=== PATIENT | female | born 1955 | race Caucasian/White ===

== ENCOUNTER → 2020-05-27 13:25 | Outpatient (CLI) | payer OTHER, SELFPAY ==
[2020-05-27 14:43] LABS: Coronavirus 19 IgG Antibody Negative (Negative); Coronavirus 19 IgM Antibody Negative (Negative)
== END ==
PROVIDERS: Visit Provider Internal Medicine Gastroenterology
DX: Z01.818 Encounter for other preprocedural examination (principal); Z20.822 Contact with and (suspected) exposure to COVID-19; Z13.810 Encounter for screening for upper gastrointestinal disorder; Z12.11 Encounter for screening for malignant neoplasm of colon
CPT/HCPCS: 36415; 86328

== ENCOUNTER 2020-05-28 10:55 | Day surgery (SDC) | payer OTHER, SELFPAY ==
[2020-05-26 12:45] VITALS: BMI 25.0
[2020-05-28] VITALS (7 sets, daily range): BP systolic 86–126; BP diastolic 47–79; PULSE 50–60; RESP 16–18; TEMP 36.4–36.6; O2SAT 96–97
--- NOTE | 2020-05-28 12:05 | P.PN_ITS ---
[facility] Anesthesia Checklist - Structural Data Admitted From: Home Planned Operative Procedure/s: egd,colonoscopy Consent for Planned Operative Procedure(s) Verified: Yes - Additional verifications Anesthesia Reactions: No - Airway Assessment C-Spine Mobility Assessed: Yes TMJ Mobility Assessed: Yes Dentition: Dentures-good fit - Neurological Assessment Level of Consciousness: Awake, Alert, Appropriate - Anesthesia Plan Anesthesia Risk discussed: Yes Anesthesia Plan: Verified ASA Class: II Anesthesia Type: MAC [facility] History I have reviewed the patient's past medical history: Yes Medical History: Reports:: Arrhythmia, Gastroesophageal Reflux Disease(GERD) Denies:: Cancer, Diabetes Mellitus Type 1, Diabetes Mellitus Type 2, Internal Pacemaker, Lung Disease, MRSA, Seizures *Have you ever received a pneumonia vaccine?: No *Have you received a flu vaccine this season?: No Anesthesia experience/problems:: none Other Surgeries: No: Pacemaker Amputation: No Fractures: Yes (foot) - *Social History Last grade of school completed: Some college Smoking Status: Current every day smoker Tobacco Type: cigarettes # Packs/Day (cigarettes): 1 Alcohol Intake: never Substance Use Type: denies use *Occupational Status:: employed Housing: house Household Members: none *Travel in the last 8 weeks: None Family Hx:: Cancer, Coronary Artery Disease, Heart Attack
--- NOTE | 2020-05-28 12:17 | P.PCN_ITS ---
[facility] Procedure Note Procedure Note:: Upper Endoscopy Procedure Report: Esophagogastroduodenoscopy with cold biopsies Endoscopost: Justin Toth II, MD Referring Physician: Elijah Wooten MD Date of Procedure: May 28, 2020 Equipment: Olympus GIF 190 standard upper endoscope Sedation: MAC sedation Indications: Mrs. Myers is a 64-year-old female who has had upper abdominal extreme bloating and upper abdominal discomfort with dyspepsia. She has had moderate early satiety. She reports nausea and minor belching. Her occasional heartburn and reflux is controlled with the use of Tums or Prilosec when necessary. She has had prior cholecystectomy 4 to 5 years ago (nonfunctioning gallbladder). She also has some chronic constipation and has a bowel movement 2-3 times weekly. She also has a history of H. pylori diagnosed 3 to 4 years ago. The patient reports no dysphagia or globus sensation. She did have a colonoscopy with me in March 2018. Procedure: Prior to the procedure, a history and physical exam was performed, and patient's medications and allergies were reviewed. The risks, benefits and alternatives of the sedation and procedure were discussed with the patient. All questions were answered and informed consent was obtained. The patient was brought to the procedure room. Patient identification and proposed procedure were verified by the physician and the nurse. The patient was placed in a left lateral decubitus position and the scope was passed under direct vision. Throughout the procedure, the patient's blood pressure, pulse, and oxygen saturations were monitored continuously. The upper GI endoscopy was accomplished without difficulty. The patient tolerated the procedure well. Findings: The scope was passed directly into the upper esophagus and advanced to the third portion of the duodenum. The post bulbar duodenum and duodenal bulb were normal with normal mucosa and conniventes. The scope was withdrawn through a normal duodenal bulb and pylorus into the stomach. There was moderate bile reflux with moderate linear reactive gastropathy of the antrum and body of the stomach. The remainder of the fundus of the stomach were grossly normal. Upon retroflexion there was a small 2 cm hiatal hernia. 2 biopsies were taken in the antrum and along the lesser curvature for histology to rule out gastritis and/or H pylori. The scope was then withdrawn into the esophagus. There was a serrated Z-line and evidence of of nonerosive GERD. A biopsy was taken at the GE junction. There was no evidence of reflux esophagitis or Avendaño's. There were tertiary contractions and evidence of mild esophageal dysmotility. The remainder of the esophageal mucosa was normal. Impression: 1. Nonerosive GERD with mild esophageal dysmotility and small 2 cm hiatal hernia 2. Bile reflux with moderate linear reactive gastropathy Plan: I will follow-up the biopsies. 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 I will discuss treatment options. I will proceed with diagnostic colonoscopy.
--- NOTE | 2020-05-28 12:39 | P.PCN_ITS ---
[facility] Procedure Note Procedure Note:: Colonoscopy Procedure Report: Colonoscopy with cold snare polypectomy Endoscopist: Justin Toth II, MD Referring physician: Elijah Wooten MD Date of Procedure: May 28, 2020 Equipment: Olympus 190 variable stiffness pediatric colonoscope Sedation: MAC sedation Indication: Mrs. Myers is a 64-year-old female who is here for diagnostic colonoscopy. She has had extreme bloating in the upper abdomen with epigastric discomfort and dyspepsia. She also has constipation and may have a bowel movement 2 or 3 times weekly. She does have some early satiety but no weight loss. She reports no rectal bleeding. Her mother had colon cancer in her early 40s. The patient did have a colonoscopy in March 2018 and had 4 polyps (tubular adenomas x4) which were removed. Procedure: Prior to the procedure, a history and physical exam was performed, and patient's medications and allergies were reviewed. The risks, benefits and alternatives of the sedation and procedure were discussed with the patient. All questions were answered and informed consent was obtained. The patient was brought to the procedure room. Patient identification and proposed procedure were verified by the physician and the nurse. The patient was placed in a left lateral decubitus position and the scope was passed under direct vision. Throughout the procedure, the patient's blood pressure, pulse, and oxygen saturations were monitored continuously. The colonoscopy was accomplished without difficulty. The patient tolerated the procedure well. Findings: On digital rectal examination there was normal rectal tone. There were no external hemorrhoids. The colonoscope was introduced through the anal canal to the rectum and advanced to the cecum. The ileocecal valve and appendiceal orifice were identified. The scope was advanced a short distance into the ileum which appeared grossly normal. The scope was then withdrawn into the colon. There were a total of 5 colon polyps (ascending x1 (3 mm), transverse x1 (5 mm), descending x2 (3 and 5 mm) and sigmoid x1 (8 mm)) which were all removed via cold snare polypectomy. The remaining cecum, ascending, transverse, descending, sigmoid and rectum were grossly normal. There were no mucosal abnormalities identified. Upon retroflexion within the rectum there were grade 1-2 internal hemorrhoids.The preparation was excellent throughout with [place] Preparation Score of 9. The cecal time was 14 minutes. Impression: 1. Colonic polyps x5 2. Grade 1-2 internal hemorrhoids Plan: I will follow up the polyp histology and recommend repeat screening/surveillance colonoscopy again in 3 years based upon the number and size of adenomatous polyps and her family history. I would encourage a fiber bowel regimen (combined MiraLAX plus Konsyl) on a long-term daily maintenance basis.
== END 2020-05-28 13:45 | disposition home or self-care (01) ==
LOC: OUTP 10:59
PROVIDERS: PCP Family Medicine; Visit Provider Internal Medicine Gastroenterology
PROC: 0DJ08ZZ Inspection of Upper Intestinal Tract, Via Natural or Artificial Opening Endoscopic (ICD-10-PCS; CPT 43235; principal; 2020-05-28 12:00)
DX: K21.9 Gastro-esophageal reflux disease without esophagitis (principal); K22.4 Dyskinesia of esophagus; K63.5 Polyp of colon; K64.0 First degree hemorrhoids; K44.9 Diaphragmatic hernia without obstruction or gangrene; K31.9 Disease of stomach and duodenum, unspecified; Z80.0 Family history of malignant neoplasm of digestive organs; Z86.010 Personal history of colon polyps; Z90.49 Acquired absence of other specified parts of digestive tract; I49.9 Cardiac arrhythmia, unspecified; Z82.49 Family history of ischemic heart disease and other diseases of the circulatory system; Z88.2 Allergy status to sulfonamides
CPT/HCPCS: 45385; 43239

== ENCOUNTER → 2023-12-27 10:47 | Day surgery (SDC) | payer MEDICARE, SELFPAY ==
[2023-12-25 13:37] VITALS: BMI 25.8
[2023-12-27 11:13] VITALS: BP 135/69; PULSE 64; RESP 16; TEMP 36.3; O2SAT 98
[2023-12-27] MEDS: LACTATED RINGERS 1000ML 1,000 ML 25 ML IV (11:18)
--- NOTE | 2023-12-27 11:25 | EXP.ANES.CKL ---
[facility] Disclaimer: The information contained in this section may have been updated after the patient was seen, as this information can be updated by other users. Medical History COPD (chronic obstructive pulmonary disease) Atrial fibrillation Arrhythmia Surgical History History of colonoscopy with polypectomy Family History Other Family history of breast cancer Family history of colon cancer Social History Smoking Status: Current every day smoker tobacco type: cigarettes packs per day: 1 second hand exposure: Yes alcohol intake: never substance use type: denies use current occupational status: employed Travel in the last 8 weeks: None household members: none housing: house caffeine: No [facility] Anesthesia Checklist Patient Identification Patient Identification: Verbal (Name & ) Structural Data Admitted From: Home Planned Operative Procedure/s: egd,colonoscopy Consent for Planned Operative Procedure(s) Verified: Yes NPO Status Verified Time NPO: 00:00 Additional verifications Anesthesia Reactions: No Airway Assessment Mallampati Score:: Class II C-Spine Mobility Assessed: Yes TMJ Mobility Assessed: Yes Dentition: Dentures-good fit Neurological Assessment Level of Consciousness: Awake, Alert and Appropriate Anesthesia Plan Anesthesia Risk discussed: Yes Anesthesia Plan: Verified ASA Class: III Anesthesia Type: MAC
[2023-12-27 12:20] VITALS: O2SAT 98
--- NOTE | 2023-12-27 12:29 | EXP.HP ---
History of Present Illness *Admission Date: 12/27/23 *Reason for visit:: Fullness/bloating and surveillance for personal history of adenomatous colo *History of present illness: Mrs. Myers is a 68-year-old female who is here for EGD secondary to fullness and bloating and colonoscopy secondary to personal history of adenomatous colon polyps. The examination is deemed medically necessary for EGD/colonoscopy. The patient has been seen, interviewed and examined prior to the procedure by both myself and the anesthesia provider. [facility] Disclaimer: The information contained in this section may have been updated after the patient was seen, as this information can be updated by other users. Medical History (Updated 12/27/23 @ 12:30 by Justin Toth II, MD) COPD (chronic obstructive pulmonary disease) Atrial fibrillation Arrhythmia Surgical History History of colonoscopy with polypectomy Family History Other Family history of breast cancer Family history of colon cancer Social History Smoking Status: Current every day smoker tobacco type: cigarettes packs per day: 1 second hand exposure: Yes alcohol intake: never substance use type: denies use current occupational status: employed Travel in the last 8 weeks: None household members: none housing: house caffeine: No Other Medical History Have you received the Flu Vaccine for this season: No Have you received the Pneumonia Vaccine: No Review of Systems Review of Systems Review of systems (narrative): Negative *Cardiovascular Comments: Negative *Gastrointestinal Comments: Negative *Genitourinary Comments: Negative *Musculoskeletal Comments: Negative *Neurologic Comments: Negative Meds Home Medications and Allergies Home Medications ?Medication ?Instructions ?Recorded ?Confirmed ?Type hydrocodone 5 mg-acetaminophen 325 1 tab PO BID PRN pain 05/26/20 12/27/23 History mg tablet metoprolol succinate 25 mg 25 mg PO BID blood pressure 05/26/20 12/27/23 History tablet,extended release 24 hr clopidogrel 75 mg tablet (Plavix) 75 mg PO DAILY 12/25/23 12/27/23 History New Prescriptions to Start Prescriptions: Allergies Allergy/AdvReac Type Severity Reaction Status Date / Time cephalexin [From Keflex] Allergy Rash Verified 12/27/23 11:11 codeine Allergy Rash Verified 12/27/23 11:11 metronidazole [From Flagyl] Allergy Rash Verified 12/27/23 11:11 sulfamethoxazole Allergy Rash Verified 12/27/23 11:11 [From Bactrim] trimethoprim [From Bactrim] Allergy Rash Verified 12/27/23 11:11 Exam Data for Last 24 hours Vital signs and Labs for Last 24 Hours: Temp Pulse Resp BP Pulse Ox O2 Del Method 97.4 F L 64 16 135/69 98 Room Air 12/27/23 11:13 12/27/23 11:13 12/27/23 11:13 12/27/23 11:13 12/27/23 11:13 12/27/23 11:13 I & O for Last 24 hours: Intake & Output 12/24/23 12/25/23 12/26/23 12/27/23 23:59 23:59 23:59 23:59 Weight 170 lb *Routine HEENT Exam Head: Present normocephalic Eye: Present EOMI and PERRL ENT: Present mucous membranes moist *Routine Neck Exam Neck: Present supple *Routine Respiratory Exam Respiratory: Present CTA bilaterally *Routine Cardiovascular Exam Cardiovascular: Present RRR *Routine Abdominal Exam Abdominal: Present soft and normoactive bowel sounds; Absent tenderness *Routine Rectal Exam Rectal:: deferred *Routine Genitalia Exam Genitalia:: deferred *Routine Extremities Exam Extremities: Absent cyanosis, clubbing or edema *Routine Skin Exam Skin: Present warm; Absent rash *Routine Neurological Exam Neurological: Present alert and oriented X3 Assessment and Plan *Assessment and plan (1) Early satiety: Status: Acute Category: Medical Code(s): R68.81 - Early satiety (2) Bloating: Status: Acute Category: Medical Code(s): R14.0 - Abdominal distension (gaseous) (3) Personal history of adenomatous and serrated colon polyps: Status: Acute Category: Medical Code(s): Z86.0101 - Personal history of adenomatous and serrated colon polyps Plan A/P: 1. Bloating/fullness/early satiety and personal history of adenomatous colon polyps is the preprocedural diagnosis. The patient will be anesthetized/sedated using MAC sedation. The patient has been seen and examined. Cardiac and lung assessment prior to the examination is stable. Proceed with planned EGD and colonoscopy
--- NOTE | 2023-12-27 12:40 | HMH.PROCNOTE ---
[facility] Procedure Note Date: 12/27/23 Time: 12:41 Procedure Note:: Upper Endoscopy Procedure Report: Esophagogastroduodenoscopy with cold biopsies and TTS balloon dilation Endoscopost: Justin Toth II, MD Referring Physician: Elijah Wooten MD Date of Procedure: December 27, 2023 Equipment: Olympus GIF 190 standard upper endoscope Sedation: MAC sedation Indications: Mrs. Myers is a 68-year-old female who is here for diagnostic upper endoscopy secondary to moderate fullness, early satiety and bloating. She reports no nausea, gassiness or belching. She has had no weight loss. She does get some intermittent dysphagia. Procedure: Prior to the procedure, a history and physical exam was performed, and patient's medications and allergies were reviewed. The risks, benefits and alternatives of the sedation and procedure were discussed with the patient. All questions were answered and informed consent was obtained. The patient was brought to the procedure room. Patient identification and proposed procedure were verified by the physician and the nurse. The patient was placed in a left lateral decubitus position and the scope was passed under direct vision. Throughout the procedure, the patient's blood pressure, pulse, and oxygen saturations were monitored continuously. The upper GI endoscopy was accomplished without difficulty. The patient tolerated the procedure well. Findings: The scope was passed directly into the upper esophagus and advanced to the third portion of the duodenum. The post bulbar duodenum and duodenal bulb were normal with normal mucosa and conniventes. The scope was withdrawn through a normal duodenal bulb and pylorus into the stomach. There was bile reflux with mild to moderate linear reactive gastropathy of the antrum and body. The remainder of the antrum, body and fundus of the stomach were grossly normal. Upon retroflexion there was a medium sized 3 to 4 cm hiatal hernia. 2 biopsies were taken in the antrum and along the lesser curvature for histology to rule out gastritis and/or H pylori. The scope was then withdrawn into the esophagus. There was no evidence of reflux esophagitis or Avendaño's. There was a distal ring. There was also some concentric rings in the esophagus but did not meet criteria grossly for eosinophilic esophagitis. Biopsies were taken proximally to rule out eosinophilic esophagitis. The esophagus was dilated gently up to 18 mm with fracturing of the ringlike esophageal stenosis. The remainder of the esophageal mucosa was normal. Impression: 1. 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 Bile reflux with mild to moderate linear reactive gastropathy 3. Medium sized 3 to 4 cm hiatal hernia Plan: I will follow-up the biopsies. I will discuss the findings with the patient and family. We will discuss treatment options for her fullness, early satiety and bloating. I will proceed with surveillance colonoscopy.
--- NOTE | 2023-12-27 12:59 | HMH.PROCNOTE ---
[facility] Procedure Note Date: 12/27/23 Time: 12:59 Procedure Note:: Colonoscopy Procedure Report: Colonoscopy with cold snare polypectomy Endoscopist: Justin Toth II, MD Referring physician: Elijah Wooten MD Date of Procedure: December 27, 2023 Equipment: Olympus 190 variable stiffness pediatric colonoscope Sedation: MAC sedation Indication: Mrs. Myesr is a 68-year-old female who is here for follow-up surveillance colonoscopy. The patient's mother had colon cancer in her early 40s. The patient had a colonoscopy in March 2018 and had 4 polyps (tubular adenomas x 4) removed. Her last colonoscopy in May 2020 revealed 5 diminutive polyps (tubular adenomas x 5) which were removed. The patient does have some bloating and fullness. She reports no rectal bleeding, abdominal pain, weight loss. She does have some chronic constipation for which she takes [id number] Ex-Lax and Dulcolax. Procedure: Prior to the procedure, a history and physical exam was performed, and patient's medications and allergies were reviewed. The risks, benefits and alternatives of the sedation and procedure were discussed with the patient. All questions were answered and informed consent was obtained. The patient was brought to the procedure room. Patient identification and proposed procedure were verified by the physician and the nurse. The patient was placed in a left lateral decubitus position and the scope was passed under direct vision. Throughout the procedure, the patient's blood pressure, pulse, and oxygen saturations were monitored continuously. The colonoscopy was accomplished without difficulty. The patient tolerated the procedure well. Findings: On digital rectal examination there was normal rectal tone. There were no external hemorrhoids. The colonoscope was introduced through the anal canal to the rectum and advanced to the cecum. The ileocecal valve and appendiceal orifice were identified. The scope was advanced a short distance into the ileum which appeared grossly normal. The scope was then withdrawn into the colon. There were 4 colon polyps (ascending x 2 (3 and 4 mm) and transverse x 2 (5 and 6 mm)). These were removed via cold snare polypectomy. The remaining cecum, ascending, transverse, descending, sigmoid and rectum were grossly normal. There were no mucosal abnormalities identified. Upon retroflexion within the rectum there were grade 1-2 internal hemorrhoids.The preparation was fair throughout with [place] Preparation Score of 7 out of 9 with some hulls/plant residue. The cecal time was 13 minutes. Impression: 1. Diminutive colonic polyps x 4 Plan: I will follow-up the polyp histology and recommend repeat surveillance colonoscopy again in 5 years based upon family history and personal history of adenomatous colon polyps. I would encourage a fiber bowel regimen (combined MiraLAX plus Citrucel) on a long-term daily maintenance basis.
[2023-12-27 13:07] VITALS: BP 106/60; PULSE 61; RESP 14; TEMP 36.2; O2SAT 99
[2023-12-27 13:17] VITALS: BP 96/64; PULSE 59; RESP 16; O2SAT 99
== END | disposition home or self-care (01) ==
PROVIDERS: PCP Family Medicine; Visit Provider Internal Medicine Gastroenterology
PROC: 0DJ08ZZ Inspection of Upper Intestinal Tract, Via Natural or Artificial Opening Endoscopic (ICD-10-PCS; CPT 43235; principal; 2023-12-27 13:00)
DX: R68.81 Early satiety (principal); R14.0 Abdominal distension (gaseous); Z86.0101 Personal history of adenomatous and serrated colon polyps; R13.10 Dysphagia, unspecified; K22.2 Esophageal obstruction; K44.9 Diaphragmatic hernia without obstruction or gangrene; K31.9 Disease of stomach and duodenum, unspecified; D12.2 Benign neoplasm of ascending colon; D12.3 Benign neoplasm of transverse colon; K64.8 Other hemorrhoids
CPT/HCPCS: 43239; 43249; 45385; C1726; J2704; J7120

== ENCOUNTER 2024-01-29 21:52 | Observation (INO) | payer MEDICARE, SELFPAY ==
[2024-01-29 22:00] VITALS: BP 139/69; PULSE 53; RESP 18; TEMP 36.7; O2SAT 100
[2024-01-29 22:19] VITALS: BMI 26.1
[2024-01-29 22:51] VITALS: PULSE 50
[2024-01-29] MEDS: NICOTINE 21MG/24HR PATCH 21 MG TD (23:04)
--- NOTE | 2024-01-29 23:11 | P.HP_ITS ---
History of Present Illness *Admission Date: 01/29/24 *Reason for visit:: Angina transfer from [facility] *History of present illness: [facility] contacted Dr. Talamantes. 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 She had come into the emergency room after having chest discomfort tightness all day actually left work because of it. I spoke with the ER physician Dr. Landin about the patient. Patient was stable still having some anginal pain was given nitroglycerin paste. He noted that the patient was stable that troponins were 0. He also noted on the EKG no ST elevations but did have inverted T waves. he let me know that he had spoken with Dr. Talamantes who has plans to see her in the morning and potentially cath. Patient has arrived to the floor and on assessment patient denies any chest pain at this time. Ms. Myers, has a history of being more than a [id number] history smoker. Also has intermittent A-fib on Plavix. She also had a chest x-ray that showed no acute findings. And there was no significant lab abnormalities. That includes a negative D-dimer. Patient past history includes cholecystectomy hysterectomy several different bladder surgeries. Also recently had a gastric biopsy in December done by Dr. Toth. Patient noted history of having a lot of abdominal discomfort especially after eating. Patient also has a history of approximately 3 months ago having a syncopal spell at work. While being lowered to the ground by another person ended up fracturing a few ribs. Patient was scheduled for workup but for some reason it was canceled. That has never been followed up on it has only been a one-time event of syncope [facility] Disclaimer: The information contained in this section may have been updated after the efren best was seen, as this information can be updated by other users. Medical History (Updated 01/30/24 @ 11:13 by Cindy Waite APRN) Bradycardia Tobacco dependency Intermittent atrial fibrillation Gastroenteritis Personal history of adenomatous and serrated colon polyps Syncope COPD (chronic obstructive pulmonary disease) Atrial fibrillation Arrhythmia Surgical History (Updated 01/29/24 @ 23:21 by Alexandre Alvarenga APRN) History of hysterectomy History of cholecystectomy History of bladder surgery History of colonoscopy with polypectomy Family History Family history of colon cancer Family history of breast cancer Social History Smoking Status: Current every day smoker tobacco type: cigarettes packs per day: 1 second hand exposure: Yes alcohol intake: never substance use type: denies use current occupational status: employed Travel in the last 8 weeks: None household members: none housing: house caffeine: No Other Medical History Have you received the Flu Vaccine for this season: No Have you received the Pneumonia Vaccine: No Review of Systems Review of Systems Review of systems:: pertinent systems reviewed and negative unless documented below Constitutional Constitutional: Reports as per HPI Eyes Eyes: Reports as per HPI ENT Ears, Nose, Mouth, and Throat: Reports as per HPI *Cardiovascular Cardiovascular: Reports chest pain, Reports chest pain at rest and Reports chest pain with activity *Respiratory Respiratory: Reports as per HPI Comments: 37-year-old smoker but not have any issues at the present time *Gastrointestinal Gastrointestinal: Reports abdominal pain, Reports belching and Reports heartburn *Genitourinary Genitourinary: Reports as per HPI Comments: Patient noted she did not have any particular problem but has had multiple bladder surgeries and slings *Musculoskeletal Musculoskeletal: Reports as per HPI Integumentary/Breasts Skin/Breast: Reports as per HPI *Neurologic Neurologic: Reports as per HPI Psychiatric Psychiatric: Reports as per HPI Endocrine Endocrine: Reports as per HPI Hematologic/Lymphatic Hematologic/Lymphatic: Reports as per HPI Allergic/Immunologic Allergic/Immunologic: Reports as per HPI Meds Home Medications and Allergies Home Medications ?Medication ?Instructions ?Recorded ?Confirmed ?Type hydrocodone 5 mg-acetaminophen 325 1 tab PO TIDP PRN PAIN (MODERATE 05/26/20 01/30/24 History mg tablet 4-7) metoprolol succinate 25 mg 25 mg PO DAILY 05/26/20 01/30/24 History tablet,extended release 24 hr clopidogrel 75 mg tablet (Plavix) 75 mg PO DAILY 12/25/23 01/30/24 History nitroglycerin 0.4 mg sublingual 0.4 mg sublingual NEEDED PRN 01/30/24 01/30/24 History tablet Chest Pain New Prescriptions to Start Prescriptions: Allergies Allergy/AdvReac Type Severity Reaction Status Date / Time cephalexin (From Keflex) Allergy Rash Verified 12/27/23 11:11 codeine Allergy Rash Verified 12/27/23 11:11 metronidazole (From Flagyl) Allergy Rash Verified 12/27/23 11:11 sulfamethoxazole (From Allergy Rash Verified 12/27/23 11:11 Bactrim) trimethoprim (From Bactrim) Allergy Rash Verified 12/27/23 11:11 Exam Data for Last 24 hours Vital signs and Labs for Last 24 Hours: Temp Pulse Resp BP Pulse Ox O2 Del Method 98.0 F 53 L 18 139/69 100 Room Air 01/29/24 22:00 01/29/24 22:00 01/29/24 22:00 01/29/24 22:00 01/29/24 22:00 01/29/24 23:00 I & O for Last 24 hours: Intake & Output 01/27/24 01/28/24 01/29/24 01/30/24 05:59 05:59 05:59 05:59 Output Total 300 / 300 Balance -300 / -300 Weight 171 lb 9.6 oz Radiology Reports for the Last 24 Hours: Chest x-ray no acute findings Narrative: EKG inverted T waves no ST elevation Constitutional Constitutional: no acute distress *Routine HEENT Exam Head: Present normocephalic and atraumatic Eye: Present EOMI and PERRL ENT: Present mucous membranes moist *Routine Neck Exam Neck: Present supple and full ROM Routine Chest/Breast/Axilla Exam Comments: No chest wall tenderness was found *Routine Respiratory Exam Respiratory: Present decreased breath sounds, CTA bilaterally, normal respiratory effort, able to speak in complete sentences and symmetric chest movement *Routine Cardiovascular Exam Cardiovascular: Present RRR, Normal S1, Normal S2 and bradycardia Comments: Brisk capillary refill to all distal extremities turgor is poor but has normal colored skin no signs of any hypoxia found or significant edema *Routine Abdominal Exam Abdominal: Present soft, normoactive bowel sounds and tenderness (Right upper quadrant pain to palpation) *Routine Rectal Exam Rectal:: deferred *Routine Genitalia Exam Genitalia:: deferred *Routine Extremities Exam Extremities: Present normal capillary refill Comments: Normal extremity exam, but poor turgor to the lower extremities Routine Back/Spine/Pelvis Exam Back/Spine: Present full ROM Comments: No tenderness found upon examination of the back able to move sit to stand without any difficulty *Routine Skin Exam Skin: Present intact Comments: No signs of any open wounds with the skin. Only noted for right knee having an area at the lateral meniscus that has a round bruised area *Routine Neurological Exam Neurological: Present alert, oriented X3, CN II-XII intact, normal reflexes, vision grossly intact, hearing grossly intact, facial asymmetry and normal spee ch Comments: No neurological deficits found Routine Psychiatric Exam Psychiatric: Present normal affect, normal thought process, good insight, good judgment and depressed H&P: Result Impressions 1. Unstable angina 2. Intermittent A-fib 3. COPD with 35 pack years of smoking still smoking 4. Chronic gastric issues with discomfort Imaging and Cardiology CT scan - chest: Additional comments: No acute finding on chest film Assessment and Plan *Assessment and plan (1) Unstable angina: Status: Acute Category: Medical Code(s): I20.0 - Unstable angina (2) Abnormal EKG: Status: Acute Category: Medical Code(s): R94.31 - Abnormal electrocardiogram [ECG] [EKG] (3) Intermittent atrial fibrillation: Status: Acute Category: Medical Code(s): I48.0 - Paroxysmal atrial fibrillation (4) Bradycardia: Status: Acute Category: Medical Code(s): R00.1 - Bradycardia, unspecified (5) Tobacco dependency: Status: Acute Category: Medical Code(s): F17.200 - Nicotine dependence, unspecified, uncomplicated (6) Bloating: Status: Acute Category: Medical Code(s): R14.0 - Abdominal distension (gaseous) (7) Early satiety: Status: Acute Category: Medical Code(s): R68.81 - Early satiety (8) Abdominal pain: Status: Acute Category: Medical Code(s): R10.9 - Unspecified abdominal pain Plan 1. For unstable angina the abnormal EKG and the intermittent fibrillation have consulted Dr. Talamantes, from report from ER physician that catheterization is p lanned for tomorrow. Patient is noted being stable at this time not having any chest pain, heart rate 54 and regular not in A-fib on the monitor. Will continue to monitor troponins throughout the night every 3 hours. And be aware if there is any monitor changes to repeat twelve-lead EKG. 2. Abnormal EKG in the past, intermittent atrial fibs patient gives a history that anytime she has surgery she goes into A-fib but converts on her own and goes back to sinus 3. Tobacco dependency: Patient says she is tries to and wants to quit but just has not been able to. Presently her respiratory status is very good on room air. I have ordered a DuoNeb if she starts to have angina again to give the do but DuoNeb to see if maybe this chest wall pain could be an unexpected respiratory consequence 4. Chronic abdominal pain/gastritis, will place patient on Pepcid twice daily by IV., This is a chronic problem is not giving her trouble at this time but also the stomach can refer pain to the chest, but as noted the patient is totally asymptomatic at the present time and she was able to eat about a half a sandwich on arrival. It is noted that anytime to palpation over the right upper quadrant she does have quite a bit of tenderness. Rounded on patient after nurse practitioner. Personally examined and interviewed patient. Agree with exam findings and care plan as documented. Case was discussed with ER physician, request admission due to unstable angina. Medicine agreed to admit for further management. Personally reviewed EKG showing no ischemic changes. Serial troponins overnight negative. Cardiology to evaluate. CBC, CMP, magnesium ordered for the morning.
[2024-01-29 23:54] LABS: Troponin I < 0.01 ng/ml (0.00-0.034)
[2024-01-29 23:59] VITALS: TEMP 36.4
[2024-01-30] VITALS (20 sets, daily range): BP systolic 87–134; BP diastolic 51–75; PULSE 47–68; RESP 14–20; TEMP 36.6–37; O2SAT 92–98; BMI 25.3
--- NOTE | 2024-01-30 | IR_ITS ---
APPROVED REPORT Patient Location: Inpatient PROCEDURES Left heart catheterization Left ventriculogram Selective coronary angiogram INDICATION Unstable angina Informed consent was obtained prior to the procedure. COMPLICATIONS None Estimated Blood Loss: Less than 10 mls TECHNIQUE One percent lidocaine used to anesthetize the right anterior aspect of the wrist. The right radial artery was accessed via the Seldinger technique. A 6 long 75 cm hydrophilic 6 Macedonian sheath was placed in the right radial artery. 2.5 mg of Verapamil, 800 mcg of nitroglycerin, 1mg Lidocaine and 5000 U Heparin were given through the arterial sheath. The 6 Macedonian JL 3 guide catheter was also used to perform left heart catheterization, left ventriculogram and selective coronary angiogram. At the end of the procedure the sheath was removed good hemostasis was achieved using Traclet band, patient was transferred to the postop holding area in stable condition. ANGIOGRAPHIC RESULTS The left main artery Normal The left anterior descending artery Normal The circumflex artery Normal The right coronary artery Dominant normal The [place] ventriculogram reveals Normal 65% The left ventricular end-diastolic pressure 10 to 15 mmHg IMPRESSION Normal coronary arteries Normal ejection fraction Normal LVEDP PLAN 1. Continue medical management Electronically signed by : Clay Talamantes MD 01/30/2024 13:51:40
[2024-01-30 02:26] LABS: Troponin I < 0.01 ng/ml (0.00-0.034)
[2024-01-30 05:46] LABS: Basophils # 0.1 K/mm3 (0-0.2); Eosinophils # 0.2 K/mm3 (0.0-0.4); Eosinophils % 3.5 % (0.1-12.0); Hematocrit 39.1 % (37.0-47.0); Hemoglobin 13.6 g/dL (12.2-16.2); Lymphocytes # 1.8 K/mm3 (0.7-4.5); Lymphocytes % 31.7 % (10-50); Mean Corpuscular HGB Conc 34.7 g/dL (31.8-35.4); Mean Corpuscular Hemoglobin 31.4 pg (27.0-31.2); Mean Corpuscular Volume 90.5 fl (81-99); Mean Platelet Volume 8.3 fl (7.4-10.4); Monocytes # 0.5 K/mm3 (0.1-1.0); Neutrophils # 3.2 K/mm3 (1.8-7.8); Neutrophils % 54.8 % (37.0-80.0); Platelet Count 166 K/mm3 (142-424); Red Blood Count 4.32 M/mm3 (4.20-5.40); Red Cell Distribution Width 14.7 % (11.5-17.5); White Blood Count 5.8 K/mm3 (4.8-10.8)
[2024-01-30 05:56] LABS: Alanine Aminotransferase 12 U/L (12-78); Albumin Level 2.9 g/dl (3.5-5.0); Albumin/Globulin Ratio 1.5 (1.1-1.8); Alkaline Phosphatase 49 U/L (38-126); Anion Gap 6.6 mEq/L (5-15); Aspartate Amino Transferase 15 U/L (14-36); Bilirubin,Total 0.8 mg/dl (0.2-1.3); Blood Urea Nitrogen 7 mg/dl (7-17); Calcium 8.5 mg/dl (8.4-10.2); Carbon Dioxide 25 mmol/L (22.0-30.0); Chloride 114 mmol/L (98-107); Creatinine Clearance Estimated 66 mL/min (50-200); Estimated Glomerular Filt Rate 100 ml/min (>60); GFR (African American) 121 ML/MIN (>60); Globulin 1.9 g/dL (1.3-3.2); Glucose 82 mg/dl (74-100); Magnesium 1.9 mg/dl (1.6-2.3); Potassium 3.6 mmoL/L (3.5-5.1); Sodium 142 mmol/L (136-145); Total Protein,Serum 4.8 g/dl (6.3-8.2)
--- NOTE | 2024-01-30 06:01 | ECG_ITS ---
APPROVED REPORT Exam: Resting ECG HR:49 bpm ECG Measurements Heart Rate 49 AXES ME 152 P 58 QRSd 174 QRS 268 QT 482 T 5 QTc 453 Conclusion SINUS BRADYCARDIA INDETERMINATE AXIS RIGHT BUNDLE BRANCH BLOCK [120+ ms QRS DURATION, UPRIGHT V1, 40+ ms S IN I/aVL/V4/V5/V6] ABNORMAL ECG UNCONFIRMED REPORT Electronically signed by : Jose Raul Bonner MD 01/30/2024 10:28:31
[2024-01-30 06:22] LABS: Troponin I < 0.01 ng/ml (0.00-0.034)
[2024-01-30 07:36] LABS: Lactate Venous 0.8 mmol/L (0.4-2.0); VBG Base Excess -3.4 mmol/L (-2.4-2.3); VBG Oxygen Saturation 97.6 % (50-70); VBG PCO2 32.6 mmol/L (35-51); VBG PH 7.43 mmol/L (7.31-7.41); VBG PO2 90.4 mmol/L (28-40)
--- NOTE | 2024-01-30 07:47 | HMH.PHAINT1 ---
Pharmacy Intervention Comments: HOME MEDICATIONS VERIFIED VIA OUTPATIENT PHARMACY AND PATIENT INTERVIEW
[2024-01-30] MEDS: SODIUM CHLORIDE 0.9% 10ML VIAL 10 ML IV (08:43)
[2024-01-30] MEDS: CLOPIDOGREL 75MG TAB 75 MG PO (08:43)
[2024-01-30] MEDS: PANTOPRAZOLE 40MG VIAL 40 MG IV ×2 (08:43→19:59)
--- NOTE | 2024-01-30 09:24 | CA_ITS ---
APPROVED REPORT EXAM: Comprehensive 2D, Doppler, and color-flow Echocardiogram Incident Response Specialist: Rebecca Lockwood, RT(R) Ht: 5 ft 9 in Wt: 167lbs BSA: 1.91 BP: 139/69 mmHg Indications: angina, CP, COPD, smoker, hx AFIB, abn EKG, bradycardia 2D Dimensions Left Atrium 3.15 cm F: 2.7 - 3.8 LVEF (Hein's) 65.90 % F: 54 - 74 LVOT 1.97 cm (M/F) 1.5-2.5 LV Volume 95.20 mL F: 46 - 106 LV Volume Index 49.8 mL/m2 F: 29 - 61 LA Volume 30.20 mL LA Volume Index 15.81 mL/m2 (M/F) 16-34 EF AP4 60.70 % EF AP2 67.6 % EF BP 65.9 % GL Strain -22.6 % M-Mode Dimensions RVDd 2.89 cm (0.9-2.6) LVDd 4.66 cm (3.5-5.7) Ao Diam 2.91 cm (2.0-3.7) LVDs 3.21 cm (3.5-5.7) IVSd 0.76 cm (0.6-1.1) PWd 0.76 cm (0.6-1.1) EF (Teich) 58.80% FS 31.10% EDV (Teich) 100.30 mL ESV (Teich) 41.30 mL LV Diastology E Decel Time 244 (160-240 msec) E/A Ratio 1.2 Aortic Valve LVOT Max 114.0 (70-110 cm/s) AZAR Index 1.50 cm2/m2 LVOT VTI 28.86 cm AoV Peak John. 125.0 (50-130 cm/s) AO Mean GR. 3.10 (<5 mmHg) AO VTI 30.7 (18-25 cm) AZAR (VTI) 2.87 (2.5-4.5 cm2) Mitral Valve MV E Max John. 95.0 (40-130 cm/s) MV A Velocity 77.0 (40-130 cm/s) E/A Ratio 1.24 MV Decel. Time 244 (160-240 ms) Left Ventricle The left ventricle is normal size. The left ventricular systolic function is normal. The left ventricular ejection fraction is within the normal range. There is increased LV wall thickness. There is normal LV segmental wall motion. The left ventricular diastolic function is normal. LVEF is 55%. Right Ventricle Right ventricle is mildly dilated. The right ventricular systolic function is normal. Atria The left atrium size is normal. The right atrium size is normal. There is no Doppler evidence of interatrial shunt. Aortic Valve The aortic valve is mildly thickened. There is no aortic valvular stenosis. Trace aortic regurgitation. Mitral Valve The mitral valve is normal in structure. No evidence of mitral valve stenosis. Trace mitral regurgitation. Tricuspid Valve The tricuspid valve leaflets are thin and pliable. Trace tricuspid regurgitation. There is insufficient TR jet to estimate RVSP. Pulmonic Valve The pulmonary valve is normal in structure. Trace pulmonic regurgitation. Great Vessels The aortic root is normal in size. The ascending aorta is normal in size. IVC is normal in size and collapses >50% with inspiration. Pericardium There is no pericardial effusion. Other Information Study Quality: Fair Conclusion Normal biventricular systolic function. Mild RV dilation. No significant valvular stenosis or regurgitation. Electronically signed by : Tiffany Plasencia MD 01/31/2024 01:24:36
[2024-01-30 09:35] LABS: Adenovirus,PCR Not Detected (NotDetected); Bordetella Pertussis Not Detected (NotDetected); Chlamydophila Pneumoniae, PCR Not Detected (NotDetected); Coronavirus 19, PCR Not Detected (NotDetected); Coronavirus 229E Not Detected (NotDetected); Coronavirus NL63 Not Detected (NotDetected); Coronavirus OC43 Not Detected (NotDetected); Coronovirus HKU1,PCR Not Detected (NotDetected); Human Metapneumovirus Not Detected (NotDetected); Influenza A, PCR Not Detected (NotDetected); Influenza AH1, 2009 Not Detected (NotDetected); Influenza AH1, PCR Not Detected (NotDetected); Influenza AH3,PCR Not Detected (NotDetected); Influenza B, PCR Not Detected (NotDetected); Mycoplasma Pneumoniae, PCR Not Detected (NotDetected); Parainfluenza 1, PCR Not Detected (NotDetected); Parainfluenza 2, PCR Not Detected (NotDetected); Parainfluenza 3, PCR Not Detected (NotDetected); Parainfluenza 4, PCR Not Detected (NotDetected); Respiratory Syncytial Virus Not Detected (NotDetected); Rhinovirus/Enterovirus Not Detected (NotDetected)
--- NOTE | 2024-01-30 11:07 | P.CONCA_ITS ---
History of Present Illness History of Present Illness Consult date: 01/30/24 Requesting physician: Alton Monteiro Consult reason: chest pain Chief complaint: chest pain History of present illness: This is a 68-year-old female who was admitted to the hospital from [facility] emergency department due to chest pain. The patient states that she was at work yesterday when she had sudden onset of pressure in the substernal aspect of her chest. It does not radiate. There are no associated symptoms. She states that this was a 10 out of 10 pain. She states that it persisted for approximately 4 hours before she decided to come to the emergency department. She does report having a remote history of passing out approximately 3 months ago as well. She was post to be worked up with cardiology but never went to any of her appointments. The patient states that she has been seen by cardiology in the past and had a heart cath approximately 7 to 8 years ago and was told she had normal heart arteries. She does have paroxysmal atrial fibrillation but she has refused to take NOACs for this historically. 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 She denies any shortness of breath or lower extremity edema. She denies any fever, chills, nausea, vomiting, diarrhea, PND orthopnea. [facility] Disclaimer: The information contained in this section may have been updated after the patient was seen, as this information can be updated by other users. Medical History (Updated 01/30/24 @ 11:13 by Cindy Waite APRN) Bradycardia Tobacco dependency Intermittent atrial fibrillation Gastroenteritis Personal history of adenomatous and serrated colon polyps Syncope COPD (chronic obstructive pulmonary disease) Atrial fibrillation Arrhythmia Surgical History (Updated 01/29/24 @ 23:21 by Alexandre Alvarenga APRN) History of hysterectomy History of cholecystectomy History of bladder surgery History of colonoscopy with polypectomy Family History Other Family history of breast cancer Family history of colon cancer Social History Smoking Status: Current every day smoker tobacco type: cigarettes packs per day: 1 second hand exposure: Yes alcohol intake: never substance use type: denies use current occupational status: employed Travel in the last 8 weeks: None household members: none housing: house caffeine: No Review of Systems Review of Systems Review of systems:: pertinent systems reviewed and negative unless documented below Constitutional Constitutional: Reports system reviewed and no additional complaints, except as documented and Reports lethargy Eyes Eyes: Reports system reviewed and no additional complaints, except as documented ENT Ears, Nose, Mouth, and Throat: Reports system reviewed and no additional complaints, except as documented *Cardiovascular Cardiovascular: Reports system reviewed and no additional complaints, except as documented, Reports chest pain, Reports chest pain at rest, Reports chest pain with activity, Denies diaphoresis and Denies dyspnea *Respiratory Respiratory: Reports system reviewed and no additional complaints, except as documented and Denies dyspnea *Gastrointestinal Gastrointestinal: Reports system reviewed and no additional complaints, except as documented *Genitourinary Genitourinary: Reports system reviewed and no additional complaints, except as documented *Musculoskeletal Musculoskeletal: Reports system reviewed and no additional complaints, except as documented Integumentary/Breasts Skin/Breast: Reports system reviewed and no additional complaints, except as documented *Neurologic Neurologic: Reports system reviewed and no additional complaints, except as documented and Reports as per HPI Psychiatric Psychiatric: Reports system reviewed and no additional complaints, except as documented Endocrine Endocrine: Reports system reviewed and no additional complaints, except as documented Hematologic/Lymphatic Hematologic/Lymphatic: Reports system reviewed and no additional complaints, except as documented Allergic/Immunologic Allergic/Immunologic: Reports system reviewed and no additional complaints, except as documented Exam Data for Last 24 hours Vital signs and Labs for Last 24 Hours: Temp Pulse Resp BP Pulse Ox O2 Del Method 97.8 F 68 20 92/68 L 92 L Room Air 01/30/24 08:00 01/30/24 08:00 01/30/24 08:00 01/30/24 08:00 01/30/24 08:00 01/30/24 09:00 Laboratory Results - last 24 hr 01/29/24 23:14: Troponin I < 0.01 01/30/24 01:45: Troponin I < 0.01 01/30/24 05:27: WBC 5.8, RBC 4.32, Hgb 13.6, Hct 39.1, MCV 90.5, MCH 31.4 H, MCHC 34.7, RDW 14.7, Plt Count 166, MPV 8.3, Neut % (Auto) 54.8, Lymph % (Auto) 31.7, [place] % (Auto) 8.0, Eos % (Auto) 3.5, Baso % (Auto) 2.0, Neut # (Auto) 3.2, Lymph # (Auto) 1.8, [place] # (Auto) 0.5, Eos # (Auto) 0.2, Baso # (Auto) 0.1, Sodium 142, Potassium 3.6, Chloride 114 H, Carbon Dioxide 25, Anion Gap 6.6, BUN 7, Creatinine 0.60, Estimated Creat Clear 66, Estimated GFR 100, Est GFR ( Amer) 121, Glucose 82, Calcium 8.5, Magnesium 1.9, Total Bilirubin 0.8, AST 15, ALT 12, Alkaline Phosphatase 49, Troponin I < 0.01, Total Protein 4.8 L D, Albumin 2.9 L, Globulin 1.9, Albumin/Globulin Ratio 1.5 01/30/24 06:00: VBG pH 7.43 H, VBG pCO2 32.6 L, VBG pO2 90.4 H, VBG HCO3 21.0 L, VBG Total CO2 22.0 L, VBG O2 Saturation 97.6 H, VBG Base Excess -3.4 L, VBG Lactic Acid 0.8 I & O for Last 24 hours: Intake & Output 01/27/24 01/28/24 01/29/24 01/30/24 23:59 23:59 23:59 23:59 Intake Total 240 / 240 Output Total 300 / 300 0 / 0 Balance -300 / -60 240 / 240 Weight 171 lb 9.6 oz 167 lb 1.6 oz Constitutional Constitutional: no acute distress and average body habitus *Routine HEENT Exam Head: Present normocephalic and atraumatic ENT: Present mucous membranes moist *Routine Neck Exam Neck: Present supple, full ROM and normal carotid upstroke; Absent JVD, carotid bruit or lymphadenopathy *Routine Respiratory Exam Respiratory: Present CTA bilaterally, normal respiratory effort, able to speak in complete sentences and symmetric chest movement *Routine Cardiovascular Exam Cardiovascular: Present RRR, Normal S1 and Normal S2; Absent murmur or gallop *Routine Abdominal Exam Abdominal: Present soft and normoactive bowel sounds; Absent tenderness, distended or organomegaly *Routine Extremities Exam Extremities: Present full ROM, pulses intact and normal capillary refill; Absent cyanosis, clubbing or edema *Routine Skin Exam Skin: Present intact and warm; Absent erythema *Routine Neurological Exam Neurological: Present alert, oriented X3 and CN II-XII intact; Absent sensory deficit or motor deficit Routine Psychiatric Exam Psychiatric: Present normal affect Meds Home Medications and Allergies Home Medications ?Medication ?Instructions ?Recorded ?Confirmed ?Type hydrocodone 5 mg-acetaminophen 325 1 tab PO TIDP PRN PAIN (MODERATE 05/26/20 01/30/24 History mg tablet 4-7) metoprolol succinate 25 mg 25 mg PO DAILY 05/26/20 01/30/24 History tablet,extended release 24 hr clopidogrel 75 mg tablet (Plavix) 75 mg PO DAILY 12/25/23 01/30/24 History nitroglycerin 0.4 mg sublingual 0.4 mg sublingual NEEDED PRN 01/30/24 01/30/24 History tablet Chest Pain New Prescriptions to Start Prescriptions: Allergies Allergy/AdvReac Type Severity Reaction Status Date / Time cephalexin (From Keflex) Allergy Rash Verified 12/27/23 11:11 codeine Allergy Rash Verified 12/27/23 11:11 metronidazole (From Flagyl) Allergy Rash Verified 12/27/23 11:11 sulfamethoxazole (From Allergy Rash Verified 12/27/23 11:11 Bactrim) trimethoprim (From Bactrim) Allergy Rash Verified 12/27/23 11:11 Assessment and Plan *Assessment and plan (1) Unstable angina: Status: Acute Category: Medical Code(s): I20.0 - Unstable angina (2) Abnormal EKG: Status: Acute Category: Medical Code(s): R94.31 - Abnormal electrocardiogram [ECG] [EKG] (3) Intermittent atrial fibrillation: Status: Acute Category: Medical Code(s): I48.0 - Paroxysmal atrial fibrillation (4) Tobacco dependency: Status: Acute Category: Medical Code(s): F17.200 - Nicotine dependence, unspecified, uncomplicated Plan Plan: 1. The patient has been having chest pain consistent with unstable angina. She was transferred here from [facility]. She has nitroglycerin paste in place. She does state that her chest pain is better today than it was yesterday. Will plan to proceed with left cardiac catheterization today to evaluate for coronary artery disease. 2. I did offer the patient a CCTA but our CCTA machine is currently down and there is no timeline on when this will be fixed. She continues to have symptoms so we will proceed with left cardiac catheterization as mentioned above. 3. The patient has been educated the risk and benefits of proceeding with left cardiac catheterization. Patient verbalized understanding and is agreeable in proceeding with the procedure. 4. The patient will be n.p.o. in preparation for left cardiac catheterization. 5. Her blood pressure is on the low side but acceptable. 6. Her LDL goal is less than 100. Will get a lipid panel. 7. Continue Plavix and Nitropaste for her angina. 8. Start aspirin 81 mg daily due to angina. 9. Continue Toprol due to angina. 10. The patient does have a history of paroxysmal atrial fibrillation. She is currently in sinus rhythm. She has historically refused NOACs. I did have a long conversation with the patient about being on long-term anticoagulation with her history of paroxysmal atrial fibrillation. She states that she has worn heart monitors in the past and it has shown that she has been in paroxysmal atrial fibrillation although she had no idea that she was in the abnormal heart rhythm. Will continue to have discussions with the patient about starting her on a NOAC following her left cardiac catheterization. 11. Tobacco cessation is highly advised and counseled. 12. Will obtain an echocardiogram secondary to her angina. 13. Further recommendations will be made pending the patient's response to treatment and the results of her left cardiac catheterization and echocardiogram today. Thank you for the opportunity to help participate in the care of this patient. All recommendations and orders are per Dr. Plasencia. Addendum: [facility] shows: The left main artery Normal The left anterior descending artery Normal The circumflex artery Normal The right coronary artery Dominant normal The [place] ventriculogram reveals Normal 65% The left ventricular end-diastolic pressure 10 to 15 mmHg IMPRESSION Normal coronary arteries Normal ejection fraction Normal LVEDP PLAN 1. Continue medical management Left heart cath shows normal coronary arteries. No indication for the patient to be on Plavix. She declines being on NOAC due to her paroxysmal atrial fibrillation. If she is not going to take a NOAC aspirin 325 mg p.o. daily is indicated instead of Plavix.
[2024-01-30 11:28] LABS: Chol/HDL Ratio 3.9 (1-3.5); Cholesterol 145 mg/dl (140-200); HDL Cholesterol 37 mg/dl (40-60); Triglycerides 83 mg/dl (30-150); VLDL Cholesterol 17 mg/dL (0-40)
[2024-01-30 11:39] LABS: Direct LDL Cholesterol 89.61 mg/dL (100-129)
[2024-01-30] MEDS: VERAPAMIL 2.5MG/ML 2ML VIAL 2.5 MG IV (12:57)
[2024-01-30] MEDS: diphenhydrAMINE 50MG/ML VIAL 50 MG IV (12:57)
[2024-01-30] MEDS: LIDOCAINE 1% 10ML MDV 20 ML IJ (12:57)
[2024-01-30] MEDS: 0.9 % SODIUM CHLORIDE 500 ML 25 ML IV (12:58)
[2024-01-30] MEDS: FENTANYL 100MCG/2ML VIAL 50 MCG IV (12:58)
[2024-01-30] MEDS: MIDAZOLAM HCL 1MG/ML 5ML VIAL 1 MG IV (12:58)
[2024-01-30] MEDS: HEPARIN 1,000 UNITS/ML 10ML VIAL (CATH LAB) 10000 UNIT IV (12:58)
[2024-01-30] MEDS: NITROGLYCERIN 800MCG/8ML SYR (CATH LAB) 800 MCG IA (12:59)
[2024-01-30] MEDS: HEPARIN 1,000 UNITS/500ML NS (CATH LAB) 3000 UNIT IV (12:59)
[2024-01-30] MEDS: IOPAMIDOL-370 (76%);100ML BOTTLE 80 ML IV (14:17)
--- NOTE | 2024-01-30 16:41 | EXP.ACUTE.PN ---
Subjective *Date: 01/30/24 *Time: 16:41 Interval history: Improved chest discomfort this morning. Stable on room air. No nausea or vomiting. Reports having a heart cath several years ago that was normal. Continues to smoke daily. Cardiology to evaluate today. Medical Exam Vital signs and Labs for Last 24 Hours: Vital Signs Temp Pulse Pulse Resp BP Pulse Ox O2 Del Method 01/30/24 16:15 49 L 16 109/62 L 97 Room Air 01/30/24 15:45 51 L 16 114/63 96 Room Air 01/30/24 15:15 51 L 16 116/62 95 Room Air 01/30/24 14:45 50 L 16 114/60 95 Room Air 01/30/24 14:30 98.1 F 51 L 16 108/52 L 95 Room Air 01/30/24 14:15 98.6 F 56 L 16 98/51 L 94 L Room Air 01/30/24 14:00 98.3 F 54 L 16 112/58 L 96 Room Air 01/30/24 09:00 Room Air 01/30/24 08:00 92 L Room Air 01/30/24 08:00 60 01/30/24 08:00 97.8 F 01/30/24 08:00 68 20 92/68 L 93 L Room Air 01/30/24 06:00 51 L 16 102/60 L 94 L Room Air 01/30/24 05:49 50 L 01/30/24 04:42 53 L 15 98/54 L 93 L Room Air 01/30/24 04:00 97.9 F 01/30/24 02:00 54 L 14 87/62 L 92 L Room Air 01/29/24 23:59 97.6 F 01/29/24 23:00 Room Air 01/29/24 22:51 50 L 01/29/24 22:00 98.0 F 53 L 18 139/69 100 Room Air Intake and Output 01/30/24 01/30/24 01/30/24 07:59 15:59 23:59 Intake Total 240 / 240 Output Total 0 / 0 Balance 240 / 240 Intake: Intake, Oral Amount 240 / 240 Output: Output, Urine Amount 0 / 0 Other: Number of Unmeasured Voids 1 1 Weight 75.795 kg Patient Weight 01/30/24 23:59 Weight 75.795 kg Laboratory Results - last 24 hr 01/29/24 23:14: Troponin I < 0.01 01/30/24 01:45: Troponin I < 0.01 01/30/24 05:20: Triglycerides 83, Cholesterol 145, LDL Cholesterol Direct 89.61 L, VLDL Cholesterol 17, HDL Cholesterol 37 L, Cholesterol/HDL Ratio 3.9 H 01/30/24 05:27: WBC 5.8, RBC 4.32, Hgb 13.6, Hct 39.1, MCV 90.5, MCH 31.4 H, MCHC 34.7, RDW 14.7, Plt Count 166, MPV 8.3, Neut % (Auto) 54.8, Lymph % (Auto) 31.7, [place] % (Auto) 8.0, Eos % (Auto) 3.5, Baso % (Auto) 2.0, Neut # (Auto) 3.2, Lymph # (Auto) 1.8, [place] # (Auto) 0.5, Eos # (Auto) 0.2, Baso # (Auto) 0.1, Sodium 142, Potassium 3.6, Chloride 114 H, Carbon Dioxide 25, Anion Gap 6.6, BUN 7, Creatinine 0.60, Estimated Creat Clear 66, Estimated GFR 100, Est GFR ( Amer) 121, Glucose 82, Calcium 8.5, Magnesium 1.9, Total Bilirubin 0.8, AST 15, ALT 12, Alkaline Phosphatase 49, Troponin I < 0.01, Total Protein 4.8 L D, Albumin 2.9 L, Globulin 1.9, Albumin/Globulin Ratio 1.5 01/30/24 06:00: VBG pH 7.43 H, VBG pCO2 32.6 L, VBG pO2 90.4 H, VBG HCO3 21.0 L, VBG Total CO2 22.0 L, VBG O2 Saturation 97.6 H, VBG Base Excess -3.4 L, VBG Lactic Acid 0.8 01/30/24 09:20: Chlamy pneumoniae PCR Not detected, Adenovirus (PCR) Not detected, B. pertussis DNA (PCR) Not detected, Coronavirus OC43 (PCR) Not detected, Coronavirus HKU1 (PCR) Not detected, Coronavirus 229E (PCR) Not detected, SARS-CoV-2 (PCR) Not detected, Coronavirus NL63 (PCR) Not detected, Human Metapneumovir PCR Not detected, Influenza A (H1) PCR Not detected, Influ A (H1N1/09) PCR Not detected, Influenza A (H3) PCR Not detected, Influenza Type A (PCR) Not detected, Influenza Type B (PCR) Not detected, M. pneumoniae (PCR) Not detected, Parainfluenza 1 (PCR) Not detected, Parainfluenza 2 (PCR) Not detected, Parainfluenza 3 (PCR) Not detected, Parainfluenza 4 (PCR) Not detected, RSV (PCR) Not detected, Entero/Rhino (PCR) Not detected I & O for Labs for Last 24 Hours: Intake & Output 01/27/24 01/28/24 01/29/24 01/30/24 23:59 23:59 23:59 23:59 Intake Total 240 / 240 Output Total 300 / 300 0 / 0 Balance -300 / -60 240 / 240 Weight 77.836 kg 75.795 kg Constitutional: Present no acute distress, average body habitus, chronically ill appearing and cooperative Head: Present atraumatic and normocephalic ENT: Present normal exam Respiratory: Present normal respiratory effort; Absent rhonchi, wheezes or crackles Cardiac: Present Reg Rate and Rhythm GI: Present soft and normal bowel sounds; Absent distention or tenderness Extremities: Present normal inspection and full ROM Skin: Present intact; Absent erythema Neuro: Present Grossly Intact, alert, awake, oriented x 3 and moves all extremities Assessment and Plan *Assessment and plan (1) Unstable angina: Status: Acute Category: Medical Code(s): I20.0 - Unstable angina (2) Abnormal EKG: Status: Acute Category: Medical Code(s): R94.31 - Abnormal electrocardiogram [ECG] [EKG] (3) Intermittent atrial fibrillation: Status: Acute Category: Medical Code(s): I48.0 - Paroxysmal atrial fibrillation (4) Bradycardia: Status: Acute Category: Medical Code(s): R00.1 - Bradycardia, unspecified (5) Tobacco dependency: Status: Acute Category: Medical Code(s): F17.200 - Nicotine dependence, unspecified, uncomplicated (6) Bloating: Status: Acute Category: Medical Code(s): R14.0 - Abdominal distension (gaseous) (7) Early satiety: Status: Acute Category: Medical Code(s): R68.81 - Early satiety (8) Abdominal pain: Status: Acute Category: Medical Code(s): R10.9 - Unspecified abdominal pain Plan 68-year-old female admitted as transfer from outside hospital. Concern for unstable angina. Cardiology evaluating today. Plan for left heart cath. Problems addressed as follows: Chest pain concerning for unstable angina Paroxysmal atrial fibrillation - serial troponins negative. Labs this morning reassuring with normal white count of 5.8, hemoglobin 13.6. Kidney function and electrolytes normal with potassium 3.6, magnesium 1.9, kidney function BUN 7, creatinine 0.6. -Repeat CBC, CMP, magnesium ordered for the morning. -Stable on room air. No significant cough. Is tender on chest exam however with palpation -Reviewed telemetry, no ischemic changes. -Sinus rhythm at this time. - Continue metoprolol succinate 25 mg daily -Continue aspirin 81 mg daily and Plavix 75 mg daily. -Further discussion about NOAC in the morning -Left heart cath performed, coronary arteries clear with no obstructions. No stents placed. Reviewed patient's scope from a month ago, found to have hiatal hernia with reflux and mild gastritis, hiatal hernia, esophageal ring that was stretched at that time - initiate pantoprazole 40 mg IV twice daily for GERD component given significant history of GERD Tobacco dependency: Patient says she is tries to and wants to quit but just has not been able to. Presently her respiratory status is very good on room air. -Continue DuoNebs as needed. Nicotine patch as needed daily Will monitor overnight. Continue pantoprazole for GERD. Advance diet. If does well, anticipate discharge tomorrow.
[2024-01-30] MEDS: ASPIRIN EC 81MG TABLET 81 MG PO (17:53)
--- NOTE | 2024-01-30 18:08 | PC.NURSE ---
AOX4, ROOM AIR, LEFT HEART CATH TODAY R RADIAL APPROACH. DSG TO R WRIST C/D/I. SMALL AMOUNT OF OOZING WHILE TITRATING RADIAL BAND. BRADYCARDIC AT TIMES SINCE ARRIVING TO FLOOR FROM BOARD TURNER. SHE HAS NOT C/O PAIN, SITTING UP TO THE CHAIR AT THIS TIME. ATE SMALL AMOUNT OF SUPPER.
[2024-01-31] VITALS: BP 112/58; PULSE 60; PULSE 61; RESP 18; TEMP 36.9; O2SAT 96
[2024-01-31 04:00] VITALS: BP 122/63; PULSE 60; PULSE 61; RESP 18; TEMP 36.9; O2SAT 94; BMI 25.2
--- NOTE | 2024-01-31 06:07 | PC.NURSE ---
Pt A&OX4 and has tolerated room air. Dressing over cath site is c/d/i. Pt denies any pain or shortness of breath. She has ambulated to the bathroom independently this shift. Family member has remained at bedside the majority of the night. No complaints at this time, call light within reach.
[2024-01-31 06:29] LABS: Basophils # 0.1 K/mm3 (0-0.2); Eosinophils # 0.1 K/mm3 (0.0-0.4); Eosinophils % 2.2 % (0.1-12.0); Hematocrit 41.3 % (37.0-47.0); Lymphocytes # 1.4 K/mm3 (0.7-4.5); Lymphocytes % 22.1 % (10-50); Mean Corpuscular HGB Conc 33.9 g/dL (31.8-35.4); Mean Corpuscular Hemoglobin 31.1 pg (27.0-31.2); Mean Corpuscular Volume 91.5 fl (81-99); Mean Platelet Volume 8.4 fl (7.4-10.4); Monocytes # 0.4 K/mm3 (0.1-1.0); Monocytes % 7.2 % (1.7-9.3); Neutrophils # 4.2 K/mm3 (1.8-7.8); Neutrophils % 67.5 % (37.0-80.0); Platelet Count 149 K/mm3 (142-424); Red Blood Count 4.52 M/mm3 (4.20-5.40); Red Cell Distribution Width 14.6 % (11.5-17.5); White Blood Count 6.2 K/mm3 (4.8-10.8)
[2024-01-31 06:47] LABS: Alanine Aminotransferase 13 U/L (12-78); Albumin/Globulin Ratio 1.4 (1.1-1.8); Alkaline Phosphatase 51 U/L (38-126); Anion Gap 7.4 mEq/L (5-15); Aspartate Amino Transferase 19 U/L (14-36); Bilirubin,Total 0.7 mg/dl (0.2-1.3); Blood Urea Nitrogen 8 mg/dl (7-17); Calcium 8.4 mg/dl (8.4-10.2); Carbon Dioxide 24 mmol/L (22.0-30.0); Chloride 112 mmol/L (98-107); Creatinine Clearance Estimated 66 mL/min (50-200); Estimated Glomerular Filt Rate 100 ml/min (>60); GFR (African American) 121 ML/MIN (>60); Globulin 2.2 g/dL (1.3-3.2); Glucose 88 mg/dl (74-100); Magnesium 1.9 mg/dl (1.6-2.3); Potassium 3.4 mmoL/L (3.5-5.1); Sodium 140 mmol/L (136-145); Total Protein,Serum 5.2 g/dl (6.3-8.2)
--- NOTE | 2024-01-31 07:04 | EXP.DC.SUM ---
General Admission date:: 01/29/24 Discharge date: 01/31/24 HPI HPI HPI: [facility] contacted Dr. Talamantes. 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 She had come into the emergency room after having chest discomfort tightness all day actually left work because of it. I spoke with the ER physician Dr. Landin about the patient. Patient was stable still having some anginal pain was given nitroglycerin paste. He noted that the patient was stable that troponins were 0. He also noted on the EKG no ST elevations but did have inverted T waves. he let me know that he had spoken with Dr. Talamantes who has plans to see her in the morning and potentially cath. Patient has arrived to the floor and on assessment patient denies any chest pain at this time. Ms. Myers, has a history of being more than a [id number] history smoker. Also has intermittent A-fib on Plavix. She also had a chest x-ray that showed no acute findings. And there was no significant lab abnormalities. That includes a negative D-dimer. Patient past history includes cholecystectomy hysterectomy several different bladder surgeries. Also recently had a gastric biopsy in December done by Dr. Toth. Patient noted history of having a lot of abdominal discomfort especially after eating. Patient also has a history of approximately 3 months ago having a syncopal spell at work. While being lowered to the ground by another person ended up fracturing a few ribs. Patient was scheduled for workup but for some reason it was canceled. That has never been followed up on it has only been a one-time event of syncope Hospital Course Hospital Course Hospital Course: 68-year-old female admitted as transfer from outside hospital. Concern for unstable angina. Monitored overnight. Cardiology evaluated and C performed. Coronaries normal. Stable to [place] home with further management as an outpt. Problems addressed as follows: Chest pain concerning for unstable angina Paroxysmal atrial fibrillation - Admitted as transfer from [facility]. Seriial troponins negative. Labs reassuring with normal white count of 5.8, hemoglobin 13.6. Kidney function and electrolytes normal with potassium 3.6, magnesium 1.9, kidney function BUN 7, creatinine 0.6. Cardiology was consulted, decision to go for Left heart cath, coronaries normal. Stable on room air. No significant cough. Is tender on chest exam however with palpation. Continue metoprolol succinate 25 mg daily. Stop aspirin and plavix. Patient amenable to start eliquis for anticoagulation due to afib. Echo obtained with normal findings as follows: Normal biventricular systolic function, Mild RV dilation. No significant valvular stenosis or regurgitation. Reviewed patient's scope from a month ago, found to have hiatal hernia with reflux and mild gastritis, hiatal hernia, esophageal ring that was stretched at that time - Continue omeprazole 40 mg PO daily for GERD component given significant history of GERD Tobacco dependency: Patient says she is tries to and wants to quit but just has not been able to. Presently her respiratory status is very good on room air. Nicotine patch prescribed at discharge Exam Data for Last 24 hours Vital signs and Labs for Last 24 Hours: Temp Pulse Resp BP Pulse Ox O2 Del Method 98.5 F 61 18 122/63 94 L Room Air 01/31/24 04:00 01/31/24 04:00 01/31/24 04:00 01/31/24 04:00 01/31/24 04:00 01/31/24 06:39 Laboratory Results - last 24 hr 01/30/24 05:20: Triglycerides 83, Cholesterol 145, LDL Cholesterol Direct 89.61 L, VLDL Cholesterol 17, HDL Cholesterol 37 L, Cholesterol/HDL Ratio 3.9 H 01/30/24 06:00: VBG pH 7.43 H, VBG pCO2 32.6 L, VBG pO2 90.4 H, VBG HCO3 21.0 L, VBG Total CO2 22.0 L, VBG O2 Saturation 97.6 H, VBG Base Excess -3.4 L, VBG Lactic Acid 0.8 01/30/24 09:20: Chlamy pneumoniae PCR Not detected, Adenovirus (PCR) Not detected, B. pertussis DNA (PCR) Not detected, Coronavirus OC43 (PCR) Not detected, Coronavirus HKU1 (PCR) Not detected, Coronavirus 229E (PCR) Not detected, SARS-CoV-2 (PCR) Not detected, Coronavirus NL63 (PCR) Not detected, Human Metapneumovir PCR Not detected, Influenza A (H1) PCR Not detected, Influ A (H1N1/09) PCR Not detected, Influenza A (H3) PCR Not detected, Influenza Type A (PCR) Not detected, Influenza Type B (PCR) Not detected, M. pneumoniae (PCR) Not detected, Parainfluenza 1 (PCR) Not detected, Parainfluenza 2 (PCR) Not detected, Parainfluenza 3 (PCR) Not detected, Parainfluenza 4 (PCR) Not detected, RSV (PCR) Not detected, Entero/Rhino (PCR) Not detected 01/31/24 06:07: WBC 6.2, RBC 4.52, Hgb 14.0, Hct 41.3, MCV 91.5, MCH 31.1, MCHC 33.9, RDW 14.6, Plt Count 149, MPV 8.4, Neut % (Auto) 67.5, Lymph % (Auto) 22.1, [place] % (Auto) 7.2, Eos % (Auto) 2.2, Baso % (Auto) 1.0, Neut # (Auto) 4.2, Lymph # (Auto) 1.4, [place] # (Auto) 0.4, Eos # (Auto) 0.1, Baso # (Auto) 0.1, Sodium 140, Potassium 3.4 L, Chloride 112 H, Carbon Dioxide 24, Anion Gap 7.4, BUN 8, Creatinine 0.60, Estimated Creat Clear 66, Estimated GFR 100, Est GFR ( Amer) 121, Glucose 88, Calcium 8.4, Magnesium 1.9, Total Bilirubin 0.7, AST 19 D, ALT 13, Alkaline Phosphatase 51, Total Protein 5.2 L, Albumin 3.0 L, Globulin 2.2, Albumin/Globulin Ratio 1.4 I & O for Last 24 hours: Intake & Output 01/28/24 01/29/24 01/30/24 01/31/24 23:59 23:59 23:59 23:59 Intake Total 480 / 780 300 / 300 Output Total 300 / 300 1 / 1 0 / 0 Balance -300 / -60 479 / 779 300 / 300 Weight 77.836 kg 75.795 kg 75.705 kg Constitutional Constitutional: no acute distress, average body habitus and cooperative *Routine HEENT Exam Head: Present normocephalic Eye: Present EOMI and PERRL ENT: Present mucous membranes moist *Routine Neck Exam Neck: Present supple; Absent lymphadenopathy Routine Chest/Breast/Axilla Exam Chest wall: Present tenderness (to palpation across chest wall) *Routine Respiratory Exam Respiratory: Present CTA bilaterally; Absent rhonchi, wheezes or crackles *Routine Cardiovascular Exam Cardiovascular: Present RRR *Routine Abdominal Exam Abdominal: Present soft and normoactive bowel sounds; Absent tenderness *Routine Rectal Exam Patient deferred: visual exam *Routine Exam Patient deferred: external exam *Routine Extremities Exam Extremities: Absent cyanosis, clubbing or edema *Routine Skin Exam Skin: Present warm; Absent rash *Routine Neurological Exam Neurological: Present alert, oriented X3 and moving all extremities; Absent altered mental status Results Data Completed and Pending Labs on day of discharge: Labs from last 24 hours 01/31/24 01/30/24 01/30/24 06:07 09:20 06:00 WBC 6.2 RBC 4.52 Hgb 14.0 Hct 41.3 MCV 91.5 MCH 31.1 MCHC 33.9 RDW 14.6 Plt Count 149 MPV 8.4 Neut % (Auto) 67.5 Lymph % (Auto) 22.1 [place] % (Auto) 7.2 Eos % (Auto) 2.2 Baso % (Auto) 1.0 Neut # (Auto) 4.2 Lymph # (Auto) 1.4 [place] # (Auto) 0.4 Eos # (Auto) 0.1 Baso # (Auto) 0.1 VBG pH 7.43 H VBG pCO2 32.6 L VBG pO2 90.4 H VBG HCO3 21.0 L VBG Total CO2 22.0 L VBG O2 Saturation 97.6 H VBG Base Excess -3.4 L VBG Lactic Acid 0.8 Sodium 140 Potassium 3.4 L Chloride 112 H Carbon Dioxide 24 Anion Gap 7.4 BUN 8 Creatinine 0.60 Estimated Creat Clear 66 Estimated GFR 100 Est GFR ( Amer) 121 Glucose 88 Calcium 8.4 Magnesium 1.9 Total Bilirubin 0.7 AST 19 D ALT 13 Alkaline Phosphatase 51 Total Protein 5.2 L Albumin 3.0 L Globulin 2.2 Albumin/Globulin Ratio 1.4 Triglycerides Cholesterol LDL Cholesterol Direct VLDL Cholesterol HDL Cholesterol Cholesterol/HDL Ratio Chlamy pneumoniae PCR Not detected Adenovirus (PCR) Not detected B. pertussis DNA (PCR) Not detected Coronavirus OC43 (PCR) Not detected Coronavirus HKU1 (PCR) Not detected Coronavirus 229E (PCR) Not detected SARS-CoV-2 (PCR) Not detected Coronavirus NL63 (PCR) Not detected Human Metapneumovir PCR Not detected Influenza A (H1) PCR Not detected Influ A (H1N1/09) PCR Not detected Influenza A (H3) PCR Not detected Influenza Type A (PCR) Not detected Influenza Type B (PCR) Not detected M. pneumoniae (PCR) Not detected Parainfluenza 1 (PCR) Not detected Parainfluenza 2 (PCR) Not detected Parainfluenza 3 (PCR) Not detected Parainfluenza 4 (PCR) Not detected RSV (PCR) Not detected Entero/Rhino (PCR) Not detected 01/30/24 05:20 WBC RBC Hgb Hct MCV MCH MCHC RDW Plt Count MPV Neut % (Auto) Lymph % (Auto) [place] % (Auto) Eos % (Auto) Baso % (Auto) Neut # (Auto) Lymph # (Auto) [place] # (Auto) Eos # (Auto) Baso # (Auto) VBG pH VBG pCO2 VBG pO2 VBG HCO3 VBG Total CO2 VBG O2 Saturation VBG Base Excess VBG Lactic Acid Sodium Potassium Chloride Carbon Dioxide Anion Gap BUN Creatinine Estimated Creat Clear Estimated GFR Est GFR ( Amer) Glucose Calcium Magnesium Total Bilirubin AST ALT Alkaline Phosphatase Total Protein Albumin Globulin Albumin/Globulin Ratio Triglycerides 83 Cholesterol 145 LDL Cholesterol Direct 89.61 L VLDL Cholesterol 17 HDL Cholesterol 37 L Cholesterol/HDL Ratio 3.9 H Chlamy pneumoniae PCR Adenovirus (PCR) B. pertussis DNA (PCR) Coronavirus OC43 (PCR) Coronavirus HKU1 (PCR) Coronavirus 229E (PCR) SARS-CoV-2 (PCR) Coronavirus NL63 (PCR) Human Metapneumovir PCR Influenza A (H1) PCR Influ A (H1N1/) PCR Influenza A (H3) PCR Influenza Type A (PCR) Influenza Type B (PCR) M. pneumoniae (PCR) Parainfluenza 1 (PCR) Parainfluenza 2 (PCR) Parainfluenza 3 (PCR) Parainfluenza 4 (PCR) RSV (PCR) Entero/Rhino (PCR) DS: Diagnosis Discharge Diagnosis (1) Unstable angina: Status: Acute Code(s): I20.0 - Unstable angina (2) Abnormal EKG: Status: Acute Code(s): R94.31 - Abnormal electrocardiogram [ECG] [EKG] (3) Intermittent atrial fibrillation: Status: Acute Code(s): I48.0 - Paroxysmal atrial fibrillation (4) Bradycardia: Status: Acute Code(s): R00.1 - Bradycardia, unspecified (5) Tobacco dependency: Status: Acute Code(s): F17.200 - Nicotine dependence, unspecified, uncomplicated (6) Bloating: Status: Acute Code(s): R14.0 - Abdominal distension (gaseous) (7) Early satiety: Status: Acute Code(s): R68.81 - Early satiety (8) Abdominal pain: Status: Acute Code(s): R10.9 - Unspecified abdominal pain Meds Home Medications and Allergies Home Medications ?Medication ?Instructions ?Recorded ?Confirmed ?Type hydrocodone 5 mg-acetaminophen 325 1 tab PO TIDP PRN PAIN (MODERATE 05/26/20 01/30/24 History mg tablet 4-7) metoprolol succinate 25 mg 25 mg PO DAILY 05/26/20 01/30/24 History tablet,extended release 24 hr nitroglycerin 0.4 mg sublingual 0.4 mg sublingual NEEDED PRN 01/30/24 01/30/24 History tablet Chest Pain apixaban 5 mg tablet (Eliquis) 5 mg PO BID 30 days #60 tabs 01/31/24 Rx omeprazole 40 mg capsule,delayed 40 mg PO DAILY #30 caps 01/31/24 Rx release New Prescriptions to Start Prescriptions: apixaban [Eliquis] Alton Monteiro omeprazole Alton Monteiro Allergies Allergy/AdvReac Type Severity Reaction Status Date / Time cephalexin (From Keflex) Allergy Rash Verified 12/27/23 11:11 codeine Allergy Rash Verified 12/27/23 11:11 metronidazole (From Flagyl) Allergy Rash Verified 12/27/23 11:11 sulfamethoxazole (From Allergy Rash Verified 12/27/23 11:11 Bactrim) trimethoprim (From Bactrim) Allergy Rash Verified 12/27/23 11:11 Discharge Plan Disposition Patient Disposition: Home, Self-Care Follow up Plan Follow up with: Elijah Wooten [Primary Care Provider] - 02/11/24 11:00 am Rafita Plasencia MD [Staff Physician] - 02/06/24 1:00 pm Prescriptions/Medication Reconciliation: New Eliquis 5 mg Tablet 5 mg PO BID 30 Days Qty: 60 0RF omeprazole 40 mg capsule,delayed release(DR/EC) 40 mg PO DAILY Qty: 30 0RF Continued hydrocodone-acetaminophen 1 TAB tablet 1 tab PO TIDP PRN (Reason: PAIN (MODERATE 4-7) ) metoprolol succinate 25 MG tablet extended release 24 hr 25 mg PO DAILY nitroglycerin 0.4 mg tablet, sublingual 0.4 mg sublingual NEEDED PRN (Reason: Chest Pain) Discontinued clopidogrel [Plavix] 75 mg Tablet 75 mg PO DAILY Problem Reconciliation Problems Reviewed?: Yes Patient Discharge Instructions ACTIVITY: Continue current activity DIET: continue same diet Patient Instructions: DI for Angina, DI for Surgical Site Infection Print Language: Com[place] Providers Primary Care Provider: Elijah Wooten Admit Provider: Alton Monteiro Attending Provider: Alton Monteiro
[2024-01-31 07:51] VITALS: BP 113/55; PULSE 58; RESP 19; TEMP 36.6; O2SAT 98
[2024-01-31] MEDS: PANTOPRAZOLE 40MG VIAL 40 MG IV (08:47)
[2024-01-31] MEDS: METOPROLOL SUCCINATE XL 25MG TABLET 25 MG PO (08:47)
[2024-01-31] MEDS: ASPIRIN EC 81MG TABLET 81 MG PO (08:47)
[2024-01-31] MEDS: APIXABAN 5MG TABLET 5 MG PO (08:47)
--- NOTE | 2024-01-31 09:54 | P.PN_ITS ---
Subjective Subjective Date: 01/31/24 Time: 08:30 Principal diagnosis: afib Interval history: This is a 68-year-old patient who was admitted to the hospital with chest pain. She underwent left cardiac catheterization due to unstable angina was found to have normal coronary arteries, normal EF and normal LVEDP. This morning she denies any chest pain or pressure. She denies any shortness of breath or edema. She denies any fever, chills, nausea, vomiting, diarrhea, PND orthopnea. The patient is ready to be discharged home. Exam Data for Last 24 hours Vital signs and Labs for Last 24 Hours: Temp Pulse Resp BP Pulse Ox O2 Del Method 97.8 F 58 L 19 113/55 L 98 Room Air 01/31/24 07:51 01/31/24 07:51 01/31/24 07:51 01/31/24 07:51 01/31/24 07:51 01/31/24 09:00 Laboratory Results - last 24 hr 01/30/24 05:20: Triglycerides 83, Cholesterol 145, LDL Cholesterol Direct 89.61 L, VLDL Cholesterol 17, HDL Cholesterol 37 L, Cholesterol/HDL Ratio 3.9 H 01/30/24 09:20: Chlamy pneumoniae PCR Not detected, Adenovirus (PCR) Not detected, B. pertussis DNA (PCR) Not detected, Coronavirus OC43 (PCR) Not detected, Coronavirus HKU1 (PCR) Not detected, Coronavirus 229E (PCR) Not detected, SARS-CoV-2 (PCR) Not detected, Coronavirus NL63 (PCR) Not detected, Human Metapneumovir PCR Not detected, Influenza A (H1) PCR Not detected, Influ A (H1N1/09) PCR Not detected, Influenza A (H3) PCR Not detected, Influenza Type A (PCR) Not detected, Influenza Type B (PCR) Not detected, M. pneumoniae (PCR) Not detected, Parainfluenza 1 (PCR) Not detected, Parainfluenza 2 (PCR) Not detecte d, Parainfluenza 3 (PCR) Not detected, Parainfluenza 4 (PCR) Not detected, RSV (PCR) Not detected, Entero/Rhino (PCR) Not detected 01/31/24 06:07: WBC 6.2, RBC 4.52, Hgb 14.0, Hct 41.3, MCV 91.5, MCH 31.1, MCHC 33.9, RDW 14.6, Plt Count 149, MPV 8.4, Neut % (Auto) 67.5, Lymph % (Auto) 22.1, [place] % (Auto) 7.2, Eos % (Auto) 2.2, Baso % (Auto) 1.0, Neut # (Auto) 4.2, Lymph # (Auto) 1.4, [place] # (Auto) 0.4, Eos # (Auto) 0.1, Baso # (Auto) 0.1, Sodium 140, Potassium 3.4 L, Chloride 112 H, Carbon Dioxide 24, Anion Gap 7.4, BUN 8, Creatinine 0.60, Estimated Creat Clear 66, Estimated GFR 100, Est GFR ( Amer) 121, Glucose 88, Calcium 8.4, Magnesium 1.9, Total Bilirubin 0.7, AST 19 D, ALT 13, Alkaline Phosphatase 51, Total Protein 5.2 L, Albumin 3.0 L, Globulin 2.2, Albumin/Globulin Ratio 1.4 I & O for Last 24 hours: Intake & Output 01/28/24 01/29/24 01/30/24 01/31/24 23:59 23:59 23:59 23:59 Intake Total 480 / 780 840 / 840 Output Total 300 / 300 1 / 1 0 / 0 Balance -300 / -60 479 / 779 840 / 840 Weight 171 lb 9.6 oz 167 lb 1.6 oz 166 lb 14.4 oz Constitutional Constitutional: no acute distress and average body habitus *Routine HEENT Exam Head: Present normocephalic and atraumatic ENT: Present mucous membranes moist *Routine Neck Exam Neck: Present supple, full ROM and normal carotid upstroke; Absent JVD, carotid bruit or lymphadenopathy *Routine Respiratory Exam Respiratory: Present CTA bilaterally, normal respiratory effort, able to speak in complete sentences and symmetric chest movement *Routine Cardiovascular Exam Cardiovascular: Present RRR, Normal S1 and Normal S2; Absent murmur or gallop *Routine Abdominal Exam Abdominal: Present soft and normoactive bowel sounds; Absent tenderness, distended or organomegaly *Routine Extremities Exam Extremities: Present full ROM, pulses intact and normal capillary refill; Absent cyanosis, clubbing or edema *Routine Skin Exam Skin: Present intact and warm; Absent erythema *Routine Neurological Exam Neurological: Present alert, oriented X3 and CN II-XII intact; Absent sensory deficit or motor deficit Routine Psychiatric Exam Psychiatric: Present normal affect Progress Note: A&P Assessment and plan (1) Intermittent atrial fibrillation: Status: Acute (2) Bradycardia: Status: Acute (3) Tobacco dependency: Status: Acute Assessment and Plan Assessment and Plan for All Diagnoses:: Plan: 1. The patient came into the hospital complaining of chest pain. There was concern for unstable angina. She underwent left cardiac catheterization which showed normal coronary arteries, normal ejection fraction and normal LVEDP. 2. Stop aspirin and Plavix. 3. The patient does have a history of paroxysmal atrial fibrillation. She is currently in sinus. She has historically refused NOACs. She is now agreeable to take NOACs for her paroxysmal atrial fibrillation. She has been started on Eliquis 5 mg p.o. twice daily. 4. Her blood pressure is on the low side but acceptable. 5. Her LDL goal is less than 100. Her LDL is 89. 6. Continue Toprol for suppression of paroxysmal atrial fibrillation. 7. Tobacco cessation is highly advised and counseled. 8. No further recommendations at this time from a cardiac standpoint. The patient can be discharged today from a cardiac standpoint. She will need to follow-up in cardiology clinic in 1 to 2 weeks on an outpatient basis. She can be discharged on the following cardiac medications: Eliquis 5 mg p.o. twice daily and Toprol-XL 25 mg daily. Thank you for the opportunity to help participate in the care of this patient. All recommendations and orders are per Dr. Plasencia.
--- NOTE | 2024-02-01 10:23 | SW/DCPLANNER ---
Contacted patient by phone. Patient stated that things are going well and that she has no concerns or questions. Harriett Coelho
== END 2024-01-31 09:10 | disposition home or self-care (01) ==
PROVIDERS: Internal Medicine; Nurse Practitioner Family; Admitting Provider Internal Medicine Adolescent Medicine; PCP Family Medicine; Visit Provider Internal Medicine Adolescent Medicine
DX: I20.0 Unstable angina (principal); R94.31 Abnormal electrocardiogram [ECG] [EKG]; I48.0 Paroxysmal atrial fibrillation; R00.1 Bradycardia, unspecified; F17.210 Nicotine dependence, cigarettes, uncomplicated; R14.0 Abdominal distension (gaseous); R68.81 Early satiety; R10.9 Unspecified abdominal pain; Z79.899 Other long term (current) drug therapy
CPT/HCPCS: G0379; 36415; 80053; 80061; 82803; 83735; 84484; 85025; 87633; 93005; 93306; 93458; 99152; C1725; C1769; G0378; J1200; J1644; J2250; J3010; Q9967

== ENCOUNTER 2024-02-06 13:59 | Outpatient (CLI) | payer MEDICARE, SELFPAY ==
--- NOTE | 2024-02-06 14:06 | CA_ITS ---
FINAL REPORT CLINICAL HISTORY: Wrist pain, status post heart Cath 01/30/24 FINDINGS: DUPLEX DOPPLER UPPER EXTREMITY TECHNIQUE: Axial and color Doppler waveform evaluation of the right radial artery was performed. FINDINGS: There does appear to be echogenic material within an artery at the right wrist. There is no pseudoaneurysm. Remaining visualized vessels are patent. IMPRESSION: Small, focal area of thrombosis within the right radial artery branch at the wrist. Reviewed, Interpreted and Dictated by Linda Knight MD Transcribed by Amparo Nicolas Authenticated and [facility]
== END 2024-02-06 23:59 | disposition home or self-care (01) ==
LOC: RAD 14:01 → RT 14:10
PROVIDERS: PCP Family Medicine; Visit Provider Internal Medicine
DX: I74.2 Embolism and thrombosis of arteries of the upper extremities (principal); M79.601 Pain in right arm; Z98.890 Other specified postprocedural states
CPT/HCPCS: 93931

== ENCOUNTER 2024-02-11 13:02 | Outpatient (CLI) | payer MEDICARE, SELFPAY ==
--- NOTE | 2024-02-11 13:05 | CA_ITS ---
FINAL REPORT TECHNIQUE: Sonographic images of the veins of the right upper extremity were obtained from axilla to antecubital fossa. Additionally, images of the internal jugular vein and subclavian vein were also obtained. CLINICAL HISTORY: RT UPPER ARM PAIN,PT BEING TREATED FOR A RIGHT RADIAL ART THROMBUS,PT ON ELIQUIS COMPARISON: None FINDINGS: The veins of the right upper extremity are compressible from axilla to antecubital fossa. Blood flow is demonstrated by both color and spectral Doppler as well. The internal jugular vein and subclavian vein are also patent. IMPRESSION: No evidence of venous thrombosis of the right upper extremity. Reviewed, Interpreted and Dictated by Balwinder Tan III, MD Transcribed by Gilda Daley Authenticated and [facility]
== END 2024-02-11 23:59 | disposition home or self-care (01) ==
LOC: RT 13:04
PROVIDERS: PCP Family Medicine; Visit Provider Nurse Practitioner
DX: I74.2 Embolism and thrombosis of arteries of the upper extremities (principal); M79.601 Pain in right arm; Z98.890 Other specified postprocedural states
CPT/HCPCS: 93971

== ENCOUNTER 2024-03-19 15:10 | Outpatient (CLI) | payer MEDICARE, SELFPAY ==
--- NOTE | 2024-03-19 15:15 | CA_ITS ---
FINAL REPORT TECHNIQUE: Duplex Doppler imaging of the right wrist was obtained. CLINICAL HISTORY: 01/31/24 heart cath right wrist access 02/06/24 pseudo u/s positive radial clot pt started on Eliquis 02/11/24 venous u/s for right arm pain negative for DVT/SVT 03/19/23 Right thumb pain COMPARISON: 02/14/2024 FINDINGS: Persistent chronic thrombus with flow now identified in the right radial artery consistent with resolving thrombus. IMPRESSION: Resolving right radial artery thrombus. Reviewed, Interpreted and Dictated by Pete Hebert MD Transcribed by Ann Abdul Authenticated and [facility]
--- NOTE | 2024-03-19 15:43 | XR_ITS ---
FINAL REPORT CLINICAL HISTORY: pain in right thumb, knot on right thumb COMPARISON: None FINDINGS: RIGHT HAND 4 views demonstrate no acute fracture or dislocation. There are mild hypertrophic changes of the basilar joint. The visualized joint spaces are normally aligned. The soft tissues are unremarkable. IMPRESSION: Mild hypertrophic changes without acute bony abnormality. Reviewed, Interpreted and Dictated by Pete Hebert MD Transcribed by Brittny Mcgill Authenticated and [facility]
== END 2024-03-19 23:59 | disposition home or self-care (01) ==
LOC: RT 15:10
PROVIDERS: PCP Family Medicine; Visit Provider Physician Assistant
DX: M79.601 Pain in right arm (principal); M79.644 Pain in right finger(s); M79.641 Pain in right hand
CPT/HCPCS: 73130; 93931

== ENCOUNTER 2024-12-22 14:33 | Outpatient (CLI) | payer MEDICARE, SELFPAY ==
--- OUTSIDE RECORDS SUMMARY | 2024-11-24 18:36 | XMS_ITS | Encounter Summary ---
Author Organization Healthcare Address [address] [id number] Care Team Providers Care Theatrical Dresser Name Role Phone Elijah Wooten MD Primary Care Provider [phone] Zandra Saenz MD Unavailable [phone] Reason for Referral * Consultation (Routine) - Authorized Specialty Diagnoses / Procedures Referred By Karenac t Referred To Contact Gastroenterology Diagnoses Abdominal pain, unspecified abdominal location Hyperbilirubinemia Mary Riggins APRN [address] [address] Phone: tel: fax: Referral ID Status Reason Start Date Expiration Date Visits Requested Visits Authorized [id number] Authorized Specialty Services Required 11/27/2024 05/29/2026 1 1 Reason for Visit * Reason Comments Abdominal Pain * Auth/Cert (Routine) Specialty Diagnoses / Procedures Referred By Contac t Referred To Contact Diagnoses Abdominal pain Abdominal pain, unspecified abdominal location Enteritis Vicki Winslow MD [address] [address] Phone: tel: fax: [facility] Inpatient [address] [place] [address] Phone: tel: Referral ID Status Reason Start Date Expiration Date Visits Re quested Visits Authorized [id number] 1 1 Encounter Details Date Type Department Care Team (Latest Contact Info) Description 11/24/2024 6:36 PM EDT - 11/27/2024 5:26 PM EDT Hospital Encounter [facility] Inpatient [address] [place] [address] Dillon Flowers MD [address] [place] [address] Catherine Rodriguez MD [address] [facility] [address] [place] [address] Vicki Winslow MD [address] [facility] [address] [place] [address] Abdominal pain, unspecified abdominal location [...] any time in the past 12 m [facility], were you homeless or living in a long-term (including now)? No 11/25/2024 [facility] Utilities Answer Date Recorded In the past [...] please call our General Surgery Clinic at [phone]. If there are questions or concerns after discharge from the hospital, call Carmella Yin, Nurse Coordinator between 7am-3pm at [phone]. If it is after hours, weekends, and holidays please call [phone] and ask for the resident rehabilitation program coordinator for Emergency General Surgery. Medication requests should be made between the hours of 9:00 AM to 3:00 PM Sunday thru Sunday. Please note that based upon recent changes to [place] law related to prescribing opioid pain medications, [...] 1 tablet by mouth daily. HYDROcodone-acetam inophen (Sandstone) 5-325 MG tablet Take 1 tablet by [...] Vicki Winslow MD PCP name and Address: Elijah Wooten MD [address] [place] [address] Referring provider name and address: Jos Patterson MD [address] [place] [address] Chief Concern, Brief History of Present Illness, and Hospital Course Yenifer Riley is a 69 y.o. female with PMH of A fib on eliquis, prior blood clots, bladder incontinence, COPD, presenting to [facility] on 11/24/2024 as transfer with concern for [...] HYDROcodone-acetaminophen 5-325 MG tablet Commonly known as: Sandstone Take 1 tablet by mouth every 8 hours. pentosan polysulfate 100 MG capsule Commonly known as: Elmiron Take 1 capsule by mouth 3 times a day before meals. Discharge Diagnosis Medical Problems Active and Resolved Hospital Problems Hospital A-fib ([facility]) * (Principal) Abdominal pain COPD (chronic obstructive pulmonary disease) ([facility]) Smoker Malnutrition ([facility]) Hyperbilirubinemia Overview Signed 11/25/2024 11:48 AM by [...] please call our General Surgery Clinic at [phone]. If there are questions or concerns after discharge from the hospital, call Carmella Yin, Nurse Coordinator between 7am-3pm at [phone]. If it is after hours, weekends, and holidays please call [phone] and ask for the resident rehabilitation program coordinator for Emergency General Surgery. Medication requests should be made between the hours of 9:00 AM to 3:00 PM Sunday thru Sunday. Please note that based upon recent changes to [place] law related to prescribing opioid pain medications, our providers will not provide refills on controlled medications after your hospital discharge following a major surgery or trauma. [place] K[place]:260. Outpatient Follow-Up Future Appointments Date Time Provider Department Center 05/01/2025 9:00 AM Padmini Main MD [facility] Test Results Pending At Discharge Pertinent Physical [...] blood clots, bladder incontinence, COPD, presenting to [facility] on 11/24/2024 as transfer with concern for [...] RN Outcome: Ongoing, Progressing 11/26/2024 1025 by Narendra Serna RN Outcome: Ongoing, Progressing Intervention: Prevent [...] blood clots, bladder incontinence, COPD, presenting to [facility] on 11/24/2024 as transfer with concern for abdominal pain and CTA OSH showing mucosal hyperemia and thickening of ileum. Interval: NAEO. VSS. Reports feeling better compared to yesterday. Labs WNL. Voiding spontaneously.Passing flatus. Small BM this morning. Edited by: Pancho Campos DO at 11/26/2024 0945 Relevant review of systems was obtained as [...] Note Yenifer Riley 69 y.o. female CSN: [id number] Admission: 11/24/2024 6:36 PM Primary Problem: Abdominal pain Sheep Rancher reviewed chart and spoke with patient to complete this Initial Case Management Assessment. PCP: Elijah Wooten MD Emergency Contact: Extended Emergency Contact Information Primary Emergency Contact: Catherine Rodríguez Mobile Relation: Daughter Preferred language: Wolof Rat Poisoner needed? No Insurance: Primary Visit Coverage Payer Plan Sponsor Code Group Number Group Name HUMANA MEDICARE HUMANA MEDICARE [id number] Primary Visit Coverage Subscriber Subscriber ID Subscriber Name Subscriber SSN Subscriber Address [id number] YENIFER RILEY [id number] [facility] [place] [address] Patient information: Primary Caregiver: Self Support System: Immediate family Daily Living Activities: Functional Status: Independent Living Arrangements: Children (Son lives with her) Type of Residence: Private residence [address] [place], [place] [address] [address] Smoker in the Home?: Yes Current DME: [...] Dialysis Services: N/A Living Will/Advance Directive/Power of Security Sales Manager /Guardian: Have you reviewed your Advance Directive and is it valid for this stay?: Not applicable Information Provided on Healthcare Directives: No Pre-existing DNR/DNI Order: No Additional Comments: Pt stated that she gets her meds at [facility] in [facility]. Becki Dos Santos * Hospital Course - Mary Riggins APRN - 11/25/2024 11:43 AM EDT Yenifer Riley is a 69 y.o. female with PMH of A fib on eliquis, prior blood clots, bladder incontinence, COPD, presenting to [facility] on 11/24/2024 as transfer with concern for [...] blood clots, bladder incontinence, COPD, presenting to [facility] on 11/24/2024 as transfer with concern for [...] has a past medical history of Afib ([facility]), Coronary artery spasm ([facility]), and History of blood clots. Reviewed as [...] (Patient not taking: Reported on 01/01/2024) HYDROcodone-acetaminophen (Sandstone) 5-325 MG tablet Take 1 tablet (5 [...] Visit [place] [facility] [address] [place] [address] Padmini Main MD [address] [place] [address] Scheduled Referrals Name Type Priority [...] 2 Hour, Plasma (11/27/2024 8:51 AM EDT) [facility] Troponin T, High Sensitivity, 2 Hour 11 <14 ng/L 11/27/2024 9:33 AM EDT [facility] Blood Venous blood specimen / Unknown Venipuncture / Unknown 11/27/2024 8:51 AM EDT 11/27/2024 9:06 AM EDT Vicki Winslow MD LAB BLOOD ORDERABLES Final Result [facility] [address] [place] [address] * ECG Adult (11/27/2024 6:59 AM EDT) Pathologist [facility] EKG DIAGNOSIS CLASS Abnormal MUSE ECG Ventricular Rate 62 BPM MUSE ECG Atrial Rate 62 BPM MUSE ECG ND Interval 142 ms MUSE ECG QRSD Interval 140 ms MUSE ECG QT Interval 474 ms MUSE ECG QTC Interval 481 ms MUSE ECG P [place] 7 degrees MUSE ECG R [place] -38 degrees MUSE ECG T Wave [place] 5 degrees MUSE ECG Diagnosis Normal sinus [...] 12 <14 ng/L 11/27/2024 7:34 AM EDT [facility] Blood Venous blood specimen / Unknown Venipuncture / Unknown 11/27/2024 6:42 AM EDT 11/27/2024 7:07 AM EDT us Vicki Winslow MD LAB BLOOD ORDERABLES Final Result [facility] [address] [place] [address] * CBC W/O Differential (11/27/2024 12:02 AM EDT) WBC Count 6.68 3.70 - 10.30 10*3/uL LAB HEMATOLOGY METHOD 11/27/2024 12:15 AM EDT [facility] RBC Count 4.52 3.90 - 5.20 10*6/uL LAB HEMATOLOGY METHOD 11/27/2024 12:15 AM EDT [facility] HGB 13.7 11.2 - 15.7 g/dL LAB HEMATOLOGY METHOD 11/27/2024 12:15 AM EDT [facility] HCT 40.7 34.0 - 45.0 % LAB HEMATOLOGY METHOD 11/27/2024 12:15 AM EDT [facility] Platelet Count 159 155 - 369 10*3/uL LAB HEMATOLOGY METHOD 11/27/2024 12:15 AM EDT [facility] MCV 90 79 - 98 fL LAB HEMATOLOGY METHOD 11/27/2024 12:15 AM EDT [facility] MCH 30.3 26.0 - 32.0 pg LAB HEMATOLOGY METHOD 11/27/2024 12:15 AM EDT [facility] MCHC 33.7 30.7 - 35.5 g/dL LAB HEMATOLOGY METHOD 11/27/2024 12:15 AM EDT [facility] RDW 13.5 11.5 - 14.5 % LAB HEMATOLOGY METHOD 11/27/2024 12:15 AM EDT [facility] MPV 10.8 8.8 - 12.5 fL LAB HEMATOLOGY METHOD 11/27/2024 12:15 AM EDT [facility] nRBC 0.0 <=0.0 per 100 WBCs LAB HEMATOLOGY METHOD 11/27/2024 12:15 AM EDT [facility] Blood Venous blood specimen / Unknown Venipuncture / Unknown 11/27/2024 12:02 AM EDT 11/27/2024 12:08 AM EDT us Vicki Winslow MD LAB BLOOD ORDERABLES Final Result [facility] [address] [place] [address] * (ABNORMAL) Comprehensive Metabolic Panel, Plasma (11/27/2024 12:02 AM EDT) Glucose, Plasma 106(H) 74 - 99 mg/dL 11/27/2024 12:37 AM EDT [facility] BUN, Plasma 10 8 - 23 mg/dL 11/27/2024 12:37 AM EDT [facility] Creatinine, Plasma 0.66 0.60 - 1.10 mg/dL 11/27/2024 12:37 AM EDT [facility] BUN/Creatinine Ratio 15 11/27/2024 12:37 AM EDT [facility] Sodium, Plasma 142 136 - 145 mmol/L 11/27/2024 12:37 AM EDT [facility] Potassium, Plasma 3.5(L) 3.6 - 4.9 mmol/L 11/27/2024 12:37 AM EDT [facility] Chloride, Plasma 110(H) 97 - 107 mmol/L 11/27/2024 12:37 AM EDT [facility] CO2, Plasma 22 22 - 29 mmol/L 11/27/2024 12:37 AM EDT [facility] Anion Gap 10 6 - 16 mmol/L 11/27/2024 12:37 AM EDT [facility] Total Calcium, Plasma 8.4(L) 8.9 - 10.2 mg/dL 11/27/2024 12:37 AM EDT [facility] Total Protein 5.6(L) 6.3 - 7.9 g/dL 11/27/2024 12:37 AM EDT [facility] Albumin, Plasma 3.5 3.5 - 5.2 g/dL 11/27/2024 12:37 AM EDT [facility] AST, Plasma 16 10 - 35 U/L 11/27/2024 12:37 AM EDT [facility] Comment:Hemolyzed, result ma y be falsely increased. ALT, Plasma 12 10 - 35 U/L 11/27/2024 12:37 AM EDT [facility] Alkaline Phosphatase, Plasma 50 46 - 142 U/L 11/27/2024 12:37 AM EDT [facility] Total Bilirubin, Plasma 0.6 0.2 - 1.1 mg/dL 11/27/2024 12:37 AM EDT [facility] eGFRcr 96.3 mL/min/1.7 3m*2 11/27/2024 12:37 AM EDT [facility] Comment:Reported eGFRcr in m L/min/1.73m2 is based the CKD-EPI 2020 equation that does not use a race coefficient. Blood Venous blood specimen / Unknown Venipuncture / Unknown 11/27/2024 12:02 AM EDT 11/27/2024 12:08 AM EDT us Vicki Winslow MD LAB BLOOD ORDERABLES Final Result [facility] [address] [place] [address] * (ABNORMAL) Magnesium, Plasma (11/27/2024 12:02 AM EDT) Pathologist [facility] Magnesium, Plasma 1.8(L) 1.9 - 2.4 mg/dL 11/27/2024 12:37 AM EDT [facility] Blood Venous blood specimen / Unknown Venipuncture / Unknown 11/27/2024 12:02 AM EDT 11/27/2024 12:08 AM EDT us Vicki Winslow MD LAB BLOOD ORDERABLES Final Result Performing Organization Address City/[facility]/ZIP Co de Phone Number [facility] [address] [place] [address] * Phosphorus, Plasma (11/27/2024 12:02 AM EDT) [facility] Phosphorus, Plasma 2.7 2.5 - 4.5 mg/dL 11/27/2024 12:37 AM EDT [facility] Blood Venous blood specimen / Unknown Venipuncture / Unknown 11/27/2024 12:02 AM EDT 11/27/2024 12:08 AM EDT us Vicki Winslow MD LAB BLOOD ORDERABLES Final Result Performing Organization Address City/[facility]/ZIP Co de Phone Number [facility] [address] [place] [address] * (ABNORMAL) CBC W/O Differential (11/26/2024 8:42 AM EDT) Pathologist [facility] WBC Count 5.25 3.70 - 10.30 10*3/uL LAB HEMATOLOGY METHOD 11/26/2024 8:50 AM EDT [facility] RBC Count 4.44 3.90 - 5.20 10*6/uL LAB HEMATOLOGY METHOD 11/26/2024 8:50 AM EDT [facility] HGB 13.5 11.2 - 15.7 g/dL LAB HEMATOLOGY METHOD 11/26/2024 8:50 AM EDT [facility] HCT 39.6 34.0 - 45.0 % LAB HEMATOLOGY METHOD 11/26/2024 8:50 AM EDT [facility] Platelet Count 147(L) 155 - 369 10*3/uL LAB HEMATOLOGY METHOD 11/26/2024 8:50 AM EDT [facility] MCV 89 79 - 98 fL LAB HEMATOLOGY METHOD 11/26/2024 8:50 AM EDT [facility] MCH 30.4 26.0 - 32.0 pg LAB HEMATOLOGY METHOD 11/26/2024 8:50 AM EDT [facility] MCHC 34.1 30.7 - 35.5 g/dL LAB HEMATOLOGY METHOD 11/26/2024 8:50 AM EDT [facility] RDW 13.4 11.5 - 14.5 % LAB HEMATOLOGY METHOD 11/26/2024 8:50 AM EDT [facility] MPV 10.4 8.8 - 12.5 fL LAB HEMATOLOGY METHOD 11/26/2024 8:50 AM EDT [facility] nRBC 0.0 <=0.0 per 100 WBCs LAB HEMATOLOGY METHOD 11/26/2024 8:50 AM EDT [facility] Blood Venous blood specimen / Unknown Venipuncture / Unknown 11/26/2024 8:42 AM EDT 11/26/2024 8:48 AM EDT us Alba Bradley TREE SHEAR OPERATOR LAB BLOOD ORDERABLES Gloria l Result [facility] [address] [place] [address] * (ABNORMAL) Basic Metabolic Panel, Plasma (11/26/2024 8:42 AM EDT) Glucose, Plasma 72(L) 74 - 99 mg/dL 11/26/2024 9:11 AM EDT [facility] BUN, Plasma 10 8 - 23 mg/dL 11/26/2024 9:11 AM EDT [facility] Creatinine, Plasma 0.71 0.60 - 1.10 mg/dL 11/26/2024 9:11 AM EDT [facility] BUN/Creatinine Ratio 14 11/26/2024 9:11 AM EDT [facility] Sodium, Plasma 141 136 - 145 mmol/L 11/26/2024 9:11 AM EDT [facility] Potassium, Plasma 3.9 3.6 - 4.9 mmol/L 11/26/2024 9:11 AM EDT [facility] Chloride, Plasma 107 97 - 107 mmol/L 11/26/2024 9:11 AM EDT [facility] CO2, Plasma 22 22 - 29 mmol/L 11/26/2024 9:11 AM EDT [facility] Anion Gap 12 6 - 16 mmol/L 11/26/2024 9:11 AM EDT [facility] Total Calcium, Plasma 8.6(L) 8.9 - 10.2 mg/dL 11/26/2024 9:11 AM EDT [facility] eGFRcr 93.3 mL/min/1.7 3m*2 11/26/2024 9:11 AM EDT [facility] Comment:Reported eGFRcr in m L/min/1.73m2 is based the CKD-EPI 2020 equation that does not use a race coefficient. Blood Venous blood specimen / Unknown Venipuncture / Unknown 11/26/2024 8:42 AM EDT 11/26/2024 8:48 AM EDT us Alba Bradley TREE SHEAR OPERATOR LAB BLOOD ORDERABLES Gloria l Result Performing Organization Address City/[facility] Co de Phone Number [facility] [address] [place] [address] * Magnesium, Plasma (11/26/2024 8:42 AM EDT) Magnesium, Plasma 1.9 1.9 - 2.4 mg/dL 11/26/2024 9:11 AM EDT [facility] Blood Venous blood specimen / Unknown Venipuncture / Unknown 11/26/2024 8:42 AM EDT 11/26/2024 8:48 AM EDT us Alba E Kirk TREE SHEAR OPERATOR LAB BLOOD ORDERABLES Gloria l Result Performing Organization Address City/[facility]/ZIP Co de Phone Number [facility] [address] [place] [address] * Phosphorus, Plasma (11/26/2024 8:42 AM EDT) Pathologist [facility] Phosphorus, Plasma 3.2 2.5 - 4.5 mg/dL 11/26/2024 9:11 AM EDT [facility] Blood Venous blood specimen / Unknown Venipuncture / Unknown 11/26/2024 8:42 AM EDT 11/26/2024 8:48 AM EDT us Alba Bradley APRN LAB BLOOD ORDERABLES Gloria l Result Performing Organization Address City/[facility]/ZIP Co de Phone Number [facility] [address] [place] [address] * POCT glucose meter (11/26/2024 5:41 AM EDT) [facility] POCT Glucose 94 74 - 99 mg/dL [...] Comment 11/26/2024 5:42 AM EDT [facility] Mill Representative ID Kaylee Merrill 11/27/19 25 5:42 AM EDT HEALTHCARE LAB Device ID [id number] 11/26/2024 5:42 AM EDT [facility]ALTH[facility]ARE LAB Specimen Type POC Capillary 11/26/2024 5:42 AM EDT [facility] Blood Capillary blood specimen / Unknown 11/26/2024 5:41 AM EDT 11/26/2024 5:42 AM EDT us Catherine Rodriguez MD LAB POINT OF CARE TE ST DOCKED DEVICE UNSOLICITED RESULTS Final Result [facility] [address] [place] [address] * Comprehensive GI Panel by PCR (11/26/2024 4:47 AM EDT) [facility] Campylobacter PCR Result Not Detected Not Detected 11/26/2024 9:38 AM EDT [facility] Plesiomonas shigelloides PCR Result Not Detected Not Detected 11/26/2024 9:38 AM EDT [facility] Salmonella PCR Result Not Detected Not Detected 11/26/2024 9:38 AM EDT [facility] Vibrio species PCR Result Not Detected Not Detected 11/26/2024 9:38 AM EDT [facility] Vibrio cholerae PCR Result Not Detected Not Detected 11/26/2024 9:38 AM EDT [facility] Yersinia enterocolitica PCR Result Not Detected Not Detected 11/26/2024 9:38 AM EDT [facility] Enteroaggregative E. coli (EAEC) PCR Result Not Detected Not Detected 11/26/2024 9:38 AM EDT [facility] Enteropathogenic E. coli (EPEC) PCR Result Not Detected Not Detected 11/26/2024 9:38 AM EDT [facility] Enterotoxigenic E. coli (ETEC) lt/st PCR Result Not Detected Not Detected 11/26/2024 9:38 AM EDT [facility] Shiga-like Toxin-Producing E.coli (STEC) stx1/stx2 PCR Resu Not Detected Not Detected 11/26/2024 9:38 AM EDT [facility] E coli 0157 PCR Result Not Detected Not Detected 11/26/2024 9:38 AM EDT [facility] Shigella/Enteroinvas chuyita E. coli (EIEC) PCR Result Not Detected Not Detected 11/26/2024 9:38 AM EDT [facility] Cryptosporidium PCR Result Not Detected Not Detected 11/26/2024 9:38 AM EDT [facility] Cyclospora cayetanensis PCR Result Not Detected Not Detected 11/26/2024 9:38 AM EDT [facility] Entamoeba histolytica PCR Result Not Detected Not Detected 11/26/2024 9:38 AM EDT [facility] Giardia duodenalis (aka Giardia lamblia) PCR Result Not Detected Not Detected 11/26/2024 9:38 AM EDT [facility] Adenovirus F 40/41 PCR Result Not Detected Not Detected 11/26/2024 9:38 AM EDT [facility] Astrovirus PCR Result Not Detected Not Detected 11/26/2024 9:38 AM EDT [facility] Norovirus GI/GII PCR Result Not Detected Not Detected 11/26/2024 9:38 AM EDT [facility] Rotavirus A PCR Result Not Detected Not Detected 11/26/2024 9:38 AM EDT [facility] Sapovirus PCR Result Not Detected Not Detected 11/26/2024 9:38 AM EDT [facility] Stool Rectum structure / Unknown Non-blood Collection / Unknown 11/26/2024 4:47 AM EDT 11/26/2024 6:01 AM EDT Narrative [facility] - 11/26/2024 9:38 AM EDT [...] OR DERABLES Final Result Performing Organization Address [facility] Co de Phone Number [facility] [address] [place] [address] * (ABNORMAL) Protime-INR (11/25/2024 4:54 AM EDT) Prothrombin Time 16.7(H) 12.0 - 14.3 sec 11/25/2024 5:30 AM EDT [facility] INR 1.3(H) 0.9 - 1.1 11/25/2024 5:30 AM EDT [facility] Blood Venous blood specimen / Unknown Venipuncture / Unknown 11/25/2024 4:54 AM EDT 11/25/2024 4:59 AM EDT Narrative [facility] - 11/25/2024 5:30 AM EDT OPTIMAL INR RANGES FOR PATIENT ON ORAL ANTICOAGULANT THERAPY Prevention of venous thromboembolism INR 2.0 to 3.0 In patients with heart disease: Atrial fibrillation INR 2.0 to 3.0 Valvular heart disease INR 2.0 to 3.0 Tissue heart valves INR 2.0 to 3.0 Mechanical prosthetic valves INR 2.5 to 3.5 Prevention of recurrent AR INR 2.5 to 3.5 us Catherine Rodriguez MD LAB BLOOD ORDERABLES Final Re sult Performing Organization Address City/[facility]/ZIP Co de Phone Number [facility] [address] [place] [address] * Phosphorus (11/25/2024 4:54 AM EDT) Phosphorus, Plasma 3.6 2.5 - 4.5 mg/dL 11/25/2024 5:44 AM EDT [facility] Blood Venous blood specimen / Unknown Venipuncture / Unknown 11/25/2024 4:54 AM EDT 11/25/2024 5:13 AM EDT us Catherine Rodriguez MD LAB BLOOD ORDERABLES Final Re sult [facility] [address] [place] [address] * Magnesium (11/25/2024 4:54 AM EDT) Magnesium, Plasma 1.9 1.9 - 2.4 mg/dL 11/25/2024 5:44 AM EDT [facility] Blood Venous blood specimen / Unknown Venipuncture / Unknown 11/25/2024 4:54 AM EDT 11/25/2024 5:13 AM EDT us Catherine Rodriguez MD LAB BLOOD ORDERABLES Final Re sult Performing Organization Address [facility]/ZIP Co de Phone Number [facility] [address] [place] [address] * (ABNORMAL) Comprehensive Metabolic Panel (11/25/2024 4:54 AM EDT) Glucose, Plasma 102(H) 74 - 99 mg/dL 11/25/2024 5:44 AM EDT [facility] BUN, Plasma 10 8 - 23 mg/dL 11/25/2024 5:44 AM EDT [facility] Creatinine, Plasma 0.70 0.60 - 1.10 mg/dL 11/25/2024 5:44 AM EDT [facility] BUN/Creatinine Ratio 14 11/25/2024 5:44 AM EDT [facility] Sodium, Plasma 143 136 - 145 mmol/L 11/25/2024 5:44 AM EDT [facility] Potassium, Plasma 3.6 3.6 - 4.9 mmol/L 11/25/2024 5:44 AM EDT [facility] Chloride, Plasma 109(H) 97 - 107 mmol/L 11/25/2024 5:44 AM EDT [facility] CO2, Plasma 24 22 - 29 mmol/L 11/25/2024 5:44 AM EDT [facility] Anion Gap 10 6 - 16 mmol/L 11/25/2024 5:44 AM EDT [facility] Total Calcium, Plasma 8.5(L) 8.9 - 10.2 mg/dL 11/25/2024 5:44 AM EDT [facility] Total Protein 5.1(L) 6.3 - 7.9 g/dL 11/25/2024 5:44 AM EDT [facility] Albumin, Plasma 3.2(L) 3.5 - 5.2 g/dL 11/25/2024 5:44 AM EDT [facility] AST, Plasma 14 10 - 35 U/L 11/25/2024 5:44 AM EDT [facility] ALT, Plasma 12 10 - 35 U/L 11/25/2024 5:44 AM EDT [facility] Alkaline Phosphatase, Plasma 55 46 - 142 U/L 11/25/2024 5:44 AM EDT [facility] Total Bilirubin, Plasma 1.2(H) 0.2 - 1.1 mg/dL 11/25/2024 5:44 AM EDT [facility] eGFRcr 94.9 mL/min/1.7 3m*2 11/25/2024 5:44 AM EDT [facility] Comment:Reported eGFRcr in m L/min/1.73m2 is based the CKD-EPI 2020 equation that does not use a race coefficient. Blood Venous blood specimen / Unknown Venipuncture / Unknown 11/25/2024 4:54 AM EDT 11/25/2024 5:13 AM EDT us Catherine Rodriguez MD LAB BLOOD ORDERABLES Final Re sult [facility] [address] [place] [address] * (ABNORMAL) CBC (11/25/2024 4:54 AM EDT) WBC Count 6.10 3.70 - 10.30 10*3/uL LAB HEMATOLOGY METHOD 11/25/2024 5:01 AM EDT [facility] RBC Count 4.39 3.90 - 5.20 10*6/uL LAB HEMATOLOGY METHOD 11/25/2024 5:01 AM EDT [facility] HGB 13.5 11.2 - 15.7 g/dL LAB HEMATOLOGY METHOD 11/25/2024 5:01 AM EDT [facility] HCT 39.3 34.0 - 45.0 % LAB HEMATOLOGY METHOD 11/25/2024 5:01 AM EDT [facility] Platelet Count 143(L) 155 - 369 10*3/uL LAB HEMATOLOGY METHOD 11/25/2024 5:01 AM EDT [facility] MCV 90 79 - 98 fL LAB HEMATOLOGY METHOD 11/25/2024 5:01 AM EDT [facility] MCH 30.8 26.0 - 32.0 pg LAB HEMATOLOGY METHOD 11/25/2024 5:01 AM EDT [facility] MCHC 34.4 30.7 - 35.5 g/dL LAB HEMATOLOGY METHOD 11/25/2024 5:01 AM EDT [facility] RDW 13.4 11.5 - 14.5 % LAB HEMATOLOGY METHOD 11/25/2024 5:01 AM EDT [facility] MPV 10.5 8.8 - 12.5 fL LAB HEMATOLOGY METHOD 11/25/2024 5:01 AM EDT [facility] nRBC 0.0 <=0.0 per 100 WBCs LAB HEMATOLOGY METHOD 11/25/2024 5:01 AM EDT [facility] Blood Venous blood specimen / Unknown Venipuncture / Unknown 11/25/2024 4:54 AM EDT 11/25/2024 4:59 AM EDT us Catherine Rodriguez MD LAB BLOOD ORDERABLES Final Re sult [facility] [address] [place] [address] * Lactic acid, venous (11/24/2024 7:46 PM EDT) Lactate, Venous, Whole Blood 0.7 0.5 - 2.2 mmol/L LAB HEMATOLOGY METHOD 11/24/2024 7:56 PM EDT [facility] Blood Venous blood specimen / Unknown Venipuncture / Unknown 11/24/2024 7:46 PM EDT 11/24/2024 7:54 PM EDT Dillon Flowers MD LAB BLOOD ORDERABLES Final Res ult Performing Organization Address [facility] Co de Phone Number [facility] [address] [place] [address] * C-Reactive protein (11/24/2024 7:46 PM EDT) CRP, Plasma <3.0 <=8.0 mg/L 11/24/2024 8:22 PM EDT [facility] Blood Venous blood specimen / Unknown Venipuncture / Unknown 11/24/2024 7:46 PM EDT 11/24/2024 7:53 PM EDT Narrative [facility] - 11/24/2024 8:22 PM EDT This CRP test is appropriate for assessment of infection, systemic inflammation and/or tissue injury. To assess cardiovascular disease risk order high sensitivity CRP (CRPH). Dillon Flowers MD LAB BLOOD ORDERABLES Final Res ult Performing Organization Address [facility] Co de Phone Number [facility] [address] [place] [address] * (ABNORMAL) Anti Xa Level Unfractionated Heparin (11/24/2024 7:46 PM EDT) Pathologist [facility] Anti Xa Level Unfractionated Heparin >1.10(HH) <1.00 IU/mL 11/24/2024 8:20 PM EDT [facility] Blood Venous blood specimen / Unknown Venipuncture / Unknown 11/24/2024 7:46 PM EDT 11/24/2024 7:53 PM EDT Narrative [facility] - 11/24/2024 8:20 PM EDT Therapeutic Range: UFH Full Dose and ACS/AR protocols*: 0.30 - 0.70 IU/mL UFH Low Dose protocol*: 0.25 - 0.50 IU/mL UFH prophylaxis: Not established Dillon Flowers MD LAB BLOOD ORDERABLES Final Res ult Performing Organization Address City/[facility]/ZIP Co de Phone Number [facility] [address] [place] [address] * (ABNORMAL) PT-INR (11/24/2024 7:46 PM EDT) Prothrombin Time 16.2(H) 12.0 - 14.3 sec 11/24/2024 8:17 PM EDT [facility] INR 1.3(H) 0.9 - 1.1 11/24/2024 8:17 PM EDT [facility] Blood Venous blood specimen / Unknown Venipuncture / Unknown 11/24/2024 7:46 PM EDT 11/24/2024 7:53 PM EDT Narrative [facility] - 11/24/2024 8:17 PM EDT OPTIMAL INR RANGES FOR PATIENT ON ORAL ANTICOAGULANT THERAPY Prevention of venous thromboembolism INR 2.0 to 3.0 In patients with heart disease: Atrial fibrillation INR 2.0 to 3.0 Valvular heart disease INR 2.0 to 3.0 Tissue heart valves INR 2.0 to 3.0 Mechanical prosthetic valves INR 2.5 to 3.5 Prevention of recurrent AR INR 2.5 to 3.5 us Dillon Flowers MD LAB BLOOD ORDERABLES Final Res ult [facility] [address] [place] [address] * CBC w/diff (11/24/2024 7:46 PM EDT) WBC Count 8.02 3.70 - 10.30 10*3/uL LAB HEMATOLOGY METHOD 11/24/2024 8:04 PM EDT [facility] RBC Count 4.65 3.90 - 5.20 10*6/uL LAB HEMATOLOGY METHOD 11/24/2024 8:04 PM EDT [facility] HGB 14.4 11.2 - 15.7 g/dL LAB HEMATOLOGY METHOD 11/24/2024 8:04 PM EDT [facility] HCT 41.2 34.0 - 45.0 % LAB HEMATOLOGY METHOD 11/24/2024 8:04 PM EDT [facility] Platelet Count 166 155 - 369 10*3/uL LAB HEMATOLOGY METHOD 11/24/2024 8:04 PM EDT [facility] MCV 89 79 - 98 fL LAB HEMATOLOGY METHOD 11/24/2024 8:04 PM EDT [facility] MCH 31.0 26.0 - 32.0 pg LAB HEMATOLOGY METHOD 11/24/2024 8:04 PM EDT [facility] MCHC 35.0 30.7 - 35.5 g/dL LAB HEMATOLOGY METHOD 11/24/2024 8:04 PM EDT [facility] RDW 13.5 11.5 - 14.5 % LAB HEMATOLOGY METHOD 11/24/2024 8:04 PM EDT [facility] MPV 10.6 8.8 - 12.5 fL LAB HEMATOLOGY METHOD 11/24/2024 8:04 PM EDT [facility] nRBC 0.0 <=0.0 per 100 WBCs LAB HEMATOLOGY METHOD 11/24/2024 8:04 PM EDT [facility] Differential Type Automated LAB HEMATOLOGY METHOD 11/24/2024 8:04 PM EDT [facility] Neutrophils % 69 % LAB HEMATOLOGY METHOD 11/24/2024 8:04 PM EDT [facility] Lymphocytes % 22 % LAB HEMATOLOGY METHOD 11/24/2024 8:04 PM EDT [facility] Monocytes % 7 % LAB HEMATOLOGY METHOD 11/24/2024 8:04 PM EDT [facility] Eosinophils % 1 % LAB HEMATOLOGY METHOD 11/24/2024 8:04 PM EDT [facility] Basophils % 1 % LAB HEMATOLOGY METHOD 11/24/2024 8:04 PM EDT [facility] Immature Granulocytes % 0 % LAB HEMATOLOGY METHOD 11/24/2024 8:04 PM EDT [facility] Neutrophils Absolute 5.55 1.60 - 6.10 10*3/uL LAB HEMATOLOGY METHOD 11/24/2024 8:04 PM EDT [facility] Lymphocytes Absolute 1.78 1.20 - 3.90 10*3/uL LAB HEMATOLOGY METHOD 11/24/2024 8:04 PM EDT [facility] Monocytes Absolute 0.52 0.30 - 0.90 10*3/uL LAB HEMATOLOGY METHOD 11/24/2024 8:04 PM EDT [facility] Eosinophils Absolute 0.08 0.00 - 0.50 10*3/uL LAB HEMATOLOGY METHOD 11/24/2024 8:04 PM EDT [facility] Basophils Absolute 0.08 0.00 - 0.10 10*3/uL LAB HEMATOLOGY METHOD 11/24/2024 8:04 PM EDT [facility] Immature Granulocytes Absolute 0.01 0.00 - 0.06 10*3/uL LAB HEMATOLOGY METHOD 11/24/2024 8:04 PM EDT [facility] Blood Venous blood specimen / Unknown Venipuncture / Unknown 11/24/2024 7:46 PM EDT 11/24/2024 7:53 PM EDT Narrative [facility] - 11/24/2024 8:04 PM EDT Therapeutic decision making should be based on absolute values, rather than percentages. Dillon Flowers MD LAB BLOOD ORDERABLES Final Res ult Performing Organization Address [facility] Co de Phone Number [facility] [address] [place] [address] * Magnesium (11/24/2024 7:46 PM EDT) Magnesium, Plasma 1.9 1.9 - 2.4 mg/dL 11/24/2024 8:22 PM EDT [facility] Blood Venous blood specimen / Unknown Venipuncture / Unknown 11/24/2024 7:46 PM EDT 11/24/2024 7:53 PM EDT Dillon Flowers MD LAB BLOOD ORDERABLES Final Res ult Performing Organization Address City/[facility]/ZIP Co de Phone Number [facility] [address] [place] [address] * (ABNORMAL) CMP (11/24/2024 7:46 PM EDT) Glucose, Plasma 99 74 - 99 mg/dL 11/24/2024 8:22 PM EDT [facility] BUN, Plasma 9 8 - 23 mg/dL 11/24/2024 8:22 PM EDT [facility] Creatinine, Plasma 0.78 0.60 - 1.10 mg/dL 11/24/2024 8:22 PM EDT [facility] BUN/Creatinine Ratio 12 11/24/2024 8:22 PM EDT [facility] Sodium, Plasma 140 136 - 145 mmol/L 11/24/2024 8:22 PM EDT [facility] Potassium, Plasma 4.4 3.6 - 4.9 mmol/L 11/24/2024 8:22 PM EDT [facility] Chloride, Plasma 107 97 - 107 mmol/L 11/24/2024 8:22 PM EDT [facility] CO2, Plasma 23 22 - 29 mmol/L 11/24/2024 8:22 PM EDT [facility] Anion Gap 10 6 - 16 mmol/L 11/24/2024 8:22 PM EDT [facility] Total Calcium, Plasma 8.9 8.9 - 10.2 mg/dL 11/24/2024 8:22 PM EDT [facility] Total Protein 5.9(L) 6.3 - 7.9 g/dL 11/24/2024 8:22 PM EDT [facility] Albumin, Plasma 3.7 3.5 - 5.2 g/dL 11/24/2024 8:22 PM EDT [facility] AST, Plasma 13 10 - 35 U/L 11/24/2024 8:22 PM EDT [facility] ALT, Plasma 11 10 - 35 U/L 11/24/2024 8:22 PM EDT [facility] Alkaline Phosphatase, Plasma 67 46 - 142 U/L 11/24/2024 8:22 PM EDT [facility] Total Bilirubin, Plasma 0.8 0.2 - 1.1 mg/dL 11/24/2024 8:22 PM EDT [facility] eGFRcr 83.4 mL/min/1.7 3m*2 11/24/2024 8:22 PM EDT [facility] Comment:Reported eGFRcr in m L/min/1.73m2 is based the CKD-EPI 2020 equation that does not use a race coefficient. Blood Venous blood specimen / Unknown Venipuncture / Unknown 11/24/2024 7:46 PM EDT 11/24/2024 7:53 PM EDT us Dillon Flowers MD LAB BLOOD ORDERABLES Final Res ult [facility] [address] [place] [address] documented in this encounter Visit Diagnoses Diagnosis [...] PRN, Starting on Sun11/25/24 at 0012, Until [facility] 11/27/24 at 1927, Routine, vomiting, nausea Given 11/27/2024 6:47 AM EDT 4 mg ondansetron ODT (Zofran-ODT) disintegrating tablet 4 mg 4 mg, Oral, Every 6 hours PRN, Starting on Sun11/25/24 at 0012, Until [facility] 11/27/24 at 1927, Routine, nausea, vomiting oxyCODONE (Roxicodone) immediate release tablet 5 mg 5 mg, Oral, Every 6 hours PRN, Starting on Sun11/25/24 at 1117, Until [facility] 11/27/24 at 1927, Routine, severe pain, [...] documented as of this encounter Care Teams Theatrical Dresser Relationship Specialty Start Date End Date Elijah Wooten MD [address] [place] [id number] PCP - General 05/15/23 Zandra Saenz MD [address] [place] [id number] Surgeon Radiology 06/07/23 documented as of this encounter
--- OUTSIDE RECORDS SUMMARY | 2024-12-01 08:50 | XMS_ITS | Encounter Summary ---
Author Organization [facility] Address [address] [place] [address] Care Team Providers Care Soda Jerker Name Role Phone Elijah Wooten MD Primary Care Provider [phone] Reason for Visit * Reason Comments Follow-up 4 month recheck- Ost eoarthritis of right knee Encounter Details Date Type Department Care Team (Late st Contact Info) Description 12/01/2024 8:50 AM EDT Office Visit [facility] [address] [place] [address] Nick Hyatt MD [facility] [place] [address] Osteoarthritis of right knee, unspecified osteoarthritis type [...] from the original note were not included. [facility] Orthopaedic Surgery Clinic Note Subjective Chief Complaint [...] Units Date/Time XR Knee 4+ View Right [[id number]] Resulted: 12/01/24915 Updated: 12/01/24915 Narrative: Right Knee Radiographs Indication: right knee pain Views: Standing AP's and skiers of both knees, with lateral and sunrise views of the right knee Comparison: no prior studies available Findings: Near qvud-jf-dtxa contact lateral compartment, diffuse osteopenia, no acute [...] Hyatt MD 12/01/24 13:36 EDT Dictated Utilizing [employer] Dictation * Linda Calix CMA - 12/01/2024 [...] called to verify the correctpatient, procedure, equipment, passport support manager and site/side marked as required. Patient was prepped and draped in the usual sterile fashion. documented in this encounter Plan of Treatment Upcoming Encounters Date Type Department Care Team (Late st Contact Info) Description 12/30/2024 3:30 PM EDT Appointment [facility] [address] [phone] 03/30/2025 4:00 PM EST Office Visit [facility] [address] [phone] Nick Hyatt MD [address] [phone] documented as of this encounter Procedures Procedure Name Priority Date/Time Associated Diagnosis Comments ID ARTHROCENTESIS ASPIR&/INJ MAJOR JT/BURSA W/O US Routine 12/01/2024 9:22 AM EDT Osteoarthritis of right knee, unspecified osteoarthritis type XR KNEE 4+ VW RIGHT Routine 12/01/2024 9 :09 AM EDT Osteoarthritis of right knee, unspecified osteoarthritis type documented in this encounter Results * ID ARTHROCENTESIS ASPIR&/INJ MAJOR JT/BURSA W/O US (12/01/2024 9:22 AM EDT) Narrative Linda Calix [facility] - 12/01/2024 9:22 AM EDT Linda Calix [facility] 12/01/2024 1:36 PM - Large Joint Arthrocentesis: [...] to verify the correct patient, procedure, equipment, passport support manager and site/side marked as required. [...] Comparison: no prior studies available Findings: Near teak-xs-iyyr contact lateral compartment, diffuse osteopenia, no acute [...] Right documented in this encounter Care Teams Soda Jerker Relationship Specialty Start Date End Date Elijah Wooten MD [address] [place] [address] PCP - General Family Medicine 04/10/22 documented as of this encounter
--- OUTSIDE RECORDS SUMMARY | 2024-12-22 14:39 | XMS_ITS | Encounter Summary ---
Author Organization [employer] ([place], [place], [place], [place]) Address [address] [place] [address] Care Team Providers Care Bilingual Customer Service Specialist Name Role Phone Elijah Wooten MD Primary Care Provider [phone] Encounter Details Date Type Department Care Team (Late st Contact Info) Description 01/24/2021 Transcribed Document [facility] Family [place] [address] ProviderChioma MD [address] [place] [id number] Social History Tobacco Use Types Packs/Day Years Used Date Smoking Tobacco: Never Assessed Comments Unknown Sex and Gender Information Value Date Recorded Sex Assigned at Not on file Legal Sex Female 2:19 PM CDT Gender Identity Not on file Sexual Orientation Not on file documented as of this encounter Miscellaneous Notes * Cerner Conversion Note - Chioma Butt MD - 01/24/2021 3:19 PM GIS SCIENTIST Patient: YENIFER MYERS Age: 65 years Sex: Female : 1955 Associated Diagnoses: Urinary incontinence; Bladder prolapse, s/p colpopexy and bladder tack; Coronary artery spasm; Atrial fibrillation, transient; At risk for sleep apnea; Tobacco use disorder, continuous Author: MADYSON GTZ MD-INT Date of admission 01/24/2021 Date of consult 01/24/2021 PCP Elijah Wooten MD [employer] REPAIRER, Jerson Knight MD Hospitalist medicine consult, internal medicine, Madyson Gtz MD Reason for the consult, postoperative medical management Surgery See operative report dictated by Dr. Knight Admitting diagnosis 1???urinary incontinence 2???bladder prolapse and vaginal vault prolapse s/p colpopexy and bladder tack 3???lower abdominal pain 4???CAD 5???A. fib 6???at risk for HEIKE 7???tobacco use disorder, continuous History of present illness A pleasant 65years old white female with a history of CAD, A. fib, HEIKE, tobacco use disorder in addition to urinary incontinence from bladder prolapse and vaginal vault prolapse who is after medical clearance by her PCP she underwent colpoplexy and a bladder sling by Dr. Knight. Patient had surgery and is recovering well is awake alert cooperative responsive under no acute distress and is answering questions appropriately. Currently patient is on oral as well as IV pain medications and her pain is under control.. Patient is on DVT prophylaxis as per Dr. Knight protocol with SCUDs.. Patient has a Celeste catheter and her urine output is adequate. Patient is on scheduled bowel regimen. Patient did not started on oral nutrition yet. Patient denies any chest pain, shortness of breath, diaphoresis nausea or vomiting. Review of Systems Constitutional: No fever, No chills. Eye: No visual disturbances. Ear/Nose/Mouth/Throat: No nasal congestion, No sore throat. Respiratory: No shortness of breath, No cough. Cardiovascular: No chest pain, No tachycardia. Gastrointestinal: No nausea, No vomiting, No abdominal pain. Genitourinary: No change in urine stream. Hematology/Lymphatics: No bleeding tendency. Endocrine: No polyuria, No cold intolerance, No heat intolerance. Immunologic: Negative. Musculoskeletal: Negative. Integumentary: No rash, No pruritus. Neurologic: No confusion, No numbness, No tingling, No headache. Psychiatric: No anxiety, No depression. All other systems are negative Health Status Allergies: No qualifying data available Current medications: (Selected) Inpatient Medications Ordered Ambien: 5 mg, Oral, Tab, At Bedtime, PRN for Sleep, Routine, Start 01/24/21 15:33:00 EST, 01/24/21 15:33:00 EST Colace: 100 mg, Oral, Cap, BID, Routine, Start 01/24/21 15:33:00 EST, 01/24/21 15:33:00 EST Colace: 100 mg, Oral, Cap, BID, Routine, Start 01/24/21 15:46:00 EST, 01/24/21 15:46:00 EST Dilaudid: 0.5 mg, IV Push, Inj, Q2H, PRN for Breakthrough Pain, Routine, Start 01/24/21 15:33:00 EST, 01/24/21 15:33:00 EST Dilaudid: 0.5 mg, IV Push, Inj, Q2H, PRN for Pain (Severe 7-10), Routine, Start 01/24/21 15:46:00 EST, 01/24/21 15:46:00 EST Dulcolax Laxative: 10 mg, Rectal, Supp, BID, PRN for Constipation, Routine, Start 01/24/21 15:46:00 EST, 01/24/21 15:46:00 EST Lactated Ringers Injection intravenous solution 1,000 mL: 1,000 mL, Bag Volume (mL) = 1,000, IntraVENous, Rate = 100 mL/Hr, start date 01/24/21 15:33:00 EST, Routine, X 24 Hour(s), Stop 01/25/21 15:32:00 EST, 1.93, m2 Milk of Magnesia 8% oral suspension: 30 mL, Oral, Liquid, Daily, PRN for Constipation, Routine, Start 01/24/21 15:46:00 EST Nicoderm C-Q 21 mg/24 hr transdermal film, extended release: 1 Patch, TransDermal, Patch, Daily, Routine, Start 01/25/21 9:00:00 EST Normal Saline Flush: 10 mL, IV Push, Inj, Q12H, Routine, Start 01/24/21 21:00:00 EST Normal Saline Flush: 10 mL, IV Push, Inj, See Comment, PRN for IV Use, Routine, Start 01/24/21 15:33:00 EST Phenergan: 12.5 mg, IV Push, Inj, Q6H, PRN for Nausea/Vomiting, Routine, Start 01/24/21 15:33:00 EST, 01/24/21 15:33:00 EST Phenergan: 6.25 mg, Oral, Tab, Q4H, PRN for Nausea, Routine, Start 01/24/21 15:33:00 EST, 01/24/21 15:33:00 EST Restoril: 15 mg, Oral, Cap, At Bedtime, PRN for Sleep, Routine, Start 01/24/21 15:46:00 EST, 01/24/21 15:46:00 EST Sodium Chloride 0.45% intravenous solution 1,000 mL: 1,000 mL, Bag Volume (mL) = 1,000, IntraVENous, Rate = 100 mL/Hr, start date 01/24/21 15:46:00 EST, Routine, 1.93, m2 Tylenol: 650 mg, Oral, Tab, Q4H, PRN for Other (See Comment), Routine, Start 01/24/21 15:46:00 EST, 01/24/21 15:46:00 EST Xanax: 0.25 mg, Oral, Tab, Q6H, PRN for Anxiety, Routine, Start 01/24/21 15:46:00 EST, 01/24/21 15:46:00 EST Zofran: 4 mg, IV Push, Inj, Q4H, PRN for Nausea, Routine, Start 01/24/21 15:33:00 EST, 01/24/21 15:33:00 EST Zofran: 4 mg, IV Push, Inj, Q4H, PRN for Nausea/Vomiting, Routine, Start 01/24/21 15:46:00 EST, 01/24/21 15:46:00 EST Zofran: 4 mg, IV Push, Inj, Q4H, PRN for Nausea/Vomiting, Routine, Start 01/24/21 15:46:00 EST, 01/24/21 15:46:00 EST acetaminophen-HYDROcodone 325 mg-5 mg oral tablet: 1 Tab, Oral, Tab, Q4H, PRN for Pain (Moderate 4-6), Routine, Start 01/24/21 15:46:00 EST acetaminophen-HYDROcodone 325 mg-5 mg oral tablet: 2 Tab, Oral, Tab, Q4H, PRN for Pain (Severe 7-10), Routine, Start 01/24/21 15:46:00 EST acetaminophen-HYDROcodone 325 mg-7.5 mg oral tablet: 1 Tab, Oral, Tab, Q3H, PRN for Pain (Moderate 4-6), Routine, Start 01/24/21 15:33:00 EST aztreonam + Sodium Chloride 0.9% intravenous solution 100 mL: 2 Gram, IV Piggyback, Inj, 1-Time, infuse over 30 Minute(s), Routine, Start 01/24/21 9:00:00 EST, Stop 01/24/21 9:00:00 EST, 200 mL/Hr, Indication: Surgical Prophylaxis calcium gluconate: 1 Gram 10 mL, IV Piggyback, Inj, Daily, PRN for Other (See Comment), Routine, Start 01/24/21 15:43:00 EST, 60 mL/Hr, Infuse Over: 60 Minute(s), 01/24/21 15:43:00 EST calcium gluconate: 2 Gram, IV Piggyback, Inj, Daily, PRN for Other (See Comment), Routine, Start 01/24/21 15:43:00 EST, 01/24/21 15:43:00 EST calcium gluconate: 2 Gram, IV Piggyback, Inj, Q12H, PRN for Other (See Comment), Routine, Start 01/24/21 15:43:00 EST, 01/24/21 15:43:00 EST clindamycin: 900 mg, IV Piggyback, Inj, 1-Time, infuse over 30 Minute(s), Routine, Start 01/24/21 9:00:00 EST, Stop 01/24/21 9:00:00 EST, 100 mL/Hr, Indication: Surgical Prophylaxis cloNIDine: 0.1 mg, Oral, Tab, Q4H, PRN for Hypertension, Routine, Start 01/24/21 15:46:00 EST, 01/24/21 15:46:00 EST diphenhydrAMINE: 25 mg, Oral, Tab, Q6H, PRN for Allergies, Routine, Start 01/24/21 15:46:00 EST, 01/24/21 15:46:00 EST ibuprofen: 600 mg, Oral, Tab, Q6H, PRN for Pain (Mild 1-3), Routine, Start 01/24/21 15:33:00 EST, 01/24/21 15:33:00 EST magnesium sulfate: 2 Gram, IV Piggyback, Inj, Daily, PRN for Other (See Comment), Routine, Start 01/24/21 15:43:00 EST, 01/24/21 15:43:00 EST magnesium sulfate: 2 Gram, IV Piggyback, Inj, Q2H, PRN for Other (See Comment), Routine, Start 01/24/21 15:43:00 EST, 01/24/21 15:43:00 EST metoclopramide: 5 mg, IV Push, Inj, Q6H, PRN for Nausea/Vomiting, Routine, Start 01/24/21 15:46:00 EST, 01/24/21 15:46:00 EST potassium chloride 10 mEq/50 mL intravenous solution: 10 mEq 50 mL, IV Piggyback, Inj, Q1H, PRN for Other (See Comment), Routine, Start 01/24/21 15:43:00 EST, 50 mL/Hr, Infuse Over: 1 Hour(s), 01/24/21 15:43:00 EST potassium chloride 20 mEq oral tablet, extended release: 20 mEq, Oral, ER Tab, Q2H, PRN for Other (See Comment), Routine, Start 01/24/21 15:43:00 EST, 01/24/21 15:43:00 EST potassium chloride 20 mEq oral tablet, extended release: 60 mEq, Oral, ER Tab, Q2H, PRN for Other (See Comment), Routine, Start 01/24/21 15:43:00 EST, 01/24/21 15:43:00 EST sodium phosphate: 15 mMole 5 mL, IV Piggyback, Inj, Daily, PRN for Other (See Comment), Routine, Start 01/24/21 15:43:00 EST, 50 mL/Hr, Infuse Over: 5 Hour(s), 01/24/21 15:43:00 EST sodium phosphate: 15 mMole 5 mL, IV Piggyback, Inj, Q6H, PRN for Other (See Comment), Routine, Start 01/24/21 15:43:00 EST, 50 mL/Hr, Infuse Over: 5 Hour(s), 01/24/21 15:43:00 EST traZODone: 50 mg, Oral, Tab, At Bedtime, PRN for Insomnia, Routine, Start 01/24/21 15:46:00 EST, 01/24/21 15:46:00 EST Incomplete metoprolol succinate 50 mg oral capsule, extended release: 50 mg 1 Cap, Oral, Daily, Routine, Start 01/25/21 9:00:00 EST, 01/24/21 15:48:00 EST Documented Medications Documented Lortab 5/325 oral tablet: 1 Tab, Oral, BID, 0 Refill(s) metoprolol succinate 50 mg oral capsule, extended release: 1 Cap, Oral, Daily, 0 Refill(s), Home Medications (2) Active Lortab 5/325 oral tablet 1 Tab, Oral, BID metoprolol succinate 50 mg oral capsule, extended release 50 mg = 1 Cap, Oral, Daily , Medications (40) Active Scheduled: (6) #NaCl 0.9% *FLUSH* inj 10 mL 10 mL, IV Push, Q12H aztreonam + NaCl 0.9% *MBP* 100 mL 2 Gram, IV Piggyback, 1-Time clindamycin/D5w 900 mg 50 mL, IV Piggyback, 1-Time docusate sodium 100 mg cap 100 mg 1 Cap, Oral, BID docusate sodium 100 mg cap 100 mg 1 Cap, Oral, BID nicotine 21 mg/24 hr patch 1 Patch, TransDermal, Daily Continuous: (2) lactated ringers 1,000 mL 1,000 mL, IntraVENous, 100 mL/Hr NaCl 0.45% 1,000 mL 1,000 mL, IntraVENous, 100 mL/Hr PRN: (32) #NaCl 0.9% *FLUSH* inj 10 mL 10 mL, IV Push, See Comment acetaminophen 325 mg tab 650 mg 2 Tab, Oral, Q4H acetaminophen/HYDROcodone 325/5 mg tab 1 Tab, Oral, Q4H acetaminophen/HYDROcodone 325/5 mg tab 2 Tab, Oral, Q4H acetaminophen/HYDROcodone 325/7.5 mg tab 1 Tab, Oral, Q3H ALPRAZolam 0.25 mg tab 0.25 mg 1 Tab, Oral, Q6H bisacodyl 10 mg supp 10 mg 1 Supp, Rectal, BID calcium gluconate 1 Gram 10 mL, IV Piggyback, Daily calcium gluconate 2 Gram, IV Piggyback, Daily calcium gluconate 2 Gram, IV Piggyback, Q12H cloNIDine 0.1 mg tab 0.1 mg 1 Tab, Oral, Q4H diphenhydrAMINE 25 mg tab 25 mg 1 Tab, Oral, Q6H HYDROmorphone 0.5 mg 0.5 mL, IV Push, Q2H HYDROmorphone 1 mg/1 mL inj 0.5 mg 0.5 mL, IV Push, Q2H ibuprofen 600 mg tab 600 mg 1 Tab, Oral, Q6H magnesium hydroxide 8% liq 30 mL 30 mL, Oral, Daily magnesium sulfate 2 Gram, IV Piggyback, Daily magnesium sulfate 2 Gram, IV Piggyback, Q2H metoclopramide 10 mg/2 mL inj 5 mg 1 mL, IV Push, Q6H ondansetron 4 mg/2 mL inj 4 mg 2 mL, IV Push, Q4H ondansetron 4 mg/2 mL inj 4 mg 2 mL, IV Push, Q4H ondansetron 4 mg/2 mL inj 4 mg 2 mL, IV Push, Q4H potassium chloride 20 mEq, Oral, Q2H potassium chloride 60 mEq, Oral, Q2H potassium chloride 10 mEq 50 mL, IV Piggyback, Q1H promethazine 25 mg tab 6.25 mg 0.25 Tab, Oral, Q4H promethazine 25 mg/1 mL inj 12.5 mg 0.5 mL, IV Push, Q6H sodium phosphate 15 mMole 5 mL, IV Piggyback, Daily sodium phosphate 15 mMole 5 mL, IV Piggyback, Q6H temazepam 15 mg cap 15 mg 1 Cap, Oral, At Bedtime traZODone 50 mg tab 50 mg 1 Tab, Oral, At Bedtime zolpidem 5 mg tab 5 mg 1 Tab, Oral, At Bedtime Problem list: Active Problems (6) At risk for sleep apnea Atrial fibrillation, transient history of ileus PONV (postoperative nausea and vomiting) Smoker Stress incontinence Histories Family History: Family history is significant for HTN, CAD and cancer Procedure history: incision of urethral stricture. fistula repair with suprapubic celeste catheter for 2 weeks. Bilateral tubal ligation. spontaeous vaginal delivery x3. laparoscopic assisted vaginal hysterectomy with bilateral salpingo-oophorectomy. laparoscopic cholecystectomy. right elbow tendon repair. Cardiac Catheterization. Social History Patient is single and has 3 children. She is a smoker-smokes 1 pack of cigarettes a day and denies drinking alcohol. Physical Examination VS/Measurements Vital Signs/Vital Measures 01/24/2021 14:30 EST Systolic Blood Pressure 119 mmHg Diastolic Blood Pressure 61 mmHg Mean Arterial Pressure (MAP)-BMDI 86 Heart Rate Monitored 52 bpm LOW Oxygen Saturation 97 % Oxygen Therapy Mode Nasal cannula Oxygen Flow Rate 2 Liter/Min 01/24/2021 14:15 EST Systolic Blood Pressure 115 mmHg Diastolic Blood Pressure 62 mmHg Mean Arterial Pressure (MAP)-BMDI 85 Heart Rate Monitored 53 bpm LOW Oxygen Saturation 95 % Oxygen Therapy Mode Nasal cannula Oxygen Flow Rate 2 Liter/Min 01/24/2021 14:00 EST Systolic Blood Pressure 109 mmHg Diastolic Blood Pressure 60 mmHg Mean Arterial Pressure (MAP)-BMDI 80 Heart Rate Monitored 51 bpm LOW Respiratory Rate 14 Breaths/Min Oxygen Saturation 95 % Oxygen Therapy Mode Nasal cannula Oxygen Flow Rate 2 Liter/Min 01/24/2021 13:55 EST Systolic Blood Pressure 118 mmHg Diastolic Blood Pressure 60 mmHg Mean Arterial Pressure (MAP)-BMDI 83 Heart Rate Monitored 52 bpm LOW Oxygen Saturation 98 % Oxygen Therapy Mode Room air 01/24/2021 13:50 EST Systolic Blood Pressure 113 mmHg Diastolic Blood Pressure 57 mmHg LOW Mean Arterial Pressure (MAP)-BMDI 78 Heart Rate Monitored 60 bpm Oxygen Saturation 98 % 01/24/2021 13:45 EST Systolic Blood Pressure 117 mmHg Diastolic Blood Pressure 62 mmHg Mean Arterial Pressure (MAP)-BMDI 83 Heart Rate Monitored 57 bpm LOW Respiratory Rate 18 Breaths/Min Oxygen Saturation 93 % LOW Oxygen Therapy Mode Room air 01/24/2021 13:40 EST Systolic Blood Pressure 112 mmHg Diastolic Blood Pressure 59 mmHg LOW Mean Arterial Pressure (MAP)-BMDI 87 Heart Rate Monitored 58 bpm LOW Oxygen Saturation 93 % LOW Oxygen Therapy Mode Room air 01/24/2021 13:35 EST Systolic Blood Pressure 117 mmHg Diastolic Blood Pressure 74 mmHg Mean Arterial Pressure (MAP)-BMDI 95 Heart Rate Monitored 58 bpm LOW Respiratory Rate 16 Breaths/Min Oxygen Saturation 96 % Oxygen Therapy Mode Room air 01/24/2021 13:30 EST Systolic Blood Pressure 113 mmHg Diastolic Blood Pressure 65 mmHg Mean Arterial Pressure (MAP)-BMDI 92 Heart Rate Monitored 59 bpm LOW Oxygen Saturation 97 % Oxygen Therapy Mode Room air 01/24/2021 13:25 EST Systolic Blood Pressure 122 mmHg Diastolic Blood Pressure 58 mmHg LOW Mean Arterial Pressure (MAP)-BMDI 87 Heart Rate Monitored 62 bpm Respiratory Rate 16 Breaths/Min Oxygen Saturation 97 % 01/24/2021 13:20 EST Systolic Blood Pressure 122 mmHg Diastolic Blood Pressure 58 mmHg LOW Mean Arterial Pressure (MAP)-BMDI 80 Heart Rate Monitored 68 bpm Oxygen Saturation 97 % Oxygen Therapy Mode Room air 01/24/2021 13:15 EST Systolic Blood Pressure 128 mmHg Diastolic Blood Pressure 68 mmHg Mean Arterial Pressure (MAP)-BMDI 88 Heart Rate Monitored 69 bpm Oxygen Saturation 97 % 01/24/2021 13:10 EST Systolic Blood Pressure 130 mmHg Diastolic Blood Pressure 66 mmHg Mean Arterial Pressure (MAP)-BMDI 94 Temperature Source Temporal artery scanning Temperature Mode Fahrenheit Temperature, Fahrenheit 97.4 Deg F Clinical Temperature, C 36.3 Deg C Heart Rate Monitored 81 bpm Respiratory Rate 18 Breaths/Min Oxygen Saturation 97 % Oxygen Therapy Mode Nasal cannula Oxygen Flow Rate 2 Liter/Min 01/24/2021 8:15 EST Systolic Blood Pressure 136 mmHg Diastolic Blood Pressure 68 mmHg Temperature Source Temporal artery scanning Temperature Mode Fahrenheit Temperature, Fahrenheit 97.2 Deg F Heart Rate Monitored 62 bpm Respiratory Rate 18 Breaths/Min Oxygen Saturation 95 % Oxygen Therapy Mode Room air General: Alert and oriented, No acute distress. Eye: Pupils are equal, round and reactive to light, Normal conjunctiva, Vision unchanged. HENT: Normocephalic, Tympanic membranes are clear, Normal hearing, Oral mucosa is moist, No pharyngeal erythema, No sinus tenderness. Neck: Supple, Non-tender, No carotid bruit, No jugular venous distention, No lymphadenopathy, No thyromegaly. Respiratory: Lungs are clear to auscultation, Respirations are non-labored, Breath sounds are equal, Symmetrical chest wall expansion, No chest wall tenderness. Cardiovascular: Normal rate, Regular rhythm, No murmur, No gallop, Good pulses equal in all extremities, Normal peripheral perfusion, No edema. Gastrointestinal: Soft, Non-tender, Non-distended, Normal bowel sounds, No organomegaly. Genitourinary: No costovertebral angle tenderness, No inguinal tenderness, No urethral discharge, No lesions. Lymphatics: No lymphadenopathy neck, axilla, groin. Musculoskeletal: Normal range of motion, Normal strength, No tenderness, No swelling, No deformity, Normal gait. Integumentary: Warm, [place], Intact, No pallor, No rash, WOUND STABLE. Neurologic: Alert, Oriented, Normal sensory, Normal motor function, No focal deficits, Cranial Nerves II-XII are grossly intact, Normal deep tendon reflexes. Psychiatric: Cooperative, Appropriate mood & affect, Normal judgment, Non-suicidal. Review / Management Results review: Lab results 01/24/2021 9:02 EST ABO/Rh A POS Antibody Screen Negative ABSC . Impression and Plan Diagnosis Urinary incontinence - Admitting, Medical. Bladder prolapse, s/p colpopexy and bladder tack - Admitting, Medical. Coronary artery spasm - Discharge, Medical. Atrial fibrillation, transient - Discharge, Medical. At risk for sleep apnea - Discharge, Medical. Tobacco use disorder, continuous - Admitting, Medical. Course: Plan/Respirex @ BS and encourage patient to use. Sleep apnea precautions if needed. C-pap at night if needed. Hold all BP meds if BSP < 130 MMHg. If SBP < 90 mmHg, you may give 500 ml NS IVF over one hour. If no or low UOP you may give 250 mL NS IV over one hour. AM Labs BMP & Hgb/HCT. If pt. spikes fever > 101* F, encourage pt to use Respirex first, then you may give Tylenol 650 mg PO/OR x 1. If no response in 2 hours, you may get blood cx. x2, chest x-ray, sputum CX, S, gram stain x3, UA, C&S. Patient may have chloroseptic spray or throat lozenges for soar throat. DVT prophylaxis. If at any time the HGB is less than 8 type and cross then transfuse 2 units of PRBCs. Premedicate with Tylenol 650 mg PO and Benadryl 25mg PO. Electrolytes Replacement Protocol. Pain control. Close monitoring fluid and electrolytes. Fall risk precautions. Sleep apnea precautions. Stress ulcer prophylaxis. NicoDerm patch 21 mg daily TwT 73 mn patient seen and examined medical record reviewed, vitals reviewed, medications seen reviewed and reconciled, discussed with Pharm.D., discussed with the patient and with the staff, discussed with Dr. Knight, orders placed, consult note dictated . Electronically signed by Delilah [facility] Conversion Parts Coordinator Cerner at 06/26/2022 10:44 AM CDT documented in this encounter Plan of Treatment Upcoming Encounters Date Type Department Care Team (Late st Contact Info) Description 02/26/2025 1:30 PM EST Office Visit [facility] [address] [place] [address] Anderson Rodriguez MD [address] [place] [address] documented as of this encounter Visit Diagnoses Not on filedocumented in this encounter Care Teams Bilingual Customer Service Specialist Relationship Specialty Start Date End Date Elijah Wooten MD [address] [place] [address] [place] [id number] PCP - General Family Medicine 03/28/22 documented as of this encounter
--- OUTSIDE RECORDS SUMMARY | 2024-12-22 14:39 | XMS_ITS | Encounter Summary ---
Author Organization [employer] ([place], [place], [place], [place]) Address [address] [place] [address] Care Team Providers Care Accounts Receivable Analyst Name Role Phone Elijah Wooten MD Primary Care Provider [phone] Encounter Details Date Type Department Care Team (Late st Contact Info) Description 01/24/2021 Transcribed Document [facility] [place] [facility] [place] [address] ProviderChioma MD [address] [place] [id number] Social History Tobacco Use Types Packs/Day Years Used Date Smoking Tobacco: Never Assessed Comments Unknown Sex and Gender Information Value Date Recorded Sex Assigned at Not on file Legal Sex Female 2:19 PM CDT Gender Identity Not on file Sexual Orientation Not on file documented as of this encounter Miscellaneous Notes * Cerner Conversion Note - Historical ProviderMD - 01/24/2021 4:38 AM TELEPHONE SOLICITOR Admission History, Adult Entered On: 01/24/2021 15:28 EST Performed On: 01/24/2021 15:15 EST by Kasey Lawrence RN-PATIENT CARE [facility] NON-EXEMPT Advance Directive Patient has Advance Directive *Q : No, patient refuses Advance Directive information Kasey Lawrence RN-PATIENT CARE [facility]EDSIDE NON-EXEMPT - 01/24/2021 15:25 EST Anesthesia/Transfusion History Family History of Anesthesia Reaction : No prior transfusion(s) Blood Transfusion Acceptable to Patient : Yes Transfusion History : Prior anesthesia reaction Type of Anesthesia Reaction : Excessive nausea/vomiting Family History of Anesthesia Reaction : None Kasey Lawrence RN-PATIENT CARE [facility]ED[facility] NON-EXEMPT - 01/24/2021 15:25 EST Anticipated Discharge Needs Discharge To, Anticipated : Home Kasey Lawrence [facility] NON-EXEMPT - 01/24/2021 15:25 EST Education Topics, Admission Orientation DCP GENERIC CODE Advance Directives : Verbalizes understanding Allergy Band Applied : Verbalizes understanding Assessment/Vital Signs : Verbalizes understanding Bed Control : Verbalizes understanding Call Light : Verbalizes understanding Confidentiality : Verbalizes understanding Diet/Room Service : Verbalizes understanding Fall Prevention : Verbalizes understanding Hand Hygiene : Verbalizes understanding Healthcare Provider Visit : Verbalizes understanding ID Band Applied : Verbalizes understanding Isolation Precautions : Verbalizes understanding Orientation to Room/Bathroom : Verbalizes understanding Patient Bill of Rights : Verbalizes understanding Patient Rights/Responsibilities : Verbalizes understanding Patient Safety : Verbalizes understanding Personal Privacy Code : Verbalizes understanding Rapid Response Initiated by Patient/Family : Verbalizes understanding Rounding : Verbalizes understanding Siderails use/risks : Verbalizes understanding Skin Precautions : Verbalizes understanding Smoking Policy : Verbalizes understanding Telemetry Monitoring : Verbalizes understanding Television/Phone : Verbalizes understanding Visiting Policy : Verbalizes understanding Kasey Lawrence RN-[facility]IENT C[facility] NON-EXEMPT - 01/24/2021 15:25 EST Functional Assessment Living Situation : Home Patient Lives With : Alone Persons Assisting Patient at Home : Child/Children Current Daily Living Assistance : None Mobility Assistance Prior to Admission : Independent Current Home Treatments : None Kasey Lawrence [facility] NON-EXEMPT - 01/24/2021 15:25 EST General Info Preferred Name : Yenifer Arrived From : Home Mode of Arrival on Unit : Ambulatory Legal Guardian : Daughter Legal Guardian : No Support Person/Patient Director Clinical Applications : Yes Support Person/Pt Rep Name : Melissa de la garza Support Person/Pt Rep Contact Information : [phone] Want Family/Rep/Phys Notified of Admit : No Emergency Contact #1 : Catherine Goel Emergency Contact #1 Emergency Contact #1 Relationship : Daughter Emergency Contact #2 : . Emergency Contact #2 Phone Number : . Emergency Contact #2 Relationship : . Primary Language : Nepali Preferred Communication Mode : Verbal Communication Barrier : None Winter Intern Needed : No Kasey Lawrence RN-[facility] NON-EXEMPT - 01/24/2021 15:25 EST Fall Risk Scales ABCs Fall Injury Risk Identification : Surgery ABC Fall Injury Risk : Moderate to high injury risk Injury Moderate to High Risk Interventions : Bed alarm on HART Hx Falls Immediate/Within 3 Months : No Hart Secondary Diagnosis : Yes HAILEY Use of Ambulatory Aid : Bed rest/Nurse assist HAILEY IV Therapy or IV Access : Yes Hailey Gait/Transferring : Normal, bedrest, immobile Hailey Mental Status : Oriented to own ability Hart Fall Risk Score : 35 HART Fall Scale Risk Level : 25-45 Medium Risk [place] Fall Interventions : Adequate lighting, Bed in low position, Call device within reach, Fall prevention handout/education per facility policy, Frequent orientation to call device, Frequent orientation to surroundings, Hourly comfort/safety rounds, Non-slip footwear, Personal items within reach, Reinforced to call for assistance before getting out of bed, Room free of clutter/spills, Upper side-rails up, Wheels locked, Wires/Cords secured Fall Moderate to High Risk Interventions : Bed alarm on Kasey Lawrence RN-PATIENT C[facility] NON-EXEMPT - 01/24/2021 15:25 EST Fall Risk Education Grid Alarms : Verbalizes understanding Assistive Equipment Use : Verbalizes understanding Bed Height/Stabilization : Verbalizes understanding Call light use : Verbalizes understanding Door Open : Verbalizes understanding Environmental Management : Verbalizes understanding Eyeglasses Use : Verbalizes understanding Fall Community Resources : Verbalizes understanding Fall Contract/Letter : Verbalizes understanding Fall Prevention in the Home : Verbalizes understanding Fall Prevention Protocol : Verbalizes understanding Hearing Aid Use : Verbalizes understanding Home Risk Assessment : Verbalizes understanding Need Constant Observation : Verbalizes understanding Night Light Use : Verbalizes understanding Nonskid Footwear Use : Verbalizes understanding Notification of Staff When Leaving : Verbalizes understanding Orthostatic Hypotension Precautions : Verbalizes understanding Personal Article Availability : Verbalizes understanding Prevention Responsibility Family : Verbalizes understanding Prevention Responsibility Patient : Verbalizes understanding Risk Alert Methods : Verbalizes understanding Risk Factors : Verbalizes understanding Safety Aids : Verbalizes understanding Siderails use/risks : Verbalizes understanding Special Assistive Devices : Verbalizes understanding Staff Responsiveness : Verbalizes understanding Symptom Identification & Action Plan *Q : Verbalizes understanding Symptom Reporting : Verbalizes understanding Toileting Schedule : Verbalizes understanding Transfer/Mobility Techniques : Verbalizes understanding Urinal/Bedpan Availability : Verbalizes understanding Wait for Assistance : Verbalizes understanding Wheelchair Safety : Verbalizes understanding Kasey Lawrence RN-[facility] NON-EXEMPT - 01/24/2021 15:25 EST Barriers to Learning : None evident Individuals Taught : Patient Readiness to Learn : Cooperative Teaching Method : Explanation Learning Style Preferences Family : Verbal explanation Learning Style Preferences Patient : Printed materials, Verbal explanation Fall Risk Scale Calc Temp : 0 Kasey Lawrence RN-[facility] NON-EXEMPT - 01/24/2021 15:25 EST Health Histories Smoking Status : 10 or more cigarettes (1/2 pack or more)/day in last 30 days Smokeless Tobacco Status : Never Desires Tobacco Cessation Medication : Yes Kasey Lawrence RN-PATIENT [facility] NON-EXEMPT - 01/24/2021 15:25 EST Social History (As Of: 01/24/2021 15:28:57 EST) Tobacco: Use in Last 12 Months: Cigarettes. Smoking Status Current every day smoker. Years of Use: 20. Packs/Tins Daily: 1. (Last Updated: 11/06/2013 14:21:44 EDT by NILDA DESAI, RN) Alcohol: Use in Last 12 Months: No. (Last Updated: 11/06/2013 14:21:44 EDT by NILDA DESAI, EUGENIO) Substance Abuse: Drug Use Hx: No. Use in Last 12 Months: No. (Last Updated: 01/11/2021 13:13:58 EDT by Gabriela Saleh RN) Nutrition/Health: Regular, Caffeine intake amount: 4-5 sodas daily. (Last Updated: 11/06/2013 14:21:44 EDT by NILDA DESAI, RN) Home/Environment: Injuries/Abuse/Neglect in household: No. Feels unsafe at home: No. (Last Updated: 11/06/2013 14:21:44 EDT by NILDA DESAI, RN) Employment/School: Employed (Last Updated: 11/06/2013 14:21:44 EDT by NILDA DESAI, EUGENIO) Height and Weight, Clinical Dosing Height Source : Measured Height Entry Format : [place] Height, Feet : 5 ft(Converted to: 152 cm, 60 Inch) Height, Inches : 8 Inch(Converted to: 0 ft 8 Inch, 20.32 cm) Clinical Height : 172.72 cm Weight Source : Standing scale Weight Entry Format : [place] Clinical Dosing Weight : 77.27 kg Weight, Pounds : 170 lb Body Surface Area (BSA) : 1.91 m2 Body Mass Index : 25.9 kg/m2 (HI) Gary Body Weight : 63 kg Kasey Lawrence RN[facility] NON-EXEMPT - 01/24/2021 15:25 EST Infectious Disease History Does patient have symptoms of COVID-19? : No Has the Patient Been Tested for COVID-19 in the last 14 days? : No, Patient stated Does the Patient state known exposure to a COVID-19 positive case in the last 14 days? : No Patient Vaccinated for COVID-19 : Not vaccinated Does Patient want a COVID-19 Vaccine? : No Kasey Lawrence [facility] NON-EXEMPT - 01/24/2021 15:25 EST Infectious Disease Risk Screening Grid Cough < 2 wks of unknown origin : NO Cough > 2 weeks : NO Blood in Sputum : NO Fever or self-reported Fever : NO Rash of unknown origin : NO Headache : NO Stiff neck : NO Night Sweats : NO Unexplained Weight Loss : NO Diarrhea (3 episode per day) : NO Kasey Lawrence [facility] NON-EXEMPT - 01/24/2021 15:25 EST Physical contact outside [place] in the last 30 days : No Hospitalized in Foreign Country : No Infectious Disease History : Chicken pox/Shingles, Influenza, Other: COVID-19 INF Disease TB Screening Calc : 0 INF Disease Recent Travel Calc : 0 Kasey Lawrence RN[facility] NON-EXEMPT - 01/24/2021 15:25 EST Influenza Vaccine Asmt, Adult Previous Vaccines from Immunization Schedule : No qualifying data available. Influenza Immunization, Current Season : No Inactivated Flu Vaccine Contraindications : No contraindications to inactivated influenza vaccine Transplant Workup/Recent Transplant : No Order for Influenza Vaccine : Declined Vaccination Kasey Lawrence RN[facility]-EXEMPT - 01/24/2021 15:25 EST Pneumococcal Vaccine Previous Vaccines from Immunization Schedule : No qualifying data available. Pneumonia Immunization Received : No Pneumococcal Risk Assessment < Age 65 : None Kasey Lawrence RN[facility] NON-EXEMPT - 01/24/2021 15:25 EST Order Details Patient Needs Meds Crushed/Liquid : No Kasey Lawrence RN[facility]-EXEMPT - 01/24/2021 15:25 EST Nutrition History Eating Poorly Due to Decreased Appetite : No Unplanned Weight Loss in Past 3-6 Months : No Malnutrition Screening Tool Total(mal) : 0 Malnutrition Screening Tool Risk Level : Patient not at risk Kasey Lawrence RN[facility] NON-EXEMPT - 01/24/2021 15:25 EST [place] Suicide Severity Rating Scale (C-SSRS) CSSRS Past Month Wish to be : No CSSRS Past Month Suicidal Thoughts : No CSSRS Lifetime Suicide Behavior : No Suicide Severity Rating Score : 0 Suicide Severity Rating : No Additional Care Required at this time Kasey Lawrence RN-PATIENT C[facility] NON-EXEMPT - 01/24/2021 15:25 EST Psychosocial History Do You Have a History of the Following? : Patient denies history Currently in Unsafe Situation : No Kasey Lawrence [facility]EMPT - 01/24/2021 15:25 EST Sleep Apnea Risk Assmt Hx of Obstructive Sleep Apnea Diagnosis : No Snore Loudly : Yes Tired, Fatigued, or Sleepy During Day : Yes Observed Stopping Breathing During Sleep : No Have/Are Being Treated for Hypertension : No BMI Greater Than 35 kg/m2 : No Age over 50 Years Old : Yes Neck Circumference Greater Than 40 cm : No Gender Male : No STOP-BANG Sleep Apnea Risk Level Score : 3 Kasey Lawrence RN[facility] NON-EXEMPT - 01/24/2021 15:25 EST Valuables and Belongings Valuables and Belongings : Clothing, Personal devices, Personal items Clothing : Common streetwear Clothing Disposition : Bedside Personal Device Disposition : Bedside Personal Devices : Glasses Personal Items : Cell phone Personal Items Disposition : Bedside Kasey Lawrence [facility]-EXEMPT - 01/24/2021 15:25 EST documented in this encounter Plan of Treatment Upcoming Encounters Date Type Department Care Team (Late st Contact Info) Description 02/26/2025 1:30 PM EST Office Visit [facility] Pulmonology - [address] [place] [address] Anderson Rodriguez MD [address] [place] [address] documented as of this encounter Visit Diagnoses Not on filedocumented in this encounter Care Teams Accounts Receivable Analyst Relationship Specialty Start Date End Date Elijah Wooten MD [address] [place] [address] [place] [address] PCP - General Family Medicine 03/28/22 documented as of this encounter
--- OUTSIDE RECORDS SUMMARY | 2024-12-22 14:39 | XMS_ITS | Encounter Summary ---
Author Organization [employer] ([place], [place], [place], [place]) Address [address] [place] [address] Care Team Providers Care Protective Services Social Worker Name Role Phone Elijah Wooten MD Primary Care Provider [phone] Encounter Details Date Type Department Care Team (Late st Contact Info) Description 01/24/2021 Transcribed Document [facility] [place] [facility] [place] [address] ProviderChioma MD [address] [place] [phone] Social History Tobacco Use Types Packs/Day Years Used Date Smoking Tobacco: Never Assessed Comments Unknown Sex and Gender Information Value Date Recorded Sex Assigned at Not on file Legal Sex Female 2:19 PM CDT Gender Identity Not on file Sexual Orientation Not on file documented as of this encounter Miscellaneous Notes * Cerner Conversion Note - Historical ProviderMD - 01/24/2021 3:46 PM CORPORATE RELATIONS DIRECTOR Pain Assessment Entered On: 01/25/2021 6:03 EST Performed On: 01/24/2021 19:33 EST by Cassie Villalba RN Intervention Information: acetaminophen-HYDROcodone Performed by Aleja Silva LPN on 01/24/2021 18:33:00 EST acetaminophen-HYDROcodone,2Tab Oral,Pain (Severe 7-10) Pain Assessment Pain Assessment : Follow-up assessment Pain Scale Goal : 6 Pain Scale Used : 0-10 Scale Cassie Villalba RN - 01/25/2021 6:03 EST Pain Scale Intensity : 0 Cassie Villalba RN - 01/25/2021 6:03 EST Image 4 - Images currently included in the form version of this document have not been included in the text rendition version of the form. documented in this encounter Plan of Treatment Upcoming Encounters Date Type Department Care Team (Late st Contact Info) Description 02/26/2025 1:30 PM EST Office Visit [facility] Pulmonology - [address] [place] [phone] Anderson Rodriguez MD [address] [place] [address] documented as of this encounter Visit Diagnoses Not on filedocumented in this encounter Care Teams Protective Services Social Worker Relationship Specialty Start Date End Date Elijah Wooten MD [address] [place] [address] [place] [address] PCP - General Family Medicine 03/28/22 documented as of this encounter
--- OUTSIDE RECORDS SUMMARY | 2024-12-22 14:39 | XMS_ITS | Encounter Summary ---
Author Organization [employer] ([place], [place], [place], [place]) Address [address] [place] [address] Care Team Providers Care Operational Review Sergeant Name Role Phone Elijah Wooten MD Primary Care Provider Encounter Details Date Type Department Care Team (Late st Contact Info) Description 01/24/2021 Transcribed Document [facility] [place] [facility] [place] [address] ProviderChioma MD [address] [place] [id number] Social History Tobacco Use Types Packs/Day Years Used Date Smoking Tobacco: Never Assessed Comments Unknown Sex and Gender Information Value Date Recorded Sex Assigned at Not on file Legal Sex Female 2:19 PM CDT Gender Identity Not on file Sexual Orientation Not on file documented as of this encounter Miscellaneous Notes * Cerner Conversion Note - Chioma ProviderMD - 01/24/2021 10:51 AM EMBOSSING TOOLSETTER IMER Main OR PreOp Summary Primary Physician: LELO CARDENAS MD-OBG Finalized Date/Time: 01/24/21 13:09:46 Pt. Name: YENIFER MYERS JEAN-PIERRE /Sex: 1955 Female Med Rec #: [id number] Physician: LELO CARDENAS MD-OBG Financial #: [id number] Pt. Type: O Room/Bed: [facility]/5 Admit/Disch: 01/24/21 04:39:00 - Institution: [facility] [place] PreOp Case Times Entry 1 In Preop 01/24/21 08:05:00 Ready for Holding n/a Room Patient Ready for 01/24/21 09:32:00 Surgery Patient Out of Preop 01/24/21 10:27:00 Patient Out of n/a Holding Room Last Modified By: SHAWANDA SALVADOR RN 01/24/21 13:08:05 SJDarline PreOp Case Times Audit 01/24/21 13:08:05 Agricultural Research Technician: SERGIO Modifier: WILSONBR <+> 1 Patient Out of Preop Finalized By: SHAWANDA SALVADOR RN Document Signatures Signed By: SHAWANDA SALVADOR RN 01/24/21 13:09 documented in this encounter Plan of Treatment Upcoming Encounters Date Type Department Care Team (Late st Contact Info) Description 02/26/2025 1:30 PM EST Office Visit [facility] Pulmonology - [address] [place] [phone] Anderson Rodriguez MD [address] [place] [address] documented as of this encounter Visit Diagnoses Not on filedocumented in this encounter Care Teams Operational Review Sergeant Relationship Specialty Start Date End Date Elijah Wooten MD [address] [place] [address] [place] [address] PCP - General Family Medicine 03/28/22 documented as of this encounter
--- OUTSIDE RECORDS SUMMARY | 2024-12-22 14:39 | XMS_ITS | Encounter Summary ---
Author Organization [employer] ([place], [place], [place], [place]) Address [address] [place] [address] Care Team Providers Care Package Sorter Name Role Phone Elijah Wooten MD Primary Care Provider [phone] Encounter Details Date Type Department Care Team (Late st Contact Info) Description 01/24/2021 Transcribed Document [facility] [place] [facility] [place] [address] ProviderChioma MD [address] [place] [phone] Social History Tobacco Use Types Packs/Day Years Used Date Smoking Tobacco: Never Assessed Comments Unknown Sex and Gender Information Value Date Recorded Sex Assigned at Not on file Legal Sex Female 2:19 PM CDT Gender Identity Not on file Sexual Orientation Not on file documented as of this encounter Miscellaneous Notes * Cerner Conversion Note - Chioma ProviderMD - 01/24/2021 10:51 AM MIXED CROP AND LIVESTOCK FARMER [facility] [place] Main [place] PACU Summary Primary Physician: LELO CARDENAS MD-OBG Finalized Date/Time: 01/24/21 15:08:37 Pt. Name: YENIFER MYERS JEAN-PIERRE /Sex: 1955 Female Med Rec #: [id number] Physician: LELO CARDENAS MD-OBG Financial #: [id number] Pt. Type: O Room/Bed: [facility]/ Admit/Disch: 01/24/21 04:39:00 - Institution: [facility] [place] Main OR PACU Case Times Entry 1 In PACU I 01/24/21 13:10:00 Ready for PACU 01/24/21 13:45:00 Discharge Discharge from PACU 01/24/21 15:02:00 I Last Modified By: MOLLY VICK RN 01/24/21 15:08:35 Finalized By: MOLLY VICK, RN Document Signatures Signed By: MOLLY VICK RN 01/24/21 15:08 Electronically signed by [facility], [facility] Conversion Collection Systems Technician Cerner at 06/26/2022 10:53 AM CDT documented in this encounter Plan of Treatment Upcoming Encounters Date Type Department Care Team (Late st Contact Info) Description 02/26/2025 1:30 PM EST Office Visit [facility] Pulmonology - [address] [place] [address] Anderson Rodriguez MD [address] [place] [address] documented as of this encounter Visit Diagnoses Not on filedocumented in this encounter Care Teams Package Sorter Relationship Specialty Start Date End Date Elijah Wooten MD [address] [place] [address] PCP - General Family Medicine 03/28/22 documented as of this encounter
--- OUTSIDE RECORDS SUMMARY | 2024-12-22 14:39 | XMS_ITS | Encounter Summary ---
Author Organization [employer] ([place], [place], [place], [place]) Address [address] [place] [address] Care Team Providers Care Abrasive Wheel Molder Name Role Phone Elijah Wooten MD Primary Care Provider [phone] Encounter Details Date Type Department Care Team (Late st Contact Info) Description 01/12/2021 Transcribed Document [facility] [place] [facility] [address] ProviderChioma MD [address] [place] [id number] Social History Tobacco Use Types Packs/Day Years Used Date Smoking Tobacco: Never Assessed Comments Unknown Sex and Gender Information Value Date Recorded Sex Assigned at Not on file Legal Sex Female 2:19 PM CDT Gender Identity Not on file Sexual Orientation Not on file documented as of this encounter Miscellaneous Notes * [employer] Conversion Note - Historical ProviderMD - 01/12/2021 4:42 PM CDT DATE OF ADMISSION: 01/10/2021 SURGERY DATE: The patient is going for surgery. She is coming for surgery on January 24. PREOPERATIVE DIAGNOSES: 1. Symptomatic vaginal vault prolapse. 2. Mixed urinary incontinence. 3. Symptomatic cystocele. 4. History of coronary artery disease. 5. Overactive bladder. 6. Vulvovaginal atrophy. 7. Paroxysmal supraventricular tachycardia. PROCEDURES PLANNED: 1. Robotic-assisted abdominal sacrocolpopexy. 2. Pubourethral sling. 3. Diagnostic cystoscopy. 4. Possible anterior-posterior repair. Preop cardiac clearance by Dr. Aminata Brown on 01/11/2021. IDENTIFICATION: The patient is a pleasant 65-year-old, G3, P3, , female, whom we have been following. She has had significant issues with stress incontinence. She had a sling in the past, but she has recurrent incontinence with significant hypermobility and issues. She also has unfortunately overactive bladder issues too. The Myrbetriq she has been placed on has helped her somewhat, but she still wears a pad day and night and still leaks at times. We have talked about various alternatives. She has been on topical estrogen because of her vulvovaginal atrophy, but elected to go with this procedure. A pessary was not an option. The patient did have COVID during her November scheduled surgery, but it was canceled because of positive COVID, but she is doing well now. PAST MEDICAL HISTORY/OPERATIONS: She has had hysterectomy, bladder tack, cholecystectomy, tubal ligation. MEDICATIONS: Include, 1. Metoprolol. 2. Hydrocodone. 3. Premarin vaginal cream. ALLERGIES: She is allergic to morphine and codeine and Tylenol no. 3, but she can take Lortab. She is also allergic to Keflex, Chantix, and Flagyl. SOCIAL HISTORY: She is unfortunately a cigarette smoker. She does smoke one pack per day. PHYSICAL EXAMINATION: GENERAL: Shows a well-developed, thin female. VITAL SIGNS: Weight 172, height 5 feet 8 inches. Blood pressure 123/80. HEENT: Shows supple neck. Thyroid palpates normal. No nuchal adenopathy. CHEST: Clear to auscultation. CARDIOVASCULAR: Normal sinus rhythm without murmurs or gallops. BREASTS: Check deferred. ABDOMEN: Shows previous surgical scars, but no tenderness. : Shows the vulvovaginal atrophy and vaginal prolapse is noted. ASSESSMENT: As above. PLAN: As above. /[id number] MD ARMINDA De Los Santos/SCOTTY / LSAshley / MODL Electronically signed by [facility] Conversion Receptionist Cerner at 06/26/2022 10:50 AM CDT documented in this encounter Plan of Treatment Upcoming Encounters Date Type Department Care Team (Late st Contact Info) Description 02/26/2025 1:30 PM EST Office Visit [facility] Pulmonology - [address] [place] [address] Anderson Rodriguez MD [address] [place] [address] documented as of this encounter Visit Diagnoses Not on filedocumented in this encounter Care Teams Abrasive Wheel Molder Relationship Specialty Start Date End Date Elijah Wooten MD [address] [place] [address] PCP - General Family Medicine 03/28/22 documented as of this encounter
--- OUTSIDE RECORDS SUMMARY | 2024-12-22 14:39 | XMS_ITS | Encounter Summary ---
Author Organization [employer] ([place], [place], [place], [place]) Address [address] [place] [address] Care Team Providers Care Frothing Machine Operator Name Role Phone Elijah Wooten MD Primary Care Provider Encounter Details Date Type Department Care Team (Late st Contact Info) Description 01/24/2021 Transcribed Document [facility] [place] [address] [place] [address] ProviderChioma MD [facility] [address] Social History Tobacco Use Types Packs/Day Years Used Date Smoking Tobacco: Never Assessed Comments Unknown Sex and Gender Information Value Date Recorded Sex Assigned at Not on file Legal Sex Female 2:19 PM CDT Gender Identity Not on file Sexual Orientation Not on file documented as of this encounter Miscellaneous Notes * [employer] Conversion Note - Historical ProviderMD - 01/24/2021 5:00 PM TOOTH GRINDER Chart Check - Review Order Profile Entered On: 01/24/2021 18:14 EST Performed On: 01/24/2021 17:00 EST by Aleja Silva LPN Chart Check [employer] Initiated/Discontinued as Appropriate : Not applicable All Active Orders Reviewed : Yes Aleja Silva LPN - 01/24/2021 18:14 EST documented in this encounter Plan of Treatment Upcoming Encounters Date Type Department Care Team (Late st Contact Info) Description 02/26/2025 1:30 PM EST Office Visit [facility] Pulmonology - [address] [place] [address] Anderson Rodriguez MD [address] [place] [address] documented as of this encounter Visit Diagnoses Not on filedocumented in this encounter Care Teams Frothing Machine Operator Relationship Specialty Start Date End Date Elijah Wooten MD [address] [place] [address] PCP - General Family Medicine 03/28/22 documented as of this encounter
--- OUTSIDE RECORDS SUMMARY | 2024-12-22 14:39 | XMS_ITS | Encounter Summary ---
Author Organization [employer] ([place], [place], [place], [place]) Address [address] [place] [address] Care Team Providers Care Training And Development Assistant Name Role Phone Elijah Wooten MD Primary Care Provider [phone] Encounter Details Date Type Department Care Team (Late st Contact Info) Description 01/24/2021 Transcribed Document [facility] [place] [facility] [place] [address] ProviderChioma MD [address] [place] [address] [phone] Social History Tobacco Use Types Packs/Day Years Used Date Smoking Tobacco: Never Assessed Comments Unknown Sex and Gender Information Value Date Recorded Sex Assigned at Not on file Legal Sex Female 2:19 PM CDT Gender Identity Not on file Sexual Orientation Not on file documented as of this encounter Miscellaneous Notes * Cerner Conversion Note - Chioma ProviderMD - 01/24/2021 10:51 AM FLOORING SALES MANAGER IMER Main OR IntraOp Summary Primary Physician: LELO CARDENAS MD-OBG Finalized Date/Time: 01/24/21 13:25:09 Pt. Name: YENIFER MYERS JEAN-PIERRE /Sex: 1955 Female Med Rec #: [id number] Physician: LELO CARDENAS MD-OBG Financial #: [id number] Pt. Type: O Room/Bed: [facility] Admit/Disch: 01/24/21 04:39:00 - [place] [facility] [place] Case Attendance Entry 1 Entry 2 Entry 3 Case Attendee LELO CADRENAS MD-OBG Varun Bruce, RN Susana Peres RN-PATIENT CARE BEDSIDE NON-EXEMPT Role Performed Surgeon/Proceduralist, Research Dairy Farm Supervisor, First Research Dairy Farm Supervisor, Second First Time In 01/24/21 10:31:00 01/24/21 10:31:00 01/24/21 10:31:00 Time Out 01/24/21 13:09:00 01/24/21 13:09:00 01/24/21 13:09:00 Procedure Sacrocolpopexy Robotic, Sacrocolpopexy Robotic, Sacrocolpopexy Robotic, Vaginal Sling Vaginal Sling Vaginal Sling Procedure, Cystoscopy Procedure, Cystoscopy Procedure, Cystoscopy Adult Adult Adult Other Attendee Superficial Wound Closed By: Last Modified By: Varun Bruce, RN Varun Bruce, Varun Pierce, RN 01/24/21 13:10:55 01/24/21 13:10:55 01/24/21 13:10:55 Entry 4 Entry 5 Entry 6 Case Attendee ALONDRA SHAW Antrobus, Monica, Burriss, Shandy, FLOORING SALES MANAGER DRILLING RIG OPERATOR Coatings Inspector Role Performed DRILLING RIG OPERATOR/Nurse Autism Tutor Scrub, Second Scrub, First Time In 01/24/21 10:31:00 01/24/21 10:31:00 01/24/21 10:31:00 Time Out 01/24/21 13:09:00 01/24/21 13:09:00 01/24/21 13:09:00 Procedure Sacrocolpopexy Robotic, Sacrocolpopexy Robotic, Sacrocolpopexy Robotic, Vaginal Sling Vaginal Sling Vaginal Sling Procedure, Cystoscopy Procedure, Cystoscopy Procedure, Cystoscopy Adult Adult Adult Other Attendee Superficial Wound Closed By: Last Modified By: Varun Bruce RN Holliday, Stewart R, RN Holliday, Stewart R, RN 01/24/21 13:10:55 01/24/21 13:10:55 01/24/21 13:10:55 Entry 7 Entry 8 Case Attendee LESLYE MESA PA-C Dooley, Carol, RN Role Performed Physician research lab assistant Research Dairy Farm Supervisor, Second Time In 01/24/21 10:31:00 01/24/21 11:42:00 Time Out 01/24/21 13:09:00 01/24/21 12:10:00 Procedure Sacrocolpopexy Robotic, Sacrocolpopexy Robotic Vaginal Sling Procedure, Cystoscopy Adult Other Attendee RN MICHELLE Superficial Wound Closed By: Last Modified By: Varun Bruce, RN Varun Bruce, RN 01/24/21 13:10:55 01/24/21 11:50:17 [facility] IntraOp Case Attendance Audit 01/24/21 13:10:55 Athletic Training Internship: ERWIN Modifier: CLAUDER 1 <+> Time Out 1 <*> Procedure Sacrocolpopexy Robotic, Vaginal Sling Procedure, Cystoscopy Adult 2 <+> Time Out 2 <*> Procedure Sacrocolpopexy Robotic, Vaginal Sling Procedure, Cystoscopy Adult 3 <+> Time Out 3 <*> Procedure Sacrocolpopexy Robotic, Vaginal Sling Procedure, Cystoscopy Adult 4 <+> Time Out 4 <*> Procedure Sacrocolpopexy Robotic, Vaginal Sling Procedure, Cystoscopy Adult 5 <+> Time Out 5 <*> Procedure Sacrocolpopexy Robotic, Vaginal Sling Procedure, Cystoscopy Adult 6 <+> Time Out 6 <*> Procedure Sacrocolpopexy Robotic, Vaginal Sling Procedure, Cystoscopy Adult 7 <+> Time Out 7 <*> Procedure Sacrocolpopexy Robotic, Vaginal Sling Procedure, Cystoscopy Adult 8 <*> Procedure Sacrocolpopexy Robotic 01/24/21 12:56:11 Athletic Training Internship: ERWIN Modifier: CLAUDER 8 <+> Time Out 8 <*> Procedure Sacrocolpopexy Robotic 01/24/21 11:50:17 Athletic Training Internship: ERWIN Modifier: CLAUDER 1 <+> Time In 1 <*> Procedure Sacrocolpopexy Robotic, Vaginal Sling Procedure, Cystoscopy Adult 2 <+> Time In 2 <*> Procedure Sacrocolpopexy Robotic, Vaginal Sling Procedure, Cystoscopy Adult 3 <+> Time In 3 <*> Procedure Sacrocolpopexy Robotic, Vaginal Sling Procedure, Cystoscopy Adult 4 <+> Time In 4 <*> Procedure Sacrocolpopexy Robotic, Vaginal Sling Procedure, Cystoscopy Adult 5 <+> Time In 5 <*> Procedure Sacrocolpopexy Robotic, Vaginal Sling Procedure, Cystoscopy Adult 6 <+> Time In 6 <*> Procedure Sacrocolpopexy Robotic, Vaginal Sling Procedure, Cystoscopy Adult 7 <+> Time In 7 <*> Procedure Sacrocolpopexy Robotic, Vaginal Sling Procedure, Cystoscopy Adult <+> 8 Case Attendee <+> 8 Role Performed <+> 8 Time In <+> 8 Procedure <+> 8 Other Attendee [facility] IntraOp Case Times Entry 1 Patient In Room Time 01/24/21 10:31:00 Out Room Time 01/24/21 13:09:00 Anesthesia Start Time 01/24/21 10:31:00 Stop Time 01/24/21 13:09:00 Anesthesia Ready 01/24/21 10:31:00 Surgery / Procedure Times Start Time 01/24/21 10:51:00 Stop Time 01/24/21 13:00:00 Last Modified By: Varun Bruce RN 01/24/21 10:51:29 [facility] IntraOp Case Times Audit 01/24/21 13:09:06 Athletic Training Internship: CLAUDER Modifier: [email or web address] <+> 1 Out Room Time <+> 1 Stop Time 01/24/21 13:00:09 Athletic Training Internship: ERWIN Modifier: HOLLIDSR <+> 1 Stop Time [facility] IntraOp Cautery Entry 1 ESU Identification Cautery Type Monopolar ESU ID Number ERBE ID Type Hospital Number Cautery Settings Cut Setting 4 Coag Setting 4 Bipolar Setting 4 ESU Grounding Pad Ground Pad Type Adult Grounding Pad Site Left thigh Grounding Pad Varun Bruce RN Applied By Grounding Pad Site Intact Skin Condition Before Cautery Grounding Pad Site Intact Skin Condition After Cautery Last Modified By: Varun Bruce RN 01/24/21 10:18:23 [facility] IntraOp Communication Entry 1 Communication To Family/Significant other Comment PROCEDURE UPDATE, NO ANSWER Communication By Susana Peres RN-PATIENT CARE BEDSIDE NON-EXEMPT Date and Time 01/24/21 10:57:00 Last Modified By: Varun Bruce RN 01/24/21 10:57:34 [facility] IntraOp Counts Verification Entry 1 Procedure Sacrocolpopexy Robotic, Vaginal Sling Procedure, Cystoscopy Adult Count Info Count Type Sponge, Sharps, Instrument, Miscellaneous Counts Verification Baseline/pre-procedure Sequence Counts Performed By Count Performed By Estrellita Menchaca, FLOORING SALES MANAGER (Scrub) Count Performed By Varun Bruce RN (RN) Last Modified By: Varun Bruce RN 01/24/21 10:18:07 [facility] IntraOp Counts Final Entry 1 Procedure Sacrocolpopexy Robotic, Vaginal Sling Procedure, Cystoscopy Adult Final Count Info Count Type Sponge, Sharps, Miscellaneous Counts Verification Skin Closure/end of Sequence procedure Count Results Correct, surgeon notified Counts Performed By Count Performed By Estrellita Menchaca, FLOORING SALES MANAGER (Scrub) Count Performed By Varun Bruce, RN (RN) Last Modified By: Varun Bruce RN 01/24/21 12:55:57 [facility] IntraOp Cultures and Spec Summary Entry 1 Cultrures and Specimens Specimen Ordered: Yes Test(s) Routine/Path-Lab Requested/Final Disposition Last Modified By: Varun Bruce RN 01/24/21 10:18:11 [facility] IntraOp Departure from OR Entry 1 Integumentary Assessment Transfer/Handoff Transfer to PACU Phase I Post-op Transport Stretcher/Gurney Via Patient Transport Varun Bruce, Accompanied by RN, ALONDRA SHAW, DRILLING RIG OPERATOR Last Modified By: Varun Bruce RN 01/24/21 10:17:51 [facility] IntraOp Dressing and Packing Entry 1 Type Dressing Location ABDOMEN Wound Dressing Item 2x2's, Steristrip, Skin adhesive Last Modified By: Varun Bruce RN 01/24/21 10:17:48 [facility] IntraOp Fire Risk Assessment Entry 1 Fire Info Surgical Site or 0- No Incision Above the Xyphoid Open O2 Source 0- No (Mask or Cannula) Available Ignition 1- Yes (ESU, Laser, Light Source) Fire Risk 1 Assessment Score Fire Score Fire Risk Yes Assessment Complete Fire 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 Verified By Fire Risk 01/24/21 10:17:00 Assessment Verified Date/Time Fire Risk Standard Fire Yes Safety Precautions Followed Last Modified By: Varun Bruce RN 01/24/21 10:17:45 [facility] IntraOp General Case Squirt Machine Operator 1 Case Information OR OR 07 [facility] Case Level 1 Room Verified Yes Wound Class 1 - Clean Specialty Gynecology Anesthesia Type General ASA Class 3 Diagnosis Preop Diagnosis PELVIC PAIN, AUB Postop Diagnosis REFER TO MD NOTES Wound Class Definitions Last Modified By: Varun Bruce RN 01/24/21 10:52:33 [facility] IntraOp General Case Data Audit 01/24/21 10:52:33 Athletic Training Internship: ERWIN Modifier: ERWIN <+> 1 ASA Class <+> 1 Wound Class <+> 1 Anesthesia Type <+> 1 Preop Diagnosis <+> 1 Postop Diagnosis <+> 1 Room Verified [facility] IntraOp Implant Log Entry 1 Entry 2 Type Implant (Synthetic) Implant (Synthetic) Implant Log Implant Type Mesh Mesh Tissue Implant Type Implant MESH VERTESSA LITE Y SLING URIN INCONT Identification [id number] Description Implant Quantity 1 1 Implant Site Implant Identification Model Number Implant Identification Serial Number Implant [id number] Identification Lot Number Implant Sesar Med Sesar Med Identification Reel Cutter Name: Implant [id number] Identification Catalog Number Implant Size Implant Has an Yes Yes Expiration Date Implant Expiration 04/01/25 02/09/25 Date Wasted Radioactive Material Time Implanted Tissue Implant Continue for Tissue Implant Documentation Tissue Identification Number Graft Prep Per Reel Cutter Instructions: Tissue Preparation Method: Reconstitution Solution: Reconstitution Solution Lot Number Reconstitution Solution Expiration Date: Thawing Solution Thawing Solution Lot Number Thawing Solution Expiration Date Preparation Materials, Other Preparation Materials, Other Lot Number Preparation Materials, Other Expiration Date Tissue Prepared/Processed By Reel Cutter Paperwork Completed Implant Type Comment Last Modified By: Varun Bruce RN Holliday, Stewart R, RN 01/24/21 11:17:24 01/24/21 12:32:56 [facility] IntraOp Implant Log Audit 01/24/21 12:32:56 Athletic Training Internship: ERWIN Modifier: CLAUDER <+> 2 Implant Identification Description <+> 2 Implant Identification Lot Number <+> 2 Implant Identification Reel Cutter Name: <+> 2 Implant Expiration Date <+> 2 Implant Quantity <+> 2 Implant Identification Catalog Number <+> 2 Implant Type <+> 2 Implant Has an Expiration Date <+> 2 Type [facility] IntraOp Intraoperative Assessment Entry 1 Valid History / Yes Physical in Chart Preoperative Yes Checklist Reviewed/Evaluated Allergies Reviewed Yes Patient is Latex No Sensitive Isolation Not applicable Precautions Noted Skin Assessment Yes Verified Present Upon IVs Arrival to OR Last Modified By: Varun Bruce RN 01/24/21 10:17:46 [facility] IntraOp Intraoperative Equipment Entry 1 Type Equipment Equipment Equipment Robot Intraop Monitoring Electrocardiogram Three lead placement (ECG) Electrode Placement Blood Pressure Non-Invasive BP Device Source Blood Pressure Arm, left upper Location Pulse Oximeter Hand, right Probe Site Antiembolic Devices Antiembolic Devices Sequential compression device, knee high Antiembolic Device Bilateral Location Scopes Photo/Video Documentation Last Modified By: Varun Brcue RN 01/24/21 10:52:19 [facility] IntraOp Medication Admin Entry 1 Entry 2 Medication/Irrigant Marcaine 0.5% w/ vasopressin 20units 1ml epinephrine 1:200,000 injection - [id number] 30ml vial - [id number] Combo Med List Time Administered Route of Administration Dose Dose Unit of Measure Volume Administered By LELO CARDENAS MD-OBG LELO CARDENAS MD-OBG Procedure Irrigation Irrigant Volume In Irrigant Volume Out Last Modified By: Varun Bruce, RN Varun Bruce RN 01/24/21 10:57:18 01/24/21 10:57:18 [facility] IntraOp Patient Positioning Entry 1 Procedure Sacrocolpopexy Robotic Body Position Lithotomy Left Arm Position Tucked and padded at side Right Arm Position Tucked and padded at side Left Leg Position Secured in Leg Parkinson Right Leg Position Secured in Leg Parkinson Feet Uncrossed Yes Pressure Points Yes Checked Positioning Devices Salvador Bag, Stirrups/Leg Parkinson, Boot Positioned By Varun Bruce, RN, ALONDRA SHAW CRNA, LELO CARDENAS, FRANOBG Position Verified Positioning Yes Verified by Anesthesia Positioning Yes Verified by Surgeon Last Modified By: Varun Bruce RN 01/24/21 10:17:42 [facility] IntraOp Sign In Entry 1 Patient, Site, Yes Procedure Identified Surgical Consent Yes Confirmed Relevant Surgical Yes Documents Available Surgical Site N/A Marked by person performing procedure Anesthesia Machine Yes Check Completed Medication Checks Yes Completed Airway Difficult No Airway/Aspiration Risk Difficult Yes Airway/Aspiration Intervention Equipment Available Blood Loss Risk Yes Blood Loss Yes Intervention Equipment Prepared and Ready Hypothermia Risk Yes Warming Measures Yes Taken Last Modified By: Varun Bruce RN 01/24/21 10:17:36 [facility] Intra Op Sign Out Entry 1 RN Confirmation Surgical Yes Procedure(s) Identified Instrument, Sponge Yes and Sharps Counts Correct/Documented Equipment Problems N/A Documented Specimen Labeled N/A Correctly Urinary Catheter Yes Documented in IView Wound Yes classification reviewed, verified and updated post case in both the General Case Data and Procedure segments Basurto Patient Yes Recovery Concerns Reviewed with Anesthesia Provider, Surgeon and RN Basurto Patient Yes Management Concerns Reviewed with Anesthesia Provider, Surgeon and RN Safety Checklist Yes Elements Complete? RN Sign Out Varun Bruce RN Signature RN Sign Out 01/24/21 13:09:00 Signature Date/Time Plan of Care Outcome - Fire Risk OUTCOME STATEMENT: Goal met Patient is free from injury related to surgical fire Plan of Care Outcome - Pt Positioning OUTCOME STATEMENT: Goal met Absence of signs and symptoms of positioning injury. Plan of Care Outcome - Skin Prep OUTCOME STATEMENT: Goal met Intraoperative care is consistent with measures to prevent infection Plan of Care Outcome - Xray/Images OUTCOME STATEMENT: Goal met Absence of observable signs or symptoms of radiation injury Plan of Care Outcome - Counts OUTCOME STATEMENT: Goal met Absence of signs and symptoms of injury related to extraneous objects Last Modified By: Varun Bruce RN 01/24/21 13:09:33 [facility] Intra Op Sign Out Audit 01/24/21 13:09:33 Athletic Training Internship: ERWIN Modifier: [email or web address] <+> 1 Wound classification reviewed, verified and updated post case in both the General Case Data and Procedure segments 01/24/21 13:09:26 Athletic Training Internship: ERWIN Modifier: [email or web address] <+> 1 RN Sign Out Signature Date/Time [facility] IntraOp Skin Prep Entry 1 Procedure Sacrocolpopexy Robotic Prescribed Yes Pre-Surgical Prep Completed Prep Area ABDOMEN, VAGINA Intraop Prep Prep Agents Betadine solution, Chloraprep Prep by Varun Bruce RN Hair Removal Last Modified By: Varun Bruce RN 01/24/21 10:17:39 [facility] IntraOp Surgical Procedures Entry 1 Entry 2 Entry 3 Procedure Sacrocolpopexy Robotic Vaginal Sling Procedure Cystoscopy Adult Modifiers Additional ROBOTIC ASSISTED SACRAL Procedure COLPOPEXY TVT WITH Description CYSTOSCOPY Primary Procedure Yes No No Primary Surgeon LELO CARDENAS MD-OBG LELO CARDENAS MD-OBG LELO CARDENAS MD-OBG Start 01/24/21 10:51:00 01/24/21 10:51:00 01/24/21 10:51:00 Stop 01/24/21 13:00:00 01/24/21 13:00:00 01/24/21 13:00:00 Physician States Cecum Reached Anesthesia Type General General General Specialty Gynecology Gynecology Gynecology Wound Class 2 - Clean-Contaminated 2 - Clean-Contaminated 2 - Clean-Contaminated Last Modified By: Varun Bruce RN Holliday, Stewart R, RN Varun Bruce RN 01/24/21 12:30:05 01/24/21 13:10:41 01/24/21 13:10:41 [facility] IntraOp Surgical Procedures Audit 01/24/21 13:10:41 Athletic Training Internship: ERWIN Modifier: HOLLIDSR 1 <*> Procedure Sacrocolpopexy Robotic 1 <+> Wound Class 2 <*> Procedure Vaginal Sling Procedure 2 <+> Wound Class 3 <*> Procedure Cystoscopy Adult 3 <+> Wound Class 01/24/21 13:00:10 Athletic Training Internship: ERWIN Modifier: HOLLIDSR <+> 1 Stop <+> 2 Stop <+> 3 Stop 01/24/21 12:30:12 Athletic Training Internship: ERWIN Modifier: [email or web address] 1 <*> Procedure Sacrocolpopexy Robotic 1 <*> Additional Procedure Description ROBOTIC ASSISTED SACRAL COLPOPEXY TVT WITH CYSTOSCOPY POSSIBLE ANTERIOR AND POSTERIOR REPAIR [facility] IntraOp Time Out Entry 1 Procedure to be Sacrocolpopexy Robotic, Performed Vaginal Sling Procedure, Cystoscopy Adult Time Out Time Out Pause Time 01/24/21 10:50:00 All activity Yes suspended (unless life threatening emergency) Team Verbally Correct patient Confirms Information identity, Consent form is present and accurate, Agreement on the procedure to be done, Correct patient position, Relevant images/results properly labeled/appropriately displayed, Confirm antibiotics have been administered, Confirm the skin prep has dried, Confirm prosthesis/implant/devic e is present, Performed in location of procedure after prepped/draped Antibiotic Yes Prophylaxis Administered Or In Progress Within the Last 60 Minutes Beta Debbie N/A Administered Venous Yes Thromboembolism Prophylaxis Required Anticipated Critical Events Surgeon None expected Anesthesia Provider None expected Nursing Assures Sterility of instruments, Implant Availability Essential Imaging Yes Labeled and Displayed Last Modified By: Varun Bruce RN 01/24/21 10:51:55 Case Comments <None> Finalized By: Varun Bruce, RN Document Signatures Signed By: Varun Bruce RN 01/24/21 13:25 Electronically signed by Delilah Cox [place] Conversion Older Adult Social Work Specialist Cerner at 06/26/2022 10:56 AM CDT documented in this encounter Plan of Treatment Upcoming Encounters Date Type Department Care Team (Late st Contact Info) Description 02/26/2025 1:30 PM EST Office Visit [facility] Pulmonology - [address] [place] [phone] Anderson Rodriguez MD [address] [place] [address] documented as of this encounter Visit Diagnoses Not on filedocumented in this encounter Care Teams Training And Development Assistant Relationship Specialty Start Date End Date Elijah Wooten MD [address] [place] [address] [place] [address] PCP - General Family Medicine 03/28/22 documented as of this encounter
--- OUTSIDE RECORDS SUMMARY | 2024-12-22 14:39 | XMS_ITS | Encounter Summary ---
Author Organization [employer] ([place], [place], [place], [place]) Address [address] [place] [address] Care Team Providers Care Delivery Aide Name Role Phone Elijah Wooten MD Primary Care Provider [phone] Encounter Details Date Type Department Care Team (Late st Contact Info) Description 01/24/2021 Transcribed Document [facility] Family Medicine [facility] [place] [address] ProviderChioma MD [address] [place] [id number] Social History Tobacco Use Types Packs/Day Years Used Date Smoking Tobacco: Never Assessed Comments Unknown Sex and Gender Information Value Date Recorded Sex Assigned at Not on file Legal Sex Female 2:19 PM CDT Gender Identity Not on file Sexual Orientation Not on file documented as of this encounter Miscellaneous Notes * Cerner Conversion Note - Historical ProviderMD - 01/24/2021 9:07 AM 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 Pre Procedure Adult Entered On: 01/24/2021 9:22 EST Performed On: 01/24/2021 9:07 EST by SHAWANDA SALVADOR RN Height and Weight, Clinical Dosing Height Source : Measured Height Entry Format : Dille Height, Feet : 5 ft(Converted to: 152 cm, 60 Inch) Height, Inches : 8 Inch(Converted to: 0 ft 8 Inch, 20.32 cm) Clinical Height : 172.72 cm Weight Source : Standing scale Weight Entry Format : Dille Clinical Dosing Weight : 77.27 kg Weight, Pounds : 170 lb Body Surface Area (BSA) : 1.91 m2 Body Mass Index : 25.9 kg/m2 ([place]) [place] Body Weight : 63 kg SHAWANDA SALVADOR RN - 01/24/2021 9:07 EST Health Histories Smoking Status : 10 or more cigarettes (1/2 pack or more)/day in last 30 days Smokeless Tobacco Status : Never Desires Tobacco Cessation Medication : No Reason for No Tobacco Cessation Medication : Refuses FDA approved medications SHAWANDA SALVADOR RN - 01/24/2021 9:07 EST Social History (As Of: 01/24/2021 09:22:12 EST) Tobacco: Use in Last 12 Months: Cigarettes. Smoking Status Current every day smoker. Years of Use: 20. Packs/Tins Daily: 1. (Last Updated: 11/06/2013 14:21:44 EDT by NILDA DESAI, EUGENIO) Alcohol: Use in Last 12 Months: No. (Last Updated: 11/06/2013 14:21:44 EDT by NILDA DESAI, EUGENIO) Substance Abuse: Drug Use Hx: No. Use in Last 12 Months: No. (Last Updated: 01/11/2021 13:13:58 EDT by Gabriela Saleh RN) Nutrition/Health: Regular, Caffeine intake amount: 4-5 sodas daily. (Last Updated: 11/06/2013 14:21:44 EDT by NILDA DESAI, EUGENIO) Home/Environment: Injuries/Abuse/Neglect in household: No. Feels unsafe at home: No. (Last Updated: 11/06/2013 14:21:44 EDT by NILDA DESAI, EUGENIO) Employment/School: Employed (Last Updated: 11/06/2013 14:21:44 EDT by NILDA DESAI, EUGENIO) Infectious Disease History Does patient have symptoms of COVID-19? : No Has the Patient Been Tested for COVID-19 in the last 14 days? : No, Patient stated Does the Patient state known exposure to a COVID-19 positive case in the last 14 days? : No Patient Vaccinated for COVID-19 : Not vaccinated Does Patient want a COVID-19 Vaccine? : No SHAWANDA SALVADOR RN - 01/24/2021 9:07 EST Infectious Disease Risk Screening Grid Cough < 2 wks of unknown origin : NO Cough > 2 weeks : NO Blood in Sputum : NO Fever or self-reported Fever : NO Rash of unknown origin : NO Headache : NO Stiff neck : NO Night Sweats : NO Unexplained Weight Loss : NO Diarrhea (3 episode per day) : NO SHAWANDA SALVADOR RN - 01/24/2021 9:07 EST Patient Masked? : Yes Physical contact outside [place] in the last 30 days : No Hospitalized in Foreign Country : No Infectious Disease History : Chicken pox/Shingles, Influenza, Other: COVID-19 INF Disease TB Screening Calc : 0 INF Disease Recent Travel Calc : 0 SHAWANDA SALVADOR RN - 01/24/2021 9:07 EST COVID19 PreProcedure Screening Is this an Emergent or Add on Procedure? : No Date PreProcedure COVID-19 test known? : Yes Date of PreProcedure COVID-19 : 11/10/2020 EDT Has patient been isolated since the test : No Exposed to COVID19 symptoms since test? : No COVID-19 PreProcedure Screening Comment : pos covid 8- SHAWANDA SALVADOR RN - 01/24/2021 9:07 EST Anesthesia/Transfusion History Family History of Anesthesia Reaction : No prior transfusion(s) Blood Transfusion Acceptable to Patient : Yes Transfusion History : Prior anesthesia reaction Type of Anesthesia Reaction : Excessive nausea/vomiting Family History of Anesthesia Reaction : None SHAWANDA SALVADOR RN - 01/24/2021 9:07 EST Functional Assessment Living Situation : Home Patient Lives With : Alone Persons Assisting Patient at Home : Child/Children Current Daily Living Assistance : None Sensory Deficits : None Mobility Assistance Prior to Admission : Independent WATSON Hx Falls Immediate/Within 3 Months : No Current Home Treatments : None SHAWANDA SALVADOR RN - 01/24/2021 9:07 EST [place] Suicide Severity Rating Scale (C-SSRS) CSSRS Past Month Wish to be : No CSSRS Past Month Suicidal Thoughts : No CSSRS Lifetime Suicide Behavior : No Suicide Severity Rating Score : 0 Suicide Severity Rating : No Additional Care Required at this time SHAWANDA SALVADOR RN - 01/24/2021 9:07 EST Psychosocial History Do You Have a History of the Following? : Patient denies history Currently in Unsafe Situation : No SHAWANDA SALVADOR RN - 01/24/2021 9:07 EST Advance Directive Patient has Advance Directive *Q : No, patient refuses Advance Directive information SHAWANDA SALVADOR RN - 01/24/2021 9:07 EST General Info Preferred Name : Yenifer Arrived From : Home Mode of Arrival on Unit : Ambulatory Legal Guardian : Daughter Legal Guardian : No Support Person/Patient Clinical Appeals Auditor : Yes Support Person/Pt Rep Name : Melissa de la garza Support Person/Pt Rep Contact Information : [phone] Want Family/Rep/Phys Notified of Admit : No Emergency Contact #1 : Catherine Goel Emergency Contact #1 Emergency Contact #1 Relationship : Daughter Emergency Contact #2 : . Emergency Contact #2 Phone Number : . Emergency Contact #2 Relationship : . Primary Language : Samoan Preferred Communication Mode : Verbal Communication Barrier : None Special Events Coordinator Needed : No SHAWANDA SALVADOR RN - 01/24/2021 9:07 EST Sleep Apnea Risk Assmt Hx of [...] Sleep Apnea Risk Level Score : 3 SHAWANDA SALVADOR RN - 01/24/2021 9:07 EST Rohan Scale Rohan Sensory Perception : No impairment Rohan Moisture : Moist Rohan Activity : Walks occasionally Rohan Mobility : No limitation Rohan Nutrition : Adequate Rohan Friction and Shear : No apparent problem Rohan Score : 19 SHAWANDA SALVADOR RN - 01/24/2021 9:07 EST Fall Risk Scales ABCs Fall Injury Risk Identification : Surgery ABC Fall Injury Risk : Moderate to high injury risk WATSON Hx Falls Immediate/Within 3 Months : No Watson Secondary Diagnosis : Yes WATSON Use of Ambulatory Aid : None WATSON IV Therapy or IV Access : Yes Watson Gait/Transferring : Normal, bedrest, immobile Watson Mental Status : Oriented to own ability Watson Fall Risk Score : 35 WATSON Fall Scale Risk Level : 25-45 Medium Risk [place] Fall Interventions : Adequate lighting, Bed in low position, Call device within reach, Non-slip footwear, Personal items within reach, Reinforced to call for assistance before getting out of bed, Room free of clutter/spills, Upper side-rails up, Wheels locked, Wires/Cords secured Barriers to Learning : None evident Learning Style Preferences Patient : Printed materials, Verbal explanation SHAWANDA SALVADOR RN - 01/24/2021 9:07 EST Education Topics, Day of Surgery DayofSurgery Education Grid Anesthesia/Sedation : Verbalizes understanding Fall Risks : Verbalizes understanding Family Instructions : Verbalizes understanding Infection Control : Verbalizes understanding IV's : Verbalizes understanding Plan of Care : Verbalizes understanding Responsible Adult : Verbalizes understanding SHAWANDA SALVADOR RN - 01/24/2021 9:07 EST Valuables and Belongings Valuables and Belongings : Clothing, Personal devices, Personal items Clothing : Common streetwear Clothing Disposition : With family Personal Device Disposition : With family, Other: took out dentures at home Personal Devices : Glasses Personal Items : Cell phone Personal Items Disposition : With family SHAWANDA SALVADOR RN - 01/24/2021 9:07 EST Electronically signed by [facility] Conversion Dinkey Press Operator Cerner at 06/26/2022 10:58 AM CDT documented in this encounter Plan of Treatment Upcoming Encounters Date Type Department Care Team (Late st Contact Info) Description 02/26/2025 1:30 PM EST Office Visit [facility] Pulmonology - [address] [place] [id number] Anderson Rodriguez MD [address] [place] [address] documented as of this encounter Visit Diagnoses Not on filedocumented in this encounter Care Teams Delivery Aide Relationship Specialty Start Date End Date Elijah Wooten MD [address] [place] [address] [place] [address] PCP - General Family Medicine 03/28/22 documented as of this encounter
--- OUTSIDE RECORDS SUMMARY | 2024-12-22 14:39 | XMS_ITS | Encounter Summary ---
Author Organization [employer] ([place], [place], [place], [place]) Address [address] [place] [address] Care Team Providers Care Steward/Stewardess Name Role Phone Elijah Wooten MD Primary Care Provider [phone] Encounter Details Date Type Department Care Team (Late st Contact Info) Description 01/24/2021 Transcribed Document [facility] [place] [address] [place] [address] ProviderChioma MD [address] [place] [id number] Social History Tobacco Use Types Packs/Day Years Used Date Smoking Tobacco: Never Assessed Comments Unknown Sex and Gender Information Value Date Recorded Sex Assigned at Not on file Legal Sex Female 2:19 PM CDT Gender Identity Not on file Sexual Orientation Not on file documented as of this encounter Miscellaneous Notes * Cerner Conversion Note - Chioma Butt MD - 01/24/2021 1:30 PM SUPERVISOR 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 ESTIMATED BLOOD LOSS: Approximately 50 mL. PREOPERATIVE DIAGNOSES: 1. Symptomatic vaginal vault prolapse. 2. Symptomatic cystocele. 3. Mixed urinary incontinence. 4. Coronary artery disease. 5. Overactive bladder. POSTOPERATIVE DIAGNOSES: 1. Symptomatic vaginal vault prolapse. 2. Symptomatic cystocele. 3. Mixed urinary incontinence. 4. Coronary artery disease. 5. Overactive bladder. PROCEDURES PERFORMED: 1. Robotic-assisted abdominal sacrocolpopexy. 2. Pubourethral sling. 3. Lysis of multiple abdominopelvic adhesions. 4. Diagnostic cystoscopy. COMPLICATIONS: Without. IDENTIFICATION: The patient is a delightful 65-year-old, G3, P3, female, who has had history of some coronary artery disease, had preop clearance by Dr. Aminata Brown preoperatively, understood the pros and cons of the procedure. Pessary was not an option for her. Instead of a vaginal approach, she wanted to go with the above-mentioned approach. Again, the pros and cons were documented in detail in the preop clinical arena. PROCEDURE IN DETAIL: The patient was taken to the operating room, underwent general endotracheal anesthesia. After prepping and draping the abdominal vaginal cavity, a time-out was completed and correct as the Miller catheter had been inserted. We then began the procedure by making the supraumbilical incision for the camera port with an 8 mm port using the 11 blade with a direct Optiview puncture technique. Once that was in place, we hooked up the high-flow CO2 insufflation and then we placed 2 more ports, one in the left and right side about 10 cm lateral to the camera port and these are for the working arm 1 and 2 of the robot. Once those ports were placed, we placed then the fan blade over the left mid abdomen on the left side, came in with again using the 11 blade with a direct puncture technique and then we placed a 12 mm port in the right mid side of the abdomen. This was for the mesh and the suture transfer port that was a 12 mm. Once these were all placed, we took pictures. We had some adhesions noted of the small bowel to the right side. The cecum was adhesed as well as there were some small bowel adhesions over the sacral promontory and there were some adhesions of the small bowel down in the cul-de-sac, so we had a [place] grasper, it was bipolar in the left working port and a monopolar scissors in the right port with the fan blade on the left mid abdomen side as I assumed my position at the console with the robot and then we went ahead and methodically took down all these adhesions very carefully with my research lab assistant given countertraction with Foster grasper and once all the adhesions were taken down off the sacral promontory and down in the cul-de-sac, then we went ahead and elevated the vaginal cuff with the aid of the [employer] vaginal manipulator and we very carefully dissected the peritoneum off the vaginal cuff all the way down under the trigone and then all the way down off the posterior aspect of the vaginal cuff all the way down close to the perineal body. We measured 7 cm anteriorly and 8 cm posteriorly was the length of the mesh to be used on the vaginal cuff as we directed our attention then to the sacral promontory with the aid of the fan blade to push the bowel out of the way. We dissected the sacral promontory free. The ureter was fairly close on the right side, we had to be very careful. Once it was dissected, we opened the peritoneum on the right sidewall all the way down the right sidewall to the vaginal cuff. At that point, we went ahead and brought in the Vertessa Lite polypropylene type 1 mesh and we sutured the mesh to the anterior and posterior vaginal cuff using 6 [place]-Ori 2-0 sutures on anteriorly and 6 posteriorly. We then very carefully with the aid of the [place] assisting us after that was completed, we brought the mesh to the sacral promontory and we put 3 sutures on the S1 of the sacral promontory. This was done with intracorporeal tie with the aid of the robot. Once these were done, we excised the excess mesh and we very carefully removed the [place] as we went ahead and put a little bit of FloSeal because of some oozing under the mesh and we irrigated it profusely prior to the FloSeal. We then brought in 2-0 Vicryl and we reperitonealized the sacrocolpopexy mesh very carefully with a running suture of 2-0 Vicryl and then we went ahead and I assumed my position down below as we used a 70-degree cystoscope and we saw good dye jets out of both ureteral orifices because we had given Pyridium in the preop clinical arena, so we had good dye jets on both ureteral orifices, therefore indicating no ureteral trauma or damage and we went ahead at that point and began the TVT for the pubourethral sling by grabbing the anterior vaginal mucosa just below the urethral meatus and injected the anterior vaginal mucosa with vasopressin concentration of 20 units per 100 mL. We then incised the anterior vaginal mucosa with a 15 blade. We grabbed the edge with a Mendez, then with sharp dissection, with the Metzenbaum scissors and with blunt dissection, dissected down under the vaginal mucosa on both sides of the symphysis pubis. We then brought in the Desara TVT trocars and with the TVT mesh using the urethra obturator pushed the bladder to the opposing side, we punctured the urogenital diaphragm on both sides coming up very quickly under the symphysis pubis through the anterior abdominal wall. Again, all the time pushing the bladder to the opposing side with the trocar puncture. We then took a 70-degree cystoscope again and very carefully we saw normal bladder anatomy. The trigone was normal. There was no evidence of any trocar puncture of the bladder whatsoever. It looked good, so we adjusted the mesh to the proper tension, excised the excess mesh and then oversewed the vaginal defect with 2-0 Vicryl and then we replaced the Miller catheter. The CO2 was released from the abdominal cavity as we had very carefully closed the 12 mm fascial port using the cone instrument and the Storz ligature carrier with 2-0 Vicryl and then we injected all the abdominal wounds with 0.5% Marcaine with and closed them with a subcuticular 4-0 Monocryl suture. The patient did quite well, was taken to postop recovery room in satisfactory condition. /[id number] Jerson Knight MD LSB/AQ / LSB / MODL /[id number] documented in this encounter Plan of Treatment Upcoming Encounters Date Type Department Care Team (Late st Contact Info) Description 02/26/2025 1:30 PM EST Office Visit [facility] Pulmonology - [address] [place] [address] Anderson Rodriguez MD [address] [place] [address] documented as of this encounter Visit Diagnoses Not on filedocumented in this encounter Care Teams Steward/Stewardess Relationship Specialty Start Date End Date Elijah Wooten MD [address] [place] [address] PCP - General Family Medicine 03/28/22 documented as of this encounter
--- OUTSIDE RECORDS SUMMARY | 2024-12-22 14:39 | XMS_ITS | Encounter Summary ---
Author Organization [employer] ([place], [place], [place], [place]) Address [address] [place] [address] Care Team Providers Care Armorer Technician Name Role Phone Elijah Wooten MD Primary Care Provider [phone] Encounter Details Date Type Department Care Team (Late st Contact Info) Description 01/11/2021 Transcribed Document [facility] [place] [facility] [place] [address] ProviderChioma MD [address] [place] [id number] Social History Tobacco Use Types Packs/Day Years Used Date Smoking Tobacco: Never Assessed Comments Unknown Sex and Gender Information Value Date Recorded Sex Assigned at Not on file Legal Sex Female 2:19 PM CDT Gender Identity Not on file Sexual Orientation Not on file documented as of this encounter Miscellaneous Notes * Cerner Conversion Note - Chioma ProviderMD - 01/11/2021 1:12 PM CDT PAT Adult Entered On: 01/11/2021 13:18 EDT Performed On: 01/11/2021 13:12 EDT by Gabriela Saleh RN Vital Measurements Temperature Source : Temporal artery scanning Temperature Mode : Fahrenheit Temperature, Fahrenheit : 97.8 Deg F Clinical Temperature, C : 36.6 Deg C Pulse Method : Pulse Oximetry Peripheral Pulse Rate : 61 bpm Respiratory Rate : 16 Breaths/Min Blood Pressure Location : Arm, right upper Blood Pressure Source : Non-Invasive BP Device Blood Pressure Position : Sitting Systolic Blood Pressure : 119 mmHg Diastolic Blood Pressure : 71 mmHg Oxygen Saturation : 93 % (LOW) Oxygen Therapy Mode : Room air Gabriela Saleh RN - 01/11/2021 13:12 EDT Height and Weight, Clinical Dosing Height Source : Measured Height Entry Format : Cedar Height, Feet : 5 ft(Converted to: 152 cm, 60 Inch) Height, Inches : 8 Inch(Converted to: 0 ft 8 Inch, 20.32 cm) Clinical Height : 172.72 cm Weight Source : Standing scale Weight Entry Format : Cedar Clinical Dosing Weight : 77.27 kg Weight, Pounds : 170 lb Body Surface Area (BSA) : 1.91 m2 Body Mass Index : 25.9 kg/m2 (HI) [place] Body Weight : 63 kg Gabriela Saleh RN - 01/11/2021 13:12 EDT Health Histories Smoking Status : 10 or more cigarettes (1/2 pack or more)/day in last 30 days Smokeless Tobacco Status : Never Desires Tobacco Cessation Medication : No Reason for No Tobacco Cessation Medication : Refuses FDA approved medications Gabriela Saleh RN - 01/11/2021 13:12 EDT Social History (As Of: 01/11/2021 13:19:01 EDT) Tobacco: Use in Last 12 Months: Cigarettes. Smoking Status Current every day smoker. Years of Use: 20. Packs/Tins Daily: 1. (Last Updated: 11/06/2013 14:21:44 EDT by NILDA DESAI RN) Alcohol: Use in Last 12 Months: No. (Last Updated: 11/06/2013 14:21:44 EDT by NILDA DESAI, RN) Substance Abuse: Drug Use Hx: No. Use in Last 12 Months: No. (Last Updated: 01/11/2021 13:13:58 EDT by Gabriela Saleh, EUGENIO) Nutrition/Health: Regular, Caffeine intake amount: 4-5 sodas [...] Patient want a COVID-19 Vaccine? : No Gabriela Saleh RN - 01/11/2021 13:12 EDT Infectious Disease Risk Screening Grid Cough < 2 wks of unknown origin : NO Cough > 2 weeks : NO Blood in Sputum : NO Fever or self-reported Fever : NO Rash of unknown origin : NO Headache : NO Stiff neck : NO Night Sweats : NO Unexplained Weight Loss : NO Diarrhea (3 episode per day) : NO Gabriela Saleh RN - 01/11/2021 13:12 EDT Physical contact outside [place] in the last 30 days : No Hospitalized in Foreign Country : No Infectious Disease History : Chicken pox/Shingles, Influenza, Other: COVID-19 INF Disease TB Screening Calc : 0 INF Disease Recent Travel Calc : 0 Gabriela Saleh RN - 01/11/2021 13:12 EDT COVID19 PreProcedure Screening Is this an Emergent or Add on Procedure? : No Date PreProcedure COVID-19 test known? : No Has patient been isolated since the test : N/A - PreProcedure, in-person visit Exposed to COVID19 symptoms since test? : N/A - PreProcedure, in-person visit COVID-19 PreProcedure Screening Comment : Patient was COVID-19 + in November 2020 so won't get screened prior to surgery Gabriela Saleh RN - 01/11/2021 13:12 EDT Anesthesia/Transfusion History Family History of Anesthesia Reaction : No prior transfusion(s) Transfusion History : Prior anesthesia reaction Type of Anesthesia Reaction : Excessive nausea/vomiting Family History of Anesthesia Reaction : None Gabriela Saleh RN - 01/11/2021 13:12 EDT Advance Directive Patient has Advance Directive *Q : No, patient refuses Advance Directive information Gabriela Saleh RN - 01/11/2021 13:12 EDT [place] Suicide Severity Rating Scale (C-SSRS) CSSRS Past Month Wish to be : No CSSRS Past Month Suicidal Thoughts : No CSSRS Lifetime Suicide Behavior : No Suicide Severity Rating Score : 0 Suicide Severity Rating : No Additional Care Required at this time Gabriela Saleh RN - 01/11/2021 13:12 EDT Psychosocial History Do You Have a History of the Following? : Patient denies history Currently in Unsafe Situation : No Gabriela Saleh RN - 01/11/2021 13:12 EDT Teaching/Learning Assessment Barriers To Learning : None evident Individuals Taught : Patient Readiness to Learn : Cooperative Baseline Knowledge of Topic : Comprehensive Readiness to Learn : Explanation, Printed materials Learning Style Preferences Patient : Printed materials, Verbal explanation Gabriela Saleh RN - 01/11/2021 13:12 EDT Education Topics, Periop Preadmission Perioperative Education Grid Arrival Time/Place : Verbalizes understanding Infection Control : Verbalizes understanding NPO Status/Directions : Verbalizes understanding Preprocedure Preparations : Verbalizes understanding Preprocedure Tests/Labs : Verbalizes understanding Remove Body Piercings : Verbalizes understanding Responsible Adult : Verbalizes understanding Take/Hold Medications Pre-Procedure : Verbalizes understanding Gabriela Saleh RN - 01/11/2021 13:12 EDT General Info Preferred Name : Yenifer Legal Guardian : No Support Person/Patient Speech Coach : Yes Support Person/Pt Rep Name : Melissa de la garza Support Person/Pt Rep Contact Information : [phone] Want Family/Rep/Phys Notified of Admit : No Emergency Contact #1 : Catherine Goel Emergency Contact #1 Emergency Contact #1 Relationship : Daughter Emergency Contact #2 : . Emergency Contact #2 Phone Number : . Emergency Contact #2 Relationship : . Primary Language : Thai Preferred Communication Mode : Verbal Communication Barrier : None Wall Cleaner Needed : No Gabriela Saleh RN - 01/11/2021 13:12 EDT Rohan Scale Rohan Sensory Perception : No impairment Rohan Moisture : Rarely moist Rohan Activity : Walks frequently Rohan Mobility : No limitation Rohan Nutrition : Excellent Rohan Friction and Shear : No apparent problem Rohan Score : 23 Gabriela Saleh RN - 01/11/2021 13:12 EDT Sleep Apnea Risk Assmt Hx of Obstructive [...] Sleep Apnea Risk Level Score : 3 Gabriela Saleh, RN - 01/11/2021 13:12 EDT Electronically signed by Delilah [facility] Conversion Information Security Director Cerner at 06/26/2022 10:48 AM CDT documented in this encounter Plan of Treatment Upcoming Encounters Date Type Department Care Team (Late st Contact Info) Description 02/26/2025 1:30 PM EST Office Visit [facility] Pulmonology - [address] [place] [address] Anderson Rodriguez MD [address] [place] [address] documented as of this encounter Visit Diagnoses Not on filedocumented in this encounter Care Teams Armorer Technician Relationship Specialty Start Date End Date Elijah Wooten MD [address] [place] [address] [place] [address] PCP - General Family Medicine 03/28/22 documented as of this encounter
--- OUTSIDE RECORDS SUMMARY | 2024-12-22 14:39 | XMS_ITS | Encounter Summary ---
Author Organization [facility] Address [address] [place] [address] Care Team Providers Care Field Support Rep Name Role Phone Elijah Wooten MD Primary Care Provider Encounter Details Date Type Department Care Team (Latest Contact Info) Description 12/01/2024 Travel Social History Tobacco Use Types Packs/Day Years [...] on file documented as of this encounter Plan of Treatment Upcoming Encounters Date Type Department Care Team (Late st Contact Info) Description 12/30/2024 3:30 PM EDT Appointment [facility] [address] [address] 03/30/2025 4:00 PM EST Office Visit [facility] [address] [place] [address] [address] [place] [address] Nick Hyatt MD [address] [id number] documented as of this encounter Visit Diagnoses Not on filedocumented in this encounter Care Teams Field Support Rep Relationship Specialty Start Date End Date Elijah Wooten MD [address] [place], [place] [address] [place] [address] PCP - General Family Medicine 04/10/22 documented as of this encounter
--- OUTSIDE RECORDS SUMMARY | 2024-12-22 14:40 | XMS_ITS | Encounter Summary ---
Author Organization [employer] ([place], [place], [place], [place]) Address [address] [place] [address] Care Team Providers Care Bird Raiser Name Role Phone Elijah Wooten MD Primary Care Provider [phone] Encounter Details Date Type Department Care Team (Late st Contact Info) Description 01/25/2021 Transcribed Document [facility] [place] [facility] [place] [address] ProviderChioma MD [address] [place] [id number] Social History Tobacco Use Types Packs/Day Years Used Date Smoking Tobacco: Never Assessed Comments Unknown Sex and Gender Information Value Date Recorded Sex Assigned at Not on file Legal Sex Female 2:19 PM CDT Gender Identity Not on file Sexual Orientation Not on file documented as of this encounter Miscellaneous Notes * Cerner Conversion Note - Historical ProviderMD - 01/25/2021 4:19 PM APPAREL FASHION DESIGNER Nursing Discharge Summary Entered On: 01/25/2021 16:23 EST Performed On: 01/25/2021 16:19 EST by SHAWANDA GARDNER RN Discharge Documentation Discharge Date/Time : 01/25/2021 15:17 EST Transporter Signature : Lydia Juarez Houseman-Health Unit Coord Patient Disposition, General : Discharge Discharge To : Home with ambulatory/outpatient follow-up Mode Of Departure, General Discharge : Wheelchair Accompanied By, Discharge : Son IV Discontinued : Yes Personal Belongings With Patient : Yes Prescriptions Given to Patient : Yes Discharge Instructions Reviewed With, Opportunity For Questions Given : Patient, Son Patient Education Completed : Yes Number of Prescriptions Given : 1 Teaching Method : Explanation, Printed materials, Teach back method Teaching Evaluation : Verbalizes understanding SHAWANDA GARDNER, EUGENIO - 01/25/2021 16:19 EST documented in this encounter Plan of Treatment Upcoming Encounters Date Type Department Care Team (Late st Contact Info) Description 02/26/2025 1:30 PM EST Office Visit [facility] Pulmonology - [address] [place] [address] Anderson Rodriguez MD [address] [place] [address] documented as of this encounter Visit Diagnoses Not on filedocumented in this encounter Care Teams Bird Raiser Relationship Specialty Start Date End Date Elijah Wooten MD [address] [place] [address] PCP - General Family Medicine 03/28/22 documented as of this encounter
--- OUTSIDE RECORDS SUMMARY | 2024-12-22 14:40 | XMS_ITS | Encounter Summary ---
Author Organization [employer] ([place], [place], [place], [place]) Address [address] [place] [address] Care Team Providers Care Hunter Guide Name Role Phone Elijah Wooten MD Primary Care Provider [phone] Encounter Details Date Type Department Care Team (Late st Contact Info) Description 01/25/2021 Transcribed Document [facility] [place] [facility] [place] [address] ProviderChioma MD [address] [place] [address] Social History Tobacco Use Types Packs/Day Years Used Date Smoking Tobacco: Never Assessed Comments Unknown Sex and Gender Information Value Date Recorded Sex Assigned at Not on file Legal Sex Female 2:19 PM CDT Gender Identity Not on file Sexual Orientation Not on file documented as of this encounter Miscellaneous Notes * Cerner Conversion Note - Historical ProviderMD - 01/25/2021 5:00 AM REEL CUTTER Chart Check - Review Order Profile Entered On: 01/25/2021 6:03 EST Performed On: 01/25/2021 5:00 EST by Cassie Villalba RN Chart Check Powerplans Initiated/Discontinued as Appropriate : Yes All Active Orders Reviewed : Yes Cassie Villalba RN - 01/25/2021 6:03 EST Electronically signed by Florinda Mazariegos Conversion Ict Development Manager Cerner at 06/26/2022 10:40 AM CDT documented in this encounter Plan of Treatment Upcoming Encounters Date Type Department Care Team (Late st Contact Info) Description 02/26/2025 1:30 PM EST Office Visit [facility] Pulmonology - [address] [place] [address] Anderson Rodriguez MD [address] [place], [place] [id number] documented as of this encounter Visit Diagnoses Not on filedocumented in this encounter Care Teams Hunter Guide Relationship Specialty Start Date End Date Elijah Wooten MD [address] [place] [address] PCP - General Family Medicine 03/28/22 documented as of this encounter
--- OUTSIDE RECORDS SUMMARY | 2024-12-22 14:40 | XMS_ITS | Encounter Summary ---
Author Organization [employer] ([place], [place], [place], [place]) Address [address] [place] [address] Care Team Providers Care Feed Manager Name Role Phone Elijah Wooten MD Primary Care Provider Encounter Details Date Type Department Care Team (Late st Contact Info) Description 01/25/2021 Transcribed Document [facility] [place] [facility] [place] [address] ProviderChioma MD [address] [place] [id number] Social History Tobacco Use Types Packs/Day Years Used Date Smoking Tobacco: Never Assessed Comments Unknown Sex and Gender Information Value Date Recorded Sex Assigned at Not on file Legal Sex Female 2:19 PM CDT Gender Identity Not on file Sexual Orientation Not on file documented as of this encounter Miscellaneous Notes * Cerner Conversion Note - Chioma ProviderMD - 01/25/2021 11:05 AM SKIP LOADER Final Discharge Planning Entered On: 01/25/2021 11:05 EST Performed On: 01/25/2021 11:05 EST by Kortney Perez RN Final Discharge Planning Discharge Arrangements : Patient Post-Acute Information Patient Name: YENIFER MYERS Gender: Female : 59 Age: 65 Years No Post-Acute Placement(s) Listed No Post-Acute Service(s) Listed No [place] Referral(s) Listed Patient Offered Choice/Affiliations Explained : No Designation of Choice Signed : No Important Medicare Message Reviewed With : Other: none Transportation Needs : Car Follow Up Appointment Scheduled : Yes Is Patient High/Moderate Readmission Risk? : No Patient/Family Notified of Plan : Yes Is Patient Ready for Discharge? : Yes Physician Notified Patient is Ready for Discharge? : Yes Discharge To Care Management : Home/Residential/Longterm or Self Care -01 Kortney Perez RN - 01/25/2021 11:05 EST Final Narrative Note Final Narrative Note : pt dc home with no needs son transporting via car. Kortney Perez RN - 01/25/2021 11:05 EST Electronically signed by Delilah [facility] Conversion College Sports Assistant Cerner at 06/26/2022 10:35 AM CDT documented in this encounter Plan of Treatment Upcoming Encounters Date Type Department Care Team (Late st Contact Info) Description 02/26/2025 1:30 PM EST Office Visit [facility] Pulmonology - [address] [place] [address] Anderson Rodriguez MD [address] [place] [address] documented as of this encounter Visit Diagnoses Not on filedocumented in this encounter Care Teams Feed Manager Relationship Specialty Start Date End Date Elijah Wooten MD [address] [place] [address] [place] [address] PCP - General Family Medicine 03/28/22 documented as of this encounter
--- OUTSIDE RECORDS SUMMARY | 2024-12-22 14:40 | XMS_ITS | Encounter Summary ---
Author Organization [employer] ([place], [place], [place], [place]) Address [address] [place] [address] Care Team Providers Care Laborer Hoisting Name Role Phone Elijah Wooten MD Primary Care Provider [phone] Encounter Details Date Type Department Care Team (Late st Contact Info) Description 01/25/2021 Transcribed Document [facility] [place] [address] [place] [address] ProviderChioma MD [address] [place] [address] Social History Tobacco Use Types Packs/Day Years Used Date Smoking Tobacco: Never Assessed Comments Unknown Sex and Gender Information Value Date Recorded Sex Assigned at Not on file Legal Sex Female 2:19 PM CDT Gender Identity Not on file Sexual Orientation Not on file documented as of this encounter Miscellaneous Notes * Cerner Conversion Note - Chioma Butt MD - 01/25/2021 2:46 PM SENIOR CARE SPECIALIST Patient Education Materials Follows:and Gynecology Sacrocolpopexy, Care After This sheet gives you information about how to care for yourself after your procedure. Your health care provider may also give you more specific instructions. If you have problems or questions, contact your health care provider. What can I expect after the procedure? After the procedure, it is common to have: ??? Pain. ??? Some vaginal bleeding. ??? Tiredness (fatigue). Follow these instructions at home: Medicines ??? Take zbqu-zcj-qxadzex and prescription medicines only as told by your health care provider. ??? If you were prescribed an antibiotic medicine, take it as told by your health care provider. Do not stop taking the antibiotic even if you start to feel better. ??? Do not drive or use heavy machinery while taking prescription pain medicine. Incision care ??? Follow instructions from your health care provider about how to take care of your incisions. Make sure you: ? Wash your hands with soap and water before you change your bandage (dressing). If soap and water are not available, use hand component lab tech. ? Change your dressing as told by your health care provider. ? Leave stitches (sutures), skin glue, or adhesive strips in place. These skin closures may need to stay in place for 2 weeks or longer. If adhesive strip edges start to loosen and curl up, you may trim the loose edges. Do not remove adhesive strips completely unless your health care provider tells you to do that. ??? Check your incision areas every day for signs of infection. Check for: ? Redness, swelling, or pain. ? Fluid or blood. ? Warmth. ? Pus or a bad smell. ??? Do not take baths, swim, or use a hot tub until your health care provider says it is okay to do so. Do not shower for 24 hours or until after your bandages have been removed. Activity ??? Take frequent, short walks throughout the day. Rest when you get tired. ??? Limit your activities as told by your health care provider. For at least 6 weeks: ? Do not lift anything that is heavier than 10 lb (4.5 kg), or the limit that your health care provider tells you, until he or she says that it is safe. ? Do not sit on a bike seat. ? Do not use a tampon or put anything inside your vagina. ? Do not have sexual intercourse. ? Do not participate in activities that take a lot of effort (strenuous), such as running or aerobics. ??? Ask your health care provider when you can return to work and do all your usual activities. It may take 3 months to recover completely. General instructions ??? To prevent or treat constipation while you are taking prescription pain medicine, your health care provider may recommend that you: ? Drink enough fluid to keep your urine pale yellow. ? Take qpig-wsp-bqjmjeh or prescription medicines. ? Eat foods that are high in fiber, such as fresh fruits and vegetables, whole grains, and beans. ? Limit foods that are high in fat and processed sugars, such as fried and sweet foods. ??? Keep all follow-up visits as told by your health care provider. This is important. Contact a health care provider if: ??? You have chills or a fever. ??? Your pain medicine is not helping. ??? You have vaginal bleeding or discharge that will not go away. ??? You have any signs of infection, such as: ? Redness, swelling, or pain around your incision. ? Fluid or blood coming from your incision. ? Your incision feeling warm to the touch. ? Pus or a bad smell coming from your incision. Get help right away if: ??? You have a fever for more than 2?3 days. ??? You have very bad pain. ??? You have heavy vaginal bleeding or discharge. ??? You have a foul smell coming from your vagina area. ??? You develop a warm, tender area in your leg. ??? You have chest pain or trouble breathing. Summary ??? After the procedure, it is common to have some vaginal bleeding. ??? Limit your activities as told by your health care provider. For at least 6 weeks, do not lift anything heavy, have sexual intercourse, use tampons, sit on a bike seat, or participate in strenuous activities. ??? Follow instructions from your health care provider about how to take care of your incisions. Check your incision areas every day for signs of infection. ??? To prevent blood clots, take frequent, short walks throughout the day. Rest when you get tired. This information is not intended to replace advice given to you by your health care provider. Make sure you discuss any questions you have with your health care provider. Document Revised: 02/08/2018 Document Reviewed: 05/24/2017 [employer] Patient Education ? 2020 [employer] Electronically signed by Florinda Mazariegos Conversion Professional Development Manager Alonzo at 06/26/2022 10:36 AM CDT documented in this encounter Plan of Treatment Upcoming Encounters Date Type Department Care Team (Late st Contact Info) Description 02/26/2025 1:30 PM EST Office Visit [facility] Pulmonology - [address] [place] [address] Anderson Rodriguez MD [address] [place] [address] documented as of this encounter Visit Diagnoses Not on filedocumented in this encounter Care Teams Laborer Hoisting Relationship Specialty Start Date End Date Elijah Wooten MD [address] [place] [address] PCP - General Family Medicine 03/28/22 documented as of this encounter
--- OUTSIDE RECORDS SUMMARY | 2024-12-22 14:40 | XMS_ITS | Clinical Summary ---
Author Organization [facility] Address [address] [place] [address] Care Team Providers Care Still Cleaner Name Role Phone Elijah Wooten MD Primary Care Provider [phone] Allergies Active Allergy Reactions Criticality Noted Date Comments Cephalexin Rash Low 03/24/2022 Other reaction(s): rash, rash Codeine Rash Low 03/24/2022 Other reaction(s): rash, rash Meperidine Rash Low 07/14/2024 Metronidazole Rash Low 03/24/2022 Other reaction(s): rash, rash Morphine Unknown - Low Severity 03/24/2022 Other reaction(s): low bp, low bp Varenicline Unknown - Low Severity 03/24/2022 Medications HYDROcodone-acetam inophen (NORCO) 5-325 MG per tablet Take 1 tablet by mouth 3 (Three) Times a Day. 3 Active metoprolol succinate XL (TOPROL-XL) 25 MG 24 hr tablet 3 Active Myrbetriq 50 MG tablet sustained-release 24 hour 24 hr tablet Take 50 mg by mouth Daily. 2 Active Eliquis 5 MG tablet tabletIndications: Osteoarthritis of right knee, unspecified osteoarthritis type Take 1 tablet by mouth Every 12 (Twelve) Hours. 4 Active omeprazole (priLOSEC) 20 MG capsule Take 1 capsule by mouth Daily. Active clopidogrel (PLAVIX) 75 MG tablet TAKE 1 TABLET BY MOUTH EVERY DAY FOR 30 DAYS 3 12/02/19 25 Discontin ued(*Ther apy completed ) Active Problems No known active problems Encounters Date Type Department Care Team Description 12/01/2024 8:50 AM EDT Office Visit [facility] [address] [place] [address] Nick Hyatt MD Osteoarthritis of right knee, unspecified osteoarthritis type (Primary Dx) 12/01/2024 Travel from Last 3 Months Family History Medical History Relation Name Comments Diabetes type II Father Hypertension Father Cancer Mother Radha stout Relation Name Status Comments Father Mother Radha stout Alive Social History Tobacco Use Types Packs/Day Years Used Date Smoking Tobacco: Every Day Cigarettes 0.3 30 Smokeless Tobacco: Never Tobacco Cessation:Ready to Q uit: Not Asked; Counseling Given: Not Answered Alcohol Use Standard Drinks/Week Comments Never 0 (1 standard drink = 0.6 oz pur e alcohol) Comments Unknown Sex and Gender Information Value Date Recorded Sex Assigned at Not on file Legal Sex Female 11:12 AM EDT Gender Identity Not on file Sexual Orientation Not on file Last Filed Vital Signs Vital Sign Reading [...] Mass Index 27.49 12/01/2024 8:31 AM EDT Plan of Treatment Upcoming Encounters Date Type Department Care Team (Late st Contact Info) Description 12/30/2024 3:30 PM EDT Appointment [facility] [address] [facility] [address] [place] [address] 03/30/2025 4:00 PM EST Office Visit [facility] [address] [place] [address] Nick Hyatt MD [address] [place] [address] Health Maintenance Due Date Last Done Comments DXA SCAN 1955 COVID-19 Vaccine (#1) 1962 Pneumococcal Vaccine 50+ (1 of 2 - PCV) 1976 TDAP/TD VACCINES (1 - Tdap) 1976 MAMMOGRAM 1997 COLOGUARD 2002 COLON CANCER SCREENING 5 YEAR SIGMOIDOSCOPY 2002 COLONOSCOPY 2002 COLORECTAL CANCER SCREENING 2002 CT COLONOGRAPHY 2002 FECAL OCCULT BLOOD TEST 2002 FIT Testing (1 year) 2002 ZOSTER VACCINE (1 of 2) 09/27/2007 ANNUAL WELLNESS VISIT 04/10/2022 INFLUENZA VACCINE 10/10/2024 HEPATITIS C SCREENING Completed 05/15/2023 Procedures Procedure Name Priority Date/Time Associated Diagnosis Comments AK ARTHROCENTESIS ASPIR&/INJ MAJOR JT/BURSA W/O US Routine 12/01/2024 9:22 AM EDT Osteoarthritis of right knee, unspecified osteoarthritis type XR KNEE 4+ VW RIGHT Routine 12/01/2024 9 :09 AM EDT Osteoarthritis of right knee, unspecified osteoarthritis type from Last 3 Months Results * AK ARTHROCENTESIS ASPIR&/INJ MAJOR JT/BURSA W/O US (12/01/2024 9:22 AM EDT) Narrative Linda Calix CMA - 12/01/2024 9:22 AM EDT Linda Calix CMA 12/01/2024 1:36 PM - Large Joint Arthrocentesis: [...] to verify the correct patient, procedure, equipment, shipping support clerk and site/side marked as required. Patient was prepped and draped in the usual sterile fashion. Nick Hyatt MD PROCEDURE/MINOR SURGICAL ORDER RHYS [...] Comparison: no prior studies available Findings: Near [id number] contact lateral compartment, diffuse osteopenia, no acute bony abnormalities. Mild valgus alignment. Mild worsening compared to the previous imaging. Knee arthritis. us Nick Hyatt MD IMG DIAGNOSTIC IMAGING ORDERAB LES Final Result from Last 3 Months Insurance MEDICARE ADVANTAGE PPO Care Teams Still Cleaner Relationship Specialty Start Date End Date Elijah Wooten MD [address] [place] [address] [place] [address] PCP - General Family Medicine 04/10/22
--- OUTSIDE RECORDS SUMMARY | 2024-12-22 14:40 | XMS_ITS | Encounter Summary ---
Author Organization [employer] ([place], [place], [place], [place]) Address [address] [place] [address] Care Team Providers Care Field Support Rep Name Role Phone Elijah Wooten MD Primary Care Provider [phone] Encounter Details Date Type Department Care Team (Late st Contact Info) Description 01/25/2021 Transcribed Document [facility] [place] Family Medicine [facility] [place] [address] ProviderChioma MD [address] [place] [address] Social History Tobacco Use Types Packs/Day Years Used Date Smoking Tobacco: Never Assessed Comments Unknown Sex and Gender Information Value Date Recorded Sex Assigned at Not on file Legal Sex Female 2:19 PM CDT Gender Identity Not on file Sexual Orientation Not on file documented as of this encounter Miscellaneous Notes * Cerner Conversion Note - Chioma ProviderMD - 01/25/2021 11:59 AM CHIEF NURSE EXECUTIVE Patient: YENIFER MYERS Age: 65 years Sex: Female : 1955 Associated Diagnoses: Urinary incontinence; Bladder prolapse, s/p colpopexy and bladder tack; Coronary artery spasm; Atrial fibrillation, transient; At risk for sleep apnea; Tobacco use disorder, continuous Author: MADYSON GTZ MD-INT 01/25/2021 Hospitalist medicine consult, discharge, progress sign off note, internal medicine, Madyson Gtz MD Basic Information ???Seen and examined ???Doing well ???Had a good night last night ???Awake alert cooperative responsive under no acute distress ???Pain well controlled ???High spirit ???Eager to go home ???No chest pain or trouble breathing ???Getting D ambulating without difficulty ???Tolerating well oral p.o. intake ???No nausea or vomiting ???No BM but passing gas ???No trouble with urination after Miller catheter removal ???Urine output is adequate ???Vitals reviewed ???Labs reviewed ???Lab results discussed with the patient ???Discharge medications seen, reviewed and reconciled ???Patient wants and excited to be discharged home ???Patient is medically stable Review of Systems Constitutional: No weakness, No fatigue. Eye: No recent visual problem, No double vision, No visual disturbances. Ear/Nose/Mouth/Throat: No nasal congestion, No sore throat. Respiratory: No shortness of breath, No cough, No wheezing. Cardiovascular: No chest pain, No tachycardia. Gastrointestinal: No nausea, No vomiting. Genitourinary: Negative. Musculoskeletal: Negative. Integumentary: No rash, No pruritus. Neurologic: Alert and oriented X4, no dizziness. Health Status Allergies: No qualifying data available Current medications: (Selected) Inpatient Medications Ordered Ambien: 5 mg, Oral, Tab, At Bedtime, PRN for Sleep, Routine, Start 01/24/21 15:33:00 EST, 01/24/21 15:33:00 EST Colace: 100 mg, Oral, Cap, BID, Routine, Start 01/24/21 21:00:00 EST, 01/24/21 15:46:00 EST Dilaudid: 0.5 mg, [...] 1 Patch, TransDermal, Patch, Daily, Routine, Start 01/24/21 16:00:00 EST Normal Saline Flush: 10 mL, IV [...] date 01/24/21 15:46:00 EST, Routine, 1.93, m2 Toprol-XL: 50 mg, Oral, XL Tab, Daily, Start 01/25/21 9:00:00 EST Tylenol: 650 mg, Oral, Tab, Q4H, PRN [...] (Moderate 4-6), Routine, Start 01/24/21 15:33:00 EST calcium gluconate + Sodium Chloride 0.9% intravenous solution 100 mL: 2 Gram 20 mL, IV Piggyback, Inj, Daily, PRN for Other (See Comment), Routine, Start 01/24/21 15:43:00 EST, 120 mL/Hr, Infuse Over: 60 Minute(s), 01/24/21 15:43:00 EST calcium gluconate + Sodium Chloride 0.9% intravenous solution 100 mL: 2 Gram 20 mL, IV Piggyback, Inj, Q12H, PRN for Other (See Comment), Routine, Start 01/24/21 15:43:00 EST, 120 mL/Hr, Infuse Over: 60 Minute(s), 01/24/21 15:43:00 EST calcium gluconate: 1 Gram 50 mL, IV Piggyback, Inj, Daily, PRN for Other (See Comment), Routine, Start 01/24/21 15:43:00 EST, 50 mL/Hr, Infuse Over: 60 Minute(s), 01/24/21 15:43:00 EST cloNIDine: 0.1 mg, Oral, Tab, Q4H, PRN for Hypertension, Routine, Start 01/24/21 15:46:00 EST, 01/24/21 15:46:00 EST diphenhydrAMINE: 25 mg, Oral, Tab, Q6H, PRN for Allergies, Routine, Start 01/24/21 15:46:00 EST, 01/24/21 15:46:00 EST ibuprofen: 600 mg, Oral, Tab, Q6H, PRN for Pain (Mild 1-3), Routine, Start 01/24/21 15:33:00 EST, 01/24/21 15:33:00 EST magnesium sulfate: 2 Gram 50 mL, IV Piggyback, Inj, Daily, PRN for Other (See Comment), Routine, Start 01/24/21 15:43:00 EST, 25 mL/Hr, Infuse Over: 2 Hour(s), 01/24/21 15:43:00 EST magnesium sulfate: 2 Gram 50 mL, IV Piggyback, Inj, Q2H, PRN for Other (See Comment), Routine, Start 01/24/21 15:43:00 EST, 25 mL/Hr, Infuse Over: 2 Hour(s), 01/24/21 15:43:00 EST metoclopramide: 5 mg, IV Push, Inj, Q6H, PRN for Nausea/Vomiting, Routine, Start 01/24/21 15:46:00 EST, 01/24/21 15:46:00 EST potassium chloride 10 mEq/50 mL intravenous solution: 10 mEq 100 mL, IV Piggyback, Inj, Q1H, PRN for Other (See Comment), Routine, Start 01/24/21 15:43:00 EST, 100 mL/Hr, Infuse Over: 1 Hour(s), 01/24/21 15:43:00 EST potassium chloride 20 mEq oral tablet, extended release: 20 mEq 1 Tab, Oral, CR Tab, Q2H, PRN for Other (See Comment), Routine, Start 01/24/21 15:43:00 EST, 01/24/21 15:43:00 EST potassium chloride 20 mEq oral tablet, extended release: 60 mEq 3 Tab, Oral, CR Tab, Q2H, PRN for Other (See Comment), [...] Start 01/24/21 15:46:00 EST, 01/24/21 15:46:00 EST Documented Medications Documented Lortab 5/325 oral tablet: 1 Tab, Oral, BID, 0 Refill(s) metoprolol succinate 50 mg oral capsule, extended release: 1 Cap, Oral, Daily, 0 Refill(s), Medications (37) Active Scheduled: (4) #NaCl 0.9% *FLUSH* inj 10 mL 10 mL, IV Push, Q12H docusate sodium 100 mg cap 100 mg 1 Cap, Oral, BID metoprolol succinate XL 50 mg tab 50 mg 1 Tab, Oral, Daily nicotine 21 mg/24 hr patch 1 Patch, TransDermal, Daily Continuous: (2) lactated ringers 1,000 mL 1,000 mL, IntraVENous, 100 mL/Hr NaCl 0.45% 1,000 mL 1,000 mL, IntraVENous, 100 mL/Hr PRN: (31) #NaCl 0.9% *FLUSH* inj 10 mL 10 [...] Supp, Rectal, BID calcium gluconate 1 Gram 50 mL, IV Piggyback, Daily calcium gluconate + NaCl 0.9% 100 mL 2 Gram 20 mL, IV Piggyback, Daily calcium gluconate + NaCl 0.9% 100 mL 2 Gram 20 mL, IV Piggyback, Q12H cloNIDine 0.1 mg tab 0.1 mg 1 Tab, Oral, Q4H diphenhydrAMINE 25 mg tab 25 mg 1 Tab, Oral, Q6H HYDROmorphone 1 mg/1 mL inj 0.5 mg 0.5 mL, IV Push, Q2H HYDROmorphone 1 mg/1 mL inj 0.5 mg 0.5 mL, IV Push, Q2H ibuprofen 600 mg tab 600 mg 1 Tab, Oral, Q6H magnesium hydroxide 8% liq 30 mL 30 mL, Oral, Daily magnesium sulfate 2 Gram 50 mL, IV Piggyback, Daily magnesium sulfate 2 Gram 50 mL, IV Piggyback, Q2H metoclopramide 10 mg/2 mL inj 5 mg 1 mL, IV Push, Q6H ondansetron 4 mg/2 mL inj 4 mg 2 mL, IV Push, Q4H ondansetron 4 mg/2 mL inj 4 mg 2 mL, IV Push, Q4H potassium chloride 10 mEq 100 mL, IV Piggyback, Q1H potassium chloride CR 20 mEq tab 20 mEq 1 Tab, Oral, Q2H potassium chloride CR 20 mEq tab 60 mEq 3 Tab, Oral, Q2H promethazine 25 mg tab 6.25 mg 0.25 [...] (postoperative nausea and vomiting) Smoker Stress incontinence Physical Examination VS/Measurements Vital Measurements 01/25/2021 9:32 EST Systolic Blood Pressure 104 mmHg Diastolic Blood Pressure 64 mmHg Mean Arterial Pressure (MAP)-BMDI 72 Temperature Source Oral Temperature Mode Fahrenheit Temperature, Fahrenheit 98.4 Deg F Clinical Temperature, C 36.9 Deg C Heart Rate Monitored 56 bpm LOW Respiratory Rate 16 Breaths/Min Oxygen Saturation 95 % Oxygen Therapy Mode Room air General: Alert and oriented, No acute distress. Eye: Pupils are equal, round and reactive to light, Extraocular movements are intact. HENT: Oral mucosa is moist. Neck: Supple, No carotid bruit, No jugular venous distention, No lymphadenopathy, No thyromegaly. Respiratory: Lungs are clear to auscultation, Breath sounds are equal. Cardiovascular: Normal rate, Regular rhythm, No murmur. Gastrointestinal: Soft, Non-tender, Normal bowel sounds, No organomegaly. Genitourinary: No costovertebral angle tenderness, No inguinal tenderness. Lymphatics: No lymphadenopathy neck, axilla, groin. Musculoskeletal: Normal strength, No swelling. Integumentary: Warm, Intact, No rash, WOUND STABLE. Neurologic: Alert, Oriented, No focal deficits. Psychiatric: Cooperative, Appropriate mood & affect. Review / Management Results review: All Results 01/25/2021 4:27 EST Sodium Level 141 mmol/L Potassium Level 4.2 mmol/L Chloride Level 111 mmol/L Carbon Dioxide Level 25 mmol/L Anion Gap 9 Glucose Level 105 mg/dL Blood Urea Nitrogen 8 mg/dL Creatinine Level 0.52 mg/dL LOW eGFR >60 mL/min/1.73m2 eGFR NonAfrican >60 mL/min/1.73m2 Bun/Creatinine 15.4 Calcium Level 8.3 mg/dL LOW Protein Total 5.5 Gram/dL LOW Albumin Level 2.9 Gram/dL LOW Globulin 2.6 Gram/dL A/G Ratio 1.1 Bilirubin Total 0.6 mg/dL Alk Phos 54 Units/Liter AST 12 Units/Liter ALT 20 Units/Liter WBC 11.7 K/uL HI RBC 4.35 Million/uL Hgb 13.4 Gram/dL Hct 39.6 % MCV 91.0 fL MCH 30.8 pg MCHC 33.8 Gram/dL Platelet Count 177 K/uL MPV 10.6 fL RDW 15.0 % HI Neut % 83.7 % HI Neut # 9.79 K/uL HI Lymph % 9.1 % LOW Lymph # 1.07 K/uL LOW Lagrange % 6.6 % Lagrange # 0.77 K/uL Eos % 0.0 % LOW Eos # 0.00 K/uL LOW Baso % 0.3 % Baso # 0.04 K/uL Slide Review No IG# 0 x10(3)/uL IG% 0 % . Condition: Stable. Discharge Plan Discharge Summary Plan Discharge Status: stable. Orders Order Profile (Selected) Inpatient Orders Ordered Discharge Notification Pharmacy: Start: 01/25/21 11:59:24 EST Discharge: Start: 01/25/21 11:59:00 EST, Discharge to: Home, Other DC instructions: Okay to DC home from medical standpoint and after seen by Dr. Knight. Nursing staff and case management to follow-up with Dr. Knight recommendations.. Diagnosis Urinary incontinence - Admitting, Medical. Bladder prolapse, s/p colpopexy and bladder tack - Admitting, Medical. Coronary artery spasm - Discharge, Medical. Atrial fibrillation, transient - Discharge, Medical. At risk for sleep apnea - Discharge, Medical. Tobacco use disorder, continuous - Admitting, Medical. Course Improving. Stable. Plan/ pt is HD & CLINICALLY STABLE AFEBRILE OK TO D/C HOME from medical standpoint-and after seen by Dr. Knight. Orders Order Profile (Selected) Documented Medications Documented Lortab 5/325 oral tablet: 1 Tab, Oral, BID, 0 Refill(s) metoprolol succinate 50 mg oral capsule, extended release: 1 Cap, Oral, Daily, 0 Refill(s). Impression and Plan twt 40 mn patient seen and examined, medical record reviewed, labs reviewed, vitals reviewed, medications reviewed and reconciled, discussed with Pharm.D., discussed with the patient, discussed with the staff, discussed with Dr. Knight, orders placed, discharge summary note dictated. documented in this encounter Plan of Treatment Upcoming Encounters Date Type Department Care Team (Late st Contact Info) Description 02/26/2025 1:30 PM EST Office Visit [facility] Pulmonology - [address] [place] [address] Anderson Rodriguez MD [address] [place] [address] documented as of this encounter Visit Diagnoses Not on filedocumented in this encounter Care Teams Field Support Rep Relationship Specialty Start Date End Date Elijah Wooten MD [address] [place] [address] [place] [address] PCP - General Family Medicine 03/28/22 documented as of this encounter
--- OUTSIDE RECORDS SUMMARY | 2024-12-22 14:40 | XMS_ITS | Encounter Summary ---
Author Organization [employer] ([place], [place], [place], [place]) Address [address] [place] [address] Care Team Providers Care Land Agent Name Role Phone Elijah Wooten MD Primary Care Provider [phone] Encounter Details Date Type Department Care Team (Late st Contact Info) Description 01/25/2021 Transcribed Document [facility] [place] Family [facility] [place] [address] ProviderChioma MD [address] [place] [id number] Social History Tobacco Use Types Packs/Day Years Used Date Smoking Tobacco: Never Assessed Comments Unknown Sex and Gender Information Value Date Recorded Sex Assigned at Not on file Legal Sex Female 2:19 PM CDT Gender Identity Not on file Sexual Orientation Not on file documented as of this encounter Miscellaneous Notes * Cerner Conversion Note - Chioma ProviderMD - 01/25/2021 11:01 AM MACHINE SCALLOP CUTTER Initial Discharge Planning Entered On: 01/25/2021 11:04 EST Performed On: 01/25/2021 11:01 EST by Kortney Perez RN Initial Assessment I Previously Documented Living Environment : No qualifying data available. Patient Lives With : Alone Emergency Contact #1 : Catherine Goel Emergency Contact #1 Emergency Contact #1 Relationship : Daughter Emergency Contact #2 : . Emergency Contact #2 Phone Number : . Emergency Contact #2 Relationship : . Enter Doctors Name : Elijah Wooten Does Patient have PCP Listed? : Yes Legal Guardian : No Is Guardianship Needed : No Kortney Perez RN - 01/25/2021 11:01 EST Initial Assessment II Sensory and Motor Deficits : None Current Home Treatments and Equipment : None Services and Community Resources : Other: none Does the Patient have a Floor to SNF Benefit? : No Kortney Perez RN - 01/25/2021 11:01 EST Discharge Needs I Anticipated Discharge Date : 01/27/2021 EST Anticipated Discharge To, CM : Home with family care Current Home Treatment/Equipment : Current Home Treatment/Equipment No qualifying data available. Post Acute/Home Treatments : None Documentation Status Complete : Yes Kortney Perez RN - 01/25/2021 11:01 EST Discharge Needs II Professional Skilled Services : Professional Skilled Services No qualifying data available. 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 The pt lives at home alone with no DME is [facility] and her son will transport when medically ready. CM will continue to follow. Plan: Home with no needs. Son transporting. Out in Bed. No readmission score. Kortney Perez RN - 01/25/2021 11:01 EST documented in this encounter Plan of Treatment Upcoming Encounters Date Type Department Care Team (Late st Contact Info) Description 02/26/2025 1:30 PM EST Office Visit [facility] Pulmonology - [address] [place] [id number] Anderson Rodriguez MD [address] [place] [address] documented as of this encounter Visit Diagnoses Not on filedocumented in this encounter Care Teams Land Agent Relationship Specialty Start Date End Date Elijah Wooten MD [address] [place] [address] [place] [address] PCP - General Family Medicine 03/28/22 documented as of this encounter
--- OUTSIDE RECORDS SUMMARY | 2024-12-22 14:40 | XMS_ITS | Encounter Summary ---
Author Organization [employer] ([place], [place], [place], [place]) Address [address] [place] [address] Care Team Providers Care Drug Abuse Treatment Specialist Name Role Phone Elijah Wooten MD Primary Care Provider [phone] Encounter Details Date Type Department Care Team (Late st Contact Info) Description 01/25/2021 Transcribed Document [facility] [place] [address] ProviderChioma MD [address] [place] [address] Social History Tobacco Use Types Packs/Day Years Used Date Smoking Tobacco: Never Assessed Comments Unknown Sex and Gender Information Value Date Recorded Sex Assigned at Not on file Legal Sex Female 2:19 PM CDT Gender Identity Not on file Sexual Orientation Not on file documented as of this encounter Miscellaneous Notes * Cerner Conversion Note - Historical ProviderMD - 01/25/2021 2:00 AM BEHAVIOUR SUPPORT TEACHER Thread Milling Machine Set Up Operator Details Entered On: 01/25/2021 6:03 EST Performed On: 01/25/2021 2:00 EST by Cassie Villalba RN Order Details Transport Mode Order Detail : Wheelchair Isolation Precautions Order Detail : Standard Precautions Order Detail : 0 IV Order Detail : 1 Oxygen Order Detail : 0 Nurse Collect Order Detail : 0 Lift/Transfer : Minimal Central Line Order Detail : No Room Service : Appropriate Arterial Line : No Patient Needs Meds Crushed/Liquid : No Cassie Villalba RN - 01/25/2021 6:03 EST Electronically signed by Florinda Mazariegos Conversion Sales Operations Director Cerner at 06/26/2022 10:35 AM CDT documented in this encounter Plan of Treatment Upcoming Encounters Date Type Department Care Team (Late st Contact Info) Description 02/26/2025 1:30 PM EST Office Visit [facility] Pulmonology - [address] [place] [address] Anderson Rodriguez MD [address] [place] [address] documented as of this encounter Visit Diagnoses Not on filedocumented in this encounter Care Teams Drug Abuse Treatment Specialist Relationship Specialty Start Date End Date Elijah Wooten MD [address] [place] [address] [place] [address] PCP - General Family Medicine 03/28/22 documented as of this encounter
--- OUTSIDE RECORDS SUMMARY | 2024-12-22 14:40 | XMS_ITS | Encounter Summary ---
Author Organization [employer] ([place], [place], [place], [place]) Address [address] [place] [address] Care Team Providers Care Glass Selector Name Role Phone Elijah Wooten MD Primary Care Provider [phone] Encounter Details Date Type Department Care Team (Late st Contact Info) Description 01/25/2021 Transcribed Document [facility] [place] Family [place] [facility] [place] [address] ProviderChioma MD [address] [place] [address] Social History Tobacco Use Types Packs/Day Years Used Date Smoking Tobacco: Never Assessed Comments Unknown Sex and Gender Information Value Date Recorded Sex Assigned at Not on file Legal Sex Female 2:19 PM CDT Gender Identity Not on file Sexual Orientation Not on file documented as of this encounter Miscellaneous Notes * Cerner Conversion Note - Historical ProviderMD - 01/25/2021 11:59 AM CONTACT CENTER ASSISTANT ANA Entered On: 01/25/2021 11:59 EST Performed On: 01/25/2021 11:59 EST by MADYSON MARVIN MD-INT ANA Indication of use for OOCS : Acute Illness OOCS Misuse Suspected : Other Was ANA queried : Other Patient Advised to seek OOCS Treatment : Other Treatment to Include Limited Supply of OOCS : Other ANA Result : Other ANA Other Notes : As per Dr. Knight office records Patient cancelled on OOCS : Other ANA : . MADYSON MARVIN MD-INT - 01/25/2021 11:59 EST Electronically signed by [facility] Conversion Wind Development Director Cerner at 06/26/2022 10:40 AM CDT documented in this encounter Plan of Treatment Upcoming Encounters Date Type Department Care Team (Late st Contact Info) Description 02/26/2025 1:30 PM EST Office Visit [facility] Pulmonology - [address] [place] [address] Anderson Rodriguez MD [address] [place] [address] documented as of this encounter Visit Diagnoses Not on filedocumented in this encounter Care Teams Glass Selector Relationship Specialty Start Date End Date Elijah Wooten MD [address] [place] [address] PCP - General Family Medicine 03/28/22 documented as of this encounter
--- OUTSIDE RECORDS SUMMARY | 2024-12-22 14:41 | XMS_ITS | Encounter Summary ---
Author Organization [employer] ([place], [place], [place], [place]) Address [address] [place] [address] Care Team Providers Care Environmental Engineer Scientist Name Role Phone Elijah Wooten MD Primary Care Provider [phone] Reason for Visit * Reason Comments Medication Refill Encounter Details Date Type Department Care Team (Late Contact Info) Description 08/22/2022 Refill [facility] TIPPLE OPERATOR - [facility] [address] [facility] [address] [place] [address] Jerson Knight MD [address] [facility] [address] [place] [address] Encounter for general adult medical examination without abnormal findings Social History Tobacco Use Types Packs/Day Years Used Date Smoking Tobacco: Every Day Cigarettes 1 41.8 Started: 1983 Smokeless Tobacco: Never Comments:down to 0.5 ppd as of 05/12/22. Alcohol Use Standard Drinks/Week Comments Yes 0 (1 standard drink = 0.6 oz pur e alcohol) Comments Unknown Sex and Gender Information Value Date Recorded Sex Assigned at Not on file Legal Sex Female 2:19 PM CDT Gender Identity Not on file Sexual Orientation Not on file documented as of this encounter Plan of Treatment Upcoming Encounters Date Type Department Care Team (Late Contact Info) Description 02/26/2025 1:30 PM EST Office Visit [facility] Pulmonology - [facility] [address] [facility] [address] [place] [address] Anderson Rodriguez MD [address] [facility] [address] [place] [address] documented as of this encounter Visit Diagnoses Diagnosis Encounter for general adult medical examination without abnormal findings documented in this encounter Care Teams Environmental Engineer Scientist Relationship Specialty Start Date End Date Elijah Wooten MD [address] [place] [address] [place] [address] PCP - General Family Medicine 03/28/22 documented as of this encounter
--- OUTSIDE RECORDS SUMMARY | 2024-12-22 14:41 | XMS_ITS | Encounter Summary ---
Author Organization [facility] Address [address] [place] [address] Care Team Providers Care Milling General Superintendent Name Role Phone Elijah Wooten MD Primary Care Provider Zandra Saenz MD Unavailable [phone] Encounter Details Date Type Department Care Team (Latest Contact Info) Description 11/24/2024 Travel Social History Tobacco Use Types Packs/Day [...] any time in the past 12 m [facility], were you homeless or living in a long term (including now)? No 11/25/2024 [facility] Utilities Answer Date Recorded In the [...] on file documented as of this encounter Functional Status * Calculated C-SSRS Risk Score (Lifetime/Recent) Answer Date of Assessment Author No Risk Indicated 11/24/2024 6:50 PM EDT Radha Kim RN * Question Answer Date of Assessment Author 1. Wish to be (Past 1 Month) No 11/24/2024 6:50 PM EDT Radha Burnham, RN 2. Non-Specific Active Suici teo Thoughts (Past 1 Month) No 11/24/2024 6:50 PM EDT Kelly Burnham RN 6. Suicidal Behavior (Lifetime) No 6:50 PM EDT Radha Burnham, RN documented as of this encounter Plan of Treatment Upcoming Encounters Date Type Department Care Team (Late st Contact Info) Description 05/01/2025 9:00 AM EST Office Visit [place] [facility] [address], [address] [place] [address] Padmini Main MD [address] [place] [address] documented as of this encounter Visit Diagnoses Not on filedocumented in this encounter Additional Health Concerns Assessment Noted Time A fall risk assessment has been complete d for the patient 01/01/2024 3:45 PM EDT A Body Mass Index follow-up plan has been documented for the patient 11/27/2024 4:18 PM EDT documented as of this encounter Care Teams Milling General Superintendent Relationship Specialty Start Date End Date Elijah Wooten MD [address] [place] [address] PCP - General 05/15/23 Zandra Saenz MD [address] [place] [phone] Surgeon Radiology 06/07/23 documented as of this encounter
--- OUTSIDE RECORDS SUMMARY | 2024-12-22 14:41 | XMS_ITS | Encounter Summary ---
Author Organization [employer] ([place], [place], [place], [place]) Address [address] [place] [address] Care Team Providers Care Wheel Installer Name Role Phone Elijah Wooten MD Primary Care Provider Reason for Visit * Reason Comments Medication Refill Encounter Details Date Type Department Care Team (Late Contact Info) Description 08/21/2022 Refill [facility] [place] - [facility] [address] [facility] [address] [place] [address] Jerson Knight MD [address] [facility] [address] [place] [address] Encounter for general adult medical [...] Description 02/26/2025 1:30 PM EST Office Visit [facility] Pulmonology - [facility] [address] [facility] [address] [place] [address] Anderson Rodriguez MD [address] [facility] [address] [place] [address] documented as of this encounter Visit Diagnoses Diagnosis Encounter for general adult medical examination without abnormal findings documented in this encounter Care Teams Wheel Installer Relationship Specialty Start Date End Date Elijah Wooten MD [address] [place] [address] [place] [address] PCP - General Family Medicine 03/28/22 documented as of this encounter
--- OUTSIDE RECORDS SUMMARY | 2024-12-22 14:41 | XMS_ITS | Encounter Summary ---
Author Organization [facility] Address [address] [place] [address] Care Team Providers Care Patient Observer Name Role Phone Elijah Wooten MD Primary Care Provider [phone] Zandra Saenz MD Unavailable [phone] Encounter Details Date Type Department Care Team (Late st Contact Info) Description 11/24/2024 Orders Only External Location [address] [place] [phone] Provider, External Social History Tobacco Use Types Packs/Day Years [...] any time in the past 12 m [facility], were you homeless or living in a senior care (including now)? No 11/25/2024 [facility] Utilities Answer Date Recorded In the [...] (Past 1 Month) No 025 8:00 AM KRISTENT Gen Yeager 2. Non-Specific Active Suici teo Thoughts (Past 1 Month) No 11/27/2024 8:00 AM EDT Gen Yeager 6. Suicidal Behavior (Lifetime) No 8:00 AM KRISTENT Gen Yeager documented as of this encounter Plan of Treatment Upcoming Encounters Date Type Department Care Team (Late st Contact Info) Description 05/01/2025 9:00 AM EST Office Visit [place] [facility] [address] [place] [address] Padmini Main MD [address] [place] [phone] documented as of this encounter Procedures Procedure Name Priority Date/Time Associated Diagnosis Comments XR THORACIC OUTSIDE IMAGES 11/24/2024 10:44 AM EDT documented in this encounter Results * XR THORACIC OUTSIDE IMAGES (11/24/2024 10:44 AM EDT) Anatomical Region Laterality Modality Radiographic Vania ging 11/24/2024 10:4 4 AM EDT us External Provider IMG XR PROCEDURES Edited Resul t - Final documented in this encounter Visit Diagnoses Not on filedocumented in this encounter Additional Health Concerns Infection Onset Date Last Indicated Resolved Time Gastrointestinal Rule-Out 11/25/2024 11/26/2024 8:02 AM EDT Assessment Noted Time A fall risk assessment has been complete d for the patient 01/01/2024 3:45 PM EDT A Body Mass Index follow-up plan has been documented for the patient 11/27/2024 4:18 PM EDT documented as of this encounter Care Teams Patient Observer Relationship Specialty Start Date End Date Elijah Wooten MD [address] [place] [address] PCP - General 05/15/23 Zandra Saenz MD [address] [place] [phone] Surgeon Radiology 06/07/23 documented as of this encounter
--- OUTSIDE RECORDS SUMMARY | 2024-12-22 14:41 | XMS_ITS | Encounter Summary ---
Author Organization [employer] ([place], [place], [place], [place]) Address [address] [place] [address] Care Team Providers Care Cash Controller Name Role Phone Elijah Wooten MD Primary Care Provider [phone] Encounter Details Date Type Department Care Team (Late st Contact Info) Description 01/25/2021 Transcribed Document [facility] Family Medicine [facility] [place] [address] ProviderChioma MD [address] [place] [phone] Social History Tobacco Use Types Packs/Day Years Used Date Smoking Tobacco: Never Assessed Comments Unknown Sex and Gender Information Value Date Recorded Sex Assigned at Not on file Legal Sex Female 2:19 PM CDT Gender Identity Not on file Sexual Orientation Not on file documented as of this encounter Miscellaneous Notes * Cerner Conversion Note - Chioma ProviderMD - 01/25/2021 2:46 PM EDITORIAL INTERN Patient: YENIFER MYERS Age: 65 years Sex: Female : 1955 Associated Diagnoses: None Author: Buzz Balderas, Pharmacist Pharmacy reviewed the patient's chart including labs, microbiology, vital signs, recent physician's notes, home medications, inpatient medications, and discharge medications for discrepancies. Please see the list below for home medications at discharge. Home Medications (2) Active metoprolol succinate 50 mg oral capsule, extended release 50 mg = 1 Cap, Oral, Daily [place] 7.5 mg-325 mg oral tablet 1 Tab, PRN, Oral, TID Cee, Buzz Balderas, PharmD Electronically signed by [facility], [facility] Conversion Acds Block 1 Operator Cerner at 06/26/2022 11:03 AM CDT documented in this encounter Plan of Treatment Upcoming Encounters Date Type Department Care Team (Late st Contact Info) Description 02/26/2025 1:30 PM EST Office Visit [facility] Pulmonology - [address] [place] [phone] Anderson Rodriguez MD [address] [place] [address] documented as of this encounter Visit Diagnoses Not on filedocumented in this encounter Care Teams Cash Controller Relationship Specialty Start Date End Date Elijah Wooten MD [address] [place] [address] [place] [address] PCP - General Family Medicine 03/28/22 documented as of this encounter
--- OUTSIDE RECORDS SUMMARY | 2024-12-22 14:41 | XMS_ITS | Encounter Summary ---
Author Organization [facility] Address [address] [place] [address] Care Team Providers Care Probation Manager Name Role Phone Elijah Wooten MD Primary Care Provider [phone] Zandra Saenz MD Unavailable [phone] Encounter Details Date Type Department Care Team (Late st Contact Info) Description 11/24/2024 Orders Only External Location [address] [place] [phone] [facility], Breast Imaging Radiologist, [address] [place] [address] Social History Tobacco Use Types Packs/Day Years [...] any time in the past 12 m [facility], were you homeless or living in a skilled nursing (including now)? No 11/25/2024 [facility] Utilities Answer Date Recorded In the [...] (Past 1 Month) No 11/27/2024 8:00 AM KRISTENT Gen Yeager 6. Suicidal Behavior (Lifetime) No 8:00 AM Gen Thacker documented as of this encounter Plan of Treatment Upcoming Encounters Date Type Department Care Team (Late st Contact Info) Description 05/01/2025 9:00 AM EST Office Visit [place] [facility] [address] [place] [address] Padmini Main MD [address] [place] [phone] documented as of this encounter Procedures Procedure Name Priority Date/Time Associated Diagnosis Comments CT OUTSIDE IMAGES 11/24/2024 2:26 PM EDT documented in this encounter Results * CT OUTSIDE IMAGES (11/24/2024 2:26 PM EDT) Anatomical Region Laterality Modality Computed Tomogra phy 11/24/2024 2:26 PM EDT us Breast Imaging Radiologist [facility] IMG C T PROCEDURES Edited Result - Final documented in this encounter Visit [...] documented as of this encounter Care Teams Probation Manager Relationship Specialty Start Date End Date Elijah Wooten MD [address] [place] [address] PCP - General 05/15/23 Zandra Saenz MD [address] [place] [phone] Surgeon Radiology 06/07/23 documented as of this encounter
--- OUTSIDE RECORDS SUMMARY | 2024-12-22 14:41 | XMS_ITS | Clinical Summary ---
Author Organization [facility] Address [address] [place] [address] Care Team Providers Care Pace Analyst Name Role Phone Elijah Wooten MD Primary Care Provider [phone] Zandra Saenz MD Unavailable [phone] Allergies Active Allergy Reactions Criticality Noted Date Comments Cephalexin Rash Low 08/09/2007 Codeine Itching,Rash Medium 08/09/2007 Metronidazole Itching,Rash Medium 08/09/2007 Morphine Itching,Other - plea se document in the comment field Medium 03/24/2022 Other reaction(s): low bp, Sulfa Drugs Rash Low 11/06/2012 Trimethoprim Rash Low 05/28/2020 Varenicline Rash Low 03/24/2022 Other reaction(s): Unknown - Low Severity Medications metoprolol succinate XL (Toprol-XL) 25 MG 24 hr tablet Take 1 tablet by mouth daily. Active HYDROcodone-acet aminophen ([place]) 5-325 MG tablet Take 1 tablet by mouth every 8 hours. 4 Active albuterol 108 (90 Base) MCG/ACT inhaler Inhale 1-2 puffs every 4 to 6 hours as needed. Active apixaban (Eliquis) 5 MG tablet Take 1 tablet by mouth 2 times a day. Active cyanocobalamin 1000 MCG tablet Take 1 tablet by mouth daily. Active cholecalciferol (Vitamin D-3) 25 MCG (1000 UT) tablet Take 1 tablet by mouth daily. Active pentosan polysulfate (Elmiron) 100 MG capsule Take 1 capsule by mouth 3 times a day before meals. Active carBAMazepine XR (TEGretol XR) 100 MG 12 hr tablet Take 1 tablet (100 mg) by mouth 2 (two) times a day. Do not crush, chew, or split. 60 tablet 4 11/27/19 25 Discontinu ed(Entered in Error) nicotine (Nicoderm CQ) 21 MG/24HR patch Place 1 patch on the skin 1 (one) time each day at the same time. 4 11/27/19 25 Discontinu ed(Entered in Error) Myrbetriq 50 MG tablet Take 1 tablet (50 mg) by mouth 1 (one) time each day. 3 11/27/19 25 Discontinu ed(Entered in Error) Clopidogrel Bisulfate (PLAVIX PO) 11/27/19 Discontinu ed(Entered in Error) Active Problems Problem Noted Date Diagnosed Date Chest pain 11/27/2024 Assessment & Plan (11/27/2024 7:24 AM EDT): ECG showing partial RBBB, non-specific ST depression Awaiting trops Awaiting CXR Consult cards if trops and delta positive Abdominal pain, unspecified abdominal location 0 11/27/2024 Abdominal pain 11/25/2024 Assessment & Plan (11/27/2024 7:24 AM EDT): CTA OSH showing mucosal hyperemia and thickening of ileum. Abdominal exams improving Advanced to CLD Assessment & Plan (11/26/2024 10:21 AM EDT): CTA OSH showing mucosal hyperemia and thickening of ileum. Abdominal exams improving Advanced to CLD Assessment & Plan (11/25/2024 7:37 AM EDT): Concern for intermittent worsening abdominal pain with emesis since yesterday Currently improved tenderness CT at OSH with concern for mucosal thickening and hyperemia with intact flow through visceral organs Admit SGE for observation NPO, mIVFs Zosyn COPD (chronic obstructive pulmonary disease) Assessment & Plan (11/27/2024 7:24 AM EDT): Encourage pulmonary hygiene, IS, PEP, Nebs prn Encourage mobility with nursing Assessment & Plan (11/26/2024 10:21 AM EDT): Encourage pulmonary hygiene, IS, PEP, Nebs prn Encourage mobility with nursing Smoker 11/25/2024 Assessment & Plan (11/27/2024 7:24 AM EDT): Complicates all aspects of care Assessment & Plan (11/26/2024 10:21 AM EDT): Complicates all aspects of care Malnutrition 11/25/2024 Hyperbilirubinemia 11/25/2024 Overview (11/25/2024): Tbili 1.2 from 0.8 Monitor/trend Hypocalcemia 11/25/2024 Overview (11/25/2024): Monitor/trend Replete as needed A-fib 11/24/2024 Assessment & Plan (11/27/2024 7:24 AM EDT): On eliquis (Held) Continue home medications as appropriate Start tLOV Assessment & Plan (11/25/2024 7:37 AM EDT): On eliquis Hold for now while plan pending Assessment & Plan (11/26/2024 10:34 AM EDT): On eliquis (Held) Continue home medications as appropriate Start tLOV Encounters Date Type Department Care Team Description 11/27/2024 Travel 11/24/2024 6:36 PM EDT - 11/27/2024 5:26 PM EDT Hospital Encounter [facility] Inpatient [address] [place] [address] Dillon Flowers MD Burke, Kristen L, MD Rodriguez, Rachel D, MD Abdominal pain, unspecified abdominal location (Primary Dx); Hyperbilirubinemia Discharge Disposition: Home or Self Care 11/24/2024 Orders Only External Location [address] [place] [address] Provider, External 11/24/2024 Travel 11/24/2024 Orders Only External Location [address] [place] [address] [facility], Breast Imaging RadiologistMD from Last 3 Months Family History Medical History Relation Name Comments Asymptomatic COVID-19 virus infection Father Diabetes Father Heart attack Father Cancer Mother Relation Name Status Comments Father Mother Social History Tobacco Use Types Packs/Day Years Used Date Smoking Tobacco: Every Day Cigarettes Smokeless Tobacco: Never Tobacco Cessation:Ready to Q [...] any time in the past 12 m [facility], were you homeless or living in a custodial (including now)? No 11/25/2024 [facility] Utilities Answer Date Recorded In the past 12 months has e electric, gas, oil, or water company [...] Mass Index 25.06 11/24/2024 6:50 PM EDT Plan of Treatment Upcoming Encounters Date Type Department Care Team (Late st Contact Info) Description 05/01/2025 9:00 AM EST Office Visit [place] [facility] [address] [place] [address] Padmini Main MD [address] [place] [address] Health Maintenance Due Date Last Done Comments [facility]-Bone Density Scan 1957 [facility]-Medicare Annual Wellness (AWV) 1955 [facility]-/Child/Adol SDOH Screenings 1955 [id number] Vaccine (#1) 1962 [facility]-DTaP,Tdap,and Td Vaccine s (1 - Tdap) 1976 [facility]-Pneumococcal Vaccine: 50 + Years (1 of 2 - PCV) 1976 CT Colonography 2002 Colonoscopy 2002 FIT-DNA 2002 FIT 2002 FOBT 2002 Sigmoidoscopy 2002 [facility]-Colorectal Cancer Screening 2002 [facility]-Breast Cancer Screening 09/27/2007 [facility]-Zoster Vaccines (1 of 2) 09/27/2007 [facility]-RSV Vaccine: 60+ Years o r (1 - Risk 60-74 years 1-dose series) 2017 [facility]-Influenza Vaccine (#1) 2024 [facility]-Depression Screening 12/31/2024 01/01/2024 [facility]- SDOH Screenings 05/25/2025 [facility]-Adult SDOH Screenings 05/25/2025 11/25/2024 [facility]-Hepatitis C Screening Completed 05/15/2023 [facility]-Obesity Intervention Completed 025, 01/01/2024, 06/07/2023 HPV Vaccines Aged Out No longer eligi ble based on patient's age to complete this topic [facility]-HIB Vaccines Aged Out No longer e ligible based on patient's age to complete this topic [facility]-Hepatitis A Vaccines Aged Out No longer eligible based on patient's age to complete this topic [facility]-IPV Vaccines Aged Out No longer e ligible based on patient's age to complete this topic [facility]-Rotavirus Vaccines Aged Out No lo nger eligible based on patient's age to complete this topic Procedures Procedure Name Priority Date/Time Associated Diagnosis Comments XR CHEST 1 VIEW STAT 11/27/2024 8:56 AM EDT TROPONIN T, HIGH SENSITIVITY, 2 HOUR, PLASMA Timed 11/27/2024 8:51 AM EDT ECG ADULT STAT 11/27/2024 6:59 AM EDT TROPONIN T, HIGH SENSITIVITY, 0 HOUR, PLASMA, REFLEX TO 2 HOUR STAT 11/27/2024 6:42 AM EDT CBC W/O DIFFERENTIAL Routine 11/27/2024 12:02 AM EDT COMPREHENSIVE METABOLIC PANEL, PLASMA Routine 11/27/2024 12:02 AM EDT MAGNESIUM, PLASMA Routine 11/27/2024 12: 02 AM EDT PHOSPHORUS, PLASMA Routine 11/27/2024 12 :02 AM EDT PEP THERAPY Routine 11/26/2024 5:46 PM EDT PEP THERAPY Routine 11/26/2024 11:46 AM EDT CBC W/O DIFFERENTIAL Routine 11/26/2024 8:42 AM EDT BASIC METABOLIC PANEL, PLASMA Routine 11/26/2024 8:42 AM EDT MAGNESIUM, PLASMA Routine 11/26/2024 8:4 2 AM EDT PHOSPHORUS, PLASMA Routine 11/26/2024 8: 42 AM EDT PEP THERAPY Routine 11/26/2024 5:46 [...] / INR Routine 11/25/2024 4:54 AM EDT PHOSPHORUS, PLASMA Routine 11/25/2024 4: 54 AM EDT MAGNESIUM, PLASMA Routine 11/25/2024 4:5 4 AM EDT COMPREHENSIVE METABOLIC PANEL, PLASMA Routine 11/25/2024 4:54 AM EDT CBC W/O DIFFERENTIAL Routine 11/25/2024 4:54 AM EDT LACTATE, VENOUS STAT 11/24/2024 7:46 PM EDT C-REACTIVE PROTEIN, PLASMA STAT 11/24/2024 7:46 PM EDT ANTI XA LEVEL UNFRACTIONATED HEPARIN STAT 11/24/2024 7:46 PM EDT PROTHROMBIN TIME(PT) / INR STAT 11/24/2024 7:46 PM EDT CBC WITH AUTO DIFFERENTIAL STAT 11/24/2024 7:46 PM EDT MAGNESIUM, PLASMA STAT 11/24/2024 7:4 6 PM EDT COMPREHENSIVE METABOLIC PANEL, PLASMA STAT 11/24/2024 7:[address] OUTSIDE IMAGES 11/24/2024 2:2 6 PM EDT XR THORACIC OUTSIDE IMAGES 11/24/2024 10:44 AM EDT HEPATITIS C ANTIBODY - ED W/REFLEX TO HCV QUANT PCR STAT 05/15/2023 8:03 AM EST from Last 3 Months or Most Recently Relevant to Health Maintenance Results * XR Chest 1 View (11/27/2024 [...] Damon Avery MD on 11/27/2024 11:27 AM Vicki Winslow MD IMG XR PROCEDURES Final Re sult * Troponin T, High Sensitivity, 2 Hour, Plasma (11/27/2024 8:51 AM EDT) Pathologist [facility] Troponin T, High Sensitivity, 2 Hour 11 <14 ng/L 11/27/2024 9:33 AM EDT [facility] Blood Venous blood specimen / Unknown Venipuncture / Unknown 11/27/2024 8:51 AM EDT 11/27/2024 9:06 AM EDT Vicki Winslow MD LAB BLOOD ORDERABLES Final Result [facility] [address] [place] [address] * ECG Adult (11/27/2024 6:59 AM EDT) EKG DIAGNOSIS CLASS Abnormal MUSE ECG Ventricular Rate 62 BPM MUSE ECG Atrial Rate 62 BPM MUSE ECG UT Interval 142 ms MUSE ECG QRSD Interval 140 ms MUSE ECG QT Interval 474 ms MUSE ECG QTC Interval 481 ms MUSE ECG P Clio 7 degrees MUSE ECG R Clio -38 degrees MUSE ECG T Wave Clio 5 degrees MUSE ECG Diagnosis Normal sinus rhythm MUSE ECG Diagnosis Left axis deviation MUSE ECG Diagnosis Right bundle branch block MUSE ECG Diagnosis Cannot rule out Inferior infarct , age undetermined MUSE ECG Diagnosis Abnormal ECG MUSE ECG Diagnosis MUSE ECG Diagnosis Confirmed by López Yoon ([id number]) on 11/28/2024 5:30:24 AM MUSE ECG 11/27/2024 6:59 AM EDT 11/28/2024 5:30 AM EDT Vicki Winslow MD ECG ORDERABLES Final Resu lt MUSE ECG * Troponin T, High Sensitivity, 0 Hour Plasma, Reflex to 2 Hour (11/27/2024 6:42 AM EDT) Pathologist [facility] Troponin T, High Sensitivity, 0 Hour 12 <14 ng/L 11/27/2024 7:34 AM EDT [facility] Blood Venous blood specimen / Unknown Venipuncture / Unknown 11/27/2024 6:42 AM EDT 11/27/2024 7:07 AM EDT Vicki Winslow MD LAB BLOOD ORDERABLES Final Result [facility] [address] [place] [address] * CBC W/O Differential (11/27/2024 12:02 AM EDT) Only the most recent of3 resultswithin the time period is included. Pathologist [facility] WBC Count 6.68 3.70 - 10.30 10*3/uL LAB HEMATOLOGY METHOD 11/27/2024 12:15 AM EDT [facility] RBC Count 4.52 3.90 - 5.20 10*6/uL LAB HEMATOLOGY METHOD 11/27/2024 12:15 AM EDT [facility] HGB 13.7 11.2 - 15.7 g/dL LAB HEMATOLOGY METHOD 11/27/2024 12:15 AM EDT [facility] HCT 40.7 34.0 - 45.0 % LAB HEMATOLOGY METHOD 11/27/2024 12:15 AM EDT [facility] Platelet Count 159 155 - 369 10*3/uL LAB HEMATOLOGY METHOD 11/27/2024 12:15 AM EDT [facility] MCV 90 79 - 98 fL LAB HEMATOLOGY METHOD 11/27/2024 12:15 AM EDT [facility] MCH 30.3 26.0 - 32.0 pg LAB HEMATOLOGY METHOD 11/27/2024 12:15 AM EDT [facility] MCHC 33.7 30.7 - 35.5 g/dL LAB HEMATOLOGY METHOD 11/27/2024 12:15 AM EDT [facility] RDW 13.5 11.5 - 14.5 % LAB HEMATOLOGY METHOD 11/27/2024 12:15 AM EDT [facility] MPV 10.8 8.8 - 12.5 fL LAB HEMATOLOGY METHOD 11/27/2024 12:15 AM EDT [facility] nRBC 0.0 <=0.0 per 100 WBCs LAB HEMATOLOGY METHOD 11/27/2024 12:15 AM EDT [facility] Blood Venous blood specimen / Unknown Venipuncture / Unknown 11/27/2024 12:02 AM EDT 11/27/2024 12:08 AM EDT us Vicki Winslow MD LAB BLOOD ORDERABLES Final Result [facility] [address] [place] [address] * Phosphorus, Plasma (11/27/2024 12:02 AM EDT) Only the most recent of3 resultswithin the time period is included. Phosphorus, Plasma 2.7 2.5 - 4.5 mg/dL 11/27/2024 12:37 AM EDT [facility] Blood Venous blood specimen / Unknown Venipuncture / Unknown 11/27/2024 12:02 AM EDT 11/27/2024 12:08 AM EDT Vicki Winslow MD LAB BLOOD ORDERABLES Final Result [facility] [address] [place] [address] * (ABNORMAL) Magnesium, Plasma (11/27/2024 12:02 AM EDT) Only the most recent of4 resultswithin the time period is included. [facility] Magnesium, Plasma 1.8(L) 1.9 - 2.4 mg/dL 11/27/2024 12:37 AM EDT [facility] Blood Venous blood specimen / Unknown Venipuncture / Unknown 11/27/2024 12:02 AM EDT 11/27/2024 12:08 AM EDT Vicki Winslow MD LAB BLOOD ORDERABLES Final Result Performing Organization Address [facility] Co de Phone Number [facility] [address] [place] [address] * (ABNORMAL) Comprehensive Metabolic Panel, Plasma (11/27/2024 12:02 AM EDT) Only the most recent of3 resultswithin the time period is included. [facility] Glucose, Plasma 106(H) 74 - 99 mg/dL 11/27/2024 12:37 AM EDT [facility] BUN, Plasma 10 8 - 23 mg/dL 11/27/2024 12:37 AM EDT [facility] Creatinine, Plasma 0.66 0.60 - 1.10 mg/dL 11/27/2024 12:37 AM EDT [facility] BUN/Creatinine Ratio 15 11/27/2024 12:37 AM EDT [facility] Sodium, Plasma 142 136 - 145 mmol/L 11/27/2024 12:37 AM EDT [facility] Potassium, Plasma 3.5(L) 3.6 - 4.9 mmol/L 11/27/2024 12:37 AM EDT [facility] Chloride, Plasma 110(H) 97 - 107 mmol/L 11/27/2024 12:37 AM EDT [facility] CO2, Plasma 22 22 - 29 mmol/L 11/27/2024 12:37 AM EDT [facility] Anion Gap 10 6 - 16 mmol/L 11/27/2024 12:37 AM EDT [facility] Total Calcium, Plasma 8.4(L) 8.9 - 10.2 mg/dL 11/27/2024 12:37 AM EDT [facility] Total Protein 5.6(L) 6.3 - 7.9 g/dL 11/27/2024 12:37 AM EDT [facility] Albumin, Plasma 3.5 3.5 - 5.2 g/dL 11/27/2024 12:37 AM EDT [facility] AST, Plasma 16 10 - 35 U/L 11/27/2024 12:37 AM EDT [facility] Comment:Hemolyzed, result ma y be falsely increased. ALT, Plasma 12 10 - 35 U/L 11/27/2024 12:37 AM EDT [facility] Alkaline Phosphatase, Plasma 50 46 - 142 U/L 11/27/2024 12:37 AM EDT [facility] Total Bilirubin, Plasma 0.6 0.2 - 1.1 mg/dL 11/27/2024 12:37 AM EDT [facility] eGFRcr 96.3 mL/min/1.7 3m*2 11/27/2024 12:37 AM EDT [facility] Comment:Reported eGFRcr in m L/min/1.73m2 is based the CKD-EPI 2020 equation that does not use a race coefficient. Blood Venous blood specimen / Unknown Venipuncture / Unknown 11/27/2024 12:02 AM EDT 11/27/2024 12:08 AM EDT us Vicki Winslow MD LAB BLOOD ORDERABLES Final Result [facility] [address] [place] [address] * (ABNORMAL) Basic Metabolic Panel, Plasma (11/26/2024 8:42 AM EDT) Glucose, Plasma 72(L) 74 - 99 mg/dL 11/26/2024 9:11 AM EDT [facility] BUN, Plasma 10 8 - 23 mg/dL 11/26/2024 9:11 AM EDT [facility] Creatinine, Plasma 0.71 0.60 - 1.10 mg/dL 11/26/2024 9:11 AM EDT [facility] BUN/Creatinine Ratio 14 11/26/2024 9:11 AM EDT [facility] Sodium, Plasma 141 136 - 145 mmol/L 11/26/2024 9:11 AM EDT [facility] Potassium, Plasma 3.9 3.6 - 4.9 mmol/L 11/26/2024 9:11 AM EDT [facility] Chloride, Plasma 107 97 - 107 mmol/L 11/26/2024 9:11 AM EDT [facility] CO2, Plasma 22 22 - 29 mmol/L 11/26/2024 9:11 AM EDT [facility] Anion Gap 12 6 - 16 mmol/L 11/26/2024 9:11 AM EDT [facility] Total Calcium, Plasma 8.6(L) 8.9 - 10.2 mg/dL 11/26/2024 9:11 AM EDT [facility] eGFRcr 93.3 mL/min/1.7 3m*2 11/26/2024 9:11 AM EDT [facility] Comment:Reported eGFRcr in m L/min/1.73m2 is based the CKD-EPI 2020 equation that does not use a race coefficient. Blood Venous blood specimen / Unknown Venipuncture / Unknown 11/26/2024 8:42 AM EDT 11/26/2024 8:48 AM EDT us Alba Bradley DICTAPHONE TECHNICIAN LAB BLOOD ORDERABLES Gloria l Result [facility] [address] [place] [address] * POCT glucose meter (11/26/2024 5:41 AM EDT) POCT Glucose 94 74 - 99 mg/dL [...] Comment 11/26/2024 5:42 AM EDT [facility] It Security Manager ID Kaylee Merrill 11/27/19 5:42 AM EDT [facility] Device ID [id number] 11/26/2024 5:42 AM EDT [facility] Specimen Type POC Capillary 11/26/2024 5:42 AM EDT [facility] Blood Capillary blood specimen / Unknown 11/26/2024 5:41 AM EDT 11/26/2024 5:42 AM EDT Catherine Rodriguez MD LAB POINT OF CARE TE ST DOCKED DEVICE UNSOLICITED RESULTS Final Result Performing Organization Address City/State/[facility] de Phone Number [facility] [address] [place] [address] * Comprehensive GI Panel by PCR (11/26/2024 4:47 AM EDT) Campylobacter PCR Result Not Detected Not Detected 11/26/2024 9:38 AM EDT [facility] Plesiomonas shigelloides PCR Result Not Detected Not Detected 11/26/2024 9:38 AM EDT [facility] Salmonella PCR Result Not Detected Not Detected 11/26/2024 9:38 AM EDT [facility] Vibrio species PCR Result Not Detected Not Detected 11/26/2024 9:38 AM EDT [facility] Vibrio cholerae PCR Result Not Detected Not Detected 11/26/2024 9:38 AM EDT [facility] Yersinia enterocolitica PCR Result Not Detected Not Detected 11/26/2024 9:38 AM EDT [facility] Enteroaggregative E. coli (EAEC) PCR Result Not Detected Not Detected 11/26/2024 9:38 AM EDT [facility] Enteropathogenic E. coli (EPEC) PCR Result Not Detected Not Detected 11/26/2024 9:38 AM EDT [facility] Enterotoxigenic E. coli (ETEC) lt/st PCR Result Not Detected Not Detected 11/26/2024 9:38 AM EDT [facility] Shiga-like Toxin-Producing E.coli (STEC) stx1/stx2 PCR Resu Not Detected Not Detected 11/26/2024 9:38 AM EDT [facility] E coli 0157 PCR Result Not Detected Not Detected 11/26/2024 9:38 AM EDT [facility] Shigella/Enteroinvas chuyita E. coli (EIEC) PCR Result Not Detected Not Detected 11/26/2024 9:38 AM EDT [facility] Cryptosporidium PCR Result Not Detected Not Detected 11/26/2024 9:38 AM EDT [facility] Cyclospora cayetanensis PCR Result Not Detected Not Detected 11/26/2024 9:38 AM EDT [facility] Entamoeba histolytica PCR Result Not Detected Not Detected 11/26/2024 9:38 AM EDT [facility] Giardia duodenalis (aka Giardia lamblia) PCR Result Not Detected Not Detected 11/26/2024 9:38 AM EDT [facility] Adenovirus F 40/41 PCR Result Not Detected Not Detected 11/26/2024 9:38 AM EDT [facility] Astrovirus PCR Result Not Detected Not Detected 11/26/2024 9:38 AM EDT [facility] Norovirus GI/GII PCR Result Not Detected Not Detected 11/26/2024 9:38 AM EDT [facility] Rotavirus A PCR Result Not Detected Not Detected 11/26/2024 9:38 AM EDT [facility] Sapovirus PCR Result Not Detected Not Detected 11/26/2024 9:38 AM EDT [facility] Stool Rectum structure / Unknown Non-blood Collection / Unknown 11/26/2024 4:47 AM EDT 11/26/2024 6:01 AM EDT Narrative [facility] - 11/26/2024 9:38 AM EDT [...] MICROBIOLOGY - GENERAL OR DERABLES Final Result [facility] [address] [place] [address] * (ABNORMAL) Protime-INR (11/25/2024 4:54 AM EDT) Only the most recent of2 resultswithin the time period is included. Prothrombin Time 16.7(H) 12.0 - 14.3 sec 11/25/2024 5:30 AM EDT [facility] INR 1.3(H) 0.9 - 1.1 11/25/2024 5:30 AM EDT [facility] Blood Venous blood specimen / Unknown Venipuncture / Unknown 11/25/2024 4:54 AM EDT 11/25/2024 4:59 AM EDT Narrative [facility] - 11/25/2024 5:30 AM EDT OPTIMAL INR RANGES FOR PATIENT ON ORAL ANTICOAGULANT THERAPY Prevention of venous thromboembolism INR 2.0 to 3.0 In patients with heart disease: Atrial fibrillation INR 2.0 to 3.0 Valvular heart disease INR 2.0 to 3.0 Tissue heart valves INR 2.0 to 3.0 Mechanical prosthetic valves INR 2.5 to 3.5 Prevention of recurrent HI INR 2.5 to 3.5 us Catherine Rodriguez MD LAB BLOOD ORDERABLES Final Re sult Performing Organization Address City/[facility]/ZIP Co de Phone Number [facility] [address] [place] [address] * Lactic acid, venous (11/24/2024 7:46 PM EDT) Lactate, Venous, Whole Blood 0.7 0.5 - 2.2 mmol/L LAB HEMATOLOGY METHOD 11/24/2024 7:56 PM EDT [facility] Blood Venous blood specimen / Unknown Venipuncture / Unknown 11/24/2024 7:46 PM EDT 11/24/2024 7:54 PM EDT Dillon Flowers MD LAB BLOOD ORDERABLES Final Res ult Performing Organization Address [facility]/[place] [address] * (ABNORMAL) Anti Xa Level Unfractionated Heparin (11/24/2024 7:46 PM EDT) Anti Xa Level Unfractionated Heparin >1.10(HH) <1.00 IU/mL 11/24/2024 8:20 PM EDT [facility] Blood Venous blood specimen / Unknown Venipuncture / Unknown 11/24/2024 7:46 PM EDT 11/24/2024 7:53 PM EDT Narrative [facility] - 11/24/2024 8:20 PM EDT Therapeutic Range: UFH Full Dose and ACS/HI protocols*: 0.30 - 0.70 IU/mL UFH Low Dose protocol*: 0.25 - 0.50 IU/mL UFH prophylaxis: Not established us Dillon Flowers MD LAB BLOOD ORDERABLES Final Res ult [facility] [address] [place] [address] * CBC w/diff (11/24/2024 7:46 PM EDT) WBC Count 8.02 3.70 - 10.30 10*3/uL LAB HEMATOLOGY METHOD 11/24/2024 8:04 PM EDT [facility] RBC Count 4.65 3.90 - 5.20 10*6/uL LAB HEMATOLOGY METHOD 11/24/2024 8:04 PM EDT [facility] HGB 14.4 11.2 - 15.7 g/dL LAB HEMATOLOGY METHOD 11/24/2024 8:04 PM EDT [facility] HCT 41.2 34.0 - 45.0 % LAB HEMATOLOGY METHOD 11/24/2024 8:04 PM EDT [facility] Platelet Count 166 155 - 369 10*3/uL LAB HEMATOLOGY METHOD 11/24/2024 8:04 PM EDT [facility] MCV 89 79 - 98 fL LAB HEMATOLOGY METHOD 11/24/2024 8:04 PM EDT [facility] MCH 31.0 26.0 - 32.0 pg LAB HEMATOLOGY METHOD 11/24/2024 8:04 PM EDT [facility] MCHC 35.0 30.7 - 35.5 g/dL LAB HEMATOLOGY METHOD 11/24/2024 8:04 PM EDT [facility] RDW 13.5 11.5 - 14.5 % LAB HEMATOLOGY METHOD 11/24/2024 8:04 PM EDT [facility] MPV 10.6 8.8 - 12.5 fL LAB HEMATOLOGY METHOD 11/24/2024 8:04 PM EDT [facility] nRBC 0.0 <=0.0 per 100 WBCs LAB HEMATOLOGY METHOD 11/24/2024 8:04 PM EDT [facility] Differential Type Automated LAB HEMATOLOGY METHOD 11/24/2024 8:04 PM EDT [facility] Neutrophils % 69 % LAB HEMATOLOGY METHOD 11/24/2024 8:04 PM EDT [facility] Lymphocytes % 22 % LAB HEMATOLOGY METHOD 11/24/2024 8:04 PM EDT [facility] Monocytes % 7 % LAB HEMATOLOGY METHOD 11/24/2024 8:04 PM EDT [facility] Eosinophils % 1 % LAB HEMATOLOGY METHOD 11/24/2024 8:04 PM EDT [facility] Basophils % 1 % LAB HEMATOLOGY METHOD 11/24/2024 8:04 PM EDT [facility] Immature Granulocytes % 0 % LAB HEMATOLOGY METHOD 11/24/2024 8:04 PM EDT [facility] Neutrophils Absolute 5.55 1.60 - 6.10 10*3/uL LAB HEMATOLOGY METHOD 11/24/2024 8:04 PM EDT [facility] Lymphocytes Absolute 1.78 1.20 - 3.90 10*3/uL LAB HEMATOLOGY METHOD 11/24/2024 8:04 PM EDT [facility] Monocytes Absolute 0.52 0.30 - 0.90 10*3/uL LAB HEMATOLOGY METHOD 11/24/2024 8:04 PM EDT [facility] Eosinophils Absolute 0.08 0.00 - 0.50 10*3/uL LAB HEMATOLOGY METHOD 11/24/2024 8:04 PM EDT [facility] LAB Basophils Absolute 0.08 0.00 - 0.10 10*3/uL LAB HEMATOLOGY METHOD 11/24/2024 8:04 PM EDT [facility] Immature Granulocytes Absolute 0.01 0.00 - 0.06 10*3/uL LAB HEMATOLOGY METHOD 11/24/2024 8:04 PM EDT [facility] Blood Venous blood specimen / Unknown Venipuncture / Unknown 11/24/2024 7:46 PM EDT 11/24/2024 7:53 PM EDT [facility] - 11/24/2024 8:04 PM EDT Therapeutic decision making should be based on absolute values, rather than percentages. us Dillon Flowers MD LAB BLOOD ORDERABLES Final Res ult [facility] [address] [place] [address] * C-Reactive protein (11/24/2024 7:46 PM EDT) Pathologist [facility] CRP, Plasma <3.0 <=8.0 mg/L 11/24/2024 8:22 PM EDT [facility] Blood Venous blood specimen / Unknown Venipuncture / Unknown 11/24/2024 7:46 PM EDT 11/24/2024 7:53 PM EDT Narrative [facility] - 11/24/2024 8:22 PM EDT This CRP test is appropriate for assessment of infection, systemic inflammation and/or tissue injury. To assess cardiovascular disease risk order high sensitivity CRP (CRPH). us Dillon Flowers MD LAB BLOOD ORDERABLES Final Res ult [facility] [address] [place] [address] * CT OUTSIDE IMAGES (11/24/2024 2:26 PM EDT) Anatomical Region Laterality Modality Computed Tomogra phy 11/24/2024 2:26 PM EDT us Breast Imaging Radiologist [facility] IMG C T PROCEDURES Edited Result - Final * XR THORACIC OUTSIDE IMAGES (11/24/2024 10:44 AM EDT) Anatomical Region Laterality Modality Radiographic Vania ging 11/24/2024 10:4 4 AM EDT us External Provider IMG XR PROCEDURES Edited Resul t - Final * Hepatitis C Antibody - ED (05/15/2023 8:03 AM EST) Pathologist [facility] Hepatitis C Antibody Negative Negative 05/15/2023 8:56 AM EST [facility] Blood Venous blood specimen / Unknown Venipuncture / Unknown 05/15/2023 8:03 AM EST 05/15/2023 8:15 AM EST us Odilon Ott MD LAB BLOOD ORDERABLES Final Result [facility] [address] [place] [address] from Last 3 Months or Most Recently Relevant to Health Maintenance Insurance [employer] MEDICARE Advance Directives * Full Code (Latest Code Status on File) Date Activated Date Inactivated Comments 11/25/2024 12:14 AM 11/27/2024 7:27 PM Question Answer Comments I have reviewed the capacity from the link above and, if needed, have updated to appropriate status: Yes Care Teams Pace Analyst Relationship Specialty Start Date End Date Elijah Wooten MD [address] [place] [id number] PCP - General 05/15/23 Zandra Saenz MD [address] [place] [phone] Surgeon Radiology 06/07/23
--- OUTSIDE RECORDS SUMMARY | 2024-12-22 14:41 | XMS_ITS | Encounter Summary ---
Author Organization [employer] ([place], [place], [place], [place]) Address [address] [place] [address] Care Team Providers Care Excelsior Machine Operator Name Role Phone Emerita Gomez MD Primary Care Provider [phone] Encounter Details Date Type Department Care Team (Late st Contact Info) Description 01/25/2021 Transcribed Document [facility] [place] [facility] [place] [address] ProviderChioma MD [address] [place] [id number] Social History Tobacco Use Types Packs/Day Years Used Date Smoking Tobacco: Never Assessed Comments Unknown Sex and Gender Information Value Date Recorded Sex Assigned at Not on file Legal Sex Female 2:19 PM CDT Gender Identity Not on file Sexual Orientation Not on file documented as of this encounter Miscellaneous Notes * Cerner Conversion Note - Chioma ProviderMD - 01/25/2021 2:47 PM [employer] [facility] [address] [address] YENIFER MYERS :1955 Visit Time:01/24/2021 Your Visit Summary Your Care Team Admitting Physician - LELO CARDENAS MD-[facility] Attending Physician - LELO CARDENAS MD-[facility]G Primary Care Physician - EMERITA GOMEZ MD-[facility] Referring Physician - LELO CARDENAS MD-OBG Your Diagnosis At risk for sleep apnea Atrial fibrillation, transient Bladder prolapse, s/p colpopexy and bladder tack Coronary artery spasm Stress incontinence (female) (male), Stress incontinence (female) (male), Stress urinary incontinence Tobacco use disorder, continuous Urinary incontinence Vaginal vault prolapse, posthysterectomy These Are Your Goals To go home - Met Patient Discharge Goal Patient Discharge Goal: Home Discharge Vitals Temperature 36.7 ??C Heart Rate (Monitored) 73 Respiratory Rate 17 Blood Pressure 109/51 What to do next Instructions From Your Care Team Discharge Follow Up Instructions: Follow-up with Dr. Cardenas as scheduled, Order Comment: Follow-up with PCP as scheduled or PRN Activity: As per Dr. Cardenas recommendations, Discharge Activity: Other (use Special Instructions) Diet: Discharge Diet: Resume usual diet as tolerated Follow-Up Appointments Follow Up with LELO CARDENAS When Within 1 week Comments Patient wants to make her own follow-up apointment. Where: [facility] [address] [place], [place] [id number]- [employer] (1) Medications What How Much When Instructions Next Dose acetaminophen-hydrocodone (Seltzer 7.5 mg-325 mg oral tablet) 1 Tablet(s) Oral Three Times A Day as needed for as needed for pain metoprolol (metoprolol succinate 50 mg oral capsule, extended release) 1 Capsule(s) Oral Every Day Take your medications faithfully. Do NOT skip medication. Do NOT stop taking medications without the direction of a physician. Carry a list of your medications with you at all times, and take this medication list with you to your first follow up visit. Report any side effects. Avoid herbal remedies unless discussed with your physician. As part of your treatment plan, your physician may have prescribed a limited course of a controlled substance. This medication may be given to help people with moderate or severe pain or for other medical conditions, but there are risks involved with treatment. Common side effects may include nausea, constipation, drowsiness, sweating, itching, dry mouth, and rash. More serious side effects may include cognitive and motor impairment, like problems with thinking, concentrating, alertness, and movement (e.g. slowed reflexes), and driving and operating heavy machinery can be dangerous. It is important for you to talk to your physician if you have these side effects or questions. These controlled substances can produce physical dependence and be habit-forming if taken for an extended period of time, which means that the body has gotten used to them and may experience withdrawal symptoms if they are abruptly stopped. Withdrawal symptoms can include runny nose, sweating, goose bumps, diarrhea, abdominal cramping, rapid heartbeat, difficulty sleeping, and nervousness. Please dispose of unused and medications per your retail pharmacy guidance. Allergies cephalexin (rash, rash) codeine (rash, rash) metroNIDAZOLE (rash, rash) morphine (low bp, low bp) Education Materials Sacrocolpopexy, Care After This sheet gives you [...] these instructions at home: Medicines ??? Take fptv-lyi-nrawczw and prescription medicines only as told by [...] and water are not available, use hand excelsior machine operator. ? Change your dressing as told by [...] keep your urine pale yellow. ? Take rzfs-bhh-msruggc or prescription medicines. ? Eat foods that [...] You have a fever for more than 2???3 days. ??? You have very bad pain. [...] provider. Document Revised: 02/08/2018 Document Reviewed: 05/24/2017 [employer] Patient Education ?? 2020 [employer]. acetaminophen and hydrocodone (a SEET a MIN oh fen and denise droe KOE done) Hycet, Lorcet, Seltzer, Verdrocet, Vicodin, Xodol, Zamicet What is the most important information I should know about acetaminophen and hydrocodone? MISUSE OF OPIOID MEDICINE CAN CAUSE ADDICTION, OVERDOSE, OR . Keep the medication in a place where others cannot get to it. Taking opioid medicine during may cause life-threatening withdrawal symptoms in the . Fatal side effects can occur if you use opioid medicine with alcohol, or with other drugs that cause drowsiness or slow your breathing. Stop taking this medicine and call your doctor right away if you have skin redness or a rash that spreads and causes blistering and peeling. What is acetaminophen and hydrocodone? Acetaminophen and hydrocodone is a combination medicine used to relieve moderate to severe pain. Acetaminophen and hydrocodone contains an opioid medicine, and may be habit-forming. Acetaminophen and hydrocodone may also be used for purposes not listed in this medication guide. What should I discuss with my healthcare provider before taking acetaminophen and hydrocodone? You should not use this medicine if you are allergic to acetaminophen or hydrocodone, or if you have: ?? severe asthma or breathing problems; or ?? a blockage in your stomach or intestines. Tell your doctor if you have ever had: ?? breathing problems, sleep apnea (breathing stops during sleep); ?? liver disease; ?? a drug or alcohol addiction; ?? kidney disease; ?? a head injury or seizures; ?? urination problems; or ?? problems with your thyroid, pancreas, or gallbladder. If you use opioid medicine while you are , your baby could become dependent on the drug. This can cause life-threatening withdrawal symptoms in the baby after it is born. Babies born dependent on opioids may need medical treatment for several weeks. Ask a doctor before using opioid medicine if you are . Tell your doctor if you notice severe drowsiness or slow breathing in the nursing baby. How should I take acetaminophen and hydrocodone? Follow all directions on your prescription label. Never take this medicine in larger amounts, or for longer than prescribed. An overdose can damage your liver or cause . Tell your doctor if you feel an increased urge to use more of this medicine. Never share this medicine with another person, especially someone with a history of drug abuse or addiction. MISUSE CAN CAUSE ADDICTION, OVERDOSE, OR . Keep the medicine in a place where others cannot get to it. Selling or giving away this medicine is against the law. Measure liquid medicine carefully. Use the dosing syringe provided, or use a medicine dose-measuring device (not a kitchen spoon). If you need surgery or medical tests, tell the doctor ahead of time that you are using this medicine. You should not stop using this medicine suddenly. Follow your doctor's instructions about tapering your dose. Store at room temperature away from moisture and heat. Keep track of your medicine. You should be aware if anyone is using it improperly or without a prescription. Do not keep leftover opioid medication. Just one dose can cause in someone using this medicine accidentally or improperly. Ask your pharmacist where to locate a drug take-back disposal program. If there is no take-back program, flush the unused medicine down the toilet. What happens if I miss a dose? Since this medicine is used for pain, you are not likely to miss a dose. Skip any missed dose if it is almost time for your next dose. Do not use two doses at one time. What happens if I overdose? Seek emergency medical attention or call the Poison Help line at . An overdose of this medicine can be fatal, especially in a child or other person using the medicine without a prescription. Overdose symptoms may include nausea, vomiting, sweating, severe drowsiness, pinpoint pupils, slow breathing, or no breathing. Your doctor may recommend you get naloxone (a medicine to reverse an opioid overdose) and keep it with you at all times. A person caring for you can give the naloxone if you stop breathing or don't wake up. Your caregiver must still get emergency medical help and may need to perform CPR (cardiopulmonary resuscitation) on you while waiting for help to arrive. Anyone can buy naloxone from a pharmacy or local health department. Make sure any person caring for you knows where you keep naloxone and how to use it. What should I avoid while taking acetaminophen and hydrocodone? Avoid driving or operating machinery until you know how this medicine will affect you. Dizziness or drowsiness can cause falls, accidents, or severe injuries. Do not drink alcohol. Dangerous side effects or could occur. Ask a doctor or pharmacist before using any other medicine that may contain acetaminophen (sometimes abbreviated as APAP). Taking certain medications together can lead to a fatal overdose. What are the possible side effects of acetaminophen and hydrocodone? Get emergency medical help if you have signs of an allergic reaction: hives; difficulty breathing; swelling of your face, lips, tongue, or throat. Opioid medicine can slow or stop your breathing, and may occur. A person caring for you should give naloxone and/or seek emergency medical attention if you have slow breathing with long pauses, blue colored lips, or if you are hard to wake up. In rare cases, acetaminophen may cause a severe skin reaction that can be fatal. This could occur even if you have taken acetaminophen in the past and had no reaction. Stop taking this medicine and call your doctor right away if you have skin redness or a rash that spreads and causes blistering and peeling. Call your doctor at once if you have: ?? noisy breathing, sighing, shallow breathing, breathing that stops; ?? a light-headed feeling, like you might pass out; ?? liver problems--nausea, upper stomach pain, tiredness, loss of appetite, dark urine, parker-colored stools, jaundice (yellowing of the skin or eyes); ?? low cortisol levels-- nausea, vomiting, loss of appetite, dizziness, worsening tiredness or weakness; o ?? high levels of serotonin in the body--agitation, hallucinations, fever, sweating, shivering, fast heart rate, muscle stiffness, twitching, loss of coordination, nausea, vomiting, diarrhea. Serious breathing problems may be more likely in older adults and in those who are debilitated or have wasting syndrome or chronic breathing disorders. Common side effects include: ?? dizziness, drowsiness, feeling tired; ?? nausea, vomiting, stomach pain; ?? constipation; or ?? headache. This is not a complete list of side effects and others may occur. Call your doctor for medical advice about side effects. You may report side effects to FDA at 3-970-DHA-0456. What other drugs will affect acetaminophen and hydrocodone? You may have breathing problems or withdrawal symptoms if you start or stop taking certain other medicines. Tell your doctor if you also use an antibiotic, antifungal medication, heart or blood pressure medication, seizure medication, or medicine to treat HIV or hepatitis C. Opioid medication can interact with many other drugs and cause dangerous side effects or . Be sure your doctor knows if you also use: ?? cold or allergy medicines, bronchodilator asthma/COPD medication, or a diuretic ('water pill'); ?? medicines for motion sickness, irritable bowel syndrome, or overactive bladder; ?? other opioids--opioid pain medicine or prescription cough medicine; ?? a sedative like Valium--diazepam, alprazolam, lorazepam, Xanax, Klonopin, Versed, and others; ?? drugs that make you sleepy or slow your breathing--a sleeping pill, muscle relaxer, medicine to treat mood disorders or mental illness; ?? drugs that affect serotonin levels in your body--a stimulant, or medicine for depression, Parkinson's disease, migraine headaches, serious infections, or nausea and vomiting. This list is not complete. Other drugs may affect acetaminophen and hydrocodone, including prescription and wpcj-pnq-xhisohq medicines, vitamins, and herbal products. Not all possible interactions are listed here. Where can I get more information? Your doctor or pharmacist can provide more information about acetaminophen and hydrocodone. Remember, keep this and all other medicines out of the reach of children, never share your medicines with others, and use this medication only for the indication prescribed. Every effort has been made to ensure that the information provided by [employer]') is accurate, up-to-date, and complete, but no guarantee is made to that effect. Drug information contained herein may be time sensitive. [employer] information has been compiled for use by healthcare practitioners and consumers in the [place] and therefore [employer] does not warrant that uses outside of the [place] are appropriate, unless specifically indicated otherwise. [employer]'s drug information does not endorse drugs, diagnose patients or recommend therapy. [facility] drug information is an informational resource designed to assist licensed healthcare practitioners in caring for their patients and/or to serve consumers viewing this service as a supplement to, and not a substitute for, the expertise, skill, knowledge and judgment of healthcare practitioners. The absence of a warning for a given drug or drug combination in no way should be construed to indicate that the drug or drug combination is safe, effective or appropriate for any given patient. [facility] does not assume any responsibility for any aspect of healthcare administered with the aid of information [facility] provides. The information contained herein is not intended to cover all possible uses, directions, precautions, warnings, drug interactions, allergic reactions, or adverse effects. If you have questions about the drugs you are taking, check with your doctor, nurse or pharmacist. Copyright 2895-9311 [employer]. Version: 16.03. Revision Date: 04/13/2020. Emergency Awareness and Preventative Care STROKE is an EMERGENCY Every Minute Counts Act FAST and Check for these signs: FACE Does the face look uneven? ARM Does one arm drift down? SPEECH Does their speech sound strange? TIME Call at any sign of stroke Stroke Risk Factors Atrial Fibrillation (irregular heartbeat) Diabetes Family history of stroke Heart Disease Heavy alcohol use High Blood Pressure High Cholesterol Physical inactivity and obesity Smoking Cigarette Smoking The facts are clear, cigarette smoking will shorten your life. Smoking can cause many illnesses along the way. As a healthcare provider, we recommend that you stop smoking. Assistance with quitting is available by contacting 7-494-ZZPK-NOW. This is a free resource providing counseling, support, and referral. Or you may contact your personal physician. National Suicide Prevention Lifeline: The National Suicide Prevention Lifeline is a national network of local crisis centers that provides free and confidential emotional support to people in suicidal crisis or emotional distress 24 hours a day, 7 days a week. Don't Wait! Stop a Heart Attack Before it Starts What is a heart attack? A heart attack is damage or to a part of the heart from severely decreased or lack of blood flow to the heart. Over time, arteries can become narrow from the buildup of fat and cholesterol, which is called plaque. The plaque can rupture causing a blood clot to form. When the blood clot forms, the artery can become severely narrowed or completely blocked, causing a heart attack. Heart attack is the leading cause of in the [place]. 85% of muscle damage occurs within the first 2 hours. Delay in the recognition of heart attack symptoms increases the chances of . Know the early symptoms of a heart attack: Nausea Feeling of fullness in chest Jaw Pain Pain that travels down one or both arms Fatigue/being tired Anxiety Back Pain Chest pressure, squeezing, or discomfort Shortness of breath Sweating, or a cold sweat Feeling of impending doom There are unusual signs of a heart attack, too! Women, the elderly, and diabetics may present with atypical symptoms: Fainting/dizziness Weakness Confusion Risk Factors for a Heart Attack Some heart disease risk factors, such as age and family history, cannot be changed. Others, like smoking and lack of exercise, can be changed. Smoking High Cholesterol High Blood Pressure Family History Obesity Age Gender (Males are at higher risk) Lack of Exercise Diabetes Diet Stress Excessive Alcohol Intake If you or someone you know is experiencing the signs and symptoms of a heart attack, DON???T DELAY. Call immediately and seek help. If someone collapses, perform CPR! Do not attempt to drive if you are having symptoms of heart attack. Hands-Only CPR Why Hands-Only CPR? Hands-Only CPR has been shown to be as effective as conventional CPR for cardiac arrests that occur outside of a hospital. Survival depends on immediately receiving CPR from someone nearby. How do you perform Hands-Only CPR? There are two easy steps: Call if you see a teen or adult collapse Push hard and fast in the center of the chest at a beat of 100 beats per minute. Save a life! 4 WAYS TO GET AHEAD OF SEPSIS SEPSIS is a MEDICAL EMERGENCY. Time matters! Infections put you and your family at risk for a life-threatening condition called sepsis. Sepsis is the body's extreme response to an infection. It is life-threatening, and without timely treatment, sepsis can rapidly lead to tissue damage, organ failure, and . Sepsis happens when an infection you already have-in your skin, lungs, urinary tract or somewhere else-triggers a chain reaction throughout your body. 1 PREVENT INFECTIONS Take good care of chronic conditions. Talk to your doctor about getting the recommended vaccines. 2 PRACTICE GOOD HYGIENE Wash your hands frequently. Keep cuts or open sores clean and covered until they are healed. 3 KNOW THE SYMPTOMS Confusion or disorientation Shortness of breath High heart rate Fever, shivering, or feeling very cold Extreme pain or discomfort Clammy or sweaty skin 4 ACT FAST Get medical care IMMEDIATELY if you suspect sepsis or if you have an infection that is not getting better or is getting worse. To learn more about sepsis and how to prevent infections, visit www.cdc.gov/sepsis. Test Results Laboratory or Other Results This Visit (last charted value for your 01/24/2021 visit) Hematology 01/25/2021 4:27 AM WBC: 11.7 K/uL -- Normal range between ( 3.9 and 10.0 ) RBC: 4.35 Million/uL -- Normal range between ( 3.93 and 5.22 ) Hct: 39.6 % -- Normal range between ( 34.1 and 44.9 ) Hgb: 13.4 Gram/dL -- Normal range between ( 11.2 and 15.7 ) Platelet Count: 177 K/uL -- Normal range between ( 163 and 369 ) MCH: 30.8 pg -- Normal range between ( 25.6 and 32.2 ) MCHC: 33.8 Gram/dL -- Normal range between ( 32.3 and 36.5 ) MCV: 91.0 fL -- Normal range between ( 79.0 and 94.8 ) Slide Review: No Eos %: 0.0 % -- Normal range between ( 1.0 and 7.0 ) Robeson #: 0.77 K/uL -- Normal range between ( 0.24 and 0.82 ) Eos #: 0.00 K/uL -- Normal range between ( 0.04 and 0.54 ) Robeson %: 6.6 % -- Normal range between ( 4.7 and 12.5 ) Baso %: 0.3 % -- Normal range between ( 0.0 and 1.0 ) Baso #: 0.04 K/uL -- Normal range between ( 0.01 and 0.08 ) RDW: 15.0 % -- Normal range between ( 11.6 and 14.4 ) Neut %: 83.7 % -- Normal range between ( 34.0 and 71.0 ) Neut #: 9.79 K/uL -- Normal range between ( 1.56 and 6.13 ) Lymph %: 9.1 % -- Normal range between ( 19.3 and 53.0 ) Lymph #: 1.07 K/uL -- Normal range between ( 1.18 and 3.74 ) MPV: 10.6 fL -- Normal range between ( 9.4 and 12.4 ) IG#: 0 x10(3)/uL IG%: 0 % -- Normal range between ( 0 and 1 ) Blood Bank 01/24/2021 9:02 AM ABO/Rh: A POS Antibody Screen (Tube): Negative ABSC General Chemistry 01/25/2021 4:27 AM Creatinine Level: 0.52 mg/dL -- Normal range between ( 0.55 and 1.02 ) Sodium Level: 141 mmol/L -- Normal range between ( 136 and 146 ) Potassium Level: 4.2 mmol/L -- Normal range between ( 3.5 and 5.1 ) Chloride Level: 111 mmol/L -- Normal range between ( 102 and 112 ) Carbon Dioxide Level: 25 mmol/L -- Normal range between ( 21 and 32 ) Anion Gap: 9 -- Normal range between ( 9 and 20 ) Bilirubin Total: 0.6 mg/dL -- Normal range between ( 0.2 and 1.3 ) A/G Ratio: 1.1 -- Normal range between ( 1.1 and 2.5 ) ALT: 20 Units/Liter -- Normal range between ( 12 and 78 ) AST: 12 Units/Liter -- Normal range between ( 5 and 37 ) Globulin: 2.6 Gram/dL -- Normal range between ( 1.5 and 4.5 ) Alk Phos: 54 Units/Liter -- Normal range between ( 27 and 136 ) Bun/Creatinine: 15.4 -- Normal range between ( 8.0 and 20.0 ) Calcium Level: 8.3 mg/dL -- Normal range between ( 8.5 and 10.1 ) eGFR : >60 mL/min/1.73m2 eGFR NonAfrican: >60 mL/min/1.73m2 Glucose Level: 105 mg/dL -- Normal range between ( 74 and 106 ) Blood Urea Nitrogen: 8 mg/dL -- Normal range between ( 7 and 22 ) Protein Total: 5.5 Gram/dL -- Normal range between ( 6.4 and 8.2 ) Albumin Level: 2.9 Gram/dL -- Normal range between ( 3.4 and 5.0 ) Diagnostic Radiology 01/11/2021 1:53 PM CR Chest 2 Vws: CR Chest 2 Vws Patient Name:YENIFER MYERS I have received and understand this information and was given the opportunity to ask questions. Patient/Ingredient Scaler Name: Patient/Ingredient Scaler Signature: Relationship to Patient: Clinician/Hospital Ingredient Scaler Signature: Date: documented in this encounter Plan of Treatment Upcoming Encounters Date Type Department Care Team (Late st Contact Info) Description 02/26/2025 1:30 PM EST Office Visit [facility] Pulmonology - [address] [place] [address] Anderson Rodriguez MD [address] [place] [address] documented as of this encounter Visit Diagnoses Not on filedocumented in this encounter Care Teams Excelsior Machine Operator Relationship Specialty Start Date End Date Emerita Gomez MD [address] [place] [address] PCP - General Family Medicine 03/28/22 documented as of this encounter
--- OUTSIDE RECORDS SUMMARY | 2024-12-22 14:41 | XMS_ITS | Encounter Summary ---
Author Organization [employer] ([place], [place], [place], [place]) Address [address] [place] [address] Care Team Providers Care Special Education Teacher Name Role Phone Elijah Wooten MD Primary Care Provider [phone] Encounter Details Date Type Department Care Team (Late st Contact Info) Description 01/25/2021 Transcribed Document [facility] Family Medicine [facility] [place] [address] ProviderChioma MD [address] [place] [address] Social History Tobacco Use Types Packs/Day Years Used Date Smoking Tobacco: Never Assessed Comments Unknown Sex and Gender Information Value Date Recorded Sex Assigned at Not on file Legal Sex Female 2:19 PM CDT Gender Identity Not on file Sexual Orientation Not on file documented as of this encounter Miscellaneous Notes * Cerner Conversion Note - Historical MD Daquan - 01/25/2021 1:16 PM FOOD STAND MANAGER DATE OF ADMISSION: 01/24/2021 DATE OF DISCHARGE: IDENTIFICATION AND HOSPITAL COURSE: The patient is a pleasant 65-year-old underwent a robotic-assisted abdominal sacrocolpopexy, pubourethral sling, lysis of multiple adhesions, diagnostic cystoscopy for significant issues with prolapse and stress incontinence. She has done well, discharged on first postoperative day. Because of her cardiac issues, she was followed in consultation postoperatively with Dr. Gtz, who managed her medically. She will see me back in a week and understands discharge precautions and instructions was given, Lortab as needed for pain and her postop hemoglobin 13.4. /[id number] Jerson Knight MD LSB/AQ / LSB / MODL /[id number] Electronically signed by Interface, [facility] Conversion Continuity Clerk Cerner at 06/26/2022 10:53 AM CDT documented in this encounter Plan of Treatment Upcoming Encounters Date Type Department Care Team (Late st Contact Info) Description 02/26/2025 1:30 PM EST Office Visit [facility] Pulmonology - [facility] [address] [place] [address] Anderson Rodriguez MD [address] [facility] [address] [place] [address] documented as of this encounter Visit Diagnoses Not on filedocumented in this encounter Care Teams Special Education Teacher Relationship Specialty Start Date End Date Elijah Wooten MD [address] [place] [address] [place] [address] PCP - General Family Medicine 03/28/22 documented as of this encounter
--- OUTSIDE RECORDS SUMMARY | 2024-12-22 14:41 | XMS_ITS | Referral Summary ---
Author Organization [employer] ([place], [place], [place], [place]) Address [address] [place] [address] Care Team Providers Care Tunnel Heading Supervisor Name Role Phone Elijah Wooten MD Primary Care Provider [phone] Allergies Active Allergy Reactions Criticality Noted Date Comments Cephalexin Rash,Other (See Comments) Low 08/09/2007 Other reaction(s): rash, rash Other reaction(s): rash, rash Codeine Rash,Other (See Comments) Low 08/09/2007 Other reaction(s): rash, rash Other reaction(s): rash, rash Metronidazole Rash,Other (See Comments) Low 08/09/2007 Other reaction(s): rash, rash Other reaction(s): rash, rash Morphine 03/24/2022 Other reaction(s): low bp, low bp Other reaction(s): Unknown - Low Severity Other reaction(s): low bp, low bp Sulfa (Sulfonamide Antibiotics) Other (See Comments) 11/06/2012 Sulfamethoxazole 05/28/2020 Trimethoprim 05/28/2020 Varenicline 03/24/2022 Other reaction(s): Unknown - Low Severity Medications clopidogreL (PLAVIX) 75 mg tabletIndication s:Encounter for general adult medical examination without abnormal findings Take 1 tablet (75 mg total) by mouth daily. 01/04/2022 Active metoprolol succinate (TOPROL-XL) 25 MG 24 hr tabletIndication s:Palpitations Take 1 tablet (25 mg total) by mouth daily. 90 tablet 3 03/28/2022 Active hydrocodone/acet aminophen (LORTAB 5-325 ORAL) Take by mouth. Active gabapentin (NEURONTIN) 100 MG capsule Take by mouth 2 (two) times daily. 04/26/2023 Active lidocaine 2 % solution 5 mLs every 6 (six) hours. 05/08/2023 Active meclizine (ANTIVERT) 25 mg tablet Take 1 tablet (25 mg total) by mouth 3 (three) times daily as needed. 05/15/2023 Active nystatin (MYCOSTATIN) 100,000 unit/mL suspension Take 5 mLs (500,000 Units total) by mouth every 6 (six) hours. 05/08/2023 Active ondansetron (ZOFRAN) 8 MG tablet Take 1 tablet (8 mg total) by mouth 2 (two) times daily. 04/02/2023 Active predniSONE (DELTASONE) 20 MG tablet Take by mouth. 04/26/2023 Active Active Problems Problem Noted Date Diagnosed Date Gastroenteritis 05/31/2023 05/31/2023 Coronary artery spasm 11/06/2022 History of cardiac cath 11/06/2022 Intestinal obstruction 05/11/2022 PONV (postoperative nausea and vomiting) 023 Smoker 05/11/2022 At risk for sleep apnea 03/24/2022 Atrial fibrillation, transient 03/24/2022 Bradycardia 03/24/2022 Carotid bruit 03/24/2022 COPD (chronic obstructive pulmonary disease) Edema 03/24/2022 Lightheadedness 03/24/2022 Tobacco use 03/24/2022 Cardiac arrhythmia 03/25/2021 Palpitations 03/25/2021 Shortness of breath 03/25/2021 Female cystocele 03/02/2021 Atrophic vulvitis 03/02/2021 Incomplete prolapse of vaginal vault 03/02/2021 Fatigue 02/11/2021 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 Alcohol Use Standard Drinks/Week Comments Yes 0 (1 standard drink = 0.6 oz pur e alcohol) Family and Community Support Answer Brigido e Recorded Help with Day to Day Activities Not on file 03/30/2023 Feeling Lonely or Isolated Not on file 03/30 Educational Attainment Answer Date Yanick rded Speak language other than Dominican at home Not on file 03/30/2023 Want help with school or training Not on file 03/30/2023 Substance Use Answer Date Recorded Used prescription meds for non-medical reasons N ot on file 03/30/2023 Used illegal drugs past 12 months Not on file 03/30/2023 Comments Unknown Sex and Gender Information Value Date Recorded Sex Assigned at Not on file Legal Sex Female 2:19 PM CDT Gender Identity Not on file Sexual Orientation Not on file Last Filed Vital Signs Vital Sign Reading Time Taken Comments Blood Pressure 134/78 11/13/2023 1:35 PM EDT Pulse 57 11/13/2023 1:35 PM EDT Temperature 36.9 C (98.4 F) 06/06/2023 1:11 PM EDT Respiratory Rate 16 06/06/2023 1:11 PM EDT Oxygen Saturation 96% 11/13/2023 1:35 PM EDT Inhaled Oxygen Concentration - - Weight 76.7 kg (169 lb) 11/13/2023 1:35 PM EDT Height 172.7 cm (5' 8 ) 06/06/2023 1:11 PM EDT Body Mass Index 25.7 06/06/2023 1:11 PM EDT Plan of Treatment Upcoming Encounters Date Type Department Care Team (Late st Contact Info) Description 02/26/2025 1:30 PM EST Office Visit [facility] Pulmonology - [facility] [address] [facility] [address] [place] [address] Anderson Rodriguez MD [address] [facility] [address] [place] [address] Procedures Procedure Name Priority Date/Time Associated Diagnosis Comments CT LUNG SCREENING ANNUAL FOLLOWUP Routine 04/03/2024 2:14 PM EST Current smoker from Last 3 Months or Most Recently Relevant to Health Maintenance Results * CT LUNG SCREENING ANNUAL FOLLOWUP (04/03/2024 2:14 PM EST) Anatomical Region Laterality Modality Chest, Lung Computed Tomogra phy (CT) 04/03/2024 4:25 PM EST Impressions 04/03/2024 5:06 PM EST Lung-RADS 2: Benign appearance or behavior: Nodules with a very low likelihood of becoming a clinically active cancer due to size or lack of growth. Continue annual screening with low-dose chest CT in 12 months. Probability of malignancy: <1%. Lung-RADS S: Other: Clinically significant or potentially clinically significant findings (non-lung cancer). Atherosclerosis. Images reviewed, interpreted, and dictated by Dr. Ever Delgado. Transcribed by Gaetano Chin PA-C Narrative 04/03/2024 5:[address] SCAN OF THE CHEST 04/03/2024 2:01 PM HISTORY: Current smoker with a 40 pack year history COMPARISON: May 12, 2022 PROCEDURE: Axial images were obtained from the lung apex to the mid abdomen by computed tomography. Low-dose protocol was utilized. The CTDIvol is 2.90 mGy. The DLP is 92.13 mGy-cm. FINDINGS: CHEST: There is no axillary adenopathy. There is no hilar or mediastinal adenopathy. There is evidence of old calcified granulomatous disease. There are scattered vascular calcifications of the aorta. Minimal coronary artery calcifications are noted. Heart size is normal. There is no pericardial or pleural effusion. Limited images of the upper abdomen are unremarkable. There is a 3 mm nodule identified in the anterior right middle lobe on image 67. There is a 2.5 mm intrafissural nodule along the right major fissure on image 75. Anderson Rodriguez MD [facility] CT ORDERABLES Final Result from Last 3 Months or Most Recently Relevant to Health Maintenance Insurance [employer] MEDICARE PPO Care Teams Tunnel Heading Supervisor Relationship Specialty Start Date End Date Elijah Wooten MD [address] [place] [address] [place] [address] PCP - General Family Medicine 03/28/22
--- OUTSIDE RECORDS SUMMARY | 2024-12-22 14:41 | XMS_ITS | Encounter Summary ---
Author Organization [employer] ([place], [place], [place], [place]) Address [address] [place] [address] Care Team Providers Care Motor Vehicle Escort Driver Name Role Phone Elijah Wooten MD Primary Care Provider [phone] Reason for Visit * Reason Comments Medication Refill Encounter Details Date Type Department Care Team (Late Contact Info) Description 10/23/2022 Refill [facility] CERTIFIED SURGICAL TECH/FIRST ASSISTANT - [facility] [address] [facility] [address] [place] [address] Jerson Knight MD [address] [facility] [address] [place] [address] Encounter for general adult medical [...] [facility] Pul[facility] - [facility] [address] [facility] [address] [place] [address] Anderson Rodriguez MD [address] [facility] [address] [place] [address] documented as of this encounter Visit Diagnoses Diagnosis Encounter for general adult medical examination without abnormal findings documented in this encounter Care Teams Motor Vehicle Escort Driver Relationship Specialty Start Date End Date Elijah Wooten MD [address] [place] [address] [place] [address] PCP - General Family Medicine 03/28/22 documented as of this encounter
--- OUTSIDE RECORDS SUMMARY | 2024-12-22 14:41 | XMS_ITS | Clinical Summary ---
Author Organization [email or web address] ([place], [place], [place], [place]) Address [address] [place] [address] Care Team Providers Care Merchandise Stocker Name Role Phone Elijah Wooten MD Primary Care Provider [phone] Allergies Active Allergy Reactions Criticality Noted Date [...] Urinary incontinence 10/25/2020 Paroxysmal supraventricular tachycardia 09/21/19 21 Abdominal pain 09/20/2020 Incomplete emptying of bladder 09/20/2020 Family History Medical History Relation Name Comments Atrial fibrillation Father Diabetes Father Hypertension Father Cancer Mother at 42 years old Colon cancer Mother Heart failure Mother Other Son ventricular sep humera defect Relation Name Status Comments Father Mother Son Social History Tobacco Use Types Packs/Day Years [...] Date Yanick rded Speak language other than [place]omean at home Not on file 03/30/2023 Want [...] Description 02/26/2025 1:30 PM EST Office Visit [facility] Pulmonology - [facility] [address] [facility] [address] [place] [address] Anderson Rodriguez MD [address] [place] [address] Health Maintenance Due Date Last Done Comments CT Colonography 1957 Colonoscopy 1957 Colorectal Cancer Screening 1955 DXA SCAN 1957 FOBT/FIT 1957 Fit-DNA (Cologuard) 1957 Sigmoidoscopy 1957 Depression Screening (12+) 1969 Hepatitis C Screening 09/27/1975 DTAP/TDAP/TD VACCINES (1 - Tdap) 1976 Pneumococcal 50+ years (1 of 2 - PCV) 1976 Breast Cancer Screening 1997 Shingles Vaccine (Zoster) (1 of 2) 09/27/2007 Respiratory Syncytial Virus (RSV) Adult or (1 - Risk 60-74 years 1-dose series) 2017 Medicare Initial AWV G0438 09/11/2023 Falls Risk Screening 03/12/2024 COVID-19 VACCINE (1 - 2023- season) 2024 Influenza Vaccine (#1) 2024 Tobacco Cessation Counseling and Screening (12+) 11/12/2024 11/13/2023 Lung cancer screening 04/03/2025 04/03/2024 , 04/02/2023, 05/12/2022 Procedures Procedure Name Priority Date/Time Associated Diagnosis [...] fissure on image 75. Anderson Rodriguez MD IMG CT ORDERABLES Final Result from Last 3 Months or Most Recently Relevant to Health Maintenance Insurance [employer] MEDICARE PPO Care Teams Merchandise Stocker Relationship Specialty Start Date End Date Elijah Wooten MD [address] [place], [place] [address] [address] PCP - General Family Medicine 03/28/22
--- OUTSIDE RECORDS SUMMARY | 2024-12-22 14:41 | XMS_ITS | Encounter Summary ---
Author Organization [employer] ([place], [place], [place], [place]) Address [address] [place] [address] Care Team Providers Care Tufter Name Role Phone Elijah Wooten MD Primary Care Provider [phone] Encounter Details Date Type Department Care Team (Late st Contact Info) Description 01/25/2021 Transcribed Document [facility] [place] [address] ProviderChioma MD [address] [place] [id number] Social History Tobacco Use Types Packs/Day Years Used Date Smoking Tobacco: Never Assessed Comments Unknown Sex and Gender Information Value Date Recorded Sex Assigned at Not on file Legal Sex Female 2:19 PM CDT Gender Identity Not on file Sexual Orientation Not on file documented as of this encounter Miscellaneous Notes * Cerner Conversion Note - Chioma ProviderMD - 01/25/2021 12:52 PM CARPENTRY TEACHER Patient: YENIFER MYERS Age: 65 years Sex: Female : 1955 Associated Diagnoses: None Author: LELO CARDENAS MD-OBG pt doing well and ready for d/c. d/c instructions and precautions given and understood. am hgb is good and d/c meds are loratab and home meds. f/u with me in one week. exam wnl with good bowel sounds and abdomen soft. lelo wray Electronically signed by Delilah Freeman [facility] Conversion Merchant Patroller Cerner at 06/26/2022 10:59 AM CDT documented in this encounter Plan of Treatment Upcoming Encounters Date Type Department Care Team (Late st Contact Info) Description 02/26/2025 1:30 PM EST Office Visit [facility] Pulmonology - [address] [place] [address] Anderson Rodriguez MD [address] [place] [address] documented as of this encounter Visit Diagnoses Not on filedocumented in this encounter Care Teams Tufter Relationship Specialty Start Date End Date Elijah Wooten MD [address] [place] [address] [place] [address] PCP - General Family Medicine 03/28/22 documented as of this encounter
--- OUTSIDE RECORDS SUMMARY | 2024-12-22 14:42 | XMS_ITS | Encounter Summary ---
Author Organization [facility] Address [address] [place] [address] Care Team Providers Care Meter Supervisor Name Role Phone Elijah Wooten MD Primary Care Provider Zandra Saenz MD Unavailable Encounter Details Date Type Department Care Team (Latest Contact Info) Description 11/27/2024 Travel Social History Tobacco Use Types Packs/Day [...] any time in the past 12 m [facility] [place], were you homeless or living in a prison (including now)? No 11/25/2024 [facility] Utilities Answer Date Recorded In the [...] Month) No 11/27/2024 8:00 AM EDT Gen Yeaegr 6. Suicidal Behavior (Lifetime) No 8:00 AM EDT Gen Yeager documented as of this encounter Plan of Treatment Upcoming Encounters Date Type Department Care Team (Late st Contact Info) Description 05/01/2025 9:00 AM EST Office Visit [place] [facility] [address] [place] [address] Padmini Main MD [address] [place] [address] documented as of this encounter Visit Diagnoses Not on filedocumented in this encounter Additional Health Concerns Assessment Noted Time A fall risk assessment has been complete d for the patient 01/01/2024 3:45 PM EDT A Body Mass Index follow-up plan has been documented for the patient 11/27/2024 4:18 PM EDT documented as of this encounter Care Teams Meter Supervisor Relationship Specialty Start Date End Date Elijah Wooten MD [address] [place] [address] PCP - General 05/15/23 Zandra Saenz MD [address] [place] [phone] Surgeon Radiology 06/07/23 documented as of this encounter
[2024-12-22 15:33] LABS: Hematocrit 44.1 % (37.0-47.0); Hemoglobin 15.1 g/dL (12.2-16.2); Immature Granulocytes % 0.2 %; Mean Corpuscular HGB Conc 34.2 g/dL (31.8-35.4); Mean Corpuscular Hemoglobin 30.9 pg (27.0-31.2); Mean Corpuscular Volume 90.2 fl (81-99); Nucleated Red Blood Cells % 0 %; Platelet Count 173 K/mm3 (142-424); Red Blood Count 4.89 M/mm3 (4.20-5.40); Red Cell Distribution Width-SD 45.3 fL; White Blood Count 6.4 K/mm3 (4.8-10.8)
[2024-12-22 15:51] LABS: INR 1.07 (0.9-1.1); Prothrombin Time 11.8 seconds (10.1-12.5)
[2024-12-22 16:28] LABS: Albumin Level 3.7 g/dl (3.5-5.0); Chloride 104 mmol/L (98-107); Potassium 4.0 mmoL/L (3.5-5.1); Sodium 137 mmol/L (136-145)
[2024-12-22 16:31] LABS: Alanine Aminotransferase 14 U/L (12-78); Alkaline Phosphatase 68 U/L (38-126); Anion Gap 9.0 mEq/L (5-15); Aspartate Amino Transferase 18 U/L (14-36); Bilirubin,Direct 0.0 mg/dl (0.0-0.4); Bilirubin,Indirect 0.4 mg/dL (0.0-0.9); Bilirubin,Total 0.4 mg/dl (0.2-1.3); Bilirubin,Unconjugated 0.4 mg/dL (0.0-1.1); Blood Urea Nitrogen 11 mg/dl (7-17); Calcium 8.9 mg/dl (8.4-10.2); Carbon Dioxide 28 mmol/L (22.0-30.0); Cholesterol 182 mg/dl (140-200); Creatinine,Serum 0.70 mg/dl (0.52-1.04); Estimated Glomerular Filt Rate 83 ml/min (>60); GFR (African American) 101 ML/MIN (>60); Glucose 76 mg/dl (74-100); Total Protein,Serum 6.3 g/dl (6.3-8.2); Triglycerides 143 mg/dl (30-150)
[2024-12-22 16:32] LABS: HDL Cholesterol 43 mg/dl (40-60); Magnesium 1.9 mg/dl (1.6-2.3)
[2024-12-22 16:51] LABS: Free T4 (Free Thyroxine) 1.29 ng/dl (0.78-2.19)
[2024-12-22 17:17] LABS: Thyroid Stimulating Hormone 0.52 uIU/mL (0.465-4.68)
== END 2024-12-22 23:59 | disposition home or self-care (01) ==
LOC: RT 14:34
PROVIDERS: PCP Family Medicine; Visit Provider Internal Medicine
DX: I74.9 Embolism and thrombosis of unspecified artery (principal); R94.31 Abnormal electrocardiogram [ECG] [EKG]; I48.0 Paroxysmal atrial fibrillation; R00.1 Bradycardia, unspecified; I20.0 Unstable angina
CPT/HCPCS: 36415; 80048; 80061; 80076; 83735; 84439; 84443; 85025; 85610; 93225; 93227

== ENCOUNTER 2024-12-24 14:41 | Outpatient (CLI) | payer MEDICARE, SELFPAY ==
--- OUTSIDE RECORDS SUMMARY | 2024-11-25 23:52 | XMS_ITS | Continuity of Care Document ---
Author Organization [facility] Phone Care Team Providers Care Pediatric Rn Name Role Phone CHRIS ORANTES Unavailable Unavailable CHRIS ORANTES Primary Attending Unavailable CHRIS ORANTES Admitting Unavailable OSMANY GOMEZ Primary Care ALLERGIES AND ADVERSE REACTIONS ALLERGIES AND ADVERSE REACTIONS Code System Allergy Substance Adverse Reaction Date Reaction (Severity) Comment Status Reported By Updated By FLAGYL Rash Shock active [id number] on November 24, 2024 5:34:38 PM [place] 6754 RXNorm DEMEROL Rash Shock active [id number] o n November 24, 2024 5:34:38 PM UTC 7052 RXNorm MORPHINE SULFATE Rash Shock active [id number] on November 24, 2024 5:34:38 PM UTC 2231 RXNorm KEFLEX Rash Shock active [id number] on November 24, 2024 5:34:38 PM UTC 2670 RXNorm CODEINE SULFATE Drug-induced nausea and vomiting Shock active [id number] on November 24, 2024 5:34:[place] [address] RXNorm Bactrim Adverse reaction to substance Not Specified active [id number] on November 24, 2024 5:34:37 PM [place] RESULTS Patient: ROSEMARY LANE Date of : 1955 LABORATORY RESULTS ORDER 100: CBC AUTO W DIFF ( LOINC: 54158-6) ORDER DATE: November 24, 2024 5:45:00 PM UTC Specimen Source: Whole Blood Specimen Type: Whole blood s ample PERFORMING LAB: [address] [id number] Result Comment: Final Result Date: November 24, 2024 5:54:00 PM UTC (TECH: Decision Curve) LOINC TEST FLAG RESULT REFERENCE RANGE UPDA LUTHER BY 6690-2 Leukocytes [#/volume] in Blood by Automated count N 8.8 10^3/uL 4.5 10^3/uL - 11.5 10^3/uL November 24, 2024 5:54:00 PM UTC (TECH: Decision Curve) 789-8 Erythrocytes [#/volume] in Blood by Automated count N 5.04 10^6/uL 4.25 10^6/uL - 5.57 10^6/uL November 24, 2024 5:54:00 PM UTC (TECH: Decision Curve) 718-7 Hemoglobin [Mass/volume] in Blood N 15.6 g/dL 12.0 g/dL - 15.7 g/dL November 24, 2024 5:54:00 PM UTC (TECH: Decision Curve) 35593-9 Hematocrit [Volume Fraction] of Blood N 45.4 % 36.0 % - 47.0 % November 24, 2024 5:54:00 PM UTC (TECH: Decision Curve) 787-2 Erythrocyte mean corpuscular volume [Entitic volume] by Automated count N 90.1 fl 80 fl - 95 fl November 24, 2024 5:54:00 PM UTC (TECH: Decision Curve) 68747-9 Erythrocyte mean corpuscular hemoglobin [Entitic mass] in Blood from Fetus by Automated count N 31.0 pg 27.0 pg - 34.0 pg November 24, 2024 5:54:00 PM UTC (TECH: Decision Curve) 58156-9 Erythrocyte mean corpuscular hemoglobin concentration [Mass/volume] in Blood from Fetus by Automated count N 34.4 g/dL 32.0 g/dL - 36.0 g/dL November 24, 2024 5:54:00 PM UTC (TECH: Decision Curve) 67064-3 Platelets [#/volume] in Blood N 185 10^3/uL 150 10^3/uL - 450 10^3/uL November 24, 2024 5:54:00 PM UTC (TECH: Decision Curve) 83567-7 Erythrocyte distribution width [Ratio] N 13.2 % 12.3 % - 15.1 % November 24, 2024 5:54:00 PM UTC (TECH: Decision Curve) 40087-0 Platelet mean volume [Entitic volume] in Blood by Automated count H 10.7 fl 7.4 fl - 10.4 fl November 24, 2024 5:54:00 PM UTC (TECH: KSM) 05123-1 Granulocytes/100 leukocytes in Blood by Automated count N 71.7 % 40 % - 75 % November 24, 2024 5:54:00 PM UTC (TECH: KSM) 736-9 Lymphocytes/100 leukocytes in Blood by Automated count N 17.6 % 15 % - 57 % November 24, 2024 5:54:00 PM UTC (TECH: KSM) 5905-5 Monocytes/100 leukocytes in Blood by Automated count N 7.8 % 4.0 % - 12.0 % November 24, 2024 5:54:00 PM UTC (TECH: [employer]) 713-8 Eosinophils/100 leukocytes in Blood by Automated count N 1.1 % 0.0 % - 4.0 % November 24, 2024 5:54:00 PM UTC (TECH: KSM) 706-2 Basophils/100 leukocytes in Blood by Automated count N 0.6 % 0.0 % - 1.0 % November 24, 2024 5:54:00 PM UTC (TECH: [employer]) 98082-9 Immature granulocytes [#/volume] in Blood H 1.2 % 0.0 % - 0.8 % November 5:54:00 PM UTC (TECH: KSM) 72072-3 Granulocytes [#/volume] in Blood by Automated count N 6.33 10^3/uL November 24, 2024 5:54:00 PM UTC (TECH: KSM) 731-0 Lymphocytes [#/volume] in Blood by Automated count N 1.56 10^3/uL November 24, 2024 5:54:00 PM UTC (TECH: KSM) 742-7 Monocytes [#/volume] in Blood by Automated count N 0.69 10^3/uL November 24, 2024 5:54:00 PM UTC (TECH: KSM) 711-2 Eosinophils [#/volume] in Blood by Automated count N 0.10 10^3/uL November 24, 2024 5:54:00 PM UTC (TECH: KSM) 704-7 Basophils [#/volume] in Blood by Automated count N 0.05 10^3/uL November 24, 2024 5:54:00 PM UT (TECH: Decision Curve) 49655-8 Immature granulocytes [#/volume] in Blood N 0.11 10^3/uL November 5:54:00 PM UT (TECH: Decision Curve) 33443-0 Manual differential performed [Presence] in Blood N NO November 24, 2024 5:54:00 PM UT (TECH: Decision Curve) ORDER 200: COMP METABOLIC PA CHUCKIE (LOINC: 99622-6) ORDER DATE: November 24, 2024 5:45:00 PM UT Specimen Source: Serum/Plasm a Specimen Type: Acellular blo od (serum or plasma) specimen PERFORMING LAB: [address] [id number] Result Comment: Final Result Date: November 24, 2024 6:15:00 PM [facility] (TECH: Decision Curve) LOINC TEST FLAG RESULT REFERENCE RANGE UPDA LUTHER BY 2951-2 Sodium [Moles/volume ] in Serum or Plasma N 139 mmol/L 136 mmol/L - 145 mmol/L November 24, 2024 6:15:00 PM UT (TECH: Decision Curve) 2823-3 Potassium [Moles/volume] in Serum or Plasma N 4.0 mmol/L 3.5 mmol/L - 5.1 mmol/L November 24, 2024 6:15:00 PM UT (TECH: Decision Curve) 5-0 Chloride [Moles/volume] in Serum or Plasma N 105 mmol/L 98 mmol/L - 107 mmol/L November 24, 2024 6:15:00 PM UT (TECH: Decision Curve) 2027-9 Carbon dioxide, tota l [Moles/volume] in Serum or Plasma N 25 mmol/L 21 mmol/L - 32 mmol/L November 24, 2024 6:15:00 PM UT (TECH: Decision Curve) 18411-7 Anion gap 3 in Serum or Plasma N 9.0 November 24, 2024 6:15:00 PM UT (TECH: Decision Curve) 2345-7 Glucose [Mass/volume ] in Serum or Plasma H 125 mg/dL 70 mg/dL - 110 mg/dL November 24, 2024 6:15:00 PM UT (TECH: Decision Curve) 3094-0 Urea nitrogen [Mass/volume] in Serum or Plasma N 11 mg/dL 7 mg/dL - 18 mg/dL November 24, 2024 6:15:00 PM UT (TECH: Decision Curve) 2160-0 Creatinine [Mass/volume] in Serum or Plasma N 0.8 mg/dL 0.6 mg/dL - 1.0 mg/dL November 24, 2024 6:15:00 PM UT (TECH: Decision Curve) 3097-3 Urea nitrogen/Creatinine [Mass Ratio] in Serum or Plasma N 13.8 9 - November 24, 2024 6:15:00 PM UT (TECH: Decision Curve) 95784-1 Glomerular filtratio n rate/1.73 sq M.predicted by Creatinine-based formula (MDRD) N 81 mL/min >60 November 24, 2024 6:15:00 PM UT (TECH: Decision Curve) 23993-8 Osmolality of Serum or Plasma by calculated by sum of electrolytes N 290 mosm/kg 275 mosm/kg - 301 mosm/kg November 24, 2024 6:15:00 PM UT (TECH: Decision Curve) 2885-2 Protein [Mass/volume ] in Serum or Plasma N 7.0 g/dL 6.4 g/dL - 8.2 g/dL November 24, 2024 6:15:00 PM [facility] (TECH: Decision Curve) 1751-7 Albumin [Mass/volume ] in Serum or Plasma N 3.8 g/dL 3.4 g/dL - 5.0 g/dL November 24, 2024 6:15:00 PM UT (TECH: Decision Curve) 46640-8 Calcium [Mass/volume ] in Serum or Plasma N 8.8 mg/dL 8.5 mg/dL - 10.1 mg/dL November 24, 2024 6:15:00 PM UT (TECH: Decision Curve) 26144-3 Calcium [Mass/volume ] corrected for total protein in Serum or Plasma N 9.0 mg/dL 8.5 mg/dL - 10.1 mg/dL November 24, 2024 6:15:00 PM UT (TECH: Decision Curve) 1975-2 Bilirubin.total [Mass/volume] in Serum or Plasma N 0.9 mg/dL 0.4 mg/dL - 1.5 mg/dL November 24, 2024 6:15:00 PM UTC (TECH: Decision Curve) 1920-8 Aspartate aminotransferase [Enzymatic activity/volume] in Serum or Plasma L 13 U/L 15 U/L - 37 U/L November 24, 2024 6:15:00 PM UTC (TECH: KSView [employer] Chew) 1742-6 Alanine aminotransferase [Enzymatic activity/volume] in Serum or Plasma N 15 U/L 12 U/L - 78 U/L November 24, 2024 6:15:00 PM UTC (TECH: KSM) 6768-6 Alkaline phosphatase [Enzymatic activity/volume] in Serum or Plasma N 73 U/L 53 U/L - 141 U/L November 24, 2024 6:15:00 PM UTC (TECH: KSM) ORDER 300: LIPASE (LOINC: 30 40-3) ORDER DATE: November 24, 2024 5:45:00 PM UTC Specimen Source: Serum/Plasm a Specimen Type: Acellular blo od (serum or plasma) specimen PERFORMING LAB: [address] [id number] Result Comment: Final Result Date: November 24, 2024 6:15:00 PM UTC (TECH: Decision Curve) LOINC TEST FLAG RESULT REFERENCE RANGE UPDA LUTHER BY 3040-3 Lipase [Enzymatic activity/volume] in Serum or Plasma N 18 U/L 16 U/L - 77 U/L November 24 6:15:00 PM UTC (TECH: Decision Curve) ORDER 400: UA AND MICRO/CULT IF INDICATED (LOINC: 69987-5) ORDER DATE: November 24, 2024 5:45:00 PM UTC Specimen Source: URINE Specimen Type: Urine specime n PERFORMING LAB: [address] [id number] Result Comment: Final Result Date: November 24, 2024 5:55:00 PM UTC (TECH: Decision Curve) LOINC TEST FLAG RESULT REFERENCE RANGE UPDA LUTHER BY 5778-6 Color of Urine N yellow YELLOW Septe 2024 5:55:00 PM UTC (TECH: KSM) 5767-9 Appearance of Urine N SL.HAZY CLEAR November 24, 2024 5:55:00 PM UTC (TECH: Decision Curve) 5792-7 Glucose [Mass/volume] in Urine by Test strip N NORM NORMAL November 5:55:00 PM UTC (TECH: Decision Curve) 30018-6 Bilirubin.total [Mass/volume] in Urine by Automated test strip N NEGATIVE NEGATIVE November 24, 2024 5:55:00 PM UTC (TECH: Decision Curve) 5797-6 Ketones [Mass/volume] in Urine by Test strip N NEGATIVE NEGATIVE November 5:55:00 PM UTC (TECH: Decision Curve) 2965-2 Specific gravity of Urine N 1.020 1.005 - 1.035 November 24, 2024 5:55:00 PM UTC (TECH: Decision Curve) 67320-0 Erythrocytes [#/volume] in Urine by Automated test strip N 10 (TRACE) /mcL NEGATIVE November 24, 2024 5:55:00 PM UTC (TECH: Decision Curve) 98833-0 pH of Urine by Automated test strip N 5.00 5.0 - 7.5 November 24, 2024 5:55:00 PM UTC (TECH: Decision Curve) 58477-2 Protein [Presence] in Urine by Test strip N 15 (TRACE) mg/dL NEGATIVE November 24, 2024 5:55:00 PM UTC (TECH: Decision Curve) 98643-8 Urobilinogen [Mass/volume] in Urine by Automated test strip N 1 mg/dL NORMAL November 24, 2024 5:55:00 PM UTC (TECH: Decision Curve) 34805-1 Nitrate [Presence] in Urine N NEGATIVE NEGATIVE November 24, 2024 5:55:00 PM UTC (TECH: Decision Curve) 15721-0 Leukocytes [#/volume] in Urine by Test strip N NEGATIVE NEGATIVE November 24, 2024 5:55:00 PM UTC (TECH: Decision Curve) 27988-1 Other elements in Urine sediment N NOT REQUIRED November 24, 2024 5:55:00 PM UTC (TECH: Decision Curve) 95319-3 Microscopic observation [Identifier] in Urine sediment by Light microscopy N NO November 24, 2024 5:55:00 PM UTC (TECH: Decision Curve) ORDER 700: LACTIC ACID (LOIN C: 04167-4) ORDER DATE: November 24, 2024 6:52:00 PM UTC Specimen Source: Serum/Plasm a Specimen Type: Acellular blo od (serum or plasma) specimen PERFORMING LAB: [address] [id number] Result Comment: Final Result Date: November 24, 2024 7:53:00 PM UTC (TECH: KSM) LOINC TEST FLAG [place] [address]-6 Lactate [Mass/volume] in Serum or Plasma N 0.7 mmole/L 0.4 mmole/L - 2.0 mmole/L November 24, 2024 7:53:00 PM UTC (TECH: KSM) LABORATORY NARRATIVE RESULTS Information is not available RADIOLOGY RESULTS ORDER 600: CTA ABD/PELVIS (L OINC: 22825-0) ORDER DATE: November 24, 2024 5:50:00 PM UTC PERFORMING LAB: [address] [id number] Final Result Date: November 24, 2024 6:35:[address] [place] [address] Name: DOMINGO RILEY Exam Date: 11/24/2024 : 1955 Age 69 years Gender: F Physician: Facility: [facility] Facility HSV: Outpatient Exam: CTA ABD/PELVIS PROCEDURE: CT ABDOMEN PELVIS ANGIOGRAPHY WITH IV CONTRAST, 11/24/2024 1:35 PM CDT CLINICAL INDICATION: Abd pain without fever. COMPARISON: None TECHNIQUE: Contiguous axial images from the lung bases to the toes with contrast in angiographic phase. Coronal and sagittal reformats, with 3D and/or MIP reconstructions. One or more of the following dose optimizing techniques was utilized for this exam: Automated exposure control, adjustment of the mA and/or kV according to patient size, and/or use of iterative reconstruction technique. FINDINGS: Descending thoracic aorta is upper limits of normal in caliber with moderate calcified at the sclerosis. Main branches of the abdominal aorta including celiac axis, SMA, bilateral renal arteries and ZO are patent and well-opacified. Accessory left renal arteries noted. Infrarenal abdominal aorta demonstrates moderate to severe at this causes. Normal bifurcation with opacification to the bilateral common iliac, internal and external iliac arteries as well as bilateral superficial and deep femoral arteries at the edge of field of view in the proximal thighs. Evaluation of soft tissues and solid viscera is limited by arterial phase of contrast. Motion limited assessment of the lung navarro, grossly clear. Hepatomegaly, subcentimeter hypodensity to the left hepatic lobe, too small to catheterize. Cholecystectomy. Unremarkable spleen, pancreas, bilateral adrenal glands. No hydronephrosis. Partially distended bladder. Unremarkable pelvic viscera. Partially fluid-filled right lower quadrant appendix, partially visualized and not fully delineated on current examination. Marked mucosal hyperemia with mural thickening is noted to pelvic small bowel loops with significant adjacent fluid. Mild stool retention to large bowel. Small bowel loops in the pelvis at the right lower quadrant also demonstrate air-fluid levels, series 3 image 127. Distal ileal bowel loop at the ileocecal valve is mainly decompressed. No free air. Pelvic free fluid is noted, especially surrounding the pelvic small bowel loops demonstrating abnormal inflammation. Unremarkable abdominal wall. No adenopathy by size criteria, mildly prominent external iliac lymph nodes are seen, bilaterally, right greater than left, nonstandard. Small right-sided fat-containing inguinal hernia. No acute osseous abnormality. IMPRESSION: No evidence of abdominal aortic aneurysm or dissection. Visualized portions of the SMA proximally are patent. Marked mucosal hyperemia and mural thickening to pelvic ileal small bowel loops with marked mural thickening and mucosal hyperemia. Findings are concerning for ischemic etiology. There is no definitive transition point to suggest obstructive etiology based on this examination, evaluation is limited by lack of enteric contrast. Infectious or inflammatory enteritis is also Legally authenticated by EMMANUELLE ARIAS MD 2024-11-24 14:35:14 possible, but ischemic etiology should be ruled out given marked inflammation with adjacent free fluid. Hepatomegaly. Electronically signed by: Yg Handley MD 11/24/2024 02:53 PM EDT Dictated By: YG HANDLEY Transcribed By: Transcribed On: 11/24/2024 2:35 PM Electronically signed by: YG HANDLEY 11/24/2024 Thank you for referring DOMINGO RILEY to [facility]. Legally authenticated by EMMANUELLE ARIAS MD 2024-11-24 14:35:14 PATHOLOGY NARRATIVE RESULTS Information is not available MICROBIOLOGY RESULTS No Micro Labs/Results Exist for Patient BLOOD ADMIN RESULTS Information is not available MEDICATIONS HOME MEDICATIONS Status RXNORM NDC Medication Dose Route Frequency Dates Comments Reported By Updated By Active 067993 01605 77757 1 metoprolol succinate 25 mg Tablet, Extended Release 24 hr 1.0 TAB ORAL DAILY Last Dose: [facility] 2024 12:00:0 0 PM UTC [id number] on [facility] 2024 5:34:42 PM UT Active 4227333 99034 08905 8 Eliquis 5 mg tablet 1.0 TAB ORAL DAILY Last Dose: [facility] 2024 12:00:0 0 PM UT [id number] on [facility] 2024 5:34:42 PM UT Active 199139 19568 60374 0 hydrocodone -acetaminop hen 5-325 mg tablet 1.0 TAB ORAL BID Last Dose: [facility] 2024 12:00:0 0 PM UTC [id number] on [facility] 2024 5:34:42 PM UT DISCHARGE MEDICATIONS Status RXNORM NDC Medication Dose Route Frequency Dates Dis pense Data Comments Physician Updated By No Discharge Medication Info rmation Available INPATIENT MEDICATIONS Status RXNORM ND Medication Dose Route Frequency Rat e Quantity Dates Indication Dispense Data Comments Physician Updated By Rajiv inued [id number] 9147 0020 200 PANTOPRAZOL E SODIUM 40 MG SOLR 40.0 MG INTRAV ENOUS ONE TIME ONLY Start: 2024 6:01:0 0 PM UTC End: 2024 6:01:0 0 PM UTC ROLANDA Gregorio MD INTERFAC ED on [facility] 2024 6:01:00 PM [place] Discont inued [id number] 1996 9475 503 ondansetron (ZOFRAN) 4 MG/2ML SOLN 4.0 MG INTRAV ENOUS ONE TIME ONLY Start: 2024 6:03:0 0 PM UTC End: 2024 6:03:0 0 PM UTC ROLANDA Gregorio MD INTERFAC ED on [facility] 2024 6:01:00 PM UTC Discont inued [id number] 6548 9475 503 ondansetron (ZOFRAN) 4 MG/2ML SOLN 4.0 MG INTRAV ENOUS ONE TIME ONLY Start: 2024 7:19:0 0 PM UTC End: 2024 7:19:0 0 PM UTC ROLANDA Gregorio MD INTERFAC ED on 2024 7:18:00 PM UTC Discont inued [id number] 3808 9379 501 ketorolac (TORADOL) 30 MG/ML SOLN 30.0 MG INTRAV ENOUS ONE TIME ONLY Start: 2024 7:55:0 0 PM UTC End: 2024 7:55:0 0 PM UTC ROLANDA Gregorio MD INTERFAC ED on 2024 7:54:00 PM UTC Discont inued 5539 0007 710 prochlorper azine (COMPAZINE) 5 MG/ML SOLN 10.0 MG ONE TIME ONLY Start: 2024 7:55:0 0 PM UTC End: 2024 7:55:0 0 PM UTC ROLANDA Gregorio MD INTERFAC ED on 2024 7:54:00 PM UTC SOCIAL HISTORY SOCIAL HISTORY - Smoking Status SNOMED-CT Social History Element Description Effective Dates Offered Cessation Comment Updated By [id number] Current Tobacco smoking status Current Every Day Smoker [id number] on November 24, 2024 5:34:54 PM UTC [id number] Historical Tobacco smoking status Unknown If Ever Smoked [id number] on January 29, 2024 11:02:46 PM UT SOCIAL HISTORY - Gender Sex: Female SOCIAL HISTORY - Status : status i nformation is not available Intention in Next Year: intention information is not available SOCIAL HISTORY - Assessments Code System Description Status Date Value of Assessment Updated By Comment Assessment Information is no t available SOCIAL HISTORY - [place] Affiliation [place] information is not av ailable SOCIAL HISTORY - Legal Sex Legal Sex information is not available SOCIAL HISTORY - Sexual Behavior Sexual Orientation Gender Identity SNOMED-CT Description SNO MED -CT Description Activity Level No of Partners Partner Type UpdatedBy Information is not available SOCIAL HISTORY - Occupation Occupation information is no t available VITAL SIGNS PATIENT VITAL SIGNS This section displays the mo st recent value for each vital sign as of November 26, 2024 3:52:12 AM UTC Loinc Code Vital Sign Activity Date Result Updated By 8310-5 Body temperature November 24 5:26:00 PM UTC 98.2 [degF] 46270-5 Body weight Measured November 102024 5:29:23 PM UTC 75.0 kg (165.0 lb) [id number] on November 24, 2024 5:29:23 PM UTC 8462-4 Diastolic blood pressure November 24, 2024 9:33:00 PM UTC 52.0 mm[Hg] 8867-4 Heart rate November 24 6:55:00 PM UTC 61 /min 31314-0 Oxygen saturation in Arterial blood by Pulse oximetry November 24, 2024 6:55:00 PM UTC 96.0 % 9279-1 Respiratory rate November 24 5:26:00 PM UTC 18 /min 8480-6 Systolic blood pressure November 24, 2024 9:33:00 PM UTC 116.0 mm[Hg] PEDIATRIC GROWTH CHART - VITAL SIGNS This section displays Head C ircumference Percentile, Weight for Length Percentile and BMI Percentile Loinc Code Pediatric Measure Age (Months) Result Updat ed By No Pediatric Growth Chart Pe rcentile Information Available. HEALTH CONCERNS Problems Concern Status Health Concern problem infor mation not available. Smoking Status Status Years Used Consumed packs p er day Health Concern smoking histo ry information not available. Family History Concern Status Health Concern family histor y information not available. ENCOUNTERS ENCOUNTER INFORMATION Reason for Visit ABDOMINAL PAIN Admission November 24, 2024 5:19:00 PM [place] C [address] [id number] Discharge November 24, 2024 9:47:00 PM UT C [facility]OTHER [facility] ENCOUNTER DIAGNOSES Notes information is not rozina ilable. Code System Diagnosis Onset Date Diagnosis information is not available. ABSTRACT DIAGNOSES Code System Diagnosis Updated By Abatement Date R11.2 ICD10 NAUSEA WITH VOMI TING, UNSPECIFIED [id number] on November 26, 2024 3:51:33 AM UTC R10.10 ICD10 UPPER ABDOMINAL PAIN, UNSPECIFIED [id number] on November 26, 2024 3:51:33 AM UTC I48.0 ICD10 PAROXYSMAL ATRIAL FIBRILLATI ON [id number] on November 26, 2024 3:51:33 AM UTC F17.210 ICD10 NICOTINE DEPENDE NCE, CIGARETTES, UNCOMPLICATED [id number] on November 26, 2024 3:51:33 AM UT Z90.49 ICD10 ACQUIRED ABSENCE OF OTHER SPECIFIED PARTS OF DIGESTIVE TRACT [id number] on November 26, 2024 3:51:33 AM UTC Z88.1 ICD10 ALLERGY STATUS T O OTHER ANTIBIOTIC AGENTS [id number] on November 26, 2024 3:51:33 AM UTC Z88.2 ICD10 ALLERGY STATUS TO SULFONAMID ES [id number] on November 26, 2024 3:51:33 AM UTC Z88.5 ICD10 ALLERGY STATUS T O NARCOTIC AGENT [id number] on November 26, 2024 3:51:33 AM UT Z79.01 ICD10 HALF-WAY (CURRE NT) USE OF ANTICOAGULANTS [id number] on November 26, 2024 3:51:33 AM [facility] CARE TEAM Care Pediatric Rn Role CHRIS ORANTES Referring CHRIS ORANTES Primary Attending CHRIS ORANTES Admitting OSMANY GOMEZ Primary Care CARE TEAM CARE tobacco roller Role on Team Location Telecom Status Start Date End Brigiod e Updated By ROLANDA HOLLAND Referring normal November 24, 2024 6:53:58 PM [facility] November 24, 2024 6:53:58 PM [facility] [id number] on November 24, 2024 6:53:58 PM [facility] ROLANDA Gregorio MD, MD Referring normal November 24, 2024 6:53:58 PM [facility] November 24, 2024 9:47:00 PM [place] [id number] on November 24, 2024 6:53:58 PM [facility] ROLANDA HOLLAND Attending normal November 24, 2024 6:53:58 PM [facility] November 24, 2024 6:53:58 PM [place] [id number] on November 24, 2024 6:53:58 PM [facility] ROLANDA Gregorio MD, MD Attending normal November 24, 2024 6:53:58 PM [facility] November 24, 2024 9:47:00 PM [facility] [id number] on November 24, 2024 6:53:58 PM [facility] ROLANDA HOLLAND Admitting normal November 24, 2024 6:53:58 PM UT November 24, 2024 6:53:58 PM [facility] [id number] on November 24, 2024 6:53:58 PM [facility] ROLANDA Gregorio MD, MD Admitting normal November 24, 2024 6:53:58 PM UT November 24, 2024 9:47:00 PM [facility] [id number] on November 24, 2024 6:53:58 PM [facility] PATRICIA CERON MD Y PCP normal November 24, 2024 5:20:08 PM [facility] November 24, 2024 9:47:00 PM [facility] [id number] on November 24, 2024 6:53:58 PM [facility]
--- OUTSIDE RECORDS SUMMARY | 2024-11-26 06:42 | XMS_ITS | Continuity of Care Document ---
Author Organization [facility] [employer] Phone Care Team Providers Care Copy Writer Name Role Phone OSMANY GOMEZ Primary Care OSMANY GOMEZ Unavailable OSMANY GOMEZ Primary Attending OSMANY GOMEZ Admitting ALLERGIES AND ADVERSE REACTIONS ALLERGIES AND ADVERSE REACTIONS Code System Allergy Substance Adverse Reaction Date Reaction (Severity) Comment Status Reported By Updated By FLAGYL Rash Shock active [id number] on November 24, 2024 5:34:38 PM [place] 6754 RXNorm DEMEROL Rash Shock active [id number] o n November 24, 2024 5:34:38 PM UTC 7077 RXNorm MORPHINE SULFATE Rash Shock active [id number] on November 24, 2024 5:34:38 PM UTC 2231 RXNorm KEFLEX Rash Shock active [id number] on November 24, 2024 5:34:38 PM UTC 2670 RXNorm CODEINE SULFATE Drug-induced nausea and vomiting Shock active [id number] on November 24, 2024 5:34:[place] [address] RXNorm Bactrim Adverse reaction to substance Not Specified active [id number] on November 24, 2024 5:34:37 PM [place] RESULTS Patient: [address] L[address] Date of : 1955 LABORATORY RESULTS Information is not available LABORATORY NARRATIVE RESULTS Information is not available RADIOLOGY RESULTS ORDER 100: CHEST PA AND LAT (LOINC: 78634-5) ORDER DATE: November 24, 2024 2:34:00 PM UTC PERFORMING LAB: [address] [id number] Final Result Date: November 24, 2024 2:49:[address] [place] [address] Name: DOMINGO RILEY Exam Date: 11/24/2024 : 1955 Age 69 years Gender: F Physician: OSMANY GOMEZ Facility: [facility] Facility HSV: Outpatient Exam: CHEST PA & LAT EXAMINATION: XR CHEST 2 VIEWS HISTORY: Abdominal pain. COMPARISON: 01/29/2024. FINDINGS: Two views of the chest demonstrate no pneumonic consolidation, pleural effusion, or pneumothorax. The cardiac and mediastinal contours are normal. IMPRESSION: No acute cardiopulmonary radiographic abnormality. Electronically signed by: Lee Bernstein MD 11/24/2024 10:58 AM EDT Dictated By: Lee Bernstein Transcribed By: Transcribed On: 11/24/2024 10:49 AM Electronically signed by: Lee Bernstein 11/24/2024 Thank you for referring DOMINGO RILEY to [facility]. Legally authenticated by ARIAS COLLINS MD 2024-11-24 10:49:00 ORDER 200: ABD KUB 1V (LOINC : 70979-3) ORDER DATE: November 24, 2024 2:34:00 PM [facility] PERFORMING LAB: [address] [id number] Final Result Date: November 24, 2024 2:49:[address] [place] [address] Name: DOMINGO RIELY Exam Date: 11/24/2024 : 1955 Age 69 years Gender: F Physician: OSMANY GOMEZ Facility: [facility] Facility HSV: Outpatient Exam: ABD KUB 1V EXAMINATION: XR ABDOMEN 1 VIEW (KUB) HISTORY: Abdominal pain. COMPARISON: None. FINDINGS: A single AP view of the abdomen demonstrates a normal bowel gas pattern with no evidence for bowel obstruction. Cholecystectomy clips are seen in the right upper quadrant. There is no suspicious calcification. No acute osseous abnormality. IMPRESSION: No acute radiographic abnormality. Electronically signed by: Lee Bernstein MD 11/24/2024 10:57 AM EDT RP Dictated By: Lee Bernstein Transcribed By: Transcribed On: 11/24/2024 10:49 AM Electronically signed by: Lee Bernstein 11/24/2024 Thank you for referring DOMINGO RILEY to [facility]. Legally authenticated by ARIAS COLLINS MD 2024-11-24 10:49:00 PATHOLOGY NARRATIVE RESULTS Information is not available MICROBIOLOGY RESULTS No Micro Labs/Results Exist for Patient BLOOD ADMIN RESULTS Information is not available MEDICATIONS HOME MEDICATIONS Status RXNORM NDC Medication Dose Route Frequency Dates Comments Reported By Updated By Drug Treatment Unknown DISCHARGE MEDICATIONS Status RXNORM NDC Medication Dose Route Frequency Dates Dis pense Data Comments Physician Updated By No Discharge Medication Info rmation Available INPATIENT MEDICATIONS Status RXNORM NDC Medication Dose Route Frequency Rat e Quantity Dates Indication Dispense Data Comments Physician Updated By No Inpatient Medication Info rmation Available SOCIAL HISTORY SOCIAL HISTORY - Smoking Status SNOMED-CT Social History Element Description Effective Dates Offered Cessation Comment Updated By [id number] Historical Tobacco smoking status Current Every Day Smoker [id number] on November 24, 2024 5:34:54 PM [facility] [id number] Historical Tobacco smoking status Unknown If Ever Smoked [id number] on January 29, 2024 11:02:46 PM [facility] SOCIAL HISTORY - Gender Sex: Female SOCIAL HISTORY - Status : status i nformation is not available Intention in Next Year: intention information is not available SOCIAL HISTORY - Assessments Code System Description Status Date Value of Assessment Updated By Comment Assessment Information is no t available SOCIAL HISTORY - [place] Affiliation [place] information is not av ailable SOCIAL HISTORY - Legal Sex Legal Sex information is not available SOCIAL HISTORY - Sexual Behavior Sexual Orientation Gender Identity SNOMED-CT Description SNO MED -CT Description Activity Level No of Partners Partner Type UpdatedBy Information is not available SOCIAL HISTORY - Occupation Occupation information is no t available HEALTH CONCERNS Problems Concern Status Health Concern problem infor mation not available. Smoking Status Status Years Used Consumed packs p er day Health Concern smoking histo ry information not available. Family History Concern Status Health Concern family histor y information not available. ENCOUNTERS ENCOUNTER INFORMATION Reason for Visit KNEE PAIN & COUGH Admission November 24, 2024 2:24:00 PM [place] [address] [id number] Discharge November 24, 2024 2:24:00 PM [place] C DISCHARGED TO HOME OR SELF CARE ENCOUNTER DIAGNOSES Notes information is not rozina ilable. Code System Diagnosis Onset Date Diagnosis information is not available. ABSTRACT DIAGNOSES Code System Diagnosis Updated By Abatement Date R10.9 ICD10 UNSPECIFIED ABDOMINAL PAIN E [id number] on November 26, 2024 10:42:10 AM UT R05.9 ICD10 COUGH, UNSPECIFIED [id number] o n November 26, 2024 10:42:10 AM UT R06.2 ICD10 WHEEZING [id number] on Nov 10:42:10 AM UT R10.9 ICD10 UNSPECIFIED ABDOMINAL PAIN E [id number] on November 26, 2024 10:42:10 AM UT R05.9 ICD10 COUGH, UNSPECIFIED [id number] o n November 26, 2024 10:42:10 AM UT R06.2 ICD10 WHEEZING [id number] on Nov 10:42:10 AM [facility] CARE TEAM Care Copy Writer Role OSMANY GOMEZ Primary Care OSMANY GOMEZ Referring OSMANY GOMEZ Primary Attending OSMANY GOMEZ Admitting CARE TEAM CARE dietary aide teacher Role on Team Location Telecom Status Start Date End Brigido e Updated By PATRICIA HOLLAND PCP normal November 24, 2024 4:00:00 AM [facility] November 24, 2024 2:24:00 PM [facility] [id number] on November 24, 2024 2:24:55 PM [facility] PATRICIA HOLLAND Referring normal November 24, 2024 4:00:00 AM [facility] November 24, 2024 2:24:00 PM [facility] [id number] on November 24, 2024 2:24:55 PM [facility] PATRICIA HOLLAND Attending normal November 24, 2024 4:00:00 AM [facility] November 24, 2024 2:24:00 PM [facility] [id number] on November 24, 2024 2:24:55 PM [facility] PATRICIA HOLLAND Admitting normal November 24, 2024 4:00:00 AM [facility] November 24, 2024 2:24:00 PM [facility] [id number] on November 24, 2024 2:24:55 PM [facility]
--- OUTSIDE RECORDS SUMMARY | 2024-12-24 14:45 | XMS_ITS | Data Portability ---
Author Organization ABELARDO KAMINI Smith [facility] Address [address] [facility] [address] [place] [address] Care Team Providers Care Toy Parts Former Supervisor Name Role Phone EMERITA GOMEZ Primary Care Provider [phone] Assessment Encounter Date Assessment Date Assessment LastModified by Organization Details LastModified Time 03/13/2023 03/13/2023 ASSESSMENT: DJD knee PLAN: We discussed conservative and surgical treatment options for knee arthritis. We discussed the importance of weight loss, and low-impact aerobic activity. We discussed judicious use of NSAIDs, if possible, or Tylenol. We discussed corticosteroid injections and viscosupplementat ion. We discussed bracing, physical therapy, activity modification, and use of assistive ambulatory devices. Plan today is for steroid injection Follow up prn [email or web address] Not available 03/13/2023 08:57:59 Plan of Treatment Reminders Order Date Submit Date Provider Last Modified By Organization Details Last Modified Time Details Appointments None record ed. Lab None record ed. Referral None record ed. Procedures None record ed. Surgeries None record ed. Imaging None record ed. Medication Orders None record ed. Patient TargetsNo targets recorded. Patient InstructionsNo instructions recorded. Reason for Referral None Reported. Results Created Date Observation Date Name Description Value Unit Range Abnormal Flag Note LastModifiedBy Organization Detail LastModifiedTime 05/28/19 24 05/28/2023 XR, knee, 4 or more view [place] [facility] [place] [address] [place] [address] Glory funmilayo Name: YENIFER mello : 958 Glory mello 4 Orderi ng Provid er: ALFA CARNES EXAM DATE: 2023 EXAM: XR RT KNEE COMPLE TE, 4 OR MORE VWS COMPAR OUSMANE: None. HISTOR Y: Right knee pain. FINDIN GS: No fractu re is identi fied. There are mild degene rative change s in the right knee. There is mild medial joint space loss. There is minima l to mild margin al spurri ng. Contra latera l knee: There are mild degene rative change s. IMPRES ANTWAN: 1. There are mild degene rative change s in the right knee. Interp reted By: Alexandra dai MD Electr on ly Signed By: Alexandra dai MD on 024 3:38 PM [email or web address] [facility] [place] [address] , [place], [address], 05/29/2023 16:07:27 Result Notes Documentation Provider Name and Address Organization Details Recorded Time Xr, Knee, 4 Or More View : [facility] [place] [address] [place] [address] Patient Name: YENIFER RILEY Patient : 1955 Patient Ordering Provider: ALFA CARNES EXAM DATE: 05/28/2023 EXAM: XR RT KNEE COMPLETE, 4 OR MORE VWS COMPARISON: None. HISTORY: Right knee pain. FINDINGS: No fracture is identified. There are mild degenerative changes in the right knee. There is mild medial joint space loss. There is minimal to mild marginal spurring. Contralateral knee: There are mild degenerative changes. IMPRESSION: 1. There are mild degenerative changes in the right knee. Interpreted By: Liu Eaton MD CARNES PA-C [address] [place], [address], [facility] 05/29/2023 16:07:27 Procedures Surgical History Date Name Laterality Status Provider Name and Address Organization Details Recorded Time Injection - Joint/Bursa, Major completed ALFA CARNES PA-C [address] [place], [address], [facility] 05/28/2023 16:16:45 4 Injection - Joint/Bursa, Major cancelled Yael Childs [facility] 05/04/2023 15:22:05 Imaging Results None recorded. Procedure Notes None recorded. Medical Equipment None Reported. Allergies Allergen ID Allergen Name Allergen Category Reaction Reaction Severity Criticality Documentation Date Start Date Code Code System Note Provider Name and Address Organization Details Recorded Time 973974 Substance with sulfonami de structure and antibacte rial mechanism of action (substanc e) medicatio n Not available Not available Not available 02/03/20162012 48819 8003 SNOMED Comme nt: Creat ed By: Heather Bullard ;Crea genet Date: 2012 2:10: 53 PM; Not Available [facility] 6 11:12:11 156045 Keflex medicatio n Not available Not available Not available 02/03/20162007 7 RxNorm Comme nt: Creat ed By: Demond RandallCrea genet Date: 2007 2:18: 19 PM; Not Available [facility] 6 11:57:03 680931 Flagyl medicatio n Not available Not available Not available 02/03/20162007 6 RxNorm Comme nt: Creat ed By: Demond RandallCrea genet Date: 2007 2:18: 04 PM; Not Available [facility] 6 13:59:07 763639 codeine medicatio n Not available Not available Not available 02/04/20162007 2670 RxNorm Comme nt: Creat ed By: Demond RandallCrea genet Date: 2007 2:17: 32 PM; Not Available [facility] 6 08:26:05 Medications Name Sig Start Date Stop Date Status Note LastModified by Organization Details LastModified Time Plavix active Not Available Not Availa ble Not Available metoprolol succinate active Medication Description : metoprolol succinate; Route:oral; refills:0 Not Available Not Available Not Available Lortab 5 active Not Available Not Avai lable Not Available Vitals Date Recorded Body height Body mass index (BMI) Body weight Provider Name and Address Organization Details Last Updated DateTime 03/13/2023 172.72 cm 25.8 kg/m2 27339.7 g Cassie Lucas [facility] 03/13/2023 08:46:55 Date Recorded Body height Body mass index (BMI) Body weight Pain severity - 0-10 verbal numeric rating [Score] - Reported Provider Name and Address Organization Details Last Updated DateTime 05/28/2023 172.72 cm 25.8 kg/m2 48644.7 g Asael King [facility] 05/28/2023 15:50:12 Social History None recorded. Functional Status None recorded. Mental Status None recorded. Family History Nothing Reported. Medical History No medical history recorded. Gynecological HistoryNo gynecological history recorded. Obstetrics History GPAL:G 0 P 0 0 0 0 Past Encounters Encounter ID Performer Location Encounter Start Date Encounter Closed Date Diagnosis/Indication Diagnosis SNOMED-CT Code Diagnosis ICD10 Code Diagnosis IMO Codes Diagnosis Note [id number] ROBSON PIMENTEL PA-C [facility] [address] [place] [address] 03/13/2023 08:39:29 03/13/2023 09:08:22 Osteoarthritis of right knee joint 2598309858 26100 M17.11 ASSESSMENT : DJD RIGHT knee PLAN:We discussed conservati ve and surgical treatment options for knee arthritis. We discussed the importance of weight loss, and low-impact aerobic activity. We discussed judicious use of NSAIDs, if possible, or Tylenol. We discussed corticoste roid injections and viscosuppl ementation . We discussed bracing, physical therapy, activity modificati on, and use of assistive ambulatory devices. Patient just received a CSI injection in February by Dr. Hyatt. She is transferri [facility] to our services due to insurance problems. She may repeat injection in the right knee in [facility] 2 to 3 months from today. Plan will be the patient will follow-up within that we will repeat the injection and get updated imaging of the right knee. [id number] ALFA CARNES PA-C [facility] [address] [place] [address] 05/28/2023 15:26:01 05/28/2023 16:14:05 Osteoarthritis of right knee joint 1497316467 51837 M17.11 ASSESSMENT : DJD RIGHT knee PLAN: We discussed conservati ve and surgical treatment options for knee arthritis. We discussed the importance of weight loss, and low-impact aerobic activity. We discussed judicious use of NSAIDs, if possible, or Tylenol. We discussed corticoste roid injections and viscosuppl ementation . We discussed bracing, physical therapy, activity modificati on, and use of assistive ambulatory devices. Plan today is for steroid injection Follow up prn Health Concerns Section Related Observation LastModified by Organization Detai ls LastModified Time None Recorded Concern Status LastModified by Organization Details LastModified Time None Recorded Advance Directives Directive None Recorded Payers Insurance Date Sequence Insurance Name Policy Number Policy Parkinson Covered Member ID Parkinson Member ID Guarantor Name 05/28/2023 1 [employer] (MEDICARE REPLACEMENT/A DVANTAGE - PPO) Yenifer Riley [id number] Yenifer Riley Notes Date Note Type Note Provider Name and Address Organization Details Recorded Time 4 text/html 03-13-23: Ms. Riley has been under the care of Dr. Hyatt with [employer]. She receives CSI injections every 3 months. Her last injection was in February. She reports that she fell 2 years ago and broke her left foot. Following this she had left knee pain on the lateral aspect Currently, her symptoms are tolerable since she just received an injection. 1.5 year history of RIGHT knee pain. No specific trauma or other inciting event. Primary location of pain: lateralPosterior pain: Occasional posterior painSeverity of pain: 4/10 on average, 7 at worstMechanical symptoms: occasionalCrepitus: Occasional crepitus.Effusions: Occasional effusionsFrequency of symptoms: dailyNight/rest pain: noExacerbating factors: prolonged weight bearing, ascending and descending stairs, certain flexion activitiesSubjective instability: NoFalls: No Prior treatment:Provider: none Jehovah'[employer] Witness with Dr. GonzalesIDs: OTC no relief.Narcotic medication: no Dose: Prescriber:Steroid injections: yes significant relief. Date of last inj: 02/18/23Viscosupplementat ion: no relief. Date of last inj:PT: No Location: When: Focus: Benefit: no relief.Braces: noAmbulatory aids/assistive device: nonePrior surgery on knee: none ROBSON PIMENTEL PA-C [address] [place], [address], [facility] 03/13/2023 09:13:11 4 text/html 05/28/23 Pt is here today for R CSI ALFA CARNES PA-C [address] [place], [address], [facility] 05/28/2023 16:21:37 OBGyn Episode No OBEpisode recorded.
== END 2024-12-24 23:59 | disposition home or self-care (01) ==
LOC: RT 14:41
PROVIDERS: PCP Family Medicine; Visit Provider Internal Medicine
DX: I45.89 Other specified conduction disorders (principal); I49.1 Atrial premature depolarization; I47.29 Other ventricular tachycardia; I49.3 Ventricular premature depolarization; I48.0 Paroxysmal atrial fibrillation; I74.9 Embolism and thrombosis of unspecified artery; R94.31 Abnormal electrocardiogram [ECG] [EKG]; R00.1 Bradycardia, unspecified
CPT/HCPCS: 93270

== ENCOUNTER 2024-12-30 08:40 | Outpatient (CLI) | payer MEDICARE, SELFPAY ==
--- OUTSIDE RECORDS SUMMARY | 2024-11-24 18:36 | XMS_ITS | Encounter Summary ---
Author Organization Healthcare Address [address] [id number] Care Team Providers Care Lead Level Designer Name Role Phone Elijah Wooten MD Primary Care Provider [phone] Zandra Saenz MD Unavailable [phone] Reason for Referral * Consultation (Routine) - Authorized Specialty Diagnoses / Procedures Referred By Karenac t Referred To Contact Gastroenterology Diagnoses Abdominal pain, unspecified abdominal location Hyperbilirubinemia Mary Riggins APRN [address] [address] Phone: tel: fax: Referral ID Status Reason Start Date Expiration Date Visits Requested Visits Authorized [id number] Authorized Specialty Services Required 11/27/2024 05/29/2026 1 1 Reason for Visit * Reason Comments Abdominal Pain * Auth/Cert (Routine) Specialty Diagnoses / Procedures Referred By Contac t Referred To Contact Diagnoses Abdominal pain Abdominal pain, unspecified abdominal location Enteritis Vicki Winslow MD [address] [address] Phone: tel: fax: [facility] In[facility] [address] [place] [address] Phone: tel: Referral ID Status Reason Start Date Expiration Date Visits Re quested Visits Authorized [id number] 1 1 Encounter Details Date Type Department Care Team (Latest Contact Info) Description 11/24/2024 6:36 PM EDT - 11/27/2024 5:26 PM EDT Hospital Encounter [facility] [address] [place] [address] Dillon Flowers MD [address] [place] [address] Catherine Rodriguez MD [address] [facility] [address] [place] [address] Vicki Winslow MD [address] [facility] [address] [place] [address] Abdominal pain, unspecified abdominal location (Primary Dx); Hyperbilirubinemia Discharge Disposition: Home or Self Care Social History Tobacco Use Types Packs/Day Years Used Date Smoking Tobacco: Every Day Cigarettes Smokeless Tobacco: Never Alcohol Use Standard Drinks/Week Comments Never 0 (1 standard drink = 0.6 oz pur e alcohol) PHQ-2 Answer Date Recorded Patient Health Questionnaire-2 Score 0 01/01/2024 Humiliation, Afraid, Rape, and Kick questionnair e Answer Date Recorded Within the last year, have y ou been afraid of your partner or ex-partner? No 11/25/2024 Within the last year, have y ou been humiliated or emotionally abused in other ways by your partner or ex-partner? No Within the last year, have y ou been kicked, hit, slapped, or otherwise physically hurt by your partner or ex-partner? No 11/25/2024 Within the last year, have y ou been raped or forced to have any kind of sexual activity by your partner or ex-partner? No 11/25/2024 Hunger Vital Sign Answer Date Recorded Within the past 12 months, y ou worried that your food would run out before you got the money to buy more. Never true 11/26/19 25 Within the past 12 months, t he food you bought just didn't last and you didn't have money to get more. Never true 11/25/2024 PRAPARE - Transportation Answer Date Re corded In the past 12 months, has l ack of transportation kept you from medical appointments or from getting medications? No 11/10 In the past 12 months, has l ack of transportation kept you from meetings, work, or from getting things needed for daily living? No 11/25/2024 Housing Stability Vital Sign Answer Brigido e Recorded In the last 12 months, was t here a time when you were not able to pay the mortgage or rent on time? No 11/25/2024 Number of Times Moved in the Last Year Not on fi le 11/25/2024 At any time in the past 12 m [facility], were you homeless or living in a jail (including now)? No 11/25/2024 [facility] Utilities Answer Date Recorded In the past 12 months has th e electric, gas, oil, or water company threatened to shut off services in your home? No 11/25/2024 Comments Unknown Sex and Gender Information Value Date Recorded Sex Assigned at Not on file Legal Sex Female 8:14 PM EDT Gender Identity Not on file Sexual Orientation Not on file documented as of this encounter Last Filed Vital Signs Vital Sign Reading Time Taken Comments Blood Pressure 109/75 11/27/2024 11:26 AM EDT Pulse 66 11/27/2024 11:26 AM EDT Temperature 36.3 C (97.4 F) 11/27/2024 11:26 AM EDT Respiratory Rate 20 11/27/2024 11:26 AM EDT Oxygen Saturation 94% 11/27/2024 11:26 AM EDT Inhaled Oxygen Concentration - - Weight 72.6 kg (160 lb) 11/24/2024 6:50 PM EDT Height 170.2 cm (5' 7 ) 11/24/2024 6:50 PM EDT Body Mass Index 25.06 11/24/2024 6:50 PM EDT documented in this encounter Functional Status * Calculated C-SSRS Risk Score (Lifetime/Recent) Answer Date of Assessment Author No Risk Indicated 11/27/2024 8:00 AM EDT Gen Yeager * Question Answer Date of Assessment Author 1. Wish to be (Past 1 Month) No 025 8:00 AM EDT Gen Yeager 2. Non-Specific Active Suici teo Thoughts (Past 1 Month) No 11/27/2024 8:00 AM EDT Gen Yeager 6. Suicidal Behavior (Lifetime) No 5 8:00 AM EDT Gen Yeager documented as of this encounter Discharge Instructions * Discharge Instructions* Mary Riggins APRN - 11/25/2024 11:43 AM EDT Discharge Instructions: Medications: - You may resume your previous medications unless otherwise instructed. Nutrition: - You should eat a GI soft diet, focusing on liquids to keep yourself hydrated. Activity: - Activity as tolerated. Potential Issues: - Call the office if you have a fever greater than 101 F - Call the office if you have severe abdominal discomfort, nausea and vomiting, or feeling unwell Follow Up: - You may follow up with us as needed. - Referred to GI for colonoscopy - PCP within one week after discharge for post hospitalization visit and chronic disease management. Questions or Concerns and Appointments For appointments please call our General Surgery Clinic at [phone]. If there are questions or concerns after discharge from the hospital, call Carmella Yin, Nurse Coordinator between 7am-3pm at [phone]. If it is after hours, weekends, and holidays please call [phone] and ask for the resident transportation dispatch manager for Emergency General Surgery. Medication requests should be made between the hours of 9:00 AM to 3:00 PM Sunday thru Sunday. Please note that based upon recent changes to [place] law related to prescribing opioid pain medications, our providers will not provide refills on controlled medications after your hospital discharge following a major surgery or trauma. [place], [place]260. documented in this encounter Medications at Time of Discharge albuterol 108 (90 Base) MCG/ACT inhaler Inhale 1-2 puffs every 4 to 6 hours as needed. apixaban (Eliquis) 5 MG tablet Take 1 tablet by mouth 2 times a day. cholecalciferol (Vitamin D-3) 25 MCG (1000 UT) tablet Take 1 tablet by mouth daily. cyanocobalamin 1000 MCG tablet Take 1 tablet by mouth daily. HYDROcodone-acetam inophen (Landing) 5-325 MG tablet Take 1 tablet by mouth every 8 hours. 05/14/2023 metoprolol succinate XL (Toprol-XL) 25 MG 24 hr tablet Take 1 tablet by mouth daily. pentosan polysulfate (Elmiron) 100 MG capsule Take 1 capsule by mouth 3 times a day before meals. documented as of this encounter Miscellaneous Notes * Addendum Note - Wild Chin - 11/27/2024 5:26 PM EDTEncounter addended by: Wild Chin on: 12/04/2024 11:34 AM Actions taken: Utilization Review data saved * Addendum Note - Lizz Diamond RN - 11/27/2024 5:26 PM EDTEncounter addended by: Lizz Diamond, RN on: 12/05/2024 4:15 PM Actions taken: Utilization Review data saved * Addendum Note - Roxy Aguirre - 11/27/2024 5:26 PM EDTEncounter addended by: Roxy Aguirre on: 12/08/2024 10:05 AM Actions taken: Utilization Review data saved * Addendum Note - Lizz Diamond RN - 11/27/2024 5:26 PM EDTEncounter addended by: Lizz Diamond, RN on: 12/08/2024 10:47 AM Actions taken: Utilization Review saved, Utilization Review data saved * Addendum Note - Trinity Shafer - 11/27/2024 5:26 PM EDTEncounter addended by: Trinity Shafer on: 12/20/2024 7:46 AM Actions taken: Utilization Review data saved * Addendum Note - Cherelle Roman RN - 11/27/2024 5:26 PM EDTEncounter addended by: Cherelle Roman RN on: 12/20/2024 8:08 AM Actions taken: Utilization Review saved, Flowsheet accepted, Utilization Review data saved * Discharge Summary - VaishnaviMary trotter APRN - 11/27/2024 4:02 PM EDT Hospitalization Admit Date/Time: 11/24/2024 6:36 PM Admitting Attending: Vicki Winslow Discharge Date: 11/27/24 Discharge Attending Physician: Vicki Winslow MD PCP name and Address: Eiljah Wooten MD [address] [place] [address] Referring provider name and address: Jos Patterson MD [address] [place] [address] Chief Concern, Brief History of Present Illness, and Hospital Course Yenifer Riley is a 69 y.o. female with PMH of A fib on eliquis, prior blood clots, bladder incontinence, COPD, presenting to [facility] on 11/24/2024 as transfer with concern for abdominal painand CTA OSH showing mucosal hyperemia and thickening of ileum. EGS consulted for evaluation. On exam, currently stable. Notes that since yesterday, she started having abdominal pain after eating in the morning, in the epigastric/supraumbilical region, that resolved after. Then today, it returned. They went to PCP and got Xrs, went home and then she had recurrent abdominal pain that was associated with emesis episodes, prompting visit to OSH when they completed CTA which showed patent flow through visceral vessels with concern for mucosal hyperemia and thickening of ileum. Currently since coming here and getting pain medications, she reports no significant abdominal pain. States last colonoscopy was 10 years ago and negative. Is having bowel movements. Denied hx of IBD or family history of it. Current smoker >1ppd. Prior CCY, tubal, bladder surgery. Copied from admission H&P. Follow up with [facility] as needed Referred to GI for colonoscopy Follow up with PCP within one week after discharge for post hospitalization visit and chronic disease management. At the time of discharge the patient was hemodynamically stable, tolerating PO, voiding spontaneously, normal bowel function, mobilizing appropriately, with their pain controlled with PO medication. At this time, the patient has obtained the maximum benefit from the present hospital stay, and so will be discharged to home. Surgeries and Procedures Medication List PAUSE taking these medications metoprolol succinate XL 25 MG 24 hr tablet Wait to take this until your doctor or other care provider tells you to start again. Commonly known as: Toprol-XL Take 1 tablet by mouth daily. .. albuterol 108 (90 Base) MCG/ACT inhaler Inhale 1-2 puffs every 4 to 6 hours as needed. apixaban 5 MG tablet Commonly known as: Eliquis Take 1 tablet by mouth 2 times a day. cholecalciferol 25 MCG (1000 UT) tablet Commonly known as: Vitamin D-3 Take 1 tablet by mouth daily. cyanocobalamin 1000 MCG tablet Commonly known as: Vitamin B-12 Take 1 tablet by mouth daily. HYDROcodone-acetaminophen 5-325 MG tablet Commonly known as: Landing Take 1 tablet by mouth every 8 hours. pentosan polysulfate 100 MG capsule Commonly known as: Elmiron Take 1 capsule by mouth 3 times a day before meals. Discharge Diagnosis Medical Problems Active and Resolved Hospital Problems Hospital A-fib ([facility]) * (Principal) Abdominal pain COPD (chronic obstructive pulmonary disease) ([facility]) Smoker Malnutrition ([facility]) Hyperbilirubinemia Overview Signed 11/25/2024 11:48 AM by Mary Riggins APRN Tbili 1.2 from 0.8 Monitor/trend Hypocalcemia Overview Signed 11/25/2024 11:48 AM by Mary Riggins APRN Monitor/trend Replete as needed Chest pain Abdominal pain, unspecified abdominal location Post Discharge Instructions Medications: - You may resume your previous medications unless otherwise instructed. Nutrition: - You should eat a GI soft diet, focusing on liquids to keep yourself hydrated. Activity: - Activity as tolerated. Potential Issues: - Call the office if you have a fever greater than 101 F - Call the office if you have severe abdominal discomfort, nausea and vomiting, or feeling unwell Follow Up: - You may follow up with us as needed. - Referred to GI for colonoscopy - PCP within one week after discharge for post hospitalization visit and chronic disease management. Questions or Concerns and Appointments For appointments please call our General Surgery Clinic at [phone]. If there are questions or concerns after discharge from the hospital, call Carmella Yin, Nurse Coordinator between 7am-3pm at [phone]. If it is after hours, weekends, and holidays please call [phone] and ask for the resident transportation dispatch manager for Emergency General Surgery. Medication requests should be made between the hours of 9:00 AM to 3:00 PM Sunday thru Sunday. Please note that based upon recent changes to [place] law related to prescribing opioid pain medications, our providers will not provide refills on controlled medications after your hospital discharge following a major surgery or trauma. [place], [place] KAR9:260. Outpatient Follow-Up Future Appointments Date Time Provider Department Center 05/01/2025 9:00 AM Padmini Main MD [facility] Test Results Pending At Discharge Pertinent Physical Exam At Time of Discharge Physical Exam HENT: Head: Normocephalic. Nose: Nose normal. Mouth/Throat: Mouth: Mucous membranes are moist. Eyes: Pupils: Pupils are equal, round, and reactive to light. Cardiovascular: Rate and Rhythm: Normal rate and regular rhythm. Pulmonary: Effort: Pulmonary effort is normal. No respiratory distress. Breath sounds: No stridor. Abdominal: General: Bowel sounds are normal. There is distension (Mildly, improving). Palpations: Abdomen is soft. Tenderness: There is no abdominal tenderness. There is no guarding or rebound. Musculoskeletal: General: Normal range of motion. Cervical back: Neck supple. Skin: General: Skin is warm and dry. Neurological: General: No focal deficit present. Mental Status: She is alert and oriented to person, place, and time. Mental status is at baseline. Psychiatric: Mood and Affect: Mood normal. Behavior: Behavior normal. Discharge Disposition/Condition Disposition: Home Condition: Stable (s/sx potential problems absent or manageable) I spent >30 minutes of patient care and instruction time in preparation for this discharge. Cosigned by Vicki Winslow MD at 11/27/2024 8:35 PM EDT Associated attestation - Vicki Winslow MD - 11/27/2024 8:35 PM EDT I have evaluated the patient with the resident/fellow/LISET. I discussed the case with the resident/fellow/LISET and agree with the findings and plan as documented. * Significant Event - Pancho Campos DO - 11/27/2024 9:33 AM EDT Called to bedside this morning for new onset chest pain. Pain described as sharp, substernal and non-radiating. Associated abdominal pain and nausea. ECG and initial troponin did not show evidence ofMI. CXR normal. Will follow delta troponin. * Assessment & Plan Note - Pancho Campos DO - 11/27/2024 7:24 AM EDT Associated Problem(s): Abdominal pain CTA OSH showing mucosal hyperemia and thickening of ileum. Abdominal exams improving Advanced to [facility] * Assessment & Plan Note - Pancho Campos DO - 11/27/2024 7:24 AM EDT Associated Problem(s): A-fib On eliquis (Held) Continue home medications as appropriate Start tLOV * Assessment & Plan Note - Pancho Campos DO - 11/27/2024 7:24 AM EDT Associated Problem(s): COPD (chronic obstructive pulmonary disease) Encourage pulmonary hygiene, IS, PEP, Nebs prn Encourage mobility with nursing * Assessment & Plan Note - Pancho Campos DO - 11/27/2024 7:24 AM EDT Associated Problem(s): Smoker Complicates all aspects of care * Assessment & Plan Note - Pancho Campos DO - 11/27/2024 7:24 AM EDT Associated Problem(s): Chest pain ECG showing partial RBBB, non-specific ST depression Awaiting trops Awaiting CXR Consult cards if trops and delta positive * Progress Notes - Pancho Campos DO - 11/27/2024 7:13 AM EDT 11/27/24 Yenifer Riley HPI 69 yo female with pmhx of A. Fib. on eliquis, prior blood clots, bladder incontinence, COPD, presenting to [facility] on 11/24/2024 as transfer with concern for abdominal pain and CTA OSH showing mucosal hyperemia and thickening of ileum. Interval: NAEO. On rounds this morning, the patient began to endorse sharp substernal chest pain, non-radiating. Partial RBBB. Non-specific ST depression. Awaiting trops and CXR. VSS. Voiding spontaneously. Passing flatus. Small BM this morning. Edited by: Pancho Campos DO at 11/27/2024 0724 Relevant review of systems was obtained as able and is negative unless stated above in HPI. Vital signs: Vitals: 11/27/24 0634 BP: 138/85 Pulse: 59 Resp: Temp: 36.4 ??C (97.6 ??F) SpO2: 96% Physical Exam Constitutional: Appearance: Normal appearance. HENT: Head: Normocephalic. Nose: Nose normal. Mouth/Throat: Mouth: Mucous membranes are moist. Cardiovascular: Rate and Rhythm: Regular rhythm. Bradycardia present. Pulses: Normal pulses. Neurological: Mental Status: She is alert. No intake or output data in the 24 hours ending 11/27/24723 Lines/Drains/Tubes: Patient Lines/Drains/Airways Status Active Airway None Output by Drain (mL) 11/25/24 0700 - 11/25/24 1859 11/25/24 1900 - 11/26/24 0659 11/26/24 07 - 11/26/24 1859 11/26/24 1900 - 11/27/24 0659 11/27/24 0700 - 11/27/24 0724 Patient has no LDAs of requested type attached. Labs in last 18 hours: CBC WBC 6.68 Hb 13.7 Plt 159 Hct 40.7 ANC ?? INR ??, PTT ??, Anti-Xa ?? MCV 90 BMP Na 142 Cl 110 (H) BUN 10 Glu 106 (H) K 3.5 (L) Co2 22 Cr 0.66 Ca 8.4 (L) iCa ?? Mg 1.8 (L), Phos 2.7 Lactate ?? LFT AST 16 AlkPhos 50 T Prot 5.6 (L) ALK 12 Bili 0.6 Alb ?? D.Bili ?? Lab Trends: H/H Results from last 7 days Lab Units 11/27/24 0002 11/26/24 0842 11/25/24 0454 HEMOGLOBIN g/dL 13.7 13.5 13.5 HEMATOCRIT % 40.7 39.6 39.3 INR Results from last 7 days Lab Units 11/25/24 0454 11/24/24 1946 INR 1.3* 1.3* Cr Results from last 7 days Lab Units 11/27/24 0002 11/26/24 0842 11/25/24 0454 CREATININE mg/dL 0.66 0.71 0.70 Medications reviewed. Vital signs reviewed. Labs reviewed. Radiography reviewed. Assessment and Plan: Assessment & Plan Abdominal pain Present on Admission: Yes CTA OSH showing mucosal hyperemia and thickening of ileum. Abdominal exams improving Advanced to [facility] A-fib (CMS/HCC) Present on Admission: Yes On eliquis (Held) Continue home medications as appropriate Start tLOV COPD (chronic obstructive pulmonary disease) (CMS/HCC) Present on Admission: Yes Encourage pulmonary hygiene, IS, PEP, Nebs prn Encourage mobility with nursing Smoker Present on Admission: Yes Complicates all aspects of care Malnutrition (CMS/HCC) Present on Admission: Yes Hyperbilirubinemia Present on Admission: Yes Hypocalcemia Present on Admission: Yes Chest pain Present on Admission: No ECG showing partial RBBB, non-specific ST depression Awaiting trops Awaiting CXR Consult cards if trops and delta positive Plan: [ ] troponins, ECG, CXR - EKG, troponin, lactate this AM - Consult cards if trop positive or symptoms return - Telemetry - NPO - tLOV - Hold home metop Dispo: Home, pending clinical improvement Edited by: Isra Tellez MD at 11/27/2024 0722 Pancho Campos DO Cosigned by Vicki Winslow MD at 11/27/2024 8:34 PM EDT Associated attestation - Vicki Winslow MD - 11/27/2024 8:34 PM EDT I have evaluated the patient with the resident/fellow/LISET. I discussed the case with the resident/fellow/LISET and agree with the findings and plan as documented. * Care Plan - Lizz Edwards - 11/26/2024 6:29 PM EDT Problem: Adult Inpatient Plan of Care Goal: Plan of Care Review Outcome: Ongoing, Progressing Flowsheets (Taken 11/26/2024 1827) Progress: improving Plan of Care Reviewed With: patient Goal: Patient-Specific Goal (Individualized) Outcome: Ongoing, Progressing Flowsheets (Taken 11/26/2024 1800) Patient/Family-Specific Goals (Include Timeframe): pt will remain free from injury during shift Individualized Care Needs: safety Anxieties, Fears or Concerns: getting food Goal: Absence of Hospital-Acquired Illness or Injury Outcome: Ongoing, Progressing Intervention: Identify and Manage Fall Risk Flowsheets (Taken 11/26/2024 1800) Safety Promotion/Fall Prevention: activity supervised clutter-free environment maintained fall prevention program maintained lighting adjusted nonskid shoes/slippers when out of bed room organization consistent safety round/check completed toileting scheduled Intervention: Prevent Skin Injury Flowsheets Taken 11/26/20241826 Skin Protection: incontinence pads utilized Taken 11/26/2024 1800 Body Position: weight shifting Intervention: Prevent and Manage VTE (Venous Thromboembolism) Risk Flowsheets (Taken 11/26/20241826) VTE Prevention/Management: medication SCDs (sequential compression devices) off patient refused intervention previous patient education reinforced Intervention: Prevent Infection Flowsheets (Taken 11/26/20241826) Infection Prevention: hand hygiene promoted single patient room provided Goal: Optimal Comfort and Wellbeing Outcome: Ongoing, Progressing Intervention: Monitor Pain and Promote Comfort Flowsheets (Taken 11/26/20241826) Pain Management Interventions: pain management plan reviewed with patient/caregiver Intervention: Provide Person-Centered Care Flowsheets (Taken 11/26/20241826) Trust Relationship/Rapport: care explained choices provided emotional support provided empathic listening provided questions answered questions encouraged reassurance provided thoughts/feelings acknowledged Problem: Pain Acute Goal: Optimal Pain Control and Function Outcome: Ongoing, Progressing Intervention: Optimize Psychosocial Wellbeing Flowsheets (Taken 11/26/20241826) Supportive Measures: active listening utilized decision-making supported problem-solving facilitated relaxation techniques promoted self-care encouraged verbalization of feelings encouraged Diversional Activities: television Intervention: Develop Pain Management Plan Flowsheets (Taken 11/26/20241826) Pain Management Interventions: pain management plan reviewed with patient/caregiver Intervention: Prevent or Manage Pain Flowsheets (Taken 11/26/20241826) Bowel Elimination Promotion: adequate fluid intake promoted Sleep/Rest Enhancement: consistent schedule promoted natural light exposure provided regular sleep/rest pattern promoted relaxation techniques promoted therapeutic touch utilized Medication Review/Management: medications reviewed * Care Plan - Narendra Serna RN - 11/26/2024 2:57 PM EDT Problem: Adult Inpatient Plan of Care Goal: Patient-Specific Goal (Individualized) 11/26/2024 1456 by Narendra Serna, RN Outcome: Ongoing, Progressing Flowsheets (Taken 11/26/2024 0800) Patient/Family-Specific Goals (Include Timeframe): Patient will tolerate ordered diet during shift. Individualized Care Needs: Diet, Safety Anxieties, Fears or Concerns: When can I eat something? 11/26/2024 1025 by Narendra Serna RN Outcome: Ongoing, Progressing Flowsheets (Taken 11/26/2024 0600) Patient/Family-Specific Goals (Include Timeframe): -- Individualized Care Needs: -- Anxieties, Fears or Concerns: -- 11/26/2024 1024 by Narendra Serna RN Outcome: Ongoing, Progressing Flowsheets (Taken 11/26/2024 0600) Patient/Family-Specific Goals (Include Timeframe): -- Individualized Care Needs: -- Anxieties, Fears or Concerns: -- Problem: Pain Acute Goal: Optimal Pain Control and Function 11/26/2024 1456 by Narendra Serna RN Outcome: Ongoing, Progressing 11/26/2024 1025 by aNrendra Serna RN Outcome: Ongoing, Progressing Intervention: Prevent or Manage Pain 11/26/2024 1456 by Narendra Serna RN Flowsheets (Taken 11/26/2024 1025) Sleep/Rest Enhancement: relaxation techniques promoted Medication Review/Management: medications reviewed 11/26/2024 102 by Narendra Serna RN Flowsheets (Taken 11/26/2024 102) Sleep/Rest Enhancement: relaxation techniques promoted Medication Review/Management: medications reviewed * Assessment & Plan Note - Pancho Campos DO - 11/26/2024 10:34 AM EDT Associated Problem(s): A-fib On eliquis (Held) Continue home medications as appropriate Start tLOV * Assessment & Plan Note - Pancho Campos DO - 11/26/2024 10:21 AM EDT Associated Problem(s): Abdominal pain CTA OSH showing mucosal hyperemia and thickening of ileum. Abdominal exams improving Advanced to [facility] * Assessment & Plan Note - Pancho Campos DO - 11/26/2024 10:21 AM EDT Associated Problem(s): COPD (chronic obstructive pulmonary disease) Encourage pulmonary hygiene, IS, PEP, Nebs prn Encourage mobility with nursing * Assessment & Plan Note - Pancho Campos DO - 11/26/2024 10:21 AM EDT Associated Problem(s): Smoker Complicates all aspects of care * Progress Notes - Pancho Campos DO - 11/26/2024 10:12 AM EDT 11/26/24 Yenifer Riley HPI 69 yo female with pmhx of A. Fib. on eliquis, prior blood clots, bladder incontinence, COPD, presenting to [facility] on 11/24/2024 as transfer with concern for abdominal pain and CTA OSH showing mucosal hyperemia and thickening of ileum. Interval: NAEO. VSS. Reports feeling better compared to yesterday. Labs WNL. Voiding spontaneously.Passing flatus. Small BM this morning. Edited by: Pancho Campos DO at 11/26/2024 0910 Relevant review of systems was obtained as able and is negative unless stated above in HPI. Vital signs: Vitals: 11/26/24 1024 BP: 115/71 Pulse: 60 Resp: 16 Temp: 36.7 ??C (98.1 ??F) SpO2: 93% Physical Exam Vitals and nursing note reviewed. Constitutional: General: She is not in acute distress. Appearance: She is obese. She is not ill-appearing. HENT: Head: Normocephalic and atraumatic. Mouth/Throat: Mouth: Mucous membranes are moist. Pharynx: Oropharynx is clear. Eyes: Extraocular Movements: Extraocular movements intact. Conjunctiva/sclera: Conjunctivae normal. Cardiovascular: Rate and Rhythm: Normal rate and regular rhythm. Pulses: Normal pulses. Pulmonary: Effort: Pulmonary effort is normal. No respiratory distress. Abdominal: General: Abdomen is flat. There is no distension. Palpations: Abdomen is soft. Tenderness: There is no abdominal tenderness. There is no guarding or rebound. Skin: General: Skin is dry. Capillary Refill: Capillary refill takes less than 2 seconds. Coloration: Skin is not jaundiced or pale. Neurological: General: No focal deficit present. Mental Status: She is alert and oriented to person, place, and time. Mental status is at baseline. Psychiatric: Mood and Affect: Mood normal. Behavior: Behavior normal. Thought Content: Thought content normal. Judgment: Judgment normal. No intake or output data in the 24 hours ending 11/26/24 1033 Lines/Drains/Tubes: Patient Lines/Drains/Airways Status Active Airway None Output by Drain (mL) 11/24/24 0700 - 11/24/24 1859 11/24/24 1900 - 11/25/24 0659 11/25/24 0700 - 11/25/24 1859 11/25/24 1900 - 11/26/24 0659 11/26/24 0700 - 11/26/24 1033 Patient has no LDAs of requested type attached. Labs in last 18 hours: CBC WBC 5.25 Hb 13.5 Plt 147 (L) Hct 39.6 ANC ?? INR ??, PTT ??, Anti-Xa ?? MCV 89 BMP Na 141 Cl 107 BUN 10 Glu 72 (L) K 3.9 Co2 22 Cr 0.71 Ca 8.6 (L) iCa ?? Mg 1.9, Phos 3.2 Lactate ?? LFT AST ?? AlkPhos ?? T Prot ?? ALK ?? Bili ?? Alb ?? D.Bili ?? Lab Trends: H/H Results from last 7 days Lab Units 11/26/24 0842 11/25/2445311/24/241945 HEMOGLOBIN g/dL 13.5 13.5 14.4 HEMATOCRIT % 39.6 39.3 41.2 INR Results from last 7 days Lab Units 11/25/24 0454 11/24/241945 INR 1.3* 1.3* Cr Results from last 7 days Lab Units 11/26/2442 11/25/2445311/24/241945 CREATININE mg/dL 0.71 0.70 0.78 Medications reviewed. Vital signs reviewed. Labs reviewed. Radiography reviewed. Assessment and Plan: Assessment & Plan Abdominal pain Present on Admission: Yes CTA OSH showing mucosal hyperemia and thickening of ileum. Abdominal exams improving Advanced to [facility] A-fib (CMS/HCC) Present on Admission: Yes On eliquis (Held) Continue home medications as appropriate Start tLOV COPD (chronic obstructive pulmonary disease) (CMS/HCC) Present on Admission: Yes Encourage pulmonary hygiene, IS, PEP, Nebs prn Encourage mobility with nursing Smoker Present on Admission: Yes Complicates all aspects of care Malnutrition (CMS/HCC) Present on Admission: Yes Hyperbilirubinemia Present on Admission: Yes Hypocalcemia Present on Admission: Yes Plan: - Advanced to [facility] - 1/2 mIVF - Zosyn Q6H - Repeat abdominal exam this morning - stable - Therapeutic lovenox started Dispo: Home, pending clinical improvement Edited by: Pancho Campos DO at 11/26/2024 1033 Pancho Campos DO Cosigned by Vicki Winslow MD at 11/26/2024 6:30 PM EDT Associated attestation - Vicki Winslow MD - 11/26/2024 6:30 PM EDT I have evaluated the patient with the resident/fellow/LISET. I discussed the case with the resident/fellow/LISET and agree with the findings and plan as documented. * Care Plan - Isa Mixon RN - 11/25/2024 10:58 PM EDT Problem: Adult Inpatient Plan of Care Goal: Plan of Care Review Outcome: Ongoing, Progressing Flowsheets (Taken 11/25/20242256) Progress: no change Plan of Care Reviewed With: patient Goal: Patient-Specific Goal (Individualized) Outcome: Ongoing, Progressing Goal: Absence of Hospital-Acquired Illness or Injury Outcome: Ongoing, Progressing Intervention: Identify and Manage Fall Risk Flowsheets (Taken 11/25/20242199) Safety Promotion/Fall Prevention: safety round/check completed Intervention: Prevent Skin Injury Flowsheets (Taken 11/25/20242256) Body Position: weight shifting Skin Protection: incontinence pads utilized Intervention: Prevent and Manage VTE (Venous Thromboembolism) Risk Flowsheets (Taken 11/25/20242256) VTE Prevention/Management: patient refused intervention Intervention: Prevent Infection Flowsheets (Taken 11/25/20242199) Infection Prevention: hand hygiene promoted rest/sleep promoted Goal: Optimal Comfort and Wellbeing Outcome: Ongoing, Progressing Intervention: Monitor Pain and Promote Comfort Flowsheets (Taken 11/25/20242199) Pain Management Interventions: emotional support pain management plan reviewed with patient/caregiver Intervention: Provide Person-Centered Care Flowsheets (Taken 11/25/20242199) Trust Relationship/Rapport: care explained questions answered questions encouraged * Progress Notes - Becki Dos Santos - 11/25/2024 12:09 PM EDT Case Management Adult Initial Progress Note Yenifer Riley 69 y.o. female CSN: [id number] Admission: 11/24/2024 6:36 PM Primary Problem: Abdominal pain Cashier Or Checker Stock Clerk reviewed chart and spoke with patient to complete this Initial Case Management Assessment. PCP: Elijah Wooten MD Emergency Contact: Extended Emergency Contact Information Primary Emergency Contact: Catherine Rodríguez Mobile Relation: Daughter Preferred language: Swedish Kitchenhand needed? No Insurance: Primary Visit Coverage Payer Plan Sponsor Code Group Number Group Name HUMANA MEDICARE HUMANA MEDICARE [id number] Primary Visit Coverage Subscriber Subscriber ID Subscriber Name Subscriber SSN Subscriber Address [id number] YENIFER RILEY [id number] [facility] [place] [address] Patient information: Primary Caregiver: Self Support System: Immediate family Daily Living Activities: Functional Status: Independent Living Arrangements: Children (Son lives with her) Type of Residence: Private residence [address] [place], [place] [address]smooth [facility] [address] Smoker in the Home?: Yes Current DME: Equipment Currently Used at Home: none Income Information: Income Source: Employed Income/Expense Information: Expenses exceed income Current Resources Utilized: None Housing Circumstances-Z Codes: Housing Circumstances (select all that apply): Low Income (101-300% Federal Poverty Guidlines) - Z596 Patient Referred to: Anticipated Discharge Date: TBD Patient's Discharge Goal: Return Home Assistance Available at Discharge: Self Discharge Transport: Self/Friend Follow Up Transport: Self Home Health / Home Infusion / Outpatient Dialysis Services: N/A Living Will/Advance Directive/Power of Grease Cup Filler /Guardian: Have you reviewed your Advance Directive and is it valid for this stay?: Not applicable Information Provided on Healthcare Directives: No Pre-existing DNR/DNI Order: No Additional Comments: Pt stated that she gets her meds at [facility]. Becki Dos Santos * Hospital Course - Mary Riggins APRN - 11/25/2024 11:43 AM EDT Yenifer Riley is a 69 y.o. female with PMH of A fib on eliquis, prior blood clots, bladder incontinence, COPD, presenting to [facility] on 11/24/2024 as transfer with concern for abdominal painand CTA OSH showing mucosal hyperemia and thickening of ileum. EGS consulted for evaluation. On exam, currently stable. Notes that since yesterday, she started having abdominal pain after eating in the morning, in the epigastric/supraumbilical region, that resolved after. Then today, it returned. They went to PCP and got Xrs, went home and then she had recurrent abdominal pain that was associated with emesis episodes, prompting visit to OSH when they completed CTA which showed patent flow through visceral vessels with concern for mucosal hyperemia and thickening of ileum. Currently since coming here and getting pain medications, she reports no significant abdominal pain. States last colonoscopy was 10 years ago and negative. Is having bowel movements. Denied hx of IBD or family history of it. Current smoker >1ppd. Prior CCY, tubal, bladder surgery. Copied from admission H&P. Follow up with [facility] as needed Referred to GI for colonoscopy Follow up with PCP within one week after discharge for post hospitalization visit and chronic disease management. At the time of discharge the patient was hemodynamically stable, tolerating PO, voiding spontaneously, normal bowel function, mobilizing appropriately, with their pain controlled with PO medication. At this time, the patient has obtained the maximum benefit from the present hospital stay, and so will be discharged to home. * Assessment & Plan Note - Chula Singh MD - 11/25/2024 7:37 AM EDT Associated Problem(s): Abdominal pain Concern for intermittent worsening abdominal pain with emesis since yesterday Currently improved tenderness CT at OSH with concern for mucosal thickening and hyperemia with intact flow through visceral organs Admit [facility]GE for observation NPO, Danette Leonard * Assessment & Plan Note - Chula Singh MD - 11/25/2024 7:37 AM EDT Associated Problem(s): A-fib On eliquis Hold for now while plan pending * H&P - Chula Singh MD - 11/25/2024 2:02 AM EDTAssociated Order(s): Consult to Emergency General Surgery Reason for Consultation: concern for mucosal changes Requesting Service: Emergency Department Consult to Emergency General Surgery Consult performed by: Chula Singh MD Consult ordered by: Dillon Flowers MD History Of Present Illness Yenifer Riley is a 69 y.o. female with PMH of A fib on eliquis, prior blood clots, bladder incontinence, COPD, presenting to [facility] on 11/24/2024 as transfer with concern for abdominal pain and CTA OSH showing mucosal hyperemia and thickening of ileum. EGS consulted for evaluation. On exam, currently stable. Notes that since yesterday, she started having abdominal pain after eating in the morning, in the epigastric/supraumbilical region, that resolved after. Then today, it returned. They went to PCP and got Xrs, went home and then she had recurrent abdominal pain that was associated with emesis episodes, prompting visit to OSH when they completed CTA which showed patent flow through visceral vessels with concern for mucosal hyperemia and thickening of ileum. Currently since coming here and getting pain medications, she reports no significant abdominal pain. States last colonoscopy was 10 years ago and negative. Is having bowel movements. Denied hx of IBD or family history of it. Current smoker >1ppd. Prior CCY, tubal, bladder surgery. History Obtained From: Patient/Family Past Medical History She has a past medical history of Afib (CMS/[facility]), Coronary artery spasm (CMS/[facility]), and History of blood clots. Reviewed as documented above Surgical History She has a past surgical history that includes Bladder surgery. Reviewed as documented above Family History Family History[1] Reviewed as documented above Social History She reports that she has been smoking cigarettes. She has never used smokeless tobacco. She reportsthat she does not drink alcohol and does not use drugs. Reviewed as documented above Allergies Metronidazole, Cephalexin, Codeine, Morphine, Sulfa drugs, Trimethoprim, and Varenicline Reviewed as documented above Medications Current Medications[2] Reviewed as documented above Review of Systems Relevant review of systems was obtained as able and is negative unless stated above in HPI. Last Recorded Vitals Blood pressure 115/59, pulse (!) 47, temperature 36.4 ??C (97.5 ??F), temperature source Oral, resp. rate 12, height 1.702 m (5' 7 ), weight 72.6 kg (160 lb), SpO2 93%. Physical Exam HENT: Head: Normocephalic and atraumatic. Eyes: Extraocular Movements: Extraocular movements intact. Cardiovascular: Rate and Rhythm: Normal rate. Pulmonary: Effort: No respiratory distress. Abdominal: Palpations: Abdomen is soft. Comments: Mild tenderness to palpation in epigastric region Musculoskeletal: General: No deformity. Skin: General: Skin is warm. Neurological: Mental Status: She is alert. Mental status is at baseline. Psychiatric: Mood and Affect: Mood normal. Thought Content: Thought content normal. Recent Results Labs in last 18 hours CBC WBC 6.10 Hb 13.5 Plt 143 (L) Hct 39.3 ANC 5.55 INR 1.3 (H), PTT ??, Anti-Xa ?? BMP Na 143 Cl 109 (H) BUN 10 Glu 102 (H) K 3.6 Co2 24 Cr 0.70 Ca 8.5 (L) iCa ?? Mg 1.9, Phos 3.6 Lactate ?? LFT AST 14 AlkPhos 55 T Prot 5.1 (L) ALK 12 Bili 1.2 (H) Alb ?? D.Bili ?? Radiology I personally and independently reviewed the CT images available at today's visit which showed: patent flow through visceral vessels with concern for mucosal hyperemia and thickening of ileum Assessment & Plan Abdominal pain Present on Admission: Yes Concern for intermittent worsening abdominal pain with emesis since yesterday Currently improved tenderness CT at OSH with concern for mucosal thickening and hyperemia with intact flow through visceral organs Admit [facility] for observation NPO, mIVFs Zosyn A-fib (CMS/HCC) Present on Admission: Yes On eliquis Hold for now while plan pending COPD (chronic obstructive pulmonary disease) (CMS/HCC) Present on Admission: Yes Smoker Present on Admission: Yes Dispo: Admit to [facility] CODE STATUS: full code This Consult, Assessment, and Plan has been discussed with Dr. Rodriguez, Attending Physician [1] Family History Problem Relation Name Age of Onset Cancer Mother Diabetes Father Heart attack Father Asymptomatic COVID-19 virus infection Father [2] Current Facility-Administered Medications Medication Dose Route Frequency Provider Last Rate Last Admin acetaminophen (Tylenol) tablet 650 mg 650 mg Oral q6h Chula Matthews MD 650 mg at 11/25/24 0057 dextrose 5 % and lactated Ringer's infusion 75 mL/hr Intravenous Continuous Chula Singh MD 75mL/hr at 11/25/24 0056 75 mL/hr at 11/25/24 0056 heparin (porcine) injection 5,000 Units 5,000 Units Subcutaneous q8h Chula Matthews MD 5,000Units at 11/25/24 0651 HYDROmorphone (Dilaudid) injection 0.25 mg 0.25 mg Intravenous q3h PRN Chula Singh MD Or HYDROmorphone (Dilaudid) injection 0.5 mg 0.5 mg Intravenous q3h PRN Chula Singh MD ipratropium-albuterol (Duo-Neb) 0.5-2.5 mg/3 mL nebulizer solution 3 mL 3 mL Nebulization q6h PRN Chula Singh MD methocarbamol (Robaxin) tablet 500 mg 500 mg Oral q8h Chula Singh MD 500 mg at 11/25/24 0057 metoprolol tartrate (Lopressor) split tablet 12.5 mg 12.5 mg Oral BID Chula Singh MD 12.5 mg at 11/25/24 0057 ondansetron ODT (Zofran-ODT) disintegrating tablet 4 mg 4 mg Oral q6h PRN Chula Singh MD Or ondansetron (Zofran) injection 4 mg 4 mg Intravenous q6h PRN Chula Singh MD Or ondansetron (Zofran) 4 MG/5ML solution 4 mg 4 mg Oral q6h PRN Chula Singh MD piperacillin-tazobactam (Zosyn) 4.5 g in sodium chloride 0.9% 100 mL IVPB (vial adapter required) 4.5 g Intravenous q6h Chula Singh MD 36.7 mL/hr at 11/25/24 0651 4.5 g at 11/25/24 0651 sodium chloride 0.9 % flush 10 mL 10 mL Intravenous q12h Chula Singh MD 10 mL at 11/25/24 0058 And sodium chloride 0.9 % flush 10 mL 10 mL Intravenous PRN Chula Singh MD Current Outpatient Medications Medication Sig Dispense Refill albuterol 108 (90 Base) MCG/ACT inhaler Inhale 1 puff. carBAMazepine XR (TEGretol XR) 100 MG 12 hr tablet Take 1 tablet (100 mg) by mouth 2 (two) times a day. Do not crush, chew, or split. 60 tablet 0 Clopidogrel Bisulfate (PLAVIX PO) (Patient not taking: Reported on 01/01/2024) HYDROcodone-acetaminophen (Landing) 5-325 MG tablet Take 1 tablet (5 mg of hydrocodone) by mouth every 8 (eight) hours. metoprolol succinate XL (Toprol-XL) 50 MG 24 hr tablet Take 1 tablet (50 mg) by mouth 1 (one) time each day. Myrbetriq 50 MG tablet Take 1 tablet (50 mg) by mouth 1 (one) time each day. (Patient not taking: Reported on 01/01/2024) nicotine (Nicoderm CQ) 21 MG/24HR patch Place 1 patch on the skin 1 (one) time each day at the sametime. Cosigned by Catherine Rodriguez MD at 11/26/2024 1:20 AM EDT Associated attestation - Catherine Rodriguez MD - 11/26/2024 1:20 AM EDT I saw and evaluated the patient with the resident/fellow. I discussed the case with the resident/fellow and agree with the findings and plan as documented. 69F presenting with concern for bowel ischemia. OSH CT showed mucosal hyperemia and distal ileal thickening. On exam she is soft, ND, and non-tender. Suspect inflammatory versus infectious etiology. Will trial NPO, serial exams, abx. * Care Plan - Cindy Hinton - 11/24/2024 6:36 PM EDT Problem: Adult Inpatient Plan of Care Goal: Plan of Care Review Outcome: Ongoing, Progressing Goal: Patient-Specific Goal (Individualized) Outcome: Ongoing, Progressing Goal: Absence of Hospital-Acquired Illness or Injury Outcome: Ongoing, Progressing Goal: Optimal Comfort and Wellbeing Outcome: Ongoing, Progressing * Care Plan - Narendra Serna RN - 11/24/2024 6:36 PM EDT Problem: Adult Inpatient Plan of Care Goal: Patient-Specific Goal (Individualized) 11/26/2024 1025 by Narendra Serna, RN Outcome: Ongoing, Progressing Flowsheets (Taken 11/26/2024 0600) Patient/Family-Specific Goals (Include Timeframe): Patient will tolerate ordered diet during shift. Individualized Care Needs: Diet, Safety Anxieties, Fears or Concerns: When can I eat something? 11/26/2024 1024 by Narendra Serna, RN Outcome: Ongoing, Progressing Flowsheets (Taken 11/26/2024 0600) Patient/Family-Specific Goals (Include Timeframe): Patient will tolerate ordered diet during shift. Individualized Care Needs: Diet, Safety Anxieties, Fears or Concerns: When can I eat something? Problem: Pain Acute Goal: Optimal Pain Control and Function Outcome: Ongoing, Progressing Intervention: Prevent or Manage Pain Flowsheets (Taken 11/26/2024 1025) Sleep/Rest Enhancement: relaxation techniques promoted Medication Review/Management: medications reviewed * ED Provider Notes - Heber Shepherd DO - 11/24/2024 6:36 PM EDT - HPI Chief Complaint Patient presents with Abdominal Pain HPI Mrs. Riley is a 69 year old female with a PMH of afib on eliquis, COPD, and coronary artery spasm presenting with a 2 day history of abdominal pain, nausea, and vomiting. Yesterday evening the patient ate dinner and within 30 minutes had intense epigastric abdominal pain. In the morning she felt better and had some [place] for breakfast and developed abdominal pain shortly after. At this time she had multiple episodes of dark, bitter non-bloody emesis. She also reported abdominal tenderness to palpation during these episodes of abdominal pain. She received Zofran and compazine at OSH with little improvement in symptoms although tramadol did help. She has had nothing to eat or drink since symptoms this morning. She denies diarrhea, constipation, and changes in urination. She denies any recent abdominal trauma or surgeries. Patient History Past Medical History[1] Surgical History[2] Family History[3] Social History[4] Allergies: Allergies[5] Physical Exam ED Triage Vitals [11/24/24 1850] Temp Heart Rate Resp BP 36.5 ??C (97.7 ??F) 57 17 111/65 SpO2 Temp Source Heart Rate Source Patient Position 93 % Oral -- Lying BP Location FiO2 (%) Right arm -- Physical Exam Vitals and nursing note reviewed. Constitutional: General: She is not in acute distress. Appearance: She is well-developed. HENT: Head: Normocephalic and atraumatic. Eyes: Conjunctiva/sclera: Conjunctivae normal. Cardiovascular: Rate and Rhythm: Normal rate and regular rhythm. Heart sounds: No murmur heard. Pulmonary: Effort: Pulmonary effort is normal. No respiratory distress. Breath sounds: Normal breath sounds. Abdominal: Palpations: Abdomen is soft. Tenderness: There is abdominal tenderness in the periumbilical area. There is no right CVA tenderness, left CVA tenderness, guarding or rebound. Hernia: No hernia is present. Musculoskeletal: General: No swelling. Cervical back: Neck supple. Skin: General: Skin is warm and dry. Capillary Refill: Capillary refill takes less than 2 seconds. Neurological: Mental Status: She is alert. Psychiatric: Mood and Affect: Mood normal. Cruz Coma Scale Score: 15 ED Course & MDM - Assessment: 69 y.o. female presents to ED with complaint of abdominal pain which has since resolved since presenting from OSH. It should be noted that the chronic conditions includes afib on eliquis, COPD, and coronary artery spasm, which currently is not at goal therapy. This complicates the clinical picture because it Comorbidities: may be exacerbating symptoms, increases the amount and complexity of data to be reviewed, and increases the risk for morbidity Differential Diagnosis: Mesenteric ischemia, pneumatosis, bowel obstruction, pancreatitis, colitis,enteritis, diverticulitis In order to fully explore the differential diagnosis the following treatments and tests were ordered: All Other Orders Ordered Status Ordering Provider 11/24/241922 CMP STAT Ordered JETTE, HEBER B 11/24/241922 Magnesium STAT Ordered JETTE, HEBER B 11/24/241922 CBC w/diff STAT Ordered JETTE, HEBER B 11/24/241922 PT-INR STAT Ordered JETTE, HEBER B 11/24/241922 Anti Xa Level Unfractionated Heparin STAT Ordered JETTE, HEBER B 11/24/241922 C-Reactive protein STAT Ordered JETTE, HEBER B 11/24/241922 Lactic acid, venous STAT Ordered JETTE, HEBER B ED Course as of 11/24/242006Nov 24, 20242004 Review of imaging from outside hospital with CT scan with contrast. Shows mucosal hyperemia and thickening of the pelvic ileal small bowel loops. They read this as concerning findings for ischemic etiology. They report they evaluation is limited by lack of enteric contrast. [MJ] ED Course User Index [MJ] Heber Shepherd, DO On initial evaluation patient is sitting upright in hospital bed in no apparent acute distress answering all questions appropriately. She is normotensive, afebrile, normal heart rate, saturating wellon room air. Physical examination is pertinent for abdomen which is nontender to palpation throughout. Maybe mild tenderness in his suprapubic region. Otherwise no other rebound or guarding. No swelling to the lower extremities. I reviewed imaging from outside hospital which does show the hyperemiaas mentioned above. I do not appreciate any bowel obstruction or pneumatosis. Repeat laboratory workup was completed showing normal lactic acid and CRP. INR malalignment mildly elevated and anti Xa level elevated which is appropriate for patient taking Eliquis. Did not feel that repeat imaging studies were warranted at this time. Consulted with EGS who agreed to evaluate the patient ultimately admit to their service due to concerning imaging findings. Otherwise patient remained stable without any symptoms while in the ED. Social Determinates of Health Risks (including Economic Stability, Education and level of understanding, Healthcare access and quality and concerning social factors): None identified on this visit Ultimately, this patient was Was admitted (Admission) There were no encounter diagnoses.. Patient believed to require admission for the listed diagnoses. The General Surgery service was consulted for admission and was agreeable to admit to Acute Floor (Med/Surg). ED Prescriptions None - [1] Past Medical History: Diagnosis Date Afib (CMS/HCC) Coronary artery spasm (CMS/HCC) History of blood clots [2] Past Surgical History: Procedure Laterality Date BLADDER SURGERY [3] Family History Problem Relation Name Age of Onset Cancer Mother Diabetes Father Heart attack Father Asymptomatic COVID-19 virus infection Father [4] Tobacco Use Smoking status: Every Day Types: Cigarettes Smokeless tobacco: Never Substance Use Topics Alcohol use: Never Drug use: Never [5] Allergies Allergen Reactions Metronidazole Itching, Other - please document in the comment field and Rash Other reaction(s): rash, rash Other reaction(s): rash, rash Other reaction(s): rash, rash Cephalexin Other - please document in the comment field and Rash Other reaction(s): rash, rash Other reaction(s): rash, rash Other reaction(s): rash, rash Codeine Other - please document in the comment field and Rash Other reaction(s): rash, rash Other reaction(s): rash, rash Other reaction(s): rash, rash Morphine Other - please document in the comment field Other reaction(s): low bp, low bp Other reaction(s): low bp, low bp Other reaction(s): Unknown - Low Severity Other reaction(s): low bp, low bp Sulfa Drugs Other - please document in the comment field Trimethoprim Other - please document in the comment field Varenicline Unknown - Patient states they do not know rxn details Other reaction(s): Unknown - Low Severity Heber Shepherd DO Resident 11/25/24 0043 Cosigned by Dillon Flowers MD at 11/25/2024 4:21 PM EDT Associated attestation - Dillon Flowers MD - 11/25/2024 4:21 PM EDT I saw and evaluated the patient with the resident/fellow. I discussed the case with the resident/fellow and agree with the findings and plan as documented. * ED Triage Notes - Radha Burnham RN - 11/24/2024 6:36 PM EDT Pt presents to ED for abdominal pain from OSH. Sent for concern for intestinal inflammation vs bowel ischemia. * Progress Notes - Donte Smith MD - 11/24/2024 6:36 PM EDT ED TRANSFER OF CARE NOTE Transferring provider: Joao Garcia attending: Lionel MEDINA Time: 11:30pm I received sign-out and accepted care of this patient from the previous ED providers caring for this patient. I reviewed the patient's history, exam, work- up, and treatment plan up to this point. Please see the primary ED Provider Note for complete elements of the history, physical exam, and ED course. PERTINENT HISTORY: In brief, Yenifer Riley is a 69 y.o. female with relevant PMH who presented to the ED for evaluation of abdominal pain. PENDING: I accepted care of this patient from the previous provider while waiting for evaluation and/or recommendations from: General Surgery. Ultimately, the aforementioned service recommended admission ED Medication Administration from 11/24/2024 1723 to 11/24/2024 2348 Date/Time Order Dose Route Action 11/24/2024 1947 EDT lactated Ringer's infusion 1,000 mL 1,000 mL Intravenous New Bag 11/24/2024 2243 EDT lactated Ringer's infusion 1,000 mL 0 mL Intravenous Stopped ED COURSE: ED Course as of 11/25/24 0640 SunNov 24, 20242004 Review of imaging from outside hospital with CT scan with contrast. Shows mucosal hyperemia and thickening of the pelvic ileal small bowel loops. They read this as concerning findings for ischemic etiology. They report they evaluation is limited by lack of enteric contrast. [MJ] ED Course User Index [MJ] Heber Shepherd, DO Clinical Impressions as of 11/25/24 0640 Abdominal pain, unspecified abdominal location Ultimately, this patient Was admitted (Admission) The encounter diagnosis was Abdominal pain, unspecified abdominal location.. Patient believed to require admission for the listed diagnoses. The General Surgery service was consulted for admission and was agreeable to admit to Acute Floor (Med/Surg). ED Prescriptions None - Donte Smith MD Cosigned by Ramy Castro MD at 11/25/2024 11:37 PM EDT Associated attestation - Ramy Castro MD - 11/25/2024 11:37 PM EDT Seen by resident only. documented in this encounter Plan of Treatment Upcoming Encounters Date Type Department Care Team (Late st Contact Info) Description 05/01/2025 9:00 AM EST Office Visit [place] [facility] [address] [place] [address] Padmini Main MD [address] [place] [address] Scheduled Referrals Name Type Priority Associated Diagnoses Order Schedule Discharge Ambulatory referral to Gastroenterology Outpatient Referral Routine Abdominal pain, unspecified abdominal location Hyperbilirubinemia Expected: 12/27/2024, Expires: 05/31/2026 documented as of this encounter Procedures Procedure Name Priority Date/Time Associated Diagnosis Comments XR CHEST 1 VIEW STAT 11/27/2024 8:56 AM EDT TROPONIN T, HIGH SENSITIVITY, 2 HOUR, PLASMA Timed 11/27/2024 8:51 AM EDT ECG ADULT STAT 11/27/2024 6:59 AM EDT TROPONIN T, HIGH SENSITIVITY, 0 HOUR, PLASMA, REFLEX TO 2 HOUR STAT 11/27/2024 6:42 AM EDT CBC W/O DIFFERENTIAL Routine 11/27/2024 12:02 AM EDT PHOSPHORUS, PLASMA Routine 11/27/2024 12 :02 AM EDT MAGNESIUM, PLASMA Routine 11/27/2024 12: 02 AM EDT COMPREHENSIVE METABOLIC PANEL, PLASMA Routine 11/27/2024 12:02 AM EDT PEP THERAPY Routine 11/26/2024 5:46 PM EDT PEP THERAPY Routine 11/26/2024 11:46 AM EDT CBC W/O DIFFERENTIAL Routine 11/26/2024 8:42 AM EDT PHOSPHORUS, PLASMA Routine 11/26/2024 8: 42 AM EDT MAGNESIUM, PLASMA Routine 11/26/2024 8:4 2 AM EDT BASIC METABOLIC PANEL, PLASMA Routine 11/26/2024 8:42 AM EDT PEP THERAPY Routine 11/26/2024 5:46 AM EDT POCT GLUCOSE METER UNSOLICITED RESULTS Routine 11/26/2024 5:41 AM EDT COMPREHENSIVE GI PANEL BY PCR Routine 11/26/2024 4:47 AM EDT PEP THERAPY Routine 11/25/2024 11:46 PM EDT PEP THERAPY Routine 11/25/2024 5:46 PM EDT PEP THERAPY Routine 11/25/2024 11:45 AM EDT PEP THERAPY Routine 11/25/2024 11:45 AM EDT PEP THERAPY Routine 11/25/2024 11:45 AM EDT PEP THERAPY Routine 11/25/2024 11:45 AM EDT PEP THERAPY Routine 11/25/2024 11:45 AM EDT PROTHROMBIN TIME(PT) / INR Routine 11/25/2024 4:54 AM EDT CBC W/O DIFFERENTIAL Routine 11/25/2024 4:54 AM EDT PHOSPHORUS, PLASMA Routine 11/25/2024 4: 54 AM EDT MAGNESIUM, PLASMA Routine 11/25/2024 4:5 4 AM EDT COMPREHENSIVE METABOLIC PANEL, PLASMA Routine 11/25/2024 4:54 AM EDT LACTATE, VENOUS STAT 11/24/2024 7:46 PM EDT PROTHROMBIN TIME(PT) / INR STAT 11/24/2024 7:46 PM EDT ANTI XA LEVEL UNFRACTIONATED HEPARIN STAT 11/24/2024 7:46 PM EDT CBC WITH AUTO DIFFERENTIAL STAT 11/24/2024 7:46 PM EDT C-REACTIVE PROTEIN, PLASMA STAT 11/24/2024 7:46 PM EDT MAGNESIUM, PLASMA STAT 11/24/2024 7:4 6 PM EDT COMPREHENSIVE METABOLIC PANEL, PLASMA STAT 11/24/2024 7:46 PM EDT documented in this encounter Results * XR Chest 1 View (11/27/2024 8:56 AM EDT) Anatomical Region Laterality Modality Chest Digital Radiogra phy Impressions 11/27/2024 11:27 AM EDT Mild bibasal atelectasis, left greater than right. CRITICAL RESULT: No. COMMUNICATION: Per this written report. By electronically signing this report, I, the attending physician, attest that I have personally reviewed the images/data for the above examination(s) and agree with the final edited report. Drafted by Ezra Morrison MD on 11/27/2024 10:04 AM Final report signed by Damon Avery MD on 11/27/2024 11:27 AM Narrative 11/27/2024 11:27 AM EDT CLINICAL INDICATION: chest pain TECHNIQUE: XR CHEST 1 VIEW COMPARISON: November 24, 2024 FINDINGS: Mildly prominent cardiomediastinal silhouette. Mild bibasilar atelectasis, left greater than right. No focal consolidation. No pleural effusion or pneumothorax. Procedure Note Damon Avery MD - 11/27/2024 CLINICAL INDICATION: chest pain TECHNIQUE: XR CHEST 1 VIEW COMPARISON: November 24, 2024 FINDINGS: Mildly prominent cardiomediastinal silhouette. Mild bibasilar atelectasis,left greater than right. No focal consolidation. No pleural effusion orpneumothorax. IMPRESSION: Mild bibasal atelectasis, left greater than right. CRITICAL RESULT: No. COMMUNICATION: Per this written report. By electronically signing this report, I, the attending physician, attestthat I have personally reviewed the images/data for the aboveexamination(s) and agree with the final edited report. Drafted by Ezra Morrison MD on 11/27/2024 10:04 AM Final report signed by Damon Avery MD on 11/27/2024 11:27 AM us Vicki Winslow MD IMG XR PROCEDURES Final Re sult * Troponin T, High Sensitivity, 2 Hour, Plasma (11/27/2024 8:51 AM EDT) [facility] Trop[facility] T, High Sensitivity, 2 Hour 11 <14 ng/L 11/27/2024 9:33 AM EDT [facility] Blood Venous blood specimen / Unknown Venipuncture / Unknown 11/27/2024 8:51 AM EDT 11/27/2024 9:06 AM EDT Vicki Winslow MD LAB BLOOD ORDERABLES Final Result [facility] [address] [place] [address] * ECG Adult (11/27/2024 6:59 AM EDT) Pathologist [facility] EKG DIAGNOSIS CLASS Abnormal MUSE ECG Ventricular Rate 62 BPM MUSE ECG Atrial Rate 62 BPM MUSE ECG ID Interval 142 ms MUSE ECG QRSD Interval 140 ms MUSE ECG QT Interval 474 ms MUSE ECG QTC Interval 481 ms MUSE ECG P Mal[place] 7 degrees MUSE ECG R Mal[place] -38 degrees MUSE ECG T Wave Mal[place] 5 degrees MUSE ECG Diagnosis Normal sinus rhythm MUSE ECG Diagnosis Left axis deviation MUSE ECG Diagnosis Right bundle branch block MUSE ECG Diagnosis Cannot rule out Inferior infarct , age undetermined MUSE ECG Diagnosis Abnormal ECG MUSE ECG Diagnosis MUSE ECG Diagnosis Confirmed by López Yoon ([id number]) on 11/28/2024 5:30:24 AM MUSE ECG 11/27/2024 6:59 AM EDT 11/28/2024 5:30 AM EDT us Vicki Winslow MD ECG ORDERABLES Final Resu lt MUSE ECG * Troponin T, High Sensitivity, 0 Hour Plasma, Reflex to 2 Hour (11/27/2024 6:42 AM EDT) Troponin T, High Sensitivity, 0 Hour 12 <14 ng/L 11/27/2024 7:34 AM EDT [facility] Blood Venous blood specimen / Unknown Venipuncture / Unknown 11/27/2024 6:42 AM EDT 11/27/2024 7:07 AM EDT us Vicki Winslow MD LAB BLOOD ORDERABLES Final Result [facility] [address] [place] [address] * CBC W/O Differential (11/27/2024 12:02 AM EDT) WBC Count 6.68 3.70 - 10.30 10*3/uL LAB HEMATOLOGY METHOD 11/27/2024 12:15 AM EDT [facility] RBC Count 4.52 3.90 - 5.20 10*6/uL LAB HEMATOLOGY METHOD 11/27/2024 12:15 AM EDT [facility] HGB 13.7 11.2 - 15.7 g/dL LAB HEMATOLOGY METHOD 11/27/2024 12:15 AM EDT [facility] HCT 40.7 34.0 - 45.0 % LAB HEMATOLOGY METHOD 11/27/2024 12:15 AM EDT [facility] Platelet Count 159 155 - 369 10*3/uL LAB HEMATOLOGY METHOD 11/27/2024 12:15 AM EDT [facility] MCV 90 79 - 98 fL LAB HEMATOLOGY METHOD 11/27/2024 12:15 AM EDT [facility] MCH 30.3 26.0 - 32.0 pg LAB HEMATOLOGY METHOD 11/27/2024 12:15 AM EDT [facility] MCHC 33.7 30.7 - 35.5 g/dL LAB HEMATOLOGY METHOD 11/27/2024 12:15 AM EDT [facility] RDW 13.5 11.5 - 14.5 % LAB HEMATOLOGY METHOD 11/27/2024 12:15 AM EDT [facility] MPV 10.8 8.8 - 12.5 fL LAB HEMATOLOGY METHOD 11/27/2024 12:15 AM EDT [facility] nRBC 0.0 <=0.0 per 100 WBCs LAB HEMATOLOGY METHOD 11/27/2024 12:15 AM EDT [facility] Blood Venous blood specimen / Unknown Venipuncture / Unknown 11/27/2024 12:02 AM EDT 11/27/2024 12:08 AM EDT us Vicki Winslow MD LAB BLOOD ORDERABLES Final Result [facility] [address] [place] [address] * (ABNORMAL) Comprehensive Metabolic Panel, Plasma (11/27/2024 12:02 AM EDT) Glucose, Plasma 106(H) 74 - 99 mg/dL 11/27/2024 12:37 AM EDT [facility] BUN, Plasma 10 8 - 23 mg/dL 11/27/2024 12:37 AM EDT [facility] Creatinine, Plasma 0.66 0.60 - 1.10 mg/dL 11/27/2024 12:37 AM EDT [facility] BUN/Creatinine Ratio 15 11/27/2024 12:37 AM EDT [facility] Sodium, Plasma 142 136 - 145 mmol/L 11/27/2024 12:37 AM EDT [facility] Potassium, Plasma 3.5(L) 3.6 - 4.9 mmol/L 11/27/2024 12:37 AM EDT [facility] Chloride, Plasma 110(H) 97 - 107 mmol/L 11/27/2024 12:37 AM EDT [facility] CO2, Plasma 22 22 - 29 mmol/L 11/27/2024 12:37 AM EDT [facility] Anion Gap 10 6 - 16 mmol/L 11/27/2024 12:37 AM EDT [facility] Total Calcium, Plasma 8.4(L) 8.9 - 10.2 mg/dL 11/27/2024 12:37 AM EDT [facility] Total Protein 5.6(L) 6.3 - 7.9 g/dL 11/27/2024 12:37 AM EDT [facility] Albumin, Plasma 3.5 3.5 - 5.2 g/dL 11/27/2024 12:37 AM EDT [facility] AST, Plasma 16 10 - 35 U/L 11/27/2024 12:37 AM EDT [facility] Comment:Hemolyzed, result ma y be falsely increased. ALT, Plasma 12 10 - 35 U/L 11/27/2024 12:37 AM EDT [facility] Alkaline Phosphatase, Plasma 50 46 - 142 U/L 11/27/2024 12:37 AM EDT [facility] Total Bilirubin, Plasma 0.6 0.2 - 1.1 mg/dL 11/27/2024 12:37 AM EDT [facility] eGFRcr 96.3 mL/min/1.7 3m*2 11/27/2024 12:37 AM EDT [facility] Comment:Reported eGFRcr in m L/min/1.73m2 is based the CKD-EPI 2020 equation that does not use a race coefficient. Blood Venous blood specimen / Unknown Venipuncture / Unknown 11/27/2024 12:02 AM EDT 11/27/2024 12:08 AM EDT us Vicki Winslow MD LAB BLOOD ORDERABLES Final Result [facility] [address] [place] [address] * (ABNORMAL) Magnesium, Plasma (11/27/2024 12:02 AM EDT) Pathologist [facility] Magnesium, Plasma 1.8(L) 1.9 - 2.4 mg/dL 11/27/2024 12:37 AM EDT [facility] Blood Venous blood specimen / Unknown Venipuncture / Unknown 11/27/2024 12:02 AM EDT 11/27/2024 12:08 AM EDT us Vicki Winslow MD LAB BLOOD ORDERABLES Final Result Performing Organization Address City/[facility]/ZIP Co de Phone Number [facility] [address] [place] [address] * Phosphorus, Plasma (11/27/2024 12:02 AM EDT) [facility] Phosphorus, Plasma 2.7 2.5 - 4.5 mg/dL 11/27/2024 12:37 AM EDT [facility] Blood Venous blood specimen / Unknown Venipuncture / Unknown 11/27/2024 12:02 AM EDT 11/27/2024 12:08 AM EDT us Vicki Winslow MD LAB BLOOD ORDERABLES Final Result Performing Organization Address City/[facility]/ZIP Co de Phone Number [facility] [address] [place] [address] * (ABNORMAL) CBC W/O Differential (11/26/2024 8:42 AM EDT) Pathologist [facility] WBC Count 5.25 3.70 - 10.30 10*3/uL LAB HEMATOLOGY METHOD 11/26/2024 8:50 AM EDT [facility] RBC Count 4.44 3.90 - 5.20 10*6/uL LAB HEMATOLOGY METHOD 11/26/2024 8:50 AM EDT [facility] HGB 13.5 11.2 - 15.7 g/dL LAB HEMATOLOGY METHOD 11/26/2024 8:50 AM EDT [facility] HCT 39.6 34.0 - 45.0 % LAB HEMATOLOGY METHOD 11/26/2024 8:50 AM EDT [facility] Platelet Count 147(L) 155 - 369 10*3/uL LAB HEMATOLOGY METHOD 11/26/2024 8:50 AM EDT [facility] MCV 89 79 - 98 fL LAB HEMATOLOGY METHOD 11/26/2024 8:50 AM EDT [facility] MCH 30.4 26.0 - 32.0 pg LAB HEMATOLOGY METHOD 11/26/2024 8:50 AM EDT [facility] MCHC 34.1 30.7 - 35.5 g/dL LAB HEMATOLOGY METHOD 11/26/2024 8:50 AM EDT [facility] RDW 13.4 11.5 - 14.5 % LAB HEMATOLOGY METHOD 11/26/2024 8:50 AM EDT [facility] MPV 10.4 8.8 - 12.5 fL LAB HEMATOLOGY METHOD 11/26/2024 8:50 AM EDT [facility] nRBC 0.0 <=0.0 per 100 WBCs LAB HEMATOLOGY METHOD 11/26/2024 8:50 AM EDT [facility] Blood Venous blood specimen / Unknown Venipuncture / Unknown 11/26/2024 8:42 AM EDT 11/26/2024 8:48 AM EDT us Alba Bradley [employer] LAB BLOOD ORDERABLES Gloria l Result [facility] [address] [place] [address] * (ABNORMAL) Basic Metabolic Panel, Plasma (11/26/2024 8:42 AM EDT) Glucose, Plasma 72(L) 74 - 99 mg/dL 11/26/2024 9:11 AM EDT [facility] BUN, Plasma 10 8 - 23 mg/dL 11/26/2024 9:11 AM EDT [facility] Creatinine, Plasma 0.71 0.60 - 1.10 mg/dL 11/26/2024 9:11 AM EDT [facility] BUN/Creatinine Ratio 14 11/26/2024 9:11 AM EDT [facility] Sodium, Plasma 141 136 - 145 mmol/L 11/26/2024 9:11 AM EDT [facility] Potassium, Plasma 3.9 3.6 - 4.9 mmol/L 11/26/2024 9:11 AM EDT [facility] Chloride, Plasma 107 97 - 107 mmol/L 11/26/2024 9:11 AM EDT [facility] CO2, Plasma 22 22 - 29 mmol/L 11/26/2024 9:11 AM EDT [facility] Anion Gap 12 6 - 16 mmol/L 11/26/2024 9:11 AM EDT [facility] Total Calcium, Plasma 8.6(L) 8.9 - 10.2 mg/dL 11/26/2024 9:11 AM EDT [facility] eGFRcr 93.3 mL/min/1.7 3m*2 11/26/2024 9:11 AM EDT [facility] Comment:Reported eGFRcr in m L/min/1.73m2 is based the CKD-EPI 2020 equation that does not use a race coefficient. Blood Venous blood specimen / Unknown Venipuncture / Unknown 11/26/2024 8:42 AM EDT 11/26/2024 8:48 AM EDT us Alba Bradley [employer] LAB BLOOD ORDERABLES Gloria l Result Performing Organization Address City/[facility] Co de Phone Number [facility] [address] [place] [address] * Magnesium, Plasma (11/26/2024 8:42 AM EDT) Magnesium, Plasma 1.9 1.9 - 2.4 mg/dL 11/26/2024 9:11 AM EDT [facility] Blood Venous blood specimen / Unknown Venipuncture / Unknown 11/26/2024 8:42 AM EDT 11/26/2024 8:48 AM EDT us Alba E Kirk [employer] LAB BLOOD ORDERABLES Gloria l Result Performing Organization Address City/[facility]/ZIP Co de Phone Number [facility] [address] [place] [address] * Phosphorus, Plasma (11/26/2024 8:42 AM EDT) Pathologist [facility] Phosphorus, Plasma 3.2 2.5 - 4.5 mg/dL 11/26/2024 9:11 AM EDT [facility] Blood Venous blood specimen / Unknown Venipuncture / Unknown 11/26/2024 8:42 AM EDT 11/26/2024 8:48 AM EDT us Abla Bradley APRN LAB BLOOD ORDERABLES Gloria l Result Performing Organization Address City/[facility]/ZIP Co de Phone Number [facility] [address] [place] [address] * POCT glucose meter (11/26/2024 5:41 AM EDT) [facility] POCT Glucose 94 74 - 99 mg/dL 11/26/2024 5:42 AM EDT [facility] Comment:Accuracy of a glucos e result obtained from a capillary whole blood specimen relies upon adequate, non-compromised capillary blood flow. If the capillary glucose result is not consistent with the patient's clinical signs and symptoms, glucose testing should be repeated with either an arterial or venous sample on the glucometer or sent to the main labortory for testing. Comment 11/26/2024 5:42 AM EDT [facility] Senior Electronics Technician ID Kaylee Merrill 11/27/19 25 5:42 AM EDT [facility] Device ID [id number] 11/26/2024 5:42 AM EDT [facility] Specimen Type POC Capillary 11/26/2024 5:42 AM EDT [facility] Blood Capillary blood specimen / Unknown 11/26/2024 5:41 AM EDT 11/26/2024 5:42 AM EDT us Catherine Rodriguez MD LAB POINT OF CARE TE ST DOCKED DEVICE UNSOLICITED RESULTS Final Result [facility] [address] [place] [address] * Comprehensive GI Panel by PCR (11/26/2024 4:47 AM EDT) [facility] Campylobacter PCR Result Not Detected Not Detected 11/26/2024 9:38 AM EDT [facility] Plesiomonas shigelloides PCR Result Not Detected Not Detected 11/26/2024 9:38 AM EDT [facility] Salmonella PCR Result Not Detected Not Detected 11/26/2024 9:38 AM EDT [facility] Vibrio species PCR Result Not Detected Not Detected 11/26/2024 9:38 AM EDT [facility] Vibrio cholerae PCR Result Not Detected Not Detected 11/26/2024 9:38 AM EDT [facility] Yersinia enterocolitica PCR Result Not Detected Not Detected 11/26/2024 9:38 AM EDT [facility] Enteroaggregative E. coli (EAEC) PCR Result Not Detected Not Detected 11/26/2024 9:38 AM EDT [facility] Enteropathogenic E. coli (EPEC) PCR Result Not Detected Not Detected 11/26/2024 9:38 AM EDT [facility] Enterotoxigenic E. coli (ETEC) lt/st PCR Result Not Detected Not Detected 11/26/2024 9:38 AM EDT [facility] Shiga-like Toxin-Producing E.coli (STEC) stx1/stx2 PCR Resu Not Detected Not Detected 11/26/2024 9:38 AM EDT [facility] E coli 0157 PCR Result Not Detected Not Detected 11/26/2024 9:38 AM EDT [facility] Shigella/Enteroinvas chuyita E. coli (EIEC) PCR Result Not Detected Not Detected 11/26/2024 9:38 AM EDT [facility] Cryptosporidium PCR Result Not Detected Not Detected 11/26/2024 9:38 AM EDT [facility] Cyclospora cayetanensis PCR Result Not Detected Not Detected 11/26/2024 9:38 AM EDT [facility] Entamoeba histolytica PCR Result Not Detected Not Detected 11/26/2024 9:38 AM EDT [facility] Giardia duodenalis (aka Giardia lamblia) PCR Result Not Detected Not Detected 11/26/2024 9:38 AM EDT [facility] Adenovirus F 40/41 PCR Result Not Detected Not Detected 11/26/2024 9:38 AM EDT [facility] Astrovirus PCR Result Not Detected Not Detected 11/26/2024 9:38 AM EDT [facility] Norovirus GI/GII PCR Result Not Detected Not Detected 11/26/2024 9:38 AM EDT [facility] Rotavirus A PCR Result Not Detected Not Detected 11/26/2024 9:38 AM EDT [facility] Sapovirus PCR Result Not Detected Not Detected 11/26/2024 9:38 AM EDT [facility] Stool Rectum structure / Unknown Non-blood Collection / Unknown 11/26/2024 4:47 AM EDT 11/26/2024 6:01 AM EDT Narrative [facility] - 11/26/2024 9:38 AM EDT This specimen was tested for the following analytes: Campylobacter species, Plesiomonas shigelloides, Salmonella species, Vibrio species, Vibrio cholerae, Yersinia enterolitica, Enteroaggregative E. coli (EAEC), Enteropathogenic E. Coli (EPEC), Enterotoxigenic E. coli (ETEC), Shiga-like toxin-producing E. coli (STEC), Shigella/Enteroinvasive E. coli (EIEC), Cryptosporidium, Cyclospora cayetanensis, Entamoeba histolytica, Giardia lamblia, Adenovirus f40/41, Astrovirus, Norovirus GI/GII, Rotavirus A, and Sapovirus. Note: Clostridium difficile toxin a/b will no longer be resulted using this platform. Please order the Clostridium difficile by PCR assay if clinically indicated. This specimen was tested for the following analytes: Campylobacter species, Plesiomonas shigelloides, Salmonella species, Vibrio species, Vibrio cholerae, Yersinia enterolitica, Enteroaggregative E. coli (EAEC), Enteropathogenic E. Coli (EPEC), Enterotoxigenic E. coli (ETEC), Shiga-like toxin-producing E. coli (STEC), Shigella/Enteroinvasive E. coli (EIEC), Cryptosporidium, Cyclospora cayetanensis, Entamoeba histolytica, Giardia lamblia, Adenovirus f40/41, Astrovirus, Norovirus GI/GII, Rotavirus A, and Sapovirus. Note: Clostridium difficile toxin a/b will no longer be resulted using this platform. Please order the Clostridium difficile by PCR assay if clinically indicated. us Catherine Rodriguez MD LAB MICROBIOLOGY - GENERAL OR DERABLES Final Result Performing Organization Address [facility] Co de Phone Number [facility] [address] [place] [address] * (ABNORMAL) Protime-INR (11/25/2024 4:54 AM EDT) Prothrombin Time 16.7(H) 12.0 - 14.3 sec 11/25/2024 5:30 AM EDT [facility] INR 1.3(H) 0.9 - 1.1 11/25/2024 5:30 AM EDT [facility] Blood Venous blood specimen / Unknown Venipuncture / Unknown 11/25/2024 4:54 AM EDT 11/25/2024 4:59 AM EDT Narrative [facility] - 11/25/2024 5:30 AM EDT OPTIMAL INR RANGES FOR PATIENT ON ORAL ANTICOAGULANT THERAPY Prevention of venous thromboembolism INR 2.0 to 3.0 In patients with heart disease: Atrial fibrillation INR 2.0 to 3.0 Valvular heart disease INR 2.0 to 3.0 Tissue heart valves INR 2.0 to 3.0 Mechanical prosthetic valves INR 2.5 to 3.5 Prevention of recurrent NV INR 2.5 to 3.5 us Catherine Rodriguez MD LAB BLOOD ORDERABLES Final Re sult Performing Organization Address City/[facility]/ZIP Co de Phone Number [facility] [address] [place] [address] * Phosphorus (11/25/2024 4:54 AM EDT) Phosphorus, Plasma 3.6 2.5 - 4.5 mg/dL 11/25/2024 5:44 AM EDT [facility] Blood Venous blood specimen / Unknown Venipuncture / Unknown 11/25/2024 4:54 AM EDT 11/25/2024 5:13 AM EDT us Catherine Rodriguez MD LAB BLOOD ORDERABLES Final Re sult [facility] [address] [place] [address] * Magnesium (11/25/2024 4:54 AM EDT) Magnesium, Plasma 1.9 1.9 - 2.4 mg/dL 11/25/2024 5:44 AM EDT [facility] Blood Venous blood specimen / Unknown Venipuncture / Unknown 11/25/2024 4:54 AM EDT 11/25/2024 5:13 AM EDT us Catherine Rodriguez MD LAB BLOOD ORDERABLES Final Re sult Performing Organization Address [facility]/ZIP Co de Phone Number [facility] [address] [place] [address] * (ABNORMAL) Comprehensive Metabolic Panel (11/25/2024 4:54 AM EDT) Glucose, Plasma 102(H) 74 - 99 mg/dL 11/25/2024 5:44 AM EDT [facility] BUN, Plasma 10 8 - 23 mg/dL 11/25/2024 5:44 AM EDT [facility] Creatinine, Plasma 0.70 0.60 - 1.10 mg/dL 11/25/2024 5:44 AM EDT [facility] BUN/Creatinine Ratio 14 11/25/2024 5:44 AM EDT [facility] Sodium, Plasma 143 136 - 145 mmol/L 11/25/2024 5:44 AM EDT [facility] Potassium, Plasma 3.6 3.6 - 4.9 mmol/L 11/25/2024 5:44 AM EDT [facility] Chloride, Plasma 109(H) 97 - 107 mmol/L 11/25/2024 5:44 AM EDT [facility] CO2, Plasma 24 22 - 29 mmol/L 11/25/2024 5:44 AM EDT [facility] Anion Gap 10 6 - 16 mmol/L 11/25/2024 5:44 AM EDT [facility] Total Calcium, Plasma 8.5(L) 8.9 - 10.2 mg/dL 11/25/2024 5:44 AM EDT [facility] Total Protein 5.1(L) 6.3 - 7.9 g/dL 11/25/2024 5:44 AM EDT [facility] Albumin, Plasma 3.2(L) 3.5 - 5.2 g/dL 11/25/2024 5:44 AM EDT [facility] AST, Plasma 14 10 - 35 U/L 11/25/2024 5:44 AM EDT [facility] ALT, Plasma 12 10 - 35 U/L 11/25/2024 5:44 AM EDT [facility] Alkaline Phosphatase, Plasma 55 46 - 142 U/L 11/25/2024 5:44 AM EDT [facility] Total Bilirubin, Plasma 1.2(H) 0.2 - 1.1 mg/dL 11/25/2024 5:44 AM EDT [facility] eGFRcr 94.9 mL/min/1.7 3m*2 11/25/2024 5:44 AM EDT [facility] Comment:Reported eGFRcr in m L/min/1.73m2 is based the CKD-EPI 2020 equation that does not use a race coefficient. Blood Venous blood specimen / Unknown Venipuncture / Unknown 11/25/2024 4:54 AM EDT 11/25/2024 5:13 AM EDT us Catherine Rodriguez MD LAB BLOOD ORDERABLES Final Re sult [facility] [address] [place] [address] * (ABNORMAL) CBC (11/25/2024 4:54 AM EDT) WBC Count 6.10 3.70 - 10.30 10*3/uL LAB HEMATOLOGY METHOD 11/25/2024 5:01 AM EDT [facility] RBC Count 4.39 3.90 - 5.20 10*6/uL LAB HEMATOLOGY METHOD 11/25/2024 5:01 AM EDT [facility] HGB 13.5 11.2 - 15.7 g/dL LAB HEMATOLOGY METHOD 11/25/2024 5:01 AM EDT [facility] HCT 39.3 34.0 - 45.0 % LAB HEMATOLOGY METHOD 11/25/2024 5:01 AM EDT [facility] Platelet Count 143(L) 155 - 369 10*3/uL LAB HEMATOLOGY METHOD 11/25/2024 5:01 AM EDT [facility] MCV 90 79 - 98 fL LAB HEMATOLOGY METHOD 11/25/2024 5:01 AM EDT [facility] MCH 30.8 26.0 - 32.0 pg LAB HEMATOLOGY METHOD 11/25/2024 5:01 AM EDT [facility] MCHC 34.4 30.7 - 35.5 g/dL LAB HEMATOLOGY METHOD 11/25/2024 5:01 AM EDT [facility] RDW 13.4 11.5 - 14.5 % LAB HEMATOLOGY METHOD 11/25/2024 5:01 AM EDT [facility] MPV 10.5 8.8 - 12.5 fL LAB HEMATOLOGY METHOD 11/25/2024 5:01 AM EDT [facility] nRBC 0.0 <=0.0 per 100 WBCs LAB HEMATOLOGY METHOD 11/25/2024 5:01 AM EDT [facility] Blood Venous blood specimen / Unknown Venipuncture / Unknown 11/25/2024 4:54 AM EDT 11/25/2024 4:59 AM EDT us Catherine Rodriguez MD LAB BLOOD ORDERABLES Final Re sult [facility] [address] [place] [address] * Lactic acid, venous (11/24/2024 7:46 PM EDT) Lactate, Venous, Whole Blood 0.7 0.5 - 2.2 mmol/L LAB HEMATOLOGY METHOD 11/24/2024 7:56 PM EDT [facility] Blood Venous blood specimen / Unknown Venipuncture / Unknown 11/24/2024 7:46 PM EDT 11/24/2024 7:54 PM EDT Dillon Flowers MD LAB BLOOD ORDERABLES Final Res ult Performing Organization Address [facility] Co de Phone Number [facility] [address] [place] [address] * C-Reactive protein (11/24/2024 7:46 PM EDT) CRP, Plasma <3.0 <=8.0 mg/L 11/24/2024 8:22 PM EDT [facility] Blood Venous blood specimen / Unknown Venipuncture / Unknown 11/24/2024 7:46 PM EDT 11/24/2024 7:53 PM EDT Narrative [facility] - 11/24/2024 8:22 PM EDT This CRP test is appropriate for assessment of infection, systemic inflammation and/or tissue injury. To assess cardiovascular disease risk order high sensitivity CRP (CRPH). Dillon Flowers MD LAB BLOOD ORDERABLES Final Res ult Performing Organization Address [facility] Co de Phone Number [facility] [address] [place] [address] * (ABNORMAL) Anti Xa Level Unfractionated Heparin (11/24/2024 7:46 PM EDT) Pathologist [facility] Anti Xa Level Unfractionated Heparin >1.10(HH) <1.00 IU/mL 11/24/2024 8:20 PM EDT [facility] Blood Venous blood specimen / Unknown Venipuncture / Unknown 11/24/2024 7:46 PM EDT 11/24/2024 7:53 PM EDT Narrative [facility] - 11/24/2024 8:20 PM EDT Therapeutic Range: UFH Full Dose and ACS/NV protocols*: 0.30 - 0.70 IU/mL UFH Low Dose protocol*: 0.25 - 0.50 IU/mL UFH prophylaxis: Not established Dillon Flowers MD LAB BLOOD ORDERABLES Final Res ult Performing Organization Address City/[facility]/ZIP Co de Phone Number [facility] [address] [place] [address] * (ABNORMAL) PT-INR (11/24/2024 7:46 PM EDT) Prothrombin Time 16.2(H) 12.0 - 14.3 sec 11/24/2024 8:17 PM EDT [facility] INR 1.3(H) 0.9 - 1.1 11/24/2024 8:17 PM EDT [facility] Blood Venous blood specimen / Unknown Venipuncture / Unknown 11/24/2024 7:46 PM EDT 11/24/2024 7:53 PM EDT Narrative [facility] - 11/24/2024 8:17 PM EDT OPTIMAL INR RANGES FOR PATIENT ON ORAL ANTICOAGULANT THERAPY Prevention of venous thromboembolism INR 2.0 to 3.0 In patients with heart disease: Atrial fibrillation INR 2.0 to 3.0 Valvular heart disease INR 2.0 to 3.0 Tissue heart valves INR 2.0 to 3.0 Mechanical prosthetic valves INR 2.5 to 3.5 Prevention of recurrent NV INR 2.5 to 3.5 us Dillon Flowers MD LAB BLOOD ORDERABLES Final Res ult [facility] [address] [place] [address] * CBC w/diff (11/24/2024 7:46 PM EDT) WBC Count 8.02 3.70 - 10.30 10*3/uL LAB HEMATOLOGY METHOD 11/24/2024 8:04 PM EDT [facility] RBC Count 4.65 3.90 - 5.20 10*6/uL LAB HEMATOLOGY METHOD 11/24/2024 8:04 PM EDT [facility] HGB 14.4 11.2 - 15.7 g/dL LAB HEMATOLOGY METHOD 11/24/2024 8:04 PM EDT [facility] HCT 41.2 34.0 - 45.0 % LAB HEMATOLOGY METHOD 11/24/2024 8:04 PM EDT [facility] Platelet Count 166 155 - 369 10*3/uL LAB HEMATOLOGY METHOD 11/24/2024 8:04 PM EDT [facility] MCV 89 79 - 98 fL LAB HEMATOLOGY METHOD 11/24/2024 8:04 PM EDT [facility] MCH 31.0 26.0 - 32.0 pg LAB HEMATOLOGY METHOD 11/24/2024 8:04 PM EDT [facility] MCHC 35.0 30.7 - 35.5 g/dL LAB HEMATOLOGY METHOD 11/24/2024 8:04 PM EDT [facility] RDW 13.5 11.5 - 14.5 % LAB HEMATOLOGY METHOD 11/24/2024 8:04 PM EDT [facility] MPV 10.6 8.8 - 12.5 fL LAB HEMATOLOGY METHOD 11/24/2024 8:04 PM EDT [facility] nRBC 0.0 <=0.0 per 100 WBCs LAB HEMATOLOGY METHOD 11/24/2024 8:04 PM EDT [facility] Differential Type Automated LAB HEMATOLOGY METHOD 11/24/2024 8:04 PM EDT [facility] Neutrophils % 69 % LAB HEMATOLOGY METHOD 11/24/2024 8:04 PM EDT [facility] Lymphocytes % 22 % LAB HEMATOLOGY METHOD 11/24/2024 8:04 PM EDT [facility] Monocytes % 7 % LAB HEMATOLOGY METHOD 11/24/2024 8:04 PM EDT [facility] Eosinophils % 1 % LAB HEMATOLOGY METHOD 11/24/2024 8:04 PM EDT [facility] Basophils % 1 % LAB HEMATOLOGY METHOD 11/24/2024 8:04 PM EDT [facility] Immature Granulocytes % 0 % LAB HEMATOLOGY METHOD 11/24/2024 8:04 PM EDT [facility] Neutrophils Absolute 5.55 1.60 - 6.10 10*3/uL LAB HEMATOLOGY METHOD 11/24/2024 8:04 PM EDT [facility] Lymphocytes Absolute 1.78 1.20 - 3.90 10*3/uL LAB HEMATOLOGY METHOD 11/24/2024 8:04 PM EDT [facility] Monocytes Absolute 0.52 0.30 - 0.90 10*3/uL LAB HEMATOLOGY METHOD 11/24/2024 8:04 PM EDT [facility] Eosinophils Absolute 0.08 0.00 - 0.50 10*3/uL LAB HEMATOLOGY METHOD 11/24/2024 8:04 PM EDT [facility] Basophils Absolute 0.08 0.00 - 0.10 10*3/uL LAB HEMATOLOGY METHOD 11/24/2024 8:04 PM EDT [facility] Immature Granulocytes Absolute 0.01 0.00 - 0.06 10*3/uL LAB HEMATOLOGY METHOD 11/24/2024 8:04 PM EDT [facility] Blood Venous blood specimen / Unknown Venipuncture / Unknown 11/24/2024 7:46 PM EDT 11/24/2024 7:53 PM EDT Narrative [facility] - 11/24/2024 8:04 PM EDT Therapeutic decision making should be based on absolute values, rather than percentages. Dillon Flowers MD LAB BLOOD ORDERABLES Final Res ult Performing Organization Address [facility] Co de Phone Number [facility] [address] [place] [address] * Magnesium (11/24/2024 7:46 PM EDT) Magnesium, Plasma 1.9 1.9 - 2.4 mg/dL 11/24/2024 8:22 PM EDT [facility] Blood Venous blood specimen / Unknown Venipuncture / Unknown 11/24/2024 7:46 PM EDT 11/24/2024 7:53 PM EDT Dillon Flowers MD LAB BLOOD ORDERABLES Final Res ult Performing Organization Address City/[facility]/ZIP Co de Phone Number [facility] [address] [place] [address] * (ABNORMAL) CMP (11/24/2024 7:46 PM EDT) Glucose, Plasma 99 74 - 99 mg/dL 11/24/2024 8:22 PM EDT [facility] BUN, Plasma 9 8 - 23 mg/dL 11/24/2024 8:22 PM EDT [facility] Creatinine, Plasma 0.78 0.60 - 1.10 mg/dL 11/24/2024 8:22 PM EDT [facility] BUN/Creatinine Ratio 12 11/24/2024 8:22 PM EDT [facility] Sodium, Plasma 140 136 - 145 mmol/L 11/24/2024 8:22 PM EDT [facility] Potassium, Plasma 4.4 3.6 - 4.9 mmol/L 11/24/2024 8:22 PM EDT [facility] Chloride, Plasma 107 97 - 107 mmol/L 11/24/2024 8:22 PM EDT [facility] CO2, Plasma 23 22 - 29 mmol/L 11/24/2024 8:22 PM EDT [facility] Anion Gap 10 6 - 16 mmol/L 11/24/2024 8:22 PM EDT [facility] Total Calcium, Plasma 8.9 8.9 - 10.2 mg/dL 11/24/2024 8:22 PM EDT [facility] Total Protein 5.9(L) 6.3 - 7.9 g/dL 11/24/2024 8:22 PM EDT [facility] Albumin, Plasma 3.7 3.5 - 5.2 g/dL 11/24/2024 8:22 PM EDT [facility] AST, Plasma 13 10 - 35 U/L 11/24/2024 8:22 PM EDT [facility] ALT, Plasma 11 10 - 35 U/L 11/24/2024 8:22 PM EDT [facility] Alkaline Phosphatase, Plasma 67 46 - 142 U/L 11/24/2024 8:22 PM EDT [facility] Total Bilirubin, Plasma 0.8 0.2 - 1.1 mg/dL 11/24/2024 8:22 PM EDT [facility] eGFRcr 83.4 mL/min/1.7 3m*2 11/24/2024 8:22 PM EDT [facility] Comment:Reported eGFRcr in m L/min/1.73m2 is based the CKD-EPI 2020 equation that does not use a race coefficient. Blood Venous blood specimen / Unknown Venipuncture / Unknown 11/24/2024 7:46 PM EDT 11/24/2024 7:53 PM EDT us Dillon Flowers MD LAB BLOOD ORDERABLES Final Res ult [facility] [address] [place] [address] documented in this encounter Visit Diagnoses Diagnosis Abdominal pain, unspecified abdominal location Hyperbilirubinemia Disorders of bilirubin excretion A-fib Atrial fibrillation Abdominal pain, unspecified abdominal location COPD (chronic obstructive pulmonary disease) Chronic airway obstruction, not elsewhere classified Smoker Tobacco use disorder Malnutrition (CMS/HCC) Unspecified protein-calorie malnutrition Hyperbilirubinemia Disorders of bilirubin excretion Hypocalcemia Chest pain Unspecified chest pain documented in this encounter Admitting Diagnoses Diagnosis Abdominal pain Abdominal pain, unspecified site Abdominal pain, unspecified abdominal location documented in this encounter Administered Medications Inactive Administered Medications - up to 3 most recent administrations Medication Order MAR Action Action Date Dose Rate Site acetaminophen (Tylenol) tablet 650 mg 650 mg, Oral, Every 6 hours scheduled, First dose on Sun11/25/24 at 0015, Until Discontinued, Routine Given 11/27/2024 2:03 PM EDT 650 mg Given 11/27/2024 7:52 AM EDT 650 mg Given 11/27/2024 2:26 AM EDT 650 mg dextrose 5 % and lactated Ringer's infusion 42 mL/hr, Intravenous, Continuous, Starting on Sun11/25/24 at 0015, Until Sun11/26/24 at 1803, Routine Rate/Dose Change 11/26/2024 11:20 AM EDT 42 mL/hr 42 mL/hr New Bag 11/25/2024 4:10 PM EDT 75 mL/hr 75 mL/hr New Bag 11/25/2024 12:56 AM EDT 75 mL/hr 75 mL/hr enoxaparin (Lovenox) syringe 30 mg 30 mg, Subcutaneous, Once, 1 dose, On Sun11/26/24 at 1040, Routine Given 11/26/2024 11:25 AM EDT 30 mg Lef t Lower Abdomen enoxaparin (Lovenox) syringe 40 mg 40 mg, Subcutaneous, Daily, First dose on Sun11/25/24 at 1400, Until Discontinued, Routine Given 11/26/2024 8:21 AM EDT 40 mg Left Lower Abdomen Given 11/25/2024 1:54 PM EDT 40 mg Le ft Lower Abdomen enoxaparin (Lovenox) syringe 70 mg 70 mg (rounded from 72.6 mg = 1 mg/kg 72.6 kg), Subcutaneous, 2 times daily, First dose (after last modification) on Sun11/26/24 at 2100, Until Discontinued, Routine Given 11/27/2024 8:18 AM EDT 70 mg Left Lower Abdomen Given 11/26/2024 8:15 PM EDT 70 mg Ri ght Upper Abdomen heparin (porcine) injection 5,000 Units 5,000 Units, Subcutaneous, Every 8 hours scheduled, First dose on Sun11/25/24 at 0015, Until Discontinued, Routine Given 11/25/2024 6:51 AM EDT 5,000 Units Right Lower Abdomen Given 11/25/2024 12:57 AM EDT 5,000 Units Left Lower Abdomen ipratropium-albuterol (Duo-Neb) 0.5-2.5 mg/3 mL nebulizer solution 3 mL 3 mL, Nebulization, Every 6 hours PRN, Starting on Sun11/25/24 at 0012, Until Sun11/27/24 at 1927, Routine, wheezing Given 11/26/2024 9:07 PM EDT 3 mL lactated Ringer's infusion 1,000 mL 1,000 mL, Intravenous, Once, 1 dose, On 11/24/24 at 1925, STAT New Bag 11/24/2024 7:47 PM EDT 1,000 mL magnesium sulfate IVPB 2 g 2 g, Intravenous, Once, 1 dose, On Sun11/27/24 at 0645, Routine New Bag 11/27/2024 6:07 AM EDT 2 g 25 mL/hr methocarbamol (Robaxin) tablet 500 mg 500 mg, Oral, Every 8 hours, First dose on Sun11/25/24 at 0015, Until Discontinued, Routine Given 11/27/2024 4:12 PM EDT 500 mg Given 11/27/2024 7:48 AM EDT 500 mg Given 11/27/2024 2:26 AM EDT 500 mg metoprolol tartrate (Lopressor) split tablet 12.5 mg 12.5 mg, Oral, 2 times daily, First dose on Sun11/25/24 at 0015, Until Discontinued, Routine Given 11/25/2024 12:57 AM EDT 12.5 mg metoprolol tartrate (Lopressor) split tablet 6.25 mg 6.25 mg, Oral, 2 times daily, First dose (after last modification) on Sun11/25/24 at 0900, Until Discontinued, Routine Given 11/26/2024 8:21 AM EDT 6.25 mg Given 11/25/2024 9:02 PM EDT 6.25 mg ondansetron (Zofran) injection 4 mg 4 mg, Intravenous, Every 6 hours PRN, Starting on Sun11/25/24 at 0012, Until [facility] 11/27/24 at 1927, Routine, vomiting, nausea Given 11/27/2024 6:47 AM EDT 4 mg ondansetron ODT (Zofran-ODT) disintegrating tablet 4 mg 4 mg, Oral, Every 6 hours PRN, Starting on Sun11/25/24 at 0012, Until [facility] 11/27/24 at 1927, Routine, nausea, vomiting oxyCODONE (Roxicodone) immediate release tablet 5 mg 5 mg, Oral, Every 6 hours PRN, Starting on Sun11/25/24 at 1117, Until [facility] 11/27/24 at 1927, Routine, severe pain, moderate pain piperacillin-tazobactam (Zosyn) 4.5 g in sodium chloride 0.9% 100 mL IVPB (vial adapter required) 4.5 g, Intravenous, Every 6 hours, First dose on Sun11/25/24 at 0020, Until Discontinued, Routine New Bag 11/26/2024 11:22 AM EDT 4.5 g 36 .7 mL/hr New Bag 11/26/2024 5:37 AM EDT 4.5 g 36.7 mL/hr New Bag 11/26/2024 12:33 AM EDT 4.5 g 36.7 mL/hr potassium chloride CR (Klor-Con) ER tablet 20 mEq 20 mEq, Oral, Once, 1 dose, On Sun11/27/24 at 0800, Routine Given 11/27/2024 7:48 AM EDT 20 mEq potassium chloride CR (Klor-Con) ER tablet 40 mEq 40 mEq, Oral, Once, 1 dose, On Sun11/27/24 at 0645, Routine Given 11/27/2024 6:07 AM EDT 40 mEq sodium chloride 0.9 % flush 10 mL 10 mL, Intravenous, Every 12 hours, First dose on Sun11/25/24 at 0015, Until Discontinued, Routine Given 11/27/2024 11:31 AM EDT 10 mL Given 11/26/2024 11:15 PM EDT 10 mL Given 11/26/2024 11:25 AM EDT 10 mL sodium chloride 0.9 % flush 10 mL 10 mL, Intravenous, As needed, Starting on Sun11/25/24 at 0010, Until Maribel 11/27/24 at 1927, Routine, line care documented in this encounter Active and Recently Administered Medications Times are shown in EDT. Scheduled Medication Order 11/25/2024 11/26/2024 11/27/2024 acetaminophen (Tylenol) tablet 650 mg 650 mg, Oral, Every 6 hours scheduled, First dose on Sun11/25/24 at 0015, Until Discontinued, Routine 0057 (Given - Provider: Becki Haynes RN)0650 (Not Given - Provider: Becki Haynes RN - Reason: Patient/family refused)1231 (Given - Provider: Cindy Hinton)1746 (Given - Provider: Cindy Hinton) 0032 (Given - Provider: Isa Mixon RN)0537 (Not Given - Provider: Isa Mixon RN - Reason: Patient/family refused)1120 (Not Given - Provider: Narendra Serna RN - Reason: Patient/family refused)1717 (Not Given - Provider: Narendra Serna RN - Reason: Patient/family refused) 0226 (Given - Provider: Emelia Madrigal RN)0752 (Given - Provider: Gen Yeager)1403 (Given - Provider: Gen Yeager)1800 (Canceled Entry - Provider: Automatic Discharge Provider - Comment: Automatically canceled at discontinue of medication order) enoxaparin (Lovenox) syringe 30 mg (COMPLETED) 30 mg, Subcutaneous, Once, 1 dose, On Sun11/26/24 at 1040, Routine 1125 (Given - Provider: Narendra Serna RN) enoxaparin (Lovenox) syringe 40 mg (CANCELED) 40 mg, Subcutaneous, Daily, First dose on Sun11/25/24 at 1400, Until Discontinued, Routine 1354 (Given - Provider: Cindy Hinton) 0821 (Given - Provider: Narendra Serna, EUGENIO) enoxaparin (Lovenox) syringe 70 mg 70 mg (rounded from 72.6 mg = 1 mg/kg 72.6 kg), Subcutaneous, 2 times daily, First dose (after last modification) on Sun11/26/24 at 2100, Until Discontinued, Routine 2014 (Given - Provider: Emelia Madrigal RN) 0818 (Given - Provider: Gen Yeager) heparin (porcine) injection 5,000 Units (CANCELED) 5,000 Units, Subcutaneous, Every 8 hours scheduled, First dose on Sun11/25/24 at 0015, Until Discontinued, Routine 005 (Given - Provider: Becki Haynes RN)0651 (Given - Provider: Becki Haynes RN) magnesium sulfate IVPB 2 g (COMPLETED) 2 g, Intravenous, Once, 1 dose, On Sun11/27/24 at 0645, Routine 0607 (New Bag - Provider: Emelia Madrigal RN) methocarbamol (Robaxin) tablet 500 mg 500 mg, Oral, Every 8 hours, First dose on Sun11/25/24 at 0015, Until Discontinued, Routine 0057 (Given - Provider: Becki Haynes RN)0830 (Given - Provider: Lily Trent RN)1610 (Given - Provider: Cindy Hinton) 0037 (Given - Provider: Isa Mixon, EUGENIO)0821 (Given - Provider: Narendra Serna, EUGENIO)1627 (Not Given - Provider: Narendra Serna, EUGENIO - Reason: Patient/family refused) 0226 (Given - Provider: Emelia Madrigal, EUGENIO)0748 (Given - Provider: Gen Yeager)1612 (Given - Provider: Gen Yeager) metoprolol tartrate (Lopressor) split tablet 12.5 mg (CANCELED) 12.5 mg, Oral, 2 times daily, First dose on Sun11/25/24 at 0015, Until Discontinued, Routine 0057 (Given - Provider: Becki Haynes RN) metoprolol tartrate (Lopressor) split tablet 6.25 mg (CANCELED) 6.25 mg, Oral, 2 times daily, First dose (after last modification) on Sun11/25/24 at 0900, Until Discontinued, Routine 0830 (Not Given - Provider: Lily Trent RN - Reason: Hold for condition: must add comment - Comment: BP 96/57)2102 (Given - Provider: Isa Mixon RN) 0821 (Given - Provider: Narendra Serna RN) piperacillin-tazobact am (Zosyn) 4.5 g in sodium chloride 0.9% 100 mL IVPB (vial adapter required) (CANCELED) 4.5 g, Intravenous, Every 6 hours, First dose on Sun11/25/24 at 0020, Until Discontinued, Routine 0055 (New Bag - Provider: Becki Haynes RN)0355 (Stopped - Provider: Becki Haynes RN)0651 (New Bag - Provider: Becki Haynes RN)0942 (Stopped - Provider: Lily Trent RN)1231 (New Bag - Provider: Cindy Hinton)1600 (Stopped - Provider: Cindy Hinton)1746 (New Bag - Provider: Cindy Hinton)2115 (Stopped - Provider: Isa Mixon RN) 0033 (New Bag - Provider: Isa Mixon RN)0312 (Stopped - Provider: Isa Mixon RN)0537 (New Bag - Provider: Isa Mixon RN)0821 (Stopped - Provider: Narendra Serna RN)1122 (New Bag - Provider: Narendra Serna RN)1445 (Stopped - Provider: Narendra Serna RN) potassium chloride CR (Klor-Con) ER tablet 20 mEq (COMPLETED)(Linked Group 1) 20 mEq, Oral, Once, 1 dose, On Sun11/27/24 at 0800, Routine 0748 (Given - Provid er: Gen Yeager) potassium chloride CR (Klor-Con) ER tablet 40 mEq (COMPLETED)(Linked Group 1) 40 mEq, Oral, Once, 1 dose, On Sun11/27/24 at 0645, Routine 0607 (Given - Provid er: Emelia Madrigal RN) sodium chloride 0.9 % flush 10 mL(Linked Group 2) 10 mL, Intravenous, Every 12 hours, First dose on Sun11/25/24 at 0015, Until Discontinued, Routine 0058 (Given - Provider: Becki Haynes RN)1232 (Given - Provider: Cindy Hinton) 0037 (Given - Provider: Isa Mixon RN)1125 (Given - Provider: Narendra Serna, EUGENIO)2315 (Given - Provider: Emelia Madrigal RN) 1131 (Given - Provider: Gen Yeager) Continuous Medication Order 11/25/2024 11/26/2024 11/27/2024 dextrose 5 % and lactated Ringer's infusion (CANCELED) 42 mL/hr, Intravenous, Continuous, Starting on Sun11/25/24 at 0015, Until Sun11/26/24 at 1803, Routine 0056 (New Bag - Provider: Becki Haynes RN)1610 (New Bag - Provider: Cindy Hinton) 1120 (Rate/Dose Change - Provider: Narendra Serna, EUGENIO) PRN Medication Order 11/25/2024 11/26/2024 11/27/2024 ipratropium-albuterol (Duo-Neb) 0.5-2.5 mg/3 mL nebulizer solution 3 mL 3 mL, Nebulization, Every 6 hours PRN, Starting on Sun11/25/24 at 0012, Until Maribel 11/27/24 at 1927, Routine, wheezing 2107 (Given - Provider: Melvin Rodriguez) ondansetron (Zofran) injection 4 mg(Linked Group 3) 4 mg, Intravenous, Every 6 hours PRN, Starting on Sun11/25/24 at 0012, Until Maribel 11/27/24 at 1927, Routine, vomiting, nausea 0647 (Given - Provid er: Emelia Madrigal RN) ondansetron ODT (Zofran-ODT) disintegrating tablet 4 mg(Linked Group 3) 4 mg, Oral, Every 6 hours PRN, Starting on Sun11/25/24 at 0012, Until Maribel 11/27/24 at 1927, Routine, nausea, vomiting 0647 (See Alternativ e - Provider: Emelia Madrigal RN) oxyCODONE (Roxicodone) immediate release tablet 5 mg 5 mg, Oral, Every 6 hours PRN, Starting on Sun11/25/24 at 1117, Until Sun11/27/24 at 1927, Routine, severe pain, moderate pain sodium chloride 0.9 % flush 10 mL(Linked Group 2) 10 mL, Intravenous, As needed, Starting on Sun11/25/24 at 0010, Until Sun11/27/24 at 1927, Routine, line care Linked Groups Order Group 1: potassium chloride CR (Klor-Con) ER tablet 40 mEq (COMPLETED)Jump to med 40 mEq, Oral, Once, 1 dose, On Sun11/27/24 at 0645, Routine Followed by potassium chloride CR (Klor-Con) ER tablet 20 mEq (COMPLETED)Jump to med 20 mEq, Oral, Once, 1 dose, On Sun11/27/24 at 0800, Routine Group 2: Insert peripheral IV (CANCELED) Once, On Sun11/25/24 at 0011, For 1 occurrence And Saline lock IV (CANCELED) Once, On Sun11/25/24 at 0011, For 1 occurrence And sodium chloride 0.9 % flush 10 mLJump to med 10 mL, Intravenous, Every 12 hours, First dose on Sun11/25/24 at 0015, Until Discontinued, Routine And sodium chloride 0.9 % flush 10 mLJump to med 10 mL, Intravenous, As needed, Starting on Sun11/25/24 at 0010, Until Sun11/27/24 at 1927, Routine, line care Group 3: ondansetron ODT (Zofran-ODT) disintegrating tablet 4 mgJump to med 4 mg, Oral, Every 6 hours PRN, Starting on Sun11/25/24 at 0012, Until Sun11/27/24 at 1927, Routine, nausea, vomiting Or ondansetron (Zofran) injection 4 mgJump to med 4 mg, Intravenous, Every 6 hours PRN, Starting on Sun11/25/24 at 0012, Until Maribel 11/27/24 at 1927, Routine, vomiting, nausea Or ondansetron (Zofran) 4 MG/5ML solution 4 mg (CANCELED) 4 mg, Oral, Every 6 hours PRN, Starting on Sun11/25/24 at 0012, Until Sun11/25/24 at 0802, Routine, nausea, vomiting documented in this encounter Additional Health Concerns Infection Onset Date Last Indicated Resolved Time Gastrointestinal Rule-Out 11/25/2024 11/26/2024 8:02 AM EDT Assessment Noted Time A fall risk assessment has been complete d for the patient 01/01/2024 3:45 PM EDT A Body Mass Index follow-up plan has been documented for the patient 11/27/2024 4:18 PM EDT documented as of this encounter Care Teams Lead Level Designer Relationship Specialty Start Date End Date Elijah Wooten MD [address] [place] [id number] PCP - General 05/15/23 Zandra Saenz MD [address] [place] [phone] Surgeon Radiology 06/07/23 documented as of this encounter
--- OUTSIDE RECORDS SUMMARY | 2024-12-01 08:50 | XMS_ITS | Encounter Summary ---
Author Organization [facility] Address [address] [place] [address] Care Team Providers Care Resident Services Supervisor Name Role Phone Elijah Wooten MD Primary Care Provider [phone] Reason for Visit * Reason Comments Follow-up 4 month recheck- Ost eoarthritis of right knee Encounter Details Date Type Department Care Team (Late st Contact Info) Description 12/01/2024 8:50 AM EDT Office Visit [facility] [address] [place] [address] Nick Hyatt MD [facility] [place] [address] Osteoarthritis of right knee, unspecified osteoarthritis type (Primary Dx) Social History Tobacco Use Types Packs/Day Years Used Date Smoking Tobacco: Every Day Cigarettes 0.3 30 Smokeless Tobacco: Never Alcohol Use Standard Drinks/Week Comments Never 0 (1 standard drink = 0.6 oz pur e alcohol) Comments Unknown Sex and Gender Information Value Date Recorded Sex Assigned at Not on file Legal Sex Female 11:12 AM EDT Gender Identity Not on file Sexual Orientation Not on file documented as of this encounter Last Filed Vital Signs Vital Sign Reading Time Taken Comments Blood Pressure 128/72 12/01/2024 8:31 AM EDT Pulse - - Temperature - - Respiratory Rate - - Oxygen Saturation - - Inhaled Oxygen Concentration - - Weight 76.1 kg (167 lb 12.8 oz) 12/01/2024 8:31 AM EDT Height 166.4 cm (5' 5.51 ) 12/01/2024 8:31 AM ED T Body Mass Index 27.49 12/01/2024 8:31 AM EDT documented in this encounter Progress Notes * Nick Hyatt MD - 12/01/2024 8:50 AM EDT Images from the original note were not included. [facility] [place] Orthopa[facility] Surgery Clinic Note Subjective Chief Complaint Patient presents with Follow-up 4 month recheck- Osteoarthritis of right knee HPI It has been 4 month(s) since Ms. Myers's last visit. She returns to clinic today for follow-up of right knee pain. The issue has been ongoing for 3.5 year(s). She rates her pain a 5/10 on the pain scale. Previous/current treatments: steroid injection (last injection 07/14/2024). Current symptoms: s whit as prior visit. The pain is worse with climbing stairs and any movement of the joint; resting improve the pain. Overall, she is doing better. Last injection helped for about 3 months. She would like a repeat injection today. I have reviewed the following portions of the patient's history and agree with: History of Present Illness and Review of Systems There is no problem list on file for this patient. Past Medical History: Diagnosis Date Fracture, foot 2021 Tear of meniscus of knee Mar 2022 Past Surgical History: Procedure Laterality Date BLADDER SURGERY N/A 01/2022 ELBOW PROCEDURE Right 2016 TUBAL LIGATION N/A 1979 Family History Problem Relation Age of Onset Cancer Mother Hypertension Father Diabetes type II Father Social History Socioeconomic History Marital status: Tobacco Use Smoking status: Every Day Current packs/day: 0.25 Average packs/day: 0.3 packs/day for 30.0 years (7.5 ttl pk-yrs) Types: Cigarettes Smokeless tobacco: Never Vaping Use Vaping status: Never Used Substance and Sexual Activity Alcohol use: Never Drug use: Never Sexual activity: Defer Current Outpatient Medications on File Prior to Visit Medication Sig Dispense Refill Eliquis 5 MG tablet tablet Take 1 tablet by mouth Every 12 (Twelve) Hours. HYDROcodone-acetaminophen (NORCO) 5-325 MG per tablet Take 1 tablet by mouth 3 (Three) Times a Day. metoprolol succinate XL (TOPROL-XL) 25 MG 24 hr tablet Myrbetriq 50 MG tablet sustained-release 24 hour 24 hr tablet Take 50 mg by mouth Daily. omeprazole (priLOSEC) 20 MG capsule Take 1 capsule by mouth Daily. [DISCONTINUED] clopidogrel (PLAVIX) 75 MG tablet TAKE 1 TABLET BY MOUTH EVERY DAY FOR 30 DAYS No current facility-administered medications on file prior to visit. Allergies Allergen Reactions Morphine Unknown - Low Severity Other reaction(s): low bp, low bp Varenicline Unknown - Low Severity Cephalexin Rash Other reaction(s): rash, rash Codeine Rash Other reaction(s): rash, rash Meperidine Rash Metronidazole Rash Other reaction(s): rash, rash Review of Systems Constitutional: Negative for activity change, appetite change, chills, diaphoresis, fatigue, fever and unexpected weight change. HENT: Negative for congestion, dental problem, drooling, ear discharge, ear pain, facial swelling, hearing loss, mouth sores, nosebleeds, postnasal drip, rhinorrhea, sinus pressure, sneezing, sore throat, tinnitus, trouble swallowing and voice change. Eyes: Negative for photophobia, pain, discharge, redness, itching and visual disturbance. Respiratory: Negative for apnea, cough, choking, chest tightness, shortness of breath, wheezing andstridor. Cardiovascular: Negative for chest pain, palpitations and leg swelling. Gastrointestinal: Negative for abdominal distention, abdominal pain, anal bleeding, blood in stool,constipation, diarrhea, nausea, rectal pain and vomiting. Endocrine: Negative for cold intolerance, heat intolerance, polydipsia, polyphagia and polyuria. Genitourinary: Negative for decreased urine volume, difficulty urinating, dysuria, enuresis, flank pain, frequency, genital sores, hematuria and urgency. Musculoskeletal: Positive for arthralgias. Negative for back pain, gait problem, joint swelling, myalgias, neck pain and neck stiffness. Skin: Negative for color change, pallor, rash and wound. Allergic/Immunologic: Negative for environmental allergies, food allergies and immunocompromised state. Neurological: Negative for dizziness, tremors, seizures, syncope, facial asymmetry, speech difficulty, weakness, light-headedness, numbness and headaches. Hematological: Negative for adenopathy. Does not bruise/bleed easily. Psychiatric/Behavioral: Negative for agitation, behavioral problems, confusion, decreased concentration, dysphoric mood, hallucinations, self-injury, sleep disturbance and suicidal ideas. The patientis not nervous/anxious and is not hyperactive. Objective Physical Exam BP 128/72 Ht 166.4 cm (65.51 ) Wt 76.1 kg (167 lb 12.8 oz) BMI 27.49 kg/m?? Body mass index is 27.49 kg/m??. BMI is >= 25 and <30. (Overweight) The following options were offered after discussion;: none(medical contraindication) General: Mental Status: Alert Appearance: Cooperative, in no acute distress Build and Nutrition: Well-nourished well-developed female Orientation: Alert and oriented to person, place and time Posture: Normal Gait: Nonantalgic Integument: Right knee: No skin lesions, no rash, no ecchymosis Lower Extremities: Right Knee: Tenderness: None Effusion: None Swelling: None Crepitus: Positive Range of motion: Extension: 0?? Flexion: 125?? Instability: No varus laxity, no valgus laxity, negative anterior drawer Deformities: Mild valgus Imaging/Studies Imaging Results (Last 24 Hours) Procedure Component Value Units Date/Time XR Knee 4+ View Right [[id number]] Resulted: 12/01/24915 Updated: 12/01/24915 Narrative: Right Knee Radiographs Indication: right knee pain Views: Standing AP's and skiers of both knees, with lateral and sunrise views of the right knee Comparison: no prior studies available Findings: Near dyvt-hl-iixh contact lateral compartment, diffuse osteopenia, no acute bony abnormalities. Mild valgus alignment. Mild worsening compared to the previous imaging. Knee arthritis. Assessment and Plan Diagnoses and all orders for this visit: 1. Osteoarthritis of right knee, unspecified osteoarthritis type (Primary) - XR Knee 4+ View Right - - Large Joint Arthrocentesis: R knee 1. Osteoarthritis of right knee, unspecified osteoarthritis type I reviewed my findings with the patient. We discussed options again today for her right knee, and she would like to proceed with a repeat intra-articular steroid injection, which was provided. I willsee her back in 4 months, but I will be happy to see her back sooner for any problems. Procedure Note: The potential benefits of performing a therapeutic right knee joint injection, as well as potentialrisks (including, but not limited to infection, swelling, pain, bleeding, bruising, nerve/blood vessel damage, skin color changes, transient elevation in blood glucose levels, and fat atrophy) were discussed with the patient. After informed consent, timeout procedure was performed, and the skin on the right knee was prepped with chlorhexidine soap and alcohol, after which ethyl chloride was applied to the skin at the injection site. Via the anterolateral approach, 1ml of Kenalog 40 mg/ml mixed with 4ml 0.5% ropivacaine plain was injected into the knee joint. The patient tolerated the procedure well, experiencing 70% improvement a few minutes following the injection. There were no complications. Band-Aid was applied to the injection site. Post-procedural instructions were given to the patient and/or their caregiver. Return in about 4 months (around 04/02/2025). Nick Hyatt MD 12/01/24 13:36 EDT Dictated Utilizing [employer] Dictation * Linda Calix CMA - 12/01/2024 8:50 AM EDTAssociated Order(s): - Large Joint Arthrocentesis: R knee Procedure - Large Joint Arthrocentesis: R knee on 12/01/2024 9:22 AM Indications: pain Details: 21 G needle, superolateral approach Medications: 4 mL ropivacaine 0.5 %; 40 mg triamcinolone acetonide 40 MG/ML Outcome: tolerated well, no immediate complications Procedure, treatment alternatives, risks and benefits explained, specific risks discussed. Consent was given by the patient. Immediately prior to procedure a time out was called to verify the correctpatient, procedure, equipment, administrative support manager and site/side marked as required. Patient was prepped and draped in the usual sterile fashion. documented in this encounter Plan of Treatment Upcoming Encounters Date Type Department Care Team (Late st Contact Info) Description 12/30/2024 3:30 PM EDT [facility]ointment [facility] [address] [phone] 03/30/2025 4:00 PM EST Office Visit [facility] [address] [phone] Nick Hyatt MD [address] [phone] documented as of this encounter Procedures Procedure Name Priority Date/Time Associated Diagnosis Comments RI ARTHROCENTESIS ASPIR&/INJ MAJOR JT/BURSA W/O US Routine 12/01/2024 9:22 AM EDT Osteoarthritis of right knee, unspecified osteoarthritis type XR KNEE 4+ VW RIGHT Routine 12/01/2024 9 :09 AM EDT Osteoarthritis of right knee, unspecified osteoarthritis type documented in this encounter Results * RI ARTHROCENTESIS ASPIR&/INJ MAJOR JT/BURSA W/O US (12/01/2024 9:22 AM EDT) Narrative Linda Calix [facility] - 12/01/2024 9:22 AM EDT Linda Calix [facility] 12/01/2024 1:36 PM - Large Joint Arthrocentesis: R knee on 12/01/2024 9:22 AM Indications: pain Details: 21 G needle, superolateral approach Medications: 4 mL ropivacaine 0.5 %; 40 mg triamcinolone acetonide 40 MG/ML Outcome: tolerated well, no immediate complications Procedure, treatment alternatives, risks and benefits explained, specific risks discussed. Consent was given by the patient. Immediately prior to procedure a time out was called to verify the correct patient, procedure, equipment, administrative support manager and site/side marked as required. Patient was prepped and draped in the usual sterile fashion. us Nick Hyatt MD PROCEDURE/MINOR SURGICAL ORDER RHYS Final Result * XR Knee 4+ View Right (12/01/2024 9:09 AM EDT) Anatomical Region Laterality Modality Lower Extremities, Knee Right Xray Narrative 12/01/2024 9:16 AM EDT Right Knee Radiographs Indication: right knee pain Views: Standing AP's and skiers of both knees, with lateral and sunrise views of the right knee Comparison: no prior studies available Findings: Near ccsw-la-hqoj contact lateral compartment, diffuse osteopenia, no acute bony abnormalities. Mild valgus alignment. Mild worsening compared to the previous imaging. Knee arthritis. Nick Hyatt MD [facility] DI[facility]NOSTIC IMAGING ORDERAB LES Final Result documented in this encounter Visit Diagnoses Diagnosis Osteoarthritis of right knee, unspecified osteoarthritis type- Primary documented in this encounter Administered Medications Inactive Administered Medications - up to 3 most recent administrations Medication Order MAR Action Action Date Dose Rate Site ropivacaine (NAROPIN) 0.5 % injection 4 mL 4 mL, One-Time Injection, Starting on Sun12/01/24 at 0922, For 1 doseIndications:Osteoarthritis of right knee, unspecified osteoarthritis type Given 12/01/2024 9:22 AM EDT 4 mL Knee Right triamcinolone acetonide (KENALOG-40) injection 40 mg 40 mg, One-Time Injection, Starting on Sun12/01/24 at 0922, For 1 doseIndications:Osteoarthritis of right knee, unspecified osteoarthritis type Given 12/01/2024 9:22 AM EDT 40 mg Knee Right documented in this encounter Care Teams Resident Services Supervisor Relationship Specialty Start Date End Date Elijah Wooten MD [address] [place] [address] PCP - General Family Medicine 04/10/22 documented as of this encounter
--- OUTSIDE RECORDS SUMMARY | 2024-12-30 08:44 | XMS_ITS | Encounter Summary ---
Author Organization [employer] ([place], [place], [place], [place]) Address [address] [place] [address] Care Team Providers Care Timber Buyer Name Role Phone Elijah Wooten MD Primary Care Provider Encounter Details Date Type Department Care Team (Late st Contact Info) Description 01/12/2021 Transcribed Document [facility] Family Medicine [facility] [place] [address] ProviderChioma MD [address] [place] [address] [phone] Social History Tobacco Use Types Packs/Day Years [...] noted. ASSESSMENT: As above. PLAN: As above. /[id number] MD ARMINDA De Los Santos/SCOTTY / LSAshley / MODL Electronically signed by [facility] Conversion Ham Pumper Cerner at 06/26/2022 10:50 AM CDT documented in this encounter Plan of Treatment Upcoming Encounters Date Type Department Care Team (Late st Contact Info) Description 02/23/2025 1:45 PM EST Office Visit [facility] Pulmonology - [address] [place] [address] Anderson Rodriguez MD [address] [place] [address] documented as of this encounter Visit Diagnoses Not on filedocumented in this encounter Care Teams Timber Buyer Relationship Specialty Start Date End Date Elijah Wooten MD [address] [place] [address] PCP - General Family Medicine 03/28/22 documented as of this encounter
--- OUTSIDE RECORDS SUMMARY | 2024-12-30 08:44 | XMS_ITS | Encounter Summary ---
Author Organization [employer] ([place], [place], [place], [place]) Address [address] [place] [address] Care Team Providers Care Stone Spreader Operator Name Role Phone Elijah Wooten MD Primary Care Provider [phone] Encounter Details Date Type Department Care Team (Late st Contact Info) Description 01/24/2021 Transcribed Document [facility] [place] [facility] [place] [address] ProviderChioma MD [address] [place] [phone] Social History Tobacco Use Types Packs/Day Years Used Date Smoking Tobacco: Never Assessed Comments Unknown Sex and Gender Information Value Date Recorded Sex Assigned at Not on file Legal Sex Female 2:19 PM CDT Gender Identity Not on file Sexual Orientation Not on file documented as of this encounter Miscellaneous Notes * Cerner Conversion Note - Chioma ProviderMD - 01/24/2021 10:51 AM POSSUM TRAPPER IMER Main OR PreOp Summary Primary Physician: LELO CARDENAS MD-OBG Finalized Date/Time: 01/24/21 13:09:46 Pt. Name: YENIFER MYERS JEAN-PIERRE /Sex: 1955 Female Med Rec #: [id number] Physician: LELO CARDENAS MD-OBG Financial #: [id number] Pt. Type: O Room/Bed: [facility]/5 Admit/Disch: 01/24/21 04:39:00 - Institution: [facility] PreOp Case Times Entry 1 In Preop 01/24/21 08:05:00 Ready for Holding n/a Room Patient Ready for 01/24/21 09:32:00 Surgery Patient Out of Preop 01/24/21 10:27:00 Patient Out of n/a Holding Room Last Modified By: SHAWANDA SALVADOR RN 01/24/21 13:08:05 SJDarline PreOp Case Times Audit 01/24/21 13:08:05 Hedis Manager: SERGIO Modifier: WILSONBR <+> 1 Patient Out of Preop Finalized By: SHAWANDA SALVADOR RN Document Signatures Signed By: SHAWANDA SALVADOR RN 01/24/21 13:09 documented in this encounter Plan of Treatment Upcoming Encounters Date Type Department Care Team (Late st Contact Info) Description 02/23/2025 1:45 PM EST Office Visit [facility] Pulmonology - [address] [place] [id number] Anderson Rodriguez MD [address] [place] [address] documented as of this encounter Visit Diagnoses Not on filedocumented in this encounter Care Teams Stone Spreader Operator Relationship Specialty Start Date End Date Elijah Wooten MD [address] [place] [address] [place] [address] PCP - General Family Medicine 03/28/22 documented as of this encounter
--- OUTSIDE RECORDS SUMMARY | 2024-12-30 08:44 | XMS_ITS | Encounter Summary ---
Author Organization [employer] ([place], [place], [place], [place]) Address [address] [place] [address] Care Team Providers Care Hand Tube Winder Name Role Phone Elijah Wooten MD Primary Care Provider [phone] Encounter Details Date Type Department Care Team (Late st Contact Info) Description 01/24/2021 Transcribed Document [facility] [place] [facility] [place] [address] ProviderChioma MD [address] [place] [phone] Social History Tobacco Use Types Packs/Day Years Used Date Smoking Tobacco: Never Assessed Comments Unknown Sex and Gender Information Value Date Recorded Sex Assigned at Not on file Legal Sex Female 2:19 PM CDT Gender Identity Not on file Sexual Orientation Not on file documented as of this encounter Miscellaneous Notes * Cerner Conversion Note - Chioma ProviderMD - 01/24/2021 10:51 AM SENIOR PROCUREMENT MANAGER IMER Main OR IntraOp Summary Primary Physician: LELO CARDENAS MD-OBG Finalized Date/Time: 01/24/21 13:25:09 Pt. Name: YENIFER MYERS JEAN-PIERRE /Sex: 1955 Female Med Rec #: [id number] Physician: LELO CARDENAS MD-OBG Financial #: [id number] Pt. Type: O Room/Bed: [facility] Admit/Disch: 01/24/21 04:39:00 - [place] [facility] [place]Op Case Attendance Entry 1 Entry 2 Entry 3 Case Attendee LELO CARDENAS MD-OBG Varun Bruce, RN Susana Peres RN-PATIENT CARE BEDSIDE NON-EXEMPT Role Performed Surgeon/Proceduralist, Freight Tallier, First Freight Tallier, Second First Time In 01/24/21 10:31:00 01/24/21 [...] Attendee ALONDRA SHAW Antrobus, Monica, Burriss, Shandy, SENIOR PROCUREMENT MANAGER COOK APPRENTICE Sole Tier Role Performed COOK APPRENTICE/Nurse Changer Fixer Scrub, Second Scrub, First Time In 01/24/21 [...] PA-C Dooley, Carol, RN Role Performed Physician engineer second assistant Freight Tallier, Second Time In 01/24/21 10:31:00 01/24/21 11:42:00 Time Out 01/24/21 13:09:00 01/24/21 12:10:00 Procedure Sacrocolpopexy Robotic, Sacrocolpopexy Robotic Vaginal Sling Procedure, Cystoscopy Adult Other Attendee RN MICHELLE Superficial Wound Closed By: Last Modified By: Varun Bruce, RN Varun Bruce, RN 01/24/21 13:10:55 01/24/21 11:50:17 [facility] IntraOp Case Attendance Audit 01/24/21 13:10:55 Revenue Settlements Administrator: ERWIN Modifier: CLAUDER 1 <+> Time Out [...] 8 <*> Procedure Sacrocolpopexy Robotic 01/24/21 12:56:11 Revenue Settlements Administrator: ERWIN Modifier: CLAUDER 8 <+> Time Out 8 <*> Procedure Sacrocolpopexy Robotic 01/24/21 11:50:17 Revenue Settlements Administrator: ERWIN Modifier: CLAUDER 1 <+> Time In [...] [facility] IntraOp Case Times Audit 01/24/21 13:09:06 Revenue Settlements Administrator: CLAUDER Modifier: HOLLIDSR <+> 1 Out Room Time <+> 1 Stop Time 01/24/21 13:00:09 Revenue Settlements Administrator: ERWIN Modifier: HOLLIDSR <+> 1 Stop Time [...] Performed By Count Performed By Estrellita Menchaca, SENIOR PROCUREMENT MANAGER (Scrub) Count Performed By Varun Bruce RN (RN) Last Modified By: Varun Bruce RN 01/24/21 10:18:07 S[facility] IntraOp Counts Final Entry 1 Procedure Sacrocolpopexy Robotic, Vaginal Sling Procedure, Cystoscopy Adult Final Count Info Count Type Sponge, Sharps, Miscellaneous Counts Verification Skin Closure/end of Sequence procedure Count Results Correct, surgeon notified Counts Performed By Count Performed By Estrellita Menchaca, SENIOR PROCUREMENT MANAGER (Scrub) Count Performed By Varun Bruce, [...] Varun Bruce, Accompanied by RN, ALONDRA SHAW, COOK APPRENTICE Last Modified By: Varun Bruce RN 01/24/21 [...] Yes Assessment Complete Fire Risk Varun Bruce turkey picker Verified By Fire Risk 01/24/21 10:17:00 Assessment Verified Date/Time Fire Risk Standard Fire Yes Safety Precautions Followed Last Modified By: Varun Bruce RN 01/24/21 10:17:45 [facility] IntraOp General Case Api Developer 1 Case Information OR OR 07 SJE Case Level 1 Room Verified Yes Wound Class 1 - Clean Specialty Gynecology Anesthesia Type General ASA Class 3 Diagnosis Preop Diagnosis PELVIC PAIN, AUB Postop Diagnosis REFER TO MD NOTES Wound Class Definitions Last Modified By: Varun Bruce RN 01/24/21 10:52:33 [facility] IntraOp General Case Data Audit 01/24/21 10:52:33 Revenue Settlements Administrator: ERWIN Modifier: ERWIN <+> 1 ASA Class <+> 1 Wound Class <+> 1 Anesthesia Type <+> 1 Preop Diagnosis <+> 1 Postop Diagnosis <+> 1 Room Verified SJE IntraOp Implant Log Entry 1 Entry 2 Type Implant (Synthetic) Implant (Synthetic) Implant Log Implant Type Mesh Mesh Tissue Implant Type Implant MESH VERTESSA LITE Y SLING URIN INCONT Identification [id number] Description Implant Quantity 1 1 Implant Site Implant Identification Model Number Implant Identification Serial Number Implant [id number] Identification Lot Number Implant Sesar Med Sesar Med Identification Boat Deckhand Name: Implant [id number] Identification Catalog Number Implant Size Implant Has an Yes Yes Expiration Date Implant Expiration 04/01/25 02/09/25 Date Wasted Radioactive Material Time Implanted Tissue Implant Continue for Tissue Implant Documentation Tissue Identification Number Graft Prep Per Boat Deckhand Instructions: Tissue Preparation Method: Reconstitution Solution: Reconstitution Solution Lot Number Reconstitution Solution Expiration Date: Thawing Solution Thawing Solution Lot Number Thawing Solution Expiration Date Preparation Materials, Other Preparation Materials, Other Lot Number Preparation Materials, Other Expiration Date Tissue Prepared/Processed By Boat Deckhand Paperwork Completed Implant Type Comment Last Modified By: Varun Bruce RN Holliday, Stewart R, RN 01/24/21 11:17:24 01/24/21 12:32:56 S[facility] IntraOp Implant Log Audit 01/24/21 12:32:56 Revenue Settlements Administrator: ERWIN Modifier: CLAUDER <+> 2 Implant Identification Description <+> 2 Implant Identification Lot Number <+> 2 Implant Identification Boat Deckhand Name: <+> 2 Implant Expiration Date <+> [...] Scopes Photo/Video Documentation Last Modified By: Varun Bruce RN 01/24/21 10:52:19 [facility] IntraOp Medication Admin Entry 1 Entry 2 Medication/Irrigant Marcaine 0.5% w/ vasopressin 20units 1ml epinephrine 1:200,000 injection - [id number] 30ml vial - [id number] Combo Med List Time Administered Route of [...] Intra Op Sign Out Audit 01/24/21 13:09:33 Revenue Settlements Administrator: ERWIN Modifier: HOLLIDSR <+> 1 Wound classification reviewed, verified and updated post case in both the General Case Data and Procedure segments 01/24/21 13:09:26 Revenue Settlements Administrator: ERWIN Modifier: HOLLIDSR <+> 1 RN Sign [...] [facility] IntraOp Surgical Procedures Audit 01/24/21 13:10:41 Revenue Settlements Administrator: ERWIN Modifier: HOLLIDSR 1 <*> Procedure Sacrocolpopexy Robotic 1 <+> Wound Class 2 <*> Procedure Vaginal Sling Procedure 2 <+> Wound Class 3 <*> Procedure Cystoscopy Adult 3 <+> Wound Class 01/24/21 13:00:10 Revenue Settlements Administrator: ERWIN Modifier: HOLLIDSR <+> 1 Stop <+> 2 Stop <+> 3 Stop 01/24/21 12:30:12 Revenue Settlements Administrator: ERWIN Modifier: ROSAIDSR 1 <*> Procedure Sacrocolpopexy [...] Varun Bruce, RN Document Signatures Signed By: Vaurn Bruce RN 01/24/21 13:25 Electronically signed by [facility] Conversion Vegetable Preparer Cerner at 06/26/2022 10:56 AM CDT documented in this encounter Plan of Treatment Upcoming Encounters Date Type Department Care Team (Late st Contact Info) Description 02/23/2025 1:45 PM EST Office Visit [facility] Pulmonology - [address] [place] [address] Anderson Rodriguez MD [address] [place] [address] documented as of this encounter Visit Diagnoses Not on filedocumented in this encounter Care Teams Hand Tube Winder Relationship Specialty Start Date End Date Elijah Wooten MD [address] [place] [address] [place] [address] PCP - General Family Medicine 03/28/22 documented as of this encounter
--- OUTSIDE RECORDS SUMMARY | 2024-12-30 08:44 | XMS_ITS | Encounter Summary ---
Author Organization [employer] ([place], [place], [place], [place]) Address [address] [place] [address] Care Team Providers Care Delinquency Counselor Name Role Phone Elijah Wooten MD Primary Care Provider [phone] Encounter Details Date Type Department Care Team (Late st Contact Info) Description 01/24/2021 Transcribed Document [facility] [place] Family Medicine [facility] [place] [address] ProviderChioma MD [address] [place] [address] [phone] Social History Tobacco Use Types Packs/Day Years Used Date Smoking Tobacco: Never Assessed Comments Unknown Sex and Gender Information Value Date Recorded Sex Assigned at Not on file Legal Sex Female 2:19 PM CDT Gender Identity Not on file Sexual Orientation Not on file documented as of this encounter Miscellaneous Notes * Cerner Conversion Note - Chioma ProviderMD - 01/24/2021 10:51 AM SOFTWARE DEVELOPMENT PROJECT MANAGER [facility] [place] Summary Primary Physician: LELO CARDENAS MD-OBG Finalized Date/Time: 01/24/21 15:08:37 Pt. Name: YENIFER MYERS JEAN-PIERRE /Sex: 1955 Female Med Rec #: [id number] Physician: LELO CARDENAS MD-OBG Financial #: [id number] Pt. Type: O Room/Bed: [facility]/ Admit/Disch: 01/24/21 04:39:00 - Institution: [facility] [place] Case Times Entry 1 In PACU I 01/24/21 13:10:00 Ready for PACU 01/24/21 13:45:00 Discharge Discharge from PACU 01/24/21 15:02:00 I Last Modified By: MOLLY VICK RN 01/24/21 15:08:35 Finalized By: MOLLY VICK, RN Document Signatures Signed By: MOLLY VICK RN 01/24/21 15:08 Electronically signed by [facility] Conversion Cryolite Recovery Operator Cerner at 06/26/2022 10:53 AM CDT documented in this encounter Plan of Treatment Upcoming Encounters Date Type Department Care Team (Late st Contact Info) Description 02/23/2025 1:45 PM EST Office Visit [facility] Pulmonology - [address] [place] [address] Anderson Rodriguez MD [address] [place] [address] documented as of this encounter Visit Diagnoses Not on filedocumented in this encounter Care Teams Delinquency Counselor Relationship Specialty Start Date End Date Elijah Wooten MD [address] [place] [address] PCP - General Family Medicine 03/28/22 documented as of this encounter
--- OUTSIDE RECORDS SUMMARY | 2024-12-30 08:44 | XMS_ITS | Encounter Summary ---
Author Organization [employer] ([place], [place], [place], [place]) Address [address] [place] [address] Care Team Providers Care Preparation Plant Supervisor Name Role Phone Elijah Wooten MD Primary Care Provider [phone] Encounter Details Date Type Department Care Team (Late st Contact Info) Description 01/24/2021 Transcribed Document [facility] Family Medicine [address] [place] [address] ProviderChioma MD [address] [place] [address] [phone] Social History Tobacco Use Types Packs/Day Years Used Date Smoking Tobacco: Never Assessed Comments Unknown Sex and Gender Information Value Date Recorded Sex Assigned at Not on file Legal Sex Female 2:19 PM CDT Gender Identity Not on file Sexual Orientation Not on file documented as of this encounter Miscellaneous Notes * Cerner Conversion Note - Chioma Butt MD - 01/24/2021 1:30 PM ONLINE FACILITATOR DATE OF PROCEDURE: 01/24/2021 SURGEON: Jerson Knight MD RABBIT DRESSER: Barbara Moreira PA-C. ESTIMATED BLOOD LOSS: Approximately [...] all these adhesions very carefully with my legal document assistant given countertraction with Foster grasper and once all the adhesions were taken down off the sacral promontory and down in the cul-de-sac, then we went ahead and elevated the vaginal cuff with the aid of the [employer] vaginal manipulator and we very carefully dissected [...] anterior and posterior vaginal cuff using 6 [place] 2-0 sutures on anteriorly and 6 posteriorly. We then very carefully with the aid of the Austin assisting us after that was completed, we brought the mesh to the sacral promontory and we put 3 sutures on the S1 of the sacral promontory. This was done with intracorporeal tie with the aid of the robot. Once these were done, we excised the excess mesh and we very carefully removed the Austin as we went ahead and put a [...] to postop recovery room in satisfactory condition. /[id number] Jerson Knight MD LSB/AQ / LSB / MODL /[id number] documented in this encounter Plan of Treatment Upcoming Encounters Date Type Department Care Team (Late st Contact Info) Description 02/23/2025 1:45 PM EST Office Visit [facility] Pulmonology - [address] [place] [address] Anderson Rodriguez MD [address] [place] [address] documented as of this encounter Visit Diagnoses Not on filedocumented in this encounter Care Teams Preparation Plant Supervisor Relationship Specialty Start Date End Date Elijah Wooten MD [address] [place] [address] PCP - General Family Medicine 03/28/22 documented as of this encounter
--- OUTSIDE RECORDS SUMMARY | 2024-12-30 08:44 | XMS_ITS | Encounter Summary ---
Author Organization [employer] ([place], [place], [place], [place]) Address [address] [place] [address] Care Team Providers Care Home Service Demonstrator Name Role Phone Elijah Wooten MD Primary Care Provider [phone] Encounter Details Date Type Department Care Team (Late st Contact Info) Description 01/24/2021 Transcribed Document [facility] [place] Medicine [facility] [place] [address] ProviderChioma MD [address] [place] [address] Social History Tobacco Use Types Packs/Day [...] Chioma Butt MD - 01/24/2021 3:19 PM ZINC PLATE GRAINER Patient: YENIFER MYERS Age: 65 years Sex: Female : 1955 Associated Diagnoses: Urinary incontinence; Bladder prolapse, s/p colpopexy and bladder tack; Coronary artery spasm; Atrial fibrillation, transient; At risk for sleep apnea; Tobacco use disorder, continuous Author: MADYSON GTZ MD-INT Date of admission 01/24/2021 Date of consult 01/24/2021 PCP Elijah Wooten MD MANGANESE WHEELER, Jerson Knight MD Hospitalist medicine consult, internal [...] swelling, No deformity, Normal gait. Integumentary: Warm, [place], Intact, No pallor, No rash, WOUND STABLE. [...] then you may give Tylenol 650 mg PO/VA x 1. If no response in 2 [...] note dictated . Electronically signed by [facility] Conversion Ball Mill Mixer Cerner at 06/26/2022 10:44 AM CDT documented in this encounter Plan of Treatment Upcoming Encounters Date Type Department Care Team (Late st Contact Info) Description 02/23/2025 1:45 PM EST Office Visit [facility] Pulmonology - [address] [place] [address] Anderson Rodriguez MD [address] [place] [address] documented as of this encounter Visit Diagnoses Not on filedocumented in this encounter Care Teams Home Service Demonstrator Relationship Specialty Start Date End Date Elijah Wooten MD [address] [place] [address] [place] [address] PCP - General Family Medicine 03/28/22 documented as of this encounter
--- OUTSIDE RECORDS SUMMARY | 2024-12-30 08:44 | XMS_ITS | Encounter Summary ---
Author Organization [employer] ([employer] ([place], [place], [place], [place]) Address [address] [place] [address] Care Team Providers Care Truck Mechanic Apprentice Name Role Phone Elijah Wooten MD Primary Care Provider [phone] Encounter Details Date Type Department Care Team (Late st Contact Info) Description 01/11/2021 Transcribed Document [facility] [place] [address] ProviderChioma MD [address] [place] [phone] Social History Tobacco Use Types Packs/Day Years [...] Source : Measured Height Entry Format : [place] Height, Feet : 5 ft(Converted to: 152 cm, 60 Inch) Height, Inches : 8 Inch(Converted to: 0 ft 8 Inch, 20.32 cm) Clinical Height : 172.72 cm Weight Source : Standing scale Weight Entry Format : [place] Clinical Dosing Weight : 77.27 kg Weight, Pounds : 170 lb Body Surface Area (BSA) : 1.91 m2 Body Mass Index : 25.9 kg/m2 (HI) [place] Body Weight : 63 kg Gabriela Saleh [...] Gabriela Saleh RN - 01/11/2021 13:12 EDT [place] Suicide Severity Rating Scale (C-SSRS) CSSRS Past [...] Yenifer Legal Guardian : No Support Person/Patient Supervisor Lead Refinery : Yes Support Person/Pt Rep Name : Melissa de la garza Support Person/Pt Rep Contact Information : [phone] Want Family/Rep/Phys Notified of Admit : No Emergency Contact #1 : Catherine Goel Emergency Contact #1 Emergency Contact #1 Relationship : Daughter Emergency Contact #2 : . Emergency Contact #2 Phone Number : . Emergency Contact #2 Relationship : . Primary Language : Frisian Preferred Communication Mode : Verbal Communication Barrier : None Precision Assembler Needed : No Gabriela Saleh RN - [...] 01/11/2021 13:12 EDT Electronically signed by Delilah [facility] Conversion Obstetrics Nurse Practitioner Cerner at 06/26/2022 10:48 AM CDT documented in this encounter Plan of Treatment Upcoming Encounters Date Type Department Care Team (Late st Contact Info) Description 02/23/2025 1:45 PM EST Office Visit [facility] Pulmonology - [address] [place] [address] Anderson Rodriguez MD [address] [place] [address] documented as of this encounter Visit Diagnoses Not on filedocumented in this encounter Care Teams Truck Mechanic Apprentice Relationship Specialty Start Date End Date Elijah Wooten MD [address] [place] [address] [place] [address] PCP - General Family Medicine 03/28/22 documented as of this encounter
--- OUTSIDE RECORDS SUMMARY | 2024-12-30 08:44 | XMS_ITS | Encounter Summary ---
Author Organization [employer] ([place], [place], [place], [place]) Address [address] [place] [address] Care Team Providers Care Pickup Driver Name Role Phone Elijah Wooten MD Primary Care Provider Encounter Details Date Type Department Care Team (Late st Contact Info) Description 01/24/2021 Transcribed Document [facility] [place] Family Medicine [address] [place] [address] ProviderChioma MD [facility] [place] [address] Social History Tobacco Use Types [...] - Historical ProviderMD - 01/24/2021 5:00 PM NATIONAL VAN TRUCK DRIVER Chart Check - Review Order Profile Entered [...] Description 02/23/2025 1:45 PM EST Office Visit [facility] Pulmonology - [address] [place] [address] Anderson Rodriguez MD [address] [place] [address] documented as of this encounter Visit Diagnoses Not on filedocumented in this encounter Care Teams Pickup Driver Relationship Specialty Start Date End Date Elijah Wooten MD [address] [place] [address] PCP - General Family Medicine 03/28/22 documented as of this encounter
--- OUTSIDE RECORDS SUMMARY | 2024-12-30 08:44 | XMS_ITS | Encounter Summary ---
Author Organization [employer] ([place], [place], [place], [place]) Address [address] [place] [address] Care Team Providers Care Applications Development Analyst Name Role Phone Elijah Wooten MD Primary Care Provider [phone] Encounter Details Date Type Department Care Team (Late st Contact Info) Description 01/24/2021 Transcribed Document [facility] [place] [facility] [address] ProviderChioma MD [address] [place] [address] Social History Tobacco Use Types Packs/Day Years Used Date Smoking Tobacco: Never Assessed Comments Unknown Sex and Gender Information Value Date Recorded Sex Assigned at Not on file Legal Sex Female 2:19 PM CDT Gender Identity Not on file Sexual Orientation Not on file documented as of this encounter Miscellaneous Notes * Cerner Conversion Note - Historical ProviderMD - 01/24/2021 9:07 AM IMMIGRATION CONSULTANT Pre Procedure Adult Entered On: 01/24/2021 9:22 EST Performed On: 01/24/2021 9:07 EST by SHAWANDA SALVADOR RN Height and Weight, Clinical Dosing Height Source : Measured Height Entry Format : [place] Height, Feet : 5 ft(Converted to: 152 cm, 60 Inch) Height, Inches : 8 Inch(Converted to: 0 ft 8 Inch, 20.32 cm) Clinical Height : 172.72 cm Weight Source : Standing scale Weight Entry Format : [place] Clinical Dosing Weight : 77.27 kg Weight, Pounds : 170 lb Body Surface Area (BSA) : 1.91 m2 Body Mass Index : 25.9 kg/m2 (HI) [place] Body Weight : 63 kg SHAWANDA SALVADOR [...] SHAWANDA SALVADOR RN - 01/24/2021 9:07 EST [place] Suicide Severity Rating Scale (C-SSRS) CSSRS Past [...] Daughter Legal Guardian : No Support Person/Patient Supervisor [place] : Yes Support Person/Pt Rep Name : Melissa de la garza Support Person/Pt Rep Contact Information : [phone] Want Family/Rep/Phys Notified of Admit : No Emergency Contact #1 : Catherine Goel Emergency Contact #1 Emergency Contact #1 Relationship : Daughter Emergency Contact #2 : . Emergency Contact #2 Phone Number : . Emergency Contact #2 Relationship : . Primary Language : Egyptian Preferred Communication Mode : Verbal Communication Barrier : None Coal Getter Needed : No SHAWANDA SALVADOR RN - [...] Scale Risk Level : 25-45 Medium Risk [place] Fall Interventions : Adequate lighting, Bed in [...] - 01/24/2021 9:07 EST Electronically signed by [facility] Conversion A Auxiliary Cerner at 06/26/2022 10:58 AM CDT documented in this encounter Plan of Treatment Upcoming Encounters Date Type Department Care Team (Late st Contact Info) Description 02/23/2025 1:45 PM EST Office Visit [facility] Pulmonology - [address] [place] [address] Anderson Rodriguez MD [address] [place] [address] documented as of this encounter Visit Diagnoses Not on filedocumented in this encounter Care Teams Applications Development Analyst Relationship Specialty Start Date End Date Elijah Wooten MD [address] [place] [address] [place] [address] PCP - General Family Medicine 03/28/22 documented as of this encounter
--- OUTSIDE RECORDS SUMMARY | 2024-12-30 08:44 | XMS_ITS | Encounter Summary ---
Author Organization [employer] ([place], [place], [place], [place]) Address [address] [place] [address] Care Team Providers Care Meat Lugger Name Role Phone Elijah Wooten MD Primary Care Provider [phone] Encounter Details Date Type Department Care Team (Late st Contact Info) Description 01/24/2021 Transcribed Document [facility] [place] [facility] [place] [address] ProviderChioma MD [address] [place] [id number] Social History Tobacco Use Types Packs/Day Years Used Date Smoking Tobacco: Never Assessed Comments Unknown Sex and Gender Information Value Date Recorded Sex Assigned at Not on file Legal Sex Female 2:19 PM CDT Gender Identity Not on file Sexual Orientation Not on file documented as of this encounter Miscellaneous Notes * Cerner Conversion Note - Historical ProviderMD - 01/24/2021 4:38 AM SPLUNK DEVELOPER Admission History, Adult Entered On: 01/24/2021 15:28 [...] Anticipated : Home Kasey Lawrence RN-[facility] - 01/24/2021 15:25 EST Education Topics, [...] : Independent Current Home Treatments : None Kasye Lawrence RN-[facility] - 01/24/2021 15:25 EST General Info Preferred Name : Yenifer Arrived From : Home Mode of Arrival on Unit : Ambulatory Legal Guardian : Daughter Legal Guardian : No Support Person/Patient Shell Press Operator : Yes Support Person/Pt Rep Name : Melissa de la garza Support Person/Pt Rep Contact Information : [phone] Want Family/Rep/Phys Notified of Admit : No Emergency Contact #1 : Catherine Goel Emergency Contact #1 Emergency Contact #1 Relationship : Daughter Emergency Contact #2 : . Emergency Contact #2 Phone Number : . Emergency Contact #2 Relationship : . Primary Language : German Preferred Communication Mode : Verbal Communication Barrier : None Fishing Vessel Operator Needed : No Kasey Lawrence RN-[facility] - 01/24/2021 15:25 EST Fall Risk [...] Scale Risk Level : 25-45 Medium Risk [place] Fall Interventions : Adequate lighting, Bed in [...] Source : Measured Height Entry Format : [place] Height, Feet : 5 ft(Converted to: 152 cm, 60 Inch) Height, Inches : 8 Inch(Converted to: 0 ft 8 Inch, 20.32 cm) Clinical Height : 172.72 cm Weight Source : Standing scale Weight Entry Format : [place] Clinical Dosing Weight : 77.27 kg Weight, Pounds : 170 lb Body Surface Area (BSA) : 1.91 m2 Body Mass Index : 25.9 kg/m2 (HI) [place] Body Weight : 63 kg Kasey Lawrence RN-[facility] - 01/24/2021 15:25 EST Infectious Disease [...] Vaccine? : No Kasey Lawrence RN-[facility] - 01/24/2021 15:25 EST Infectious Disease [...] day) : NO Kasey Lawrence RN-[facility] - 01/24/2021 15:25 EST Physical contact outside [place] in the last 30 days : No Hospitalized in Foreign Country : No Infectious Disease History : Chicken pox/Shingles, Influenza, Other: COVID-19 INF Disease TB Screening Calc : 0 INF Disease Recent Travel Calc : 0 Kasey Lawrence RN-[facility] - 01/24/2021 15:25 EST Influenza Vaccine Asmt, Adult Previous Vaccines from Immunization Schedule : No qualifying data available. Influenza Immunization, Current Season : No Inactivated Flu Vaccine Contraindications : No contraindications to inactivated influenza vaccine Transplant Workup/Recent Transplant : No Order for Influenza Vaccine : Declined Vaccination Kasey Lawrence RN-[facility] - 01/24/2021 15:25 EST Pneumococcal Vaccine Previous Vaccines from Immunization Schedule : No qualifying data available. Pneumonia Immunization Received : No Pneumococcal Risk Assessment < Age 65 : None Kasey Lawrence RN-[facility] - 01/24/2021 15:25 EST Order Details Patient Needs Meds Crushed/Liquid : No Kasey Lawrence RN-[facility] - 01/24/2021 15:25 EST Nutrition History Eating Poorly Due to Decreased Appetite : No Unplanned Weight Loss in Past 3-6 Months : No Malnutrition Screening Tool Total(mal) : 0 Malnutrition Screening Tool Risk Level : Patient not at risk Kasey Lawrence RN-[facility] - 01/24/2021 15:25 EST [place] Suicide Severity Rating Scale (C-SSRS) CSSRS Past [...] Situation : No Kasey Lawrence RN-[facility] - 01/24/2021 15:25 EST Sleep Apnea [...] Score : 3 Kasey Lawrence RN-[facility] - 01/24/2021 15:25 EST Valuables and Belongings Valuables and Belongings : Clothing, Personal devices, Personal items Clothing : Common streetwear Clothing Disposition : Bedside Personal Device Disposition : Bedside Personal Devices : Glasses Personal Items : Cell phone Personal Items Disposition : Bedside Kasey Lawrence RN-[facility] - 01/24/2021 15:25 EST documented in this encounter Plan of Treatment Upcoming Encounters Date Type Department Care Team (Late st Contact Info) Description 02/23/2025 1:45 PM EST Office Visit [facility] Pulmonology - [address] [place] [address] Anderson Rodriguez MD [address] [place] [address] documented as of this encounter Visit Diagnoses Not on filedocumented in this encounter Care Teams Meat Lugger Relationship Specialty Start Date End Date Elijah Wooten MD [address] [place] [address] [place] [address] PCP - General Family Medicine 03/28/22 documented as of this encounter
--- OUTSIDE RECORDS SUMMARY | 2024-12-30 08:44 | XMS_ITS | Encounter Summary ---
Author Organization [facility] Address [address] [place] [address] Care Team Providers Care Central Melt Specialist Name Role Phone Elijah Wooten MD Primary Care Provider [phone] Encounter Details Date Type Department Care Team [...] Info) Description 12/30/2024 3:30 PM EDT Appointment [facility] [address] [address] 03/30/2025 4:00 PM EST Office Visit [facility] [address] [place] [address] Nick Hyatt MD [address] [id number] documented as of this encounter Visit Diagnoses Not on filedocumented in this encounter Care Teams Central Melt Specialist Relationship Specialty Start Date End Date Elijah Wooten MD [address] [place], [place] [address] [place] [address] PCP - General Family Medicine 04/10/22 documented as of this encounter
--- OUTSIDE RECORDS SUMMARY | 2024-12-30 08:44 | XMS_ITS | Encounter Summary ---
Author Organization [employer] ([place], [place], [place], [place]) Address [address] [place] [address] Care Team Providers Care Certified Ethical Hacker Name Role Phone Elijah Wooten MD Primary Care Provider [phone] Encounter Details Date Type Department Care Team (Late st Contact Info) Description 01/24/2021 Transcribed Document [facility] [place] [facility] [place] [address] ProviderChioma MD [address] [place] [address] [phone] Social History Tobacco Use Types Packs/Day Years Used Date Smoking Tobacco: Never Assessed Comments Unknown Sex and Gender Information Value Date Recorded Sex Assigned at Not on file Legal Sex Female 2:19 PM CDT Gender Identity Not on file Sexual Orientation Not on file documented as of this encounter Miscellaneous Notes * Cerner Conversion Note - Historical ProviderMD - 01/24/2021 3:46 PM INSPECTOR BALANCE BRIDGE Pain Assessment Entered On: 01/25/2021 6:03 EST Performed On: 01/24/2021 19:33 EST by Cassie Villalba RN Intervention Information: acetaminophen-HYDROcodone Performed by Aelja Silva LPN on 01/24/2021 18:33:00 EST acetaminophen-HYDROcodone,2Tab [...] Description 02/23/2025 1:45 PM EST Office Visit [facility] Pulmonology - [address] [place] [id number] Anderson Rodriguez MD [address] [place] [address] documented as of this encounter Visit Diagnoses Not on filedocumented in this encounter Care Teams Certified Ethical Hacker Relationship Specialty Start Date End Date Elijah Wooten MD [address] [place] [address] [place] [address] PCP - General Family Medicine 03/28/22 documented as of this encounter
--- NOTE | 2024-12-30 08:45 | CA_ITS ---
APPROVED REPORT EXAM: Comprehensive 2D, Doppler, and color-flow Echocardiogram Welder Railcar Mechanic: Keke Jose RVT Ht: 5 ft 9 in Wt: 160lbs BSA: 1.88 BP: 116/71 mmHg Indications: ABNORMAL EKG 2D Dimensions LA Volume 33.70 mL LA Volume Index 17.93 mL/m2 (M/F) 16-34 M-Mode Dimensions RVDd 2.75 cm (0.9-2.6) LA Diam 2.94 cm (1.9-4.0) LVDd 5.18 cm (3.5-5.7) LVDs 3.60 cm (3.5-5.7) IVSd 1.00 cm (0.6-1.1) PWd 0.64 cm (0.6-1.1) EF (Teich) 57.60% FS 30.50% EDV (Teich) 128.40 mL TAPSE 2.02 (<1.7) ESV (Teich) 54.40 mL LV Diastology E Decel Time 283 (160-240 msec) E/A Ratio 0.8 Aortic Valve AZAR Index 2.19 cm2/m2 AoV Peak John. 110.0 (50-130 cm/s) AO Peak GR. 4.80 mmHg AO Mean GR. 2.50 (<5 mmHg) AO VTI 23.6 (18-25 cm) AZAR (VTI) 4.20 (2.5-4.5 cm2) Mitral Valve MV E Max John. 59.0 (40-130 cm/s) MV A Velocity 76.0 (40-130 cm/s) E/A Ratio 0.77 MV PHT 83.0 ms Pulmonary Valve PV Peak Velocity 64.0 (50-150 cm/s) Left Ventricle The left ventricle is normal size. Left ventricular systolic function is normal. The left ventricular ejection fraction is within the normal range. There is increased left ventricular wall thickness. There is normal LV segmental wall motion. Transmitral Doppler flow pattern suggests impaired LV relaxation. LVEF is 55% Right Ventricle The right ventricle is mildly dilated. The right ventricular systolic function is normal. Atria The left atrium is mildly dilated. The right atrium is mildly dilated. There is no color Doppler evidence of interatrial shunt. Aortic Valve The aortic valve is mildly thickened. There is no hemodynamically significant aortic valvular stenosis. No aortic regurgitation is present. Mitral Valve The mitral valve is normal in structure. No evidence of mitral valve stenosis. Trace mitral regurgitation is present. Tricuspid Valve The tricuspid valve leaflets are thin and pliable. Trace tricuspid regurgitation. There is insufficient TR jet to estimate RVSP. Pulmonic Valve The pulmonary valve is grossly normal in structure. Mild pulmonic valve regurgitation is present. Great Vessels The aortic root is normal in size. IVC is normal in size and collapses >50% with inspiration. Pericardium There is no pericardial effusion. Other Information Study Quality: Fair Conclusion Normal biventricular systolic function. Mild RV dilation. Mild biatrial dilation. Mild PI. Electronically signed by : Tiffany Plasencia MD 01/05/2025 12:57:09
--- OUTSIDE RECORDS SUMMARY | 2024-12-30 08:45 | XMS_ITS | Encounter Summary ---
Author Organization [employer] ([place], [place], [place], [place]) Address [address] [place] [address] Care Team Providers Care Mechanic Insulator Name Role Phone Elijah Wooten MD Primary Care Provider [phone] Encounter Details Date Type Department Care Team (Late st Contact Info) Description 01/25/2021 Transcribed Document [facility] [place] [place] Family Medicine [facility] [place] [address] ProviderChioma MD [address] [place] [address] Social History Tobacco Use Types Packs/Day Years Used Date Smoking Tobacco: Never Assessed Comments Unknown Sex and Gender Information Value Date Recorded Sex Assigned at Not on file Legal Sex Female 2:19 PM CDT Gender Identity Not on file Sexual Orientation Not on file documented as of this encounter Miscellaneous Notes * Cerner Conversion Note - Historical ProviderMD - 01/25/2021 2:00 AM MARKETING GRAPHICS SPECIALIST Bobbin Loose End Finder Details Entered On: 01/25/2021 6:03 EST Performed [...] EST Electronically signed by Florinda Mazariegos Conversion Regional Loss Prevention Manager Cerner at 06/26/2022 10:35 AM CDT documented in this encounter Plan of Treatment Upcoming Encounters Date Type Department Care Team (Late st Contact Info) Description 02/23/2025 1:45 PM EST Office Visit [facility] Pulmonology - [address] [place] [address] Anderson Rodriguez MD [address] [place] [address] documented as of this encounter Visit Diagnoses Not on filedocumented in this encounter Care Teams Mechanic Insulator Relationship Specialty Start Date End Date Elijah Wooten MD [address] [place] [address] [place] [address] PCP - General Family Medicine 03/28/22 documented as of this encounter
--- OUTSIDE RECORDS SUMMARY | 2024-12-30 08:45 | XMS_ITS | Encounter Summary ---
Author Organization [employer] ([place], [place], [place], [place]) Address [address] [place] [address] Care Team Providers Care Etl Data Architect Name Role Phone Elijah Wooten MD Primary Care Provider [phone] Encounter Details Date Type Department Care Team (Late st Contact Info) Description 01/25/2021 Transcribed Document [facility] [place] Family [place] [facility] [place] [address] ProviderChioma MD [address] [place] [address] Social History Tobacco Use Types Packs/Day Years Used Date Smoking Tobacco: Never Assessed Comments Unknown Sex and Gender Information Value Date Recorded Sex Assigned at Not on file Legal Sex Female 2:19 PM CDT Gender Identity Not on file Sexual Orientation Not on file documented as of this encounter Miscellaneous Notes * Cerner Conversion Note - Historical ProviderMD - 01/25/2021 4:19 PM AUTO BODY MAN Nursing Discharge Summary Entered On: 01/25/2021 16:23 EST Performed On: 01/25/2021 16:19 EST by SHAWANDA GARDNER RN Discharge Documentation Discharge Date/Time : 01/25/2021 15:17 EST Transporter Signature : Lydia Juarez Certified Alcohol Counselor-Health Unit Coord Patient Disposition, General : Discharge [...] SHAWANDA GARDNER, EUGENIO - 01/25/2021 16:19 EST Electronically signed by Florinda Mazariegos Conversion Tool And Production Planner Alonzo at 06/26/2022 10:51 AM CDT documented in this encounter Plan of Treatment Upcoming Encounters Date Type Department Care Team (Late st Contact Info) Description 02/23/2025 1:45 PM EST Office Visit [facility] Pulmonology - [address] [place] [address] Anderson Rodriguez MD [address] [place] [address] documented as of this encounter Visit Diagnoses Not on filedocumented in this encounter Care Teams Etl Data Architect Relationship Specialty Start Date End Date Elijah Wooten MD [address] [place] [address] PCP - General Family Medicine 03/28/22 documented as of this encounter
--- OUTSIDE RECORDS SUMMARY | 2024-12-30 08:45 | XMS_ITS | Encounter Summary ---
Author Organization [employer] ([place], [place], [place], [place]) Address [address] [place] [address] Care Team Providers Care Health Sciences Program Coordinator Name Role Phone Elijah Wooten MD Primary Care Provider [phone] Encounter Details Date Type Department Care Team (Late st Contact Info) Description 01/25/2021 Transcribed Document [facility] [place] [facility] [place] [address] ProviderChioma MD [address] [place] [address] Social History Tobacco Use Types Packs/Day Years Used Date Smoking Tobacco: Never Assessed Comments Unknown Sex and Gender Information Value Date Recorded Sex Assigned at Not on file Legal Sex Female 2:19 PM CDT Gender Identity Not on file Sexual Orientation Not on file documented as of this encounter Miscellaneous Notes * Cerner Conversion Note - Chioma ProviderMD - 01/25/2021 11:59 AM LABOR SPECIALIST Patient: YENIFER MYERS Age: 65 years Sex: [...] % LOW Lymph # 1.07 K/uL LOW Knott % 6.6 % Knott # 0.77 K/uL Eos % 0.0 % [...] Description 02/23/2025 1:45 PM EST Office Visit [facility] Pulmonology - [address] [place] [address] Anderson Rodriguez MD [address] [place] [address] documented as of this encounter Visit Diagnoses Not on filedocumented in this encounter Care Teams Health Sciences Program Coordinator Relationship Specialty Start Date End Date Elijah Wooten MD [address] [place] [address] [place] [address] PCP - General Family Medicine 03/28/22 documented as of this encounter
--- OUTSIDE RECORDS SUMMARY | 2024-12-30 08:45 | XMS_ITS | Encounter Summary ---
Author Organization [employer] ([place], [place], [place], [place]) Address [address] [place] [address] Care Team Providers Care Donkey Doctor Name Role Phone Elijah Wooten MD Primary Care Provider [phone] Encounter Details Date Type Department Care Team (Late st Contact Info) Description 01/25/2021 Transcribed Document [facility] [place] Family [place] [address] ProviderChioma MD [address] [place] [id number] Social History Tobacco Use Types Packs/Day Years Used Date Smoking Tobacco: Never Assessed Comments Unknown Sex and Gender Information Value Date Recorded Sex Assigned at Not on file Legal Sex Female 2:19 PM CDT Gender Identity Not on file Sexual Orientation Not on file documented as of this encounter Miscellaneous Notes * Cerner Conversion Note - Chioma ProviderMD - 01/25/2021 11:01 AM METAL ROOM DENTAL TECHNICIAN Initial Discharge Planning Entered On: 01/25/2021 11:04 [...] Narrative Note : 65yo female admitted after service desk team lead surgery. The pt lives at home alone [...] Description 02/23/2025 1:45 PM EST Office Visit [facility] Pulmonology - [address] [place] [address] Anderson Rodriguez MD [address] [place] [address] documented as of this encounter Visit Diagnoses Not on filedocumented in this encounter Care Teams Donkey Doctor Relationship Specialty Start Date End Date Elijah Wooten MD [address] [place] [address] [place] [address] PCP - General Family Medicine 03/28/22 documented as of this encounter
--- OUTSIDE RECORDS SUMMARY | 2024-12-30 08:46 | XMS_ITS | Clinical Summary ---
Author Organization [facility] Address [address] [place] [address] Care Team Providers Care Detective Youth Bureau Name Role Phone Elijah Wooten MD Primary Care Provider [phone] Allergies Active Allergy Reactions Criticality Noted Date [...] Description 12/01/2024 8:50 AM EDT Office Visit [facility] [address] [place] [address] Nick Hyatt MD Osteoarthritis of right knee, [...] Info) Description 12/30/2024 3:30 PM EDT Appointment [facility] [address] [facility] [address] [place] [address] 03/30/2025 4:00 PM EST Office Visit [facility] [address] [place] [address] Nick Hyatt MD [address] [place] [address] Health Maintenance Due Date Last Done Comments [...] Procedure Name Priority Date/Time Associated Diagnosis Comments [place] ARTHROCENTESIS ASPIR&/INJ MAJOR JT/BURSA W/O US Routine 12/01/2024 9:22 AM EDT Osteoarthritis of right knee, unspecified osteoarthritis type XR KNEE 4+ VW RIGHT Routine 12/01/2024 9 :09 AM EDT Osteoarthritis of right knee, unspecified osteoarthritis type from Last 3 Months Results * AZ ARTHROCENTESIS ASPIR&/INJ MAJOR JT/BURSA W/O US (12/01/2024 [...] the correct patient, procedure, equipment, administrative support technician and site/side marked as required. Patient was [...] Comparison: no prior studies available Findings: Near gtvi-rx-frre contact lateral compartment, diffuse osteopenia, no acute bony abnormalities. Mild valgus alignment. Mild worsening compared to the previous imaging. Knee arthritis. us Nick Hyatt MD IMG DIAGNOSTIC IMAGING ORDERAB LES Final Result from Last 3 Months Insurance MEDICARE ADVANTAGE PPO Care Teams Detective Youth Bureau Relationship Specialty Start Date End Date Elijah Wooten MD [address] [place] [address] [place] [address] PCP - General Family Medicine 04/10/22
--- OUTSIDE RECORDS SUMMARY | 2024-12-30 08:46 | XMS_ITS | Encounter Summary ---
Author Organization [employer] ([place], [place], [place], [place]) Address [address] [place] [address] Care Team Providers Care Sane Nurse Name Role Phone Elijah Wooten MD Primary Care Provider [phone] Encounter Details Date Type Department Care Team (Late st Contact Info) Description 01/25/2021 Transcribed Document [facility] [place] [address] [place] [address] ProviderChioma MD [address] [place] [address] Social History Tobacco Use Types Packs/Day [...] Chioma Butt MD - 01/25/2021 2:46 PM PRACTICE MANAGERS Patient Education Materials Follows:and Gynecology Sacrocolpopexy, Care [...] these instructions at home: Medicines ??? Take wvjr-tqg-ljyebfn and prescription medicines only as told by [...] and water are not available, use hand pipe line walker. ? Change your dressing as told by [...] keep your urine pale yellow. ? Take hrji-zqi-zzhwldn or prescription medicines. ? Eat foods that [...] provider. Document Revised: 02/08/2018 Document Reviewed: 05/24/2017 [facility] Patient Education ? 2020 [facility] [employer] Electronically signed by Florinda Mazariegos Conversion Documentation Billing Clerk Alonzo at 06/26/2022 10:36 AM CDT documented in this encounter Plan of Treatment Upcoming Encounters Date Type Department Care Team (Late st Contact Info) Description 02/23/2025 1:45 PM EST Office Visit [facility] Pulmonology - [address] [place] [address] Anderson Rodriguez MD [address] [place] [address] documented as of this encounter Visit Diagnoses Not on filedocumented in this encounter Care Teams Sane Nurse Relationship Specialty Start Date End Date Elijah Wooten MD [address] [place] [address] PCP - General Family Medicine 03/28/22 documented as of this encounter
--- OUTSIDE RECORDS SUMMARY | 2024-12-30 08:46 | XMS_ITS | Encounter Summary ---
Author Organization [employer] ([place], [place], [place], [place]) Address [address] [place] [address] Care Team Providers Care Manhole Builder Name Role Phone Elijah Wooten MD Primary Care Provider Encounter Details Date Type Department Care Team (Late st Contact Info) Description 01/25/2021 Transcribed Document [facility] [place] Family [place] [facility] [address] ProviderChioma MD [address] [place] [address] Social History Tobacco Use Types Packs/Day Years Used Date Smoking Tobacco: Never Assessed Comments Unknown Sex and Gender Information Value Date Recorded Sex Assigned at Not on file Legal Sex Female 2:19 PM CDT Gender Identity Not on file Sexual Orientation Not on file documented as of this encounter Miscellaneous Notes * Cerner Conversion Note - Historical ProviderMD - 01/25/2021 5:00 AM MEDICAL OFFICE TECHNOLOGY INSTRUCTOR Chart Check - Review Order Profile Entered On: 01/25/2021 6:03 EST Performed On: 01/25/2021 5:00 EST by Cassie Villalba RN Chart Check Powerplans Initiated/Discontinued as Appropriate : Yes All Active Orders Reviewed : Yes Cassie Villalba RN - 01/25/2021 6:03 EST documented in this encounter Plan of Treatment Upcoming Encounters Date Type Department Care Team (Late st Contact Info) Description 02/23/2025 1:45 PM EST Office Visit [facility] Pulmonology - [address] [place] [address] Anderson Rodriguez MD [address] [place], [place] [id number] documented as of this encounter Visit Diagnoses Not on filedocumented in this encounter Care Teams Manhole Builder Relationship Specialty Start Date End Date Elijah Wooten MD [address] [place] [address] PCP - General Family Medicine 03/28/22 documented as of this encounter
--- OUTSIDE RECORDS SUMMARY | 2024-12-30 08:46 | XMS_ITS | Encounter Summary ---
Author Organization [employer] ([place], [place], [place], [place]) Address [address] [place] [address] Care Team Providers Care Rn Pediatric Icu Name Role Phone Elijah Wooten MD Primary Care Provider [phone] Encounter Details Date Type Department Care Team (Late st Contact Info) Description 01/25/2021 Transcribed Document [facility] [place] [address] ProviderChioma MD [address] [place] [phone] Social History Tobacco Use Types Packs/Day Years Used Date Smoking Tobacco: Never Assessed Comments Unknown Sex and Gender Information Value Date Recorded Sex Assigned at Not on file Legal Sex Female 2:19 PM CDT Gender Identity Not on file Sexual Orientation Not on file documented as of this encounter Miscellaneous Notes * Cerner Conversion Note - Chioma ProviderMD - 01/25/2021 11:05 AM ALL AROUND PRESSER Final Discharge Planning Entered On: 01/25/2021 11:05 [...] : Yes Discharge To Care Management : Home/Residential/Retirement or Self Care -01 Kortney Perez RN - 01/25/2021 11:05 EST Final Narrative Note Final Narrative Note : pt dc home with no needs son transporting via car. Kortney Perez RN - 01/25/2021 11:05 EST Electronically signed by Delil[facility] Conversion Principle Software Engineer Cerner at 06/26/2022 10:35 AM CDT documented in this encounter Plan of Treatment Upcoming Encounters Date Type Department Care Team (Late st Contact Info) Description 02/23/2025 1:45 PM EST Office Visit [facility] Pulmonology - [address] [place] [address] Anderson Rodriguez MD [address] [place] [address] documented as of this encounter Visit Diagnoses Not on filedocumented in this encounter Care Teams Rn Pediatric Icu Relationship Specialty Start Date End Date Elijah Wooten MD [address] [place] [address] [place] [address] PCP - General Family Medicine 03/28/22 documented as of this encounter
--- OUTSIDE RECORDS SUMMARY | 2024-12-30 08:46 | XMS_ITS | Encounter Summary ---
Author Organization [employer] ([place], [place], [place], [place]) Address [address] [place] [address] Care Team Providers Care Business Objects Name Role Phone Elijah Wooten MD Primary Care Provider [phone] Encounter Details Date Type Department Care Team (Late st Contact Info) Description 01/25/2021 Transcribed Document [facility] [place] Family Medicine [facility] [place] [address] ProviderChioma MD [address] [place] [address] Social History Tobacco Use Types Packs/Day Years Used Date Smoking Tobacco: Never Assessed Comments Unknown Sex and Gender Information Value Date Recorded Sex Assigned at Not on file Legal Sex Female 2:19 PM CDT Gender Identity Not on file Sexual Orientation Not on file documented as of this encounter Miscellaneous Notes * Cerner Conversion Note - Historical ProviderMD - 01/25/2021 11:59 AM FISH HATCHERY ASSISTANT ANA Entered On: 01/25/2021 11:59 EST [...] 01/25/2021 11:59 EST Electronically signed by Delilah [facility] Conversion Educational Administration Teacher Cerner at 06/26/2022 10:40 AM CDT documented in this encounter Plan of Treatment Upcoming Encounters Date Type Department Care Team (Late st Contact Info) Description 02/23/2025 1:45 PM EST Office Visit [facility] Pulmonology - [address] [place] [address] Anderson Rodriguez MD [address] [place] [address] documented as of this encounter Visit Diagnoses Not on filedocumented in this encounter Care Teams Business Objects Relationship Specialty Start Date End Date Elijah Wooten MD [address] [place] [address] PCP - General Family Medicine 03/28/22 documented as of this encounter
--- OUTSIDE RECORDS SUMMARY | 2024-12-30 08:47 | XMS_ITS | Encounter Summary ---
Author Organization [employer] ([place], [place], [place], [place]) Address [address] [place] [address] Care Team Providers Care Community Organization Worker Name Role Phone Emerita Gomez MD Primary Care Provider [phone] Encounter Details Date Type Department Care Team (Late st Contact Info) Description 01/25/2021 Transcribed Document [facility] [facility] [place] [facility] [place] [address] ProviderChioma MD [address] [place] [address] Social History Tobacco Use Types Packs/Day Years Used Date Smoking Tobacco: Never Assessed Comments Unknown Sex and Gender Information Value Date Recorded Sex Assigned at Not on file Legal Sex Female 2:19 PM CDT Gender Identity Not on file Sexual Orientation Not on file documented as of this encounter Miscellaneous Notes * Cerner Conversion Note - Chioma ProviderMD - 01/25/2021 2:47 PM FLOUR BLENDER [address] [address] YENIFER MYERS :1955 Visit Time:01/24/2021 Your Visit Summary Your Care Team Admitting Physician - LELO CARDENAS MD-OBG Attending Physician - LELO CARDENAS MD-OBG Primary Care Physician - EMERITA GOMEZ MD-[facility] Referring Physician - LELO CARDENAS MD-OBG [...] to make her own follow-up apointment. Where: [facility] [address] [place], [place] [id number]- [place] (1) Medications What How Much When Instructions Next Dose acetaminophen-hydrocodone ([place] 7.5 mg-325 mg oral tablet) 1 Tablet(s) [...] these instructions at home: Medicines ??? Take klrh-xtl-jqhpofk and prescription medicines only as told by [...] and water are not available, use hand denture processor. ? Change your dressing as told by [...] keep your urine pale yellow. ? Take bmyi-ail-ebgnmmu or prescription medicines. ? Eat foods that [...] provider. Document Revised: 02/08/2018 Document Reviewed: 05/24/2017 [employer] Patient Education ?? 2020 [employer]. acetaminophen and hydrocodone (a SEET a MIN oh fen and denise droe KOE done) Hycet, Lorcet, [place], Verdrocet, Vicodin, Xodol, Zamicet What is the [...] may report side effects to FDA at 8-297-EPQ-4981. What other drugs will affect acetaminophen and [...] affect acetaminophen and hydrocodone, including prescription and vcpj-oef-oauiish medicines, vitamins, and herbal products. Not all [...] to ensure that the information provided by [employer]. ('[employer]') is accurate, up-to-date, and complete, but no guarantee is made to that effect. Drug information contained herein may be time sensitive. [employer] information has been compiled for use by healthcare practitioners and consumers in the [place] and therefore [employer] does not warrant that uses outside of the [place] are appropriate, unless specifically indicated otherwise. [employer]'s drug information does not endorse drugs, diagnose patients or recommend therapy. [facility] drug information is an informational resource designed [...] effective or appropriate for any given patient. [facility] does not assume any responsibility for any aspect of healthcare administered with the aid of information [facility] provides. The information contained herein is not intended to cover all possible uses, directions, precautions, warnings, drug interactions, allergic reactions, or adverse effects. If you have questions about the drugs you are taking, check with your doctor, nurse or pharmacist. Copyright 6149-9820 [employer]. Version: 16.03. Revision Date: 04/13/2020. Emergency Awareness [...] Assistance with quitting is available by contacting 9-119-IVZJ-NOW. This is a free resource providing counseling, [...] range between ( 1.0 and 7.0 ) [place] #: 0.77 K/uL -- Normal range between ( 0.24 and 0.82 ) Eos #: 0.00 K/uL -- Normal range between ( 0.04 and 0.54 ) [place] %: 6.6 % -- Normal range between [...] was given the opportunity to ask questions. Patient/Flavorings Compounder Name: Patient/Flavorings Compounder Signature: Relationship to Patient: Clinician/Hospital Flavorings Compounder Signature: Date: Electronically signed by Florinda Mazariegos Conversion Metallurgical Lab Technician Radhaner at 06/26/2022 10:52 AM CDT documented in this encounter Plan of Treatment Upcoming Encounters Date Type Department Care Team (Late st Contact Info) Description 02/23/2025 1:45 PM EST Office Visit [facility] Pulmonology - [address] [place] [address] Anderson Rodriguez MD [address] [place] [address] documented as of this encounter Visit Diagnoses Not on filedocumented in this encounter Care Teams Community Organization Worker Relationship Specialty Start Date End Date Emerita Gomez MD [address] [place] [address] PCP - General Family Medicine 03/28/22 documented as of this encounter
--- OUTSIDE RECORDS SUMMARY | 2024-12-30 08:47 | XMS_ITS | Encounter Summary ---
Author Organization Healthcare Address [address] [place] [address] Care Team Providers Care Safety Aide Name Role Phone Elijah Wooten MD Primary Care Provider [phone] Zandra Saenz MD Unavailable [phone] Encounter Details Date Type Department Care Team (Late st Contact Info) Description 11/24/2024 Orders Only External Location [address] [place] [phone] [facility], Breast Imaging Radiologist, [address] [place] [address] Social History Tobacco Use Types Packs/Day Years [...] any time in the past 12 m [facility], were you homeless or living in a care home (including now)? No 11/25/2024 [facility] Utilities Answer Date Recorded In [...] [facility] [address] [place] [address] Padmini Main MD [address] [place] [phone] documented as of this encounter Procedures Procedure [...] documented as of this encounter Care Teams Safety Aide Relationship Specialty Start Date End Date Elijah Wooten MD [address] [place] [address] PCP - General 05/15/23 Zandra Saenz MD [address] [place] [phone] Surgeon Radiology 06/07/23 documented as of this encounter
--- OUTSIDE RECORDS SUMMARY | 2024-12-30 08:47 | XMS_ITS | Encounter Summary ---
Author Organization Healthcare Address [address] [place] [address] Care Team Providers Care Truck Loader Name Role Phone Elijah Wooten MD Primary Care Provider [phone] Zandra Saenz MD Unavailable [phone] Encounter Details Date Type Department Care Team (Late st Contact Info) Description 11/24/2024 Orders Only External Location [address] [place] [phone] Provider, External Social History Tobacco Use Types [...] any time in the past 12 m [facility], were you homeless or living in a penitentiary (including now)? No 11/25/2024 [facility] Utilities Answer Date Recorded In [...] Visit [place] [facility] [address] [place] [address] Padmini Main MD [address] [place] [phone] documented as of this encounter Procedures Procedure [...] documented as of this encounter Care Teams Truck Loader Relationship Specialty Start Date End Date Elijah Wooten MD [address] [place] [address] PCP - General 05/15/23 Zandra Saenz MD [address] [place] [phone] Surgeon Radiology 06/07/23 documented as of this encounter
--- OUTSIDE RECORDS SUMMARY | 2024-12-30 08:47 | XMS_ITS | Encounter Summary ---
Author Organization [facility] Address [address] [place] [address] Care Team Providers Care Book Sewer Name Role Phone Elijah Wooten MD Primary Care Provider [phone] Zandra Saenz MD Unavailable [phone] Encounter Details Date Type Department Care [...] any time in the past 12 m [facility], were you homeless or living in a intermediate (including now)? No 11/25/2024 [facility] Utilities Answer Date Recorded In the past [...] Visit [place] [facility] [address] [place] [address] Padmini Main MD [address] [place] [address] documented as of this encounter Visit Diagnoses Not on filedocumented in this encounter Additional Health Concerns Assessment Noted Time A fall risk assessment has been complete d for the patient 01/01/2024 3:45 PM EDT A Body Mass Index follow-up plan has been documented for the patient 11/27/2024 4:18 PM EDT documented as of this encounter Care Teams Book Sewer Relationship Specialty Start Date End Date Elijah Wooten MD [address] [place] [address] PCP - General 05/15/23 Zandra Saenz MD [address] [place] [phone] Surgeon Radiology 06/07/23 documented as of this encounter
--- OUTSIDE RECORDS SUMMARY | 2024-12-30 08:47 | XMS_ITS | Encounter Summary ---
Author Organization [employer] ([place], [place], [place], [place]) Address [address] [place] [address] Care Team Providers Care P 3 Armament/Ordnance Ima Technician Name Role Phone Elijah Wooten MD Primary Care Provider [phone] Reason for Visit * Reason Comments Medication Refill Encounter Details Date Type Department Care Team (Late Contact Info) Description 08/22/2022 Refill [facility] WEAPONS AND TACTICS INSTRUCTOR - [facility] [address] [facility] [address] [place] [address] Jerson Knight MD [address] [facility] [address] [place] [address] Encounter for general adult medical [...] Department Care Team (Late Contact Info) Description 02/23/2025 1:45 PM EST Office Visit [facility] Pulmonology - [facility] [address] [facility] [address] [place] [address] Anderson Rodriguez MD [address] [facility] [address] [place] [address] documented as of this encounter Visit Diagnoses Diagnosis Encounter for general adult medical examination without abnormal findings documented in this encounter Care Teams P 3 Armament/Ordnance Ima Technician Relationship Specialty Start Date End Date Elijah Wooten MD [address] [place] [address] [place] [address] PCP - General Family Medicine 03/28/22 documented as of this encounter
--- OUTSIDE RECORDS SUMMARY | 2024-12-30 08:47 | XMS_ITS | Encounter Summary ---
Author Organization [employer] ([place], [place], [place], [place]) Address [address] [place] [address] Care Team Providers Care Loan Assistant Name Role Phone Elijah Wooten MD Primary Care Provider [phone] Reason for Visit * Reason Comments Medication Refill Encounter Details Date Type Department Care Team (Late Contact Info) Description 08/21/[address] [facility] LIBRARIAN ASSISTANT - [facility] [address] [facility] [address] [place] [address] Jerson Knight MD [address] [facility] [address] [place] [address] Encounter for general adult medical [...] Visit [facility] Pulmonology - [facility] [address] [facility] [address] [place] [address] Anderson Rodriguez MD [address] [facility] [address] [place] [address] documented as of this encounter Visit Diagnoses Diagnosis Encounter for general adult medical examination without abnormal findings documented in this encounter Care Teams Loan Assistant Relationship Specialty Start Date End Date Elijah Wooten MD [address] [place] [address] [place] [address] PCP - General Family Medicine 03/28/22 documented as of this encounter
--- OUTSIDE RECORDS SUMMARY | 2024-12-30 08:47 | XMS_ITS | Clinical Summary ---
Author Organization [facility] Address [address] [place] [address] Care Team Providers Care Entry Analyst Name Role Phone Elijah Wooten MD Primary Care Provider [phone] Zandra Saenz MD Unavailable [phone] Allergies Active Allergy Reactions Criticality Noted [...] tablet by mouth daily. Active HYDROcodone-acet aminophen (Alta) 5-325 MG tablet Take 1 tablet by mouth every 8 hours. 05/14/2023 Active albuterol 108 (90 Base) MCG/ACT inhaler [...] 3 times a day before meals. Active Active Problems Problem Noted Date Diagnosed [...] EDT Hospital Encounter PAV A Inpatient [address] [place] [id number] Dillon Flowers MD Burke, Kristen L, MD Rodriguez, Rachel D, MD Abdominal pain, unspecified abdominal location (Primary Dx); Hyperbilirubinemia Discharge Disposition: Home or Self Care 11/24/2024 Orders Only External Location [address] [place] [id number] Provider, External 11/24/2024 Travel 11/24/2024 Orders Only External Location [address] [place] [id number] [facility], Breast Imaging RadiologistMD from Last 3 [...] any time in the past 12 m [facility], were you homeless or living in a senior care (including now)? No 11/25/2024 [facility] Utilities Answer Date Recorded In the past 12 months has th e [employer], gas, oil, or water company threatened to [...] Visit [place] [facility] [address] [place] [address] Padmini Main MD [address] [place] [address] Health Maintenance Due Date Last Done Comments [facility]-Bone Density Scan 1955 [facility]-Medicare Annual Wellness (AWV) 1955 [facility]-/Child/Adol SDOH Screenings 1955 [facility]-BMHVP-49 Vaccine (#1) 1962 [facility]-DTaP,Tdap,and Td Vaccine s [...] 2 Hour, Plasma (11/27/2024 8:51 AM EDT) Troponin T, High Sensitivity, 2 Hour 11 <14 ng/L 11/27/2024 9:33 AM EDT [facility] Blood Venous blood specimen / Unknown Venipuncture / Unknown 11/27/2024 8:51 AM EDT 11/27/2024 9:06 AM EDT us Vicki Winslow MD LAB BLOOD ORDERABLES Final Result [facility] [address] [place] [address] * ECG Adult (11/27/2024 6:59 AM EDT) EKG DIAGNOSIS CLASS Abnormal MUSE ECG Ventricular Rate 62 BPM MUSE ECG Atrial Rate 62 BPM MUSE ECG DC Interval 142 ms MUSE ECG QRSD Interval 140 ms MUSE ECG QT Interval 474 ms MUSE ECG QTC Interval 481 ms MUSE ECG P Range 7 degrees MUSE ECG R Range -38 degrees MUSE ECG T Wave Range 5 degrees MUSE ECG Diagnosis Normal sinus [...] 12 <14 ng/L 11/27/2024 7:34 AM EDT [facility] Blood Venous blood specimen / Unknown Venipuncture / Unknown 11/27/2024 6:42 AM EDT 11/27/2024 7:07 AM EDT us Vicki Winslow MD LAB BLOOD ORDERABLES Final Result [facility] [address] [place] [address] * CBC W/O Differential (11/27/2024 12:02 AM EDT) Only the most recent of3 resultswithin the time period is included. WBC Count 6.68 3.70 - 10.30 10*3/uL LAB HEMATOLOGY METHOD 11/27/2024 12:15 AM EDT [facility] RBC Count 4.52 3.90 - 5.20 10*6/uL LAB HEMATOLOGY METHOD 11/27/2024 12:15 AM EDT [facility] HGB 13.7 11.2 - 15.7 g/dL LAB HEMATOLOGY METHOD 11/27/2024 12:15 AM EDT [facility] HCT 40.7 34.0 - 45.0 % LAB HEMATOLOGY METHOD 11/27/2024 12:15 AM EDT [facility] Platelet Count 159 155 - 369 10*3/uL LAB HEMATOLOGY METHOD 11/27/2024 12:15 AM EDT [facility] MCV 90 79 - 98 fL LAB HEMATOLOGY METHOD 11/27/2024 12:15 AM EDT [facility] MCH 30.3 26.0 - 32.0 pg LAB HEMATOLOGY METHOD 11/27/2024 12:15 AM EDT [facility] MCHC 33.7 30.7 - 35.5 g/dL LAB HEMATOLOGY METHOD 11/27/2024 12:15 AM EDT [facility] RDW 13.5 11.5 - 14.5 % LAB HEMATOLOGY METHOD 11/27/2024 12:15 AM EDT [facility] MPV 10.8 8.8 - 12.5 fL LAB HEMATOLOGY METHOD 11/27/2024 12:15 AM EDT [facility] nRBC 0.0 <=0.0 per 100 WBCs LAB HEMATOLOGY METHOD 11/27/2024 12:15 AM EDT [facility] Blood Venous blood specimen / Unknown Venipuncture / Unknown 11/27/2024 12:02 AM EDT 11/27/2024 12:08 AM EDT us Vicki Winslow MD LAB BLOOD ORDERABLES Final Result Performing Organization Address City/[facility]/ZIP Co de Phone Number [facility] [address] [place] [address] * Phosphorus, Plasma (11/27/2024 12:02 AM EDT) Only the most recent of3 resultswithin the time period is included. Phosphorus, Plasma 2.7 2.5 - 4.5 mg/dL 11/27/2024 12:37 AM EDT [facility] Blood Venous blood specimen / Unknown Venipuncture / Unknown 11/27/2024 12:02 AM EDT 11/27/2024 12:08 AM EDT us Vicki Winslow MD LAB BLOOD ORDERABLES Final Result [facility] [address] [place] [address] * (ABNORMAL) Magnesium, Plasma (11/27/2024 12:02 AM EDT) Only the most recent of4 resultswithin the time period is included. Magnesium, Plasma 1.8(L) 1.9 - 2.4 mg/dL 11/27/2024 12:37 AM EDT [facility] Blood Venous blood specimen / Unknown Venipuncture / Unknown 11/27/2024 12:02 AM EDT 11/27/2024 12:08 AM EDT us Vicki Winslow MD LAB BLOOD ORDERABLES Final Result [facility] [address] [place] [address] * (ABNORMAL) Comprehensive Metabolic Panel, Plasma (11/27/2024 12:02 AM EDT) Only the most recent of3 resultswithin the time period is included. Glucose, Plasma 106(H) 74 - 99 mg/dL 11/27/2024 12:37 AM EDT [facility] BUN, Plasma 10 8 - 23 mg/dL 11/27/2024 12:37 AM EDT [facility] Creatinine, Plasma 0.66 0.60 - 1.10 mg/dL 11/27/2024 12:37 AM EDT [facility] BUN/Creatinine Ratio 15 11/27/2024 12:37 AM EDT [facility] Sodium, Plasma 142 136 - 145 mmol/L 11/27/2024 12:37 AM EDT [facility] Potassium, Plasma 3.5(L) 3.6 - 4.9 mmol/L 11/27/2024 12:37 AM EDT [facility] Chloride, Plasma 110(H) 97 - 107 mmol/L 11/27/2024 12:37 AM EDT [facility] CO2, Plasma 22 22 - 29 mmol/L 11/27/2024 12:37 AM EDT [facility] Anion Gap 10 6 - 16 mmol/L 11/27/2024 12:37 AM EDT [facility] Total Calcium, Plasma 8.4(L) 8.9 - 10.2 mg/dL 11/27/2024 12:37 AM EDT [facility] Total Protein 5.6(L) 6.3 - 7.9 g/dL 11/27/2024 12:37 AM EDT [facility] Albumin, Plasma 3.5 3.5 - 5.2 g/dL 11/27/2024 12:37 AM EDT [facility] AST, Plasma 16 10 - 35 U/L 11/27/2024 12:37 AM EDT [facility] Comment:Hemolyzed, result ma y be falsely increased. ALT, Plasma 12 10 - 35 U/L 11/27/2024 12:37 AM EDT [facility] Alkaline Phosphatase, Plasma 50 46 - 142 U/L 11/27/2024 12:37 AM EDT [facility] Total Bilirubin, Plasma 0.6 0.2 - 1.1 mg/dL 11/27/2024 12:37 AM EDT [facility] eGFRcr 96.3 mL/min/1.7 3m*2 11/27/2024 12:37 AM EDT [facility] Comment:Reported eGFRcr in m L/min/1.73m2 is based the CKD-EPI 2020 equation that does not use a race coefficient. Blood Venous blood specimen / Unknown Venipuncture / Unknown 11/27/2024 12:02 AM EDT 11/27/2024 12:08 AM EDT us Vicki Winslow MD LAB BLOOD ORDERABLES Final Result [facility] [address] [place] [address] * (ABNORMAL) Basic Metabolic Panel, Plasma (11/26/2024 8:42 AM EDT) Glucose, Plasma 72(L) 74 - 99 mg/dL 11/26/2024 9:11 AM EDT [facility] BUN, Plasma 10 8 - 23 mg/dL 11/26/2024 9:11 AM EDT [facility] Creatinine, Plasma 0.71 0.60 - 1.10 mg/dL 11/26/2024 9:11 AM EDT [facility] BUN/Creatinine Ratio 14 11/26/2024 9:11 AM EDT [facility] Sodium, Plasma 141 136 - 145 mmol/L 11/26/2024 9:11 AM EDT [facility] Potassium, Plasma 3.9 3.6 - 4.9 mmol/L 11/26/2024 9:11 AM EDT [facility] Chloride, Plasma 107 97 - 107 mmol/L 11/26/2024 9:11 AM EDT [facility] CO2, Plasma 22 22 - 29 mmol/L 11/26/2024 9:11 AM EDT [facility] Anion Gap 12 6 - 16 mmol/L 11/26/2024 9:11 AM EDT [facility] Total Calcium, Plasma 8.6(L) 8.9 - 10.2 mg/dL 11/26/2024 9:11 AM EDT [facility] eGFRcr 93.3 mL/min/1.7 3m*2 11/26/2024 9:11 AM EDT [facility] Comment:Reported eGFRcr in m L/min/1.73m2 is based the CKD-EPI 2020 equation that does not use a race coefficient. Blood Venous blood specimen / Unknown Venipuncture / Unknown 11/26/2024 8:42 AM EDT 11/26/2024 8:48 AM EDT us Alba Bradley APRN LAB BLOOD ORDERABLES Gloria l Result [facility] [address] [place] [address] * POCT glucose meter (11/26/2024 5:41 AM EDT) [facility] POCT Glucose 94 74 - 99 mg/dL 11/26/2024 5:42 AM EDT [facility] Comment:Accuracy of a glucos e [...] Comment 11/26/2024 5:42 AM EDT [facility] Tensile Tester ID Kaylee Merrill 11/27/19 5:42 AM EDT [facility] Device ID [id number] 11/26/2024 5:42 AM EDT [facility] Specimen Type POC Capillary 11/26/2024 5:42 AM EDT [facility] Blood Capillary blood specimen / Unknown 11/26/2024 5:41 AM EDT 11/26/2024 5:42 AM EDT us Catherine Rodriguez MD LAB POINT OF CARE TE ST DOCKED DEVICE UNSOLICITED RESULTS Final Result [facility] [address] [place] [address] * Comprehensive GI Panel by PCR (11/26/2024 4:47 AM EDT) Campylobacter PCR Result Not Detected Not Detected 11/26/2024 9:38 AM EDT [facility] Plesiomonas shigelloides PCR Result Not Detected Not Detected 11/26/2024 9:38 AM EDT [facility] Salmonella PCR Result Not Detected Not Detected 11/26/2024 9:38 AM EDT [facility] Vibrio species PCR Result Not Detected Not Detected 11/26/2024 9:38 AM EDT [facility] Vibrio cholerae PCR Result Not Detected Not Detected 11/26/2024 9:38 AM EDT [facility] Yersinia enterocolitica PCR Result Not Detected Not Detected 11/26/2024 9:38 AM EDT [facility] Enteroaggregative E. coli (EAEC) PCR Result Not Detected Not Detected 11/26/2024 9:38 AM EDT [facility] Enteropathogenic E. coli (EPEC) PCR Result Not Detected Not Detected 11/26/2024 9:38 AM EDT [facility] Enterotoxigenic E. coli (ETEC) lt/st PCR Result Not Detected Not Detected 11/26/2024 9:38 AM EDT [facility] Shiga-like Toxin-Producing E.coli (STEC) stx1/stx2 PCR Resu Not Detected Not Detected 11/26/2024 9:38 AM EDT [facility] E coli 0157 PCR Result Not Detected Not Detected 11/26/2024 9:38 AM EDT [facility] Shigella/Enteroinvas chuyita E. coli (EIEC) PCR Result Not Detected Not Detected 11/26/2024 9:38 AM EDT [facility] Cryptosporidium PCR Result Not Detected Not Detected 11/26/2024 9:38 AM EDT [facility] Cyclospora cayetanensis PCR Result Not Detected Not Detected 11/26/2024 9:38 AM EDT [facility] Entamoeba histolytica PCR Result Not Detected Not Detected 11/26/2024 9:38 AM EDT [facility] Giardia duodenalis (aka Giardia lamblia) PCR Result Not Detected Not Detected 11/26/2024 9:38 AM EDT [facility] Adenovirus F 40/41 PCR Result Not Detected Not Detected 11/26/2024 9:38 AM EDT [facility] Astrovirus PCR Result Not Detected Not Detected 11/26/2024 9:38 AM EDT [facility] Norovirus GI/GII PCR Result Not Detected Not Detected 11/26/2024 9:38 AM EDT [facility] Rotavirus A PCR Result Not Detected Not Detected 11/26/2024 9:38 AM EDT [facility] Sapovirus PCR Result Not Detected Not Detected 11/26/2024 9:38 AM EDT [facility] Stool Rectum structure / Unknown Non-blood Collection / Unknown 11/26/2024 4:47 AM EDT 11/26/2024 6:01 AM EDT Narrative [facility] - 11/26/2024 9:38 AM EDT This [...] OR DERABLES Final Result Performing Organization Address [facility]/ZIP Co de Phone Number [facility] [address] [place] [address] * (ABNORMAL) Protime-INR (11/25/2024 4:54 AM EDT) Only the most recent of2 resultswithin the time period is included. Prothrombin Time 16.7(H) 12.0 - 14.3 sec 11/25/2024 5:30 AM EDT [facility] INR 1.3(H) 0.9 - 1.1 11/25/2024 5:30 AM EDT [facility] Blood Venous blood specimen / Unknown Venipuncture / Unknown 11/25/2024 4:54 AM EDT 11/25/2024 4:59 AM EDT Narrative [facility] - 11/25/2024 5:30 AM EDT OPTIMAL INR RANGES FOR PATIENT ON ORAL ANTICOAGULANT THERAPY Prevention of venous thromboembolism INR 2.0 to 3.0 In patients with heart disease: Atrial fibrillation INR 2.0 to 3.0 Valvular heart disease INR 2.0 to 3.0 Tissue heart valves INR 2.0 to 3.0 Mechanical prosthetic valves INR 2.5 to 3.5 Prevention of recurrent IL INR 2.5 to 3.5 us Catherine Rodriguez MD LAB BLOOD ORDERABLES Final Re sult Performing Organization Address City/[facility]/ZIP Co de Phone Number [facility] [address] [place] [address] * Lactic acid, venous (11/24/2024 7:46 PM EDT) Lactate, Venous, Whole Blood 0.7 0.5 - 2.2 mmol/L LAB HEMATOLOGY METHOD 11/24/2024 7:56 PM EDT [facility] Blood Venous blood specimen / Unknown Venipuncture / Unknown 11/24/2024 7:46 PM EDT 11/24/2024 7:54 PM EDT Dillon Flowers MD LAB BLOOD ORDERABLES Final Res ult Performing Organization Address [facility]/ZIP Co de Phone Number [facility] [address] [place] [address] * (ABNORMAL) Anti Xa Level Unfractionated Heparin (11/24/2024 7:46 PM EDT) Anti Xa Level Unfractionated Heparin >1.10(HH) <1.00 IU/mL 11/24/2024 8:20 PM EDT [facility] Blood Venous blood specimen / Unknown Venipuncture / Unknown 11/24/2024 7:46 PM EDT 11/24/2024 7:53 PM EDT Narrative [facility] - 11/24/2024 8:20 PM EDT Therapeutic Range: UFH Full Dose and ACS/IL protocols*: 0.30 - 0.70 IU/mL UFH Low Dose protocol*: 0.25 - 0.50 IU/mL UFH prophylaxis: Not established Dillon Flowers MD LAB BLOOD ORDERABLES Final Res ult [facility] [address] [place] [address] * CBC w/diff (11/24/2024 7:46 PM EDT) WBC Count 8.02 3.70 - 10.30 10*3/uL LAB HEMATOLOGY METHOD 11/24/2024 8:04 PM EDT [facility] RBC Count 4.65 3.90 - 5.20 10*6/uL LAB HEMATOLOGY METHOD 11/24/2024 8:04 PM EDT [facility] HGB 14.4 11.2 - 15.7 g/dL LAB HEMATOLOGY METHOD 11/24/2024 8:04 PM EDT [facility] HCT 41.2 34.0 - 45.0 % LAB HEMATOLOGY METHOD 11/24/2024 8:04 PM EDT [facility] Platelet Count 166 155 - 369 10*3/uL LAB HEMATOLOGY METHOD 11/24/2024 8:04 PM EDT [facility] MCV 89 79 - 98 fL LAB HEMATOLOGY METHOD 11/24/2024 8:04 PM EDT [facility] MCH 31.0 26.0 - 32.0 pg LAB HEMATOLOGY METHOD 11/24/2024 8:04 PM EDT [facility] MCHC 35.0 30.7 - 35.5 g/dL LAB HEMATOLOGY METHOD 11/24/2024 8:04 PM EDT [facility] RDW 13.5 11.5 - 14.5 % LAB HEMATOLOGY METHOD 11/24/2024 8:04 PM EDT [facility] MPV 10.6 8.8 - 12.5 fL LAB HEMATOLOGY METHOD 11/24/2024 8:04 PM EDT [facility] nRBC 0.0 <=0.0 per 100 WBCs LAB HEMATOLOGY METHOD 11/24/2024 8:04 PM EDT [facility] Differential Type Automated LAB HEMATOLOGY METHOD 11/24/2024 8:04 PM EDT [facility] Neutrophils % 69 % LAB HEMATOLOGY METHOD 11/24/2024 8:04 PM EDT [facility] Lymphocytes % 22 % LAB HEMATOLOGY METHOD 11/24/2024 8:04 PM EDT [facility] Monocytes % 7 % LAB HEMATOLOGY METHOD 11/24/2024 8:04 PM EDT [facility] Eosinophils % 1 % LAB HEMATOLOGY METHOD 11/24/2024 8:04 PM EDT [facility] Basophils % 1 % LAB HEMATOLOGY METHOD 11/24/2024 8:04 PM EDT [facility] Immature Granulocytes % 0 % LAB HEMATOLOGY METHOD 11/24/2024 8:04 PM EDT [facility] Neutrophils Absolute 5.55 1.60 - 6.10 10*3/uL LAB HEMATOLOGY METHOD 11/24/2024 8:04 PM EDT [facility] Lymphocytes Absolute 1.78 1.20 - 3.90 10*3/uL LAB HEMATOLOGY METHOD 11/24/2024 8:04 PM EDT [facility] Monocytes Absolute 0.52 0.30 - 0.90 10*3/uL LAB HEMATOLOGY METHOD 11/24/2024 8:04 PM EDT [facility] Eosinophils Absolute 0.08 0.00 - 0.50 10*3/uL LAB HEMATOLOGY METHOD 11/24/2024 8:04 PM EDT [facility] Basophils Absolute 0.08 0.00 - 0.10 10*3/uL LAB HEMATOLOGY METHOD 11/24/2024 8:04 PM EDT [facility] Immature Granulocytes Absolute 0.01 0.00 - 0.06 10*3/uL LAB HEMATOLOGY METHOD 11/24/2024 8:04 PM EDT [facility] Blood Venous blood specimen / Unknown Venipuncture / Unknown 11/24/2024 7:46 PM EDT 11/24/2024 7:53 PM EDT Narrative [facility] - 11/24/2024 8:04 PM EDT Therapeutic decision making should be based on absolute values, rather than percentages. us Dillon Flowers MD LAB BLOOD ORDERABLES Final Res ult [facility] [address] [place] [address] * C-Reactive protein (11/24/2024 7:46 PM EDT) CRP, Plasma <3.0 <=8.0 mg/L 11/24/2024 8:22 PM EDT [facility] Blood Venous blood specimen / Unknown Venipuncture / Unknown 11/24/2024 7:46 PM EDT 11/24/2024 7:53 PM EDT Narrative [facility] - 11/24/2024 8:22 PM EDT This CRP test is appropriate for assessment of infection, systemic inflammation and/or tissue injury. To assess cardiovascular disease risk order high sensitivity CRP (CRPH). us Dillon Flowers MD LAB BLOOD ORDERABLES Final Res ult Performing Organization Address City/[facility]/ZIP Co de Phone Number [facility] [address] [place] [address] * CT OUTSIDE IMAGES (11/24/2024 2:26 PM [...] Antibody - ED (05/15/2023 8:03 AM EST) Hepatitis C Antibody Negative Negative 05/15/2023 8:[address] [facility] Blood Venous blood specimen / Unknown Venipuncture / Unknown 05/15/2023 8:03 AM EST 05/15/2023 8:15 AM EST us Odilon Ott MD LAB BLOOD ORDERABLES Final Result Performing Organization Address City/[facility] Co de Phone Number [facility] [address] [place] [address] from Last 3 Months or Most Recently Relevant to Health Maintenance Insurance [facility] MEDICARE Advance Directives * Full Code (Latest Code Status on File) Date Activated Date Inactivated Comments 11/25/2024 12:14 AM 11/27/2024 7:27 PM Question Answer Comments I have reviewed the capacity from the link above and, if needed, have updated to appropriate status: Yes Care Teams Entry Analyst Relationship Specialty Start Date End Date Elijah Wooten MD [address] [place] [id number] PCP - General 05/15/23 Zandra Saenz MD [address] [place] [id number] Surgeon Radiology 06/07/23
--- OUTSIDE RECORDS SUMMARY | 2024-12-30 08:47 | XMS_ITS | Encounter Summary ---
Author Organization [employer] ([place], [place], [place], [place]) Address [address] [place] [address] Care Team Providers Care Window Sash Installer Name Role Phone Elijah Wooten MD Primary Care Provider [phone] Encounter Details Date Type Department Care Team (Late st Contact Info) Description 01/25/2021 Transcribed Document [facility] Family Medicine [facility] [place] [address] ProviderChioma MD [address] [place] [id number] Social History Tobacco Use Types Packs/Day Years Used Date Smoking Tobacco: Never Assessed Comments Unknown Sex and Gender Information Value Date Recorded Sex Assigned at Not on file Legal Sex Female 2:19 PM CDT Gender Identity Not on file Sexual Orientation Not on file documented as of this encounter Miscellaneous Notes * Cerner Conversion Note - Historical ProviderMD - 01/25/2021 2:46 PM BAG ADJUSTER Patient: YENIFER MYERS Age: 65 years Sex: [...] 50 mg = 1 Cap, Oral, Daily [place] 7.5 mg-325 mg oral tablet 1 Tab, PRN, Oral, TID Cee, Buzz Balderas, PharmD Electronically signed by [facility], [facility] Conversion Top Trimmer Cerner at 06/26/2022 11:03 AM CDT documented in this encounter Plan of Treatment Upcoming Encounters Date Type Department Care Team (Late st Contact Info) Description 02/23/2025 1:45 PM EST Office Visit [facility] Pulmonology - [address] [place] [id number] Anderson Rodriguez MD [address] [place] [address] documented as of this encounter Visit Diagnoses Not on filedocumented in this encounter Care Teams Window Sash Installer Relationship Specialty Start Date End Date Elijah Wooten MD [address] [place] [address] [place] [address] PCP - General Family Medicine 03/28/22 documented as of this encounter
--- OUTSIDE RECORDS SUMMARY | 2024-12-30 08:47 | XMS_ITS | Encounter Summary ---
Author Organization [employer] ([place], [place], [place], [place]) Address [address] [place] [address] Care Team Providers Care Application Security Consultant Name Role Phone Elijah Wooten MD Primary Care Provider [phone] Encounter Details Date Type Department Care Team (Late st Contact Info) Description 01/25/2021 Transcribed Document [facility] [place] [facility] [place] [address] ProviderChioma MD [address] [place] [phone] Social History Tobacco Use Types Packs/Day Years Used Date Smoking Tobacco: Never Assessed Comments Unknown Sex and Gender Information Value Date Recorded Sex Assigned at Not on file Legal Sex Female 2:19 PM CDT Gender Identity Not on file Sexual Orientation Not on file documented as of this encounter Miscellaneous Notes * Cerner Conversion Note - Historical ProviderMD - 01/25/2021 12:52 PM BEHAVIORAL HEALTH CARE COORDINATOR Patient: YENIFER MYERS Age: 65 years Sex: [...] soft. lelo [email or web address] Electronically signed by Delilah [facility] Conversion Dethistler Operator Cerner at 06/26/2022 10:59 AM CDT documented in this encounter Plan of Treatment Upcoming Encounters Date Type Department Care Team (Late st Contact Info) Description 02/23/2025 1:45 PM EST Office Visit [facility] Pulmonology - [address] [place] [address] Anderson Rodriguez MD [address] [place] [address] documented as of this encounter Visit Diagnoses Not on filedocumented in this encounter Care Teams Application Security Consultant Relationship Specialty Start Date End Date Elijah Wooten MD [address] [place] [address] [place] [address] PCP - General Family Medicine 03/28/22 documented as of this encounter
--- OUTSIDE RECORDS SUMMARY | 2024-12-30 08:47 | XMS_ITS | Clinical Summary ---
Author Organization [employer] ([place], [place], [place], [place]) Address [address] [place] [address] Care Team Providers Care Groundskeeper Supervisor Name Role Phone Elijah Wooten MD Primary Care Provider [phone] Allergies Active Allergy Reactions Criticality Noted Date [...] Date Yanick rded Speak language other than Kazakh at home Not on file 03/30/2023 Want [...] Description 02/23/2025 1:45 PM EST Office Visit [facility] Pulmonology - [facility] [address] [facility] [address] [place] [address] Anderson Rodriguez MD [address] [place] [address] Health Maintenance Due Date Last Done Comments [...] Counseling and Screening (12+) 11/12/2024 11/13/2023 Lung Cancer Screening 04/03/2025 04/03/2024 , 04/02/2023, 05/12/2022 Procedures Procedure [...] Maintenance Insurance [employer] MEDICARE PPO Care Teams Groundskeeper Supervisor Relationship Specialty Start Date End Date Elijah Wooten MD [address] [place], [place] [address] [place] [address] PCP - General Family Medicine 03/28/22
--- OUTSIDE RECORDS SUMMARY | 2024-12-30 08:47 | XMS_ITS | Referral Summary ---
Author Organization [employer] ([place], [place], [place], [place]) Address [address] [place] [address] Care Team Providers Care Event Designer Name Role Phone Elijah Wooten MD Primary Care Provider [phone] Allergies Active Allergy Reactions Criticality Noted Date [...] Date Yanick rded Speak language other than Barbadian at home Not on file 03/30/2023 Want [...] Description 02/23/2025 1:45 PM EST Office Visit [facility] Pulmonology - [facility] [address] [facility] [place] [address] Anderson Rodriguez MD [address] [place] [address] Procedures Procedure Name Priority Date/Time [...] fissure on image 75. Anderson Rodriguez MD [facility] ORDERABLES Final Result from Last 3 Months or Most Recently Relevant to Health Maintenance Insurance [employer] MED[employer]ARE PPO Care Teams Event Designer Relationship Specialty Start Date End Date Elijah Wooten MD [address] [place] [address] [place] [address] PCP - General Family Medicine 03/28/22
--- OUTSIDE RECORDS SUMMARY | 2024-12-30 08:47 | XMS_ITS | Encounter Summary ---
Author Organization [employer] ([place], [place], [place], [place]) Address [address] [place] [address] Care Team Providers Care Manufacturing Assembler Name Role Phone Elijah Wooten MD Primary Care Provider [phone] Encounter Details Date Type Department Care Team (Late st Contact Info) Description 01/25/2021 Transcribed Document [facility] [place] [facility] [place] [address] ProviderChioma MD [address] [place] [address] Social History Tobacco Use Types Packs/Day [...] Historical MD Daquan - 01/25/2021 1:16 PM ASSISTANT 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 /[id number] eJrson Knight MD LSB/AQ / LSB / MODL /[id number] Electronically signed by Interface, [facility] Conversion Perpetual Inventory Clerk Cerner at 06/26/2022 10:53 AM CDT documented in this encounter Plan of Treatment Upcoming Encounters Date Type Department Care Team (Late st Contact Info) Description 02/23/2025 1:45 PM EST Office Visit [facility] Pulmonology - [facility] [address] [facility] [address] [place] [address] Anderson Rodriguez MD [address] [facility] [address] [place] [address] documented as of this encounter Visit Diagnoses Not on filedocumented in this encounter Care Teams Manufacturing Assembler Relationship Specialty Start Date End Date Elijah Wooten MD [address] [place] [address] [place] [address] PCP - General Family Medicine 03/28/22 documented as of this encounter
--- OUTSIDE RECORDS SUMMARY | 2024-12-30 08:47 | XMS_ITS | Encounter Summary ---
Author Organization [employer] ([place], [place], [place], [place]) Address [address] [place] [address] Care Team Providers Care Mechanical Adjuster Name Role Phone Elijah Wooten MD Primary Care Provider [phone] Reason for Visit * Reason Comments Medication Refill Encounter Details Date Type Department Care Team (Late Contact Info) Description 10/23/2022 Refill [facility] SOLAR SALES ADVISOR - [facility] [address] [facility] [address] [place] [address] Jerson Knight MD [address] [facility] [address] [place] [address] Encounter for general adult medical [...] Office Visit [facility] Pulmonology - [facility] [address] [facility] [address] [place] [address] Anderson Rodriguez MD [address] [facility] [address] [place] [address] documented as of this encounter Visit Diagnoses Diagnosis Encounter for general adult medical examination without abnormal findings documented in this encounter Care Teams Mechanical Adjuster Relationship Specialty Start Date End Date Elijah Wooten MD [address] [place] [address] [place] [address] PCP - General Family Medicine 03/28/22 documented as of this encounter
--- OUTSIDE RECORDS SUMMARY | 2024-12-30 08:48 | XMS_ITS | Encounter Summary ---
Author Organization [facility] Address [address] [place] [address] Care Team Providers Care Cardiac Rehabilitation Program Director Name Role Phone Elijah Wooten MD Primary Care Provider [phone] Zandra Saenz MD Unavailable [phone] Encounter Details Date Type Department Care [...] any time in the past 12 m [facility], were you homeless or living in a skilled nursing (including now)? No 11/25/2024 [facility] Utilities Answer Date Recorded In [...] [address] [place] [address] Padmini Main MD [address] [place] [address] documented as of this encounter Visit Diagnoses Not on filedocumented in this encounter Additional Health Concerns Assessment Noted Time A fall risk assessment has been complete d for the patient 01/01/2024 3:45 PM EDT A Body Mass Index follow-up plan has been documented for the patient 11/27/2024 4:18 PM EDT documented as of this encounter Care Teams Cardiac Rehabilitation Program Director Relationship Specialty Start Date End Date Elijah Wooten MD [address] [place] [address] PCP - General 05/15/23 Zandra Saenz MD [address] [place] [address] Surgeon Radiology 06/07/23 documented as of this encounter
== END 2024-12-30 23:59 | disposition home or self-care (01) ==
LOC: RT 08:40
PROVIDERS: PCP Family Medicine; Visit Provider Internal Medicine
DX: I37.1 Nonrheumatic pulmonary valve insufficiency (principal); I51.7 Cardiomegaly; I74.9 Embolism and thrombosis of unspecified artery; R94.31 Abnormal electrocardiogram [ECG] [EKG]; I48.0 Paroxysmal atrial fibrillation; R00.1 Bradycardia, unspecified
CPT/HCPCS: 93306